=== PATIENT | female | born 1965 | race Caucasian/White ===

== ENCOUNTER 2017-08-24 15:30 | Emergency (ER) | payer OTHER, SELFPAY ==
[2017-08-24 15:31] VITALS: BP 122/80; PULSE 80; RESP 14; TEMP 37; O2SAT 98; BMI 25.0
--- NOTE | 2017-08-24 17:14 | HMH.EDUTC ---
[facility] [place] Impression: Skin problem Disposition: Home, Self-Care Condition on Discharge: Good Additional Instructions: Call Dr Cheek or Dr Beach on Saturday for appointment and evaluation for removal of area REturn if needed If you see any redness, streaks, warmth or swelling to the area go straight to the ER Referrals: Axel Conde [Primary Care Provider] - Gary Rangel MD [Staff Physician] - Arnel Jc MD [Staff Physician] - Time of Disposition: 17:26 Medical Decision Making - Medical Records Medical records reviewed: Yes: I reviewed the patient's medical records. Vital Signs: 08/24/17 15:31 Temperature 98.6 F Temperature Source Oral Pulse Rate [Left Brachial] 80 Respiratory Rate 14 Blood Pressure [Right Arm] 122/80 Blood Pressure Mean [Right Arm] 94 Blood Pressure Source [Right Arm] Automatic Cuff Blood Pressure Position [Right Arm] Sitting 02 Sat by Pulse Oximetry 98 Oxygen Delivery Method Room Air - Marcos Inquiry Pt receiving controlled substance: No Marcos was queried for this patient: No [facility] [place] - General Stated complaint: Painful Knot on Right Pectoral Mode of Arrival: Ambulatory Source of Information: Patient Limitations: No Limitations Description of Symptoms (Recalled from Triage Doc. by RN): PATIENT HAS KNOT N HER RIGHT ARM THAT HAS BEEN THERE FOR YEARS, SEEN A MD FOR IT AND THEY ADVISED IT WAS A CYST AND NOW FOR THE PAST WEEKS IT HAS BEEN SOMEWHAT PAINFUL HEENT Symptoms (Recalled from RN notes): No Resp Symptoms (Recalled from RN notes): No Skin Symptoms (Recalled from RN notes): No MS Symptoms (Recalled from RN notes): No Functional Status (Recalled from RN notes): NA - History of Present Illness Provider Complaint: Patient states that she has had a knot on her right side between her underarm and breast that has been there for about 4 years State that recently she noticed that it looked like it may be getting a little bigger and felt more sore State that she wasnt sure if we could cut it out or if we could send her somewhere that could - Related Data Allergies Allergy/AdvReac Type Severity Reaction Status Date / Time No Known Allergies Allergy Verified 08/24/17 16:47 - Worker's Comp Is this a Worker's Comp case?: No [facility] History I have reviewed the patient's past medical history: Yes Medical History: Reports:: Diabetes Mellitus Type 2 Denies:: Cancer, Diabetes Mellitus Type 1, MRSA Amputation: No Fractures: No - *Social History Alcohol Intake: never - Psychiatric History Expresses thoughts of harming self/others: None Suicide Plan Description: No Plan ROS Obtained: Yes All systems reviewed & no additional complaints Physical Exam - General General appearance: alert, in no apparent distress - Neck Neck exam: Present: normal inspection, full ROM, trachea midline. Absent: meningismus, lymphadenopathy - Chest Chest inspection: Present: other (Raised round area on right side of chest between right breast and underarm approximately quarter sized tender to touch, no redness no streaks, mobile) - Respiratory Respiratory exam: Present: normal lung sounds bilaterally - Cardiovascular Cardiovascular exam: Present: regular rate, normal rhythm. Absent: JVD - Abdominal Exam Abdominal exam: Present: soft, normal bowel sounds. Absent: distention, tenderness, guarding - Neurological Exam Neurological exam: Present: alert, oriented X3
--- NOTE | 2017-08-24 17:18 | ED_ITS ---
[facility] [place]: Skin problem Disposition: Home, Self-Care Condition on Discharge: Good Additional Instructions: Call Dr Cheek or Dr Beach on Saturday for appointment and evaluation for removal of area REturn if needed If you see any redness, streaks, warmth or swelling to the area go straight to the ER Referrals: Axel Conde [Primary Care Provider] - Gary Rangel MD [Staff Physician] - Arnel Jc MD [Staff Physician] - Time of Disposition: 17:26 Medical Decision Making - Medical Records Medical records reviewed: Yes: I reviewed the patient's medical records. Vital Signs: 08/24/17 15:31 Temperature 98.6 F Temperature Source Oral Pulse Rate [Left Brachial] 80 Respiratory Rate 14 Blood Pressure [Right Arm] 122/80 Blood Pressure Mean [Right Arm] 94 Blood Pressure Source [Right Arm] Automatic Cuff Blood Pressure Position [Right Arm] Sitting 02 Sat by Pulse Oximetry 98 Oxygen Delivery Method Room Air - Marcos Inquiry Pt receiving controlled substance: No Marcos was queried for this patient: No [facility] [place] - General Stated complaint: Painful Knot on Right Pectoral Mode of Arrival: Ambulatory Source of Information: Patient Limitations: No Limitations Description of Symptoms (Recalled from Triage Doc. by RN): PATIENT HAS KNOT N HER RIGHT ARM THAT HAS BEEN THERE FOR YEARS, SEEN A MD FOR IT AND THEY ADVISED IT WAS A CYST AND NOW FOR THE PAST WEEKS IT HAS BEEN SOMEWHAT PAINFUL HEENT Symptoms (Recalled from RN notes): No Resp Symptoms (Recalled from RN notes): No Skin Symptoms (Recalled from RN notes): No MS Symptoms (Recalled from RN notes): No Functional Status (Recalled from RN notes): NA - History of Present Illness Provider Complaint: Patient states that she has had a knot on her right side between her underarm and breast that has been there for about 4 years State that recently she noticed that it looked like it may be getting a little bigger and felt more sore State that she wasnt sure if we could cut it out or if we could send her somewhere that could - Related Data Allergies Allergy/AdvReac Type Severity Reaction Status Date / Time No Known Allergies Allergy Verified 08/24/17 16:47 - Worker's Comp Is this a Worker's Comp case?: No [facility] History I have reviewed the patient's past medical history: Yes Medical History: Reports:: Diabetes Mellitus Type 2 Denies:: Cancer, Diabetes Mellitus Type 1, MRSA Amputation: No Fractures: No - *Social History Alcohol Intake: never - Psychiatric History Expresses thoughts of harming self/others: None Suicide Plan Description: No Plan ROS Obtained: Yes All systems reviewed & no additional complaints Physical Exam - General General appearance: alert, in no apparent distress - Neck Neck exam: Present: normal inspection, full ROM, trachea midline. Absent: meningismus, lymphadenopathy - Chest Chest inspection: Present: other (Raised round area on right side of chest between right breast and underarm approximately quarter sized tender to touch, no redness no streaks, mobile) - Respiratory Respiratory exam: Present: normal lung sounds bilaterally - Cardiovascular Cardiovascular exam: Present: regular rate, normal rhythm. Absent: JVD - Abdominal Exam Abdominal exam: Present: soft, normal bowel sounds. Absent: distention, tenderness, guarding
[2017-08-24 17:39] VITALS: BP 112/70; PULSE 89; RESP 16; TEMP 36.9; O2SAT 98
== END 2017-08-24 17:39 | disposition home or self-care (01) ==
PROVIDERS: Emergency Provider Nurse Practitioner; Family Provider Family Medicine; PCP Family Medicine
DX: R22.9 Localized swelling, mass and lump, unspecified (principal); E11.9 Type 2 diabetes mellitus without complications
CPT/HCPCS: 99201

== ENCOUNTER → 2017-09-03 10:09 | Outpatient (CLI) | payer OTHER, SELFPAY ==
[2017-09-03 10:21] LABS: Basophils # 0.1 K/mm3 (0-0.2); Basophils % 0.8 % (0.1-2.0); Eosinophils # 0.2 K/mm3 (0.0-0.4); Eosinophils % 2.7 % (0.1-12.0); Hematocrit 37.6 % (37.0-47.0); Hemoglobin 12.2 g/dL (12.2-16.2); Lymphocytes # 1.7 K/mm3 (0.7-4.5); Lymphocytes % 23.9 K/mm3 (10-50); Mean Corpuscular HGB Conc 32.5 g/dL (31.8-35.4); Mean Corpuscular Hemoglobin 26.8 pg (27.0-31.2); Mean Corpuscular Volume 82.5 fl (81-99); Mean Platelet Volume 7.2 fl (7.4-10.4); Monocytes # 0.4 K/mm3 (0.1-1.0); Monocytes % 5.5 % (1.7-9.3); Neutrophils # 4.8 K/mm3 (1.8-7.8); Neutrophils % 67.1 % (37.0-80.0); Platelet Count 559 K/mm3 (142-424); Red Blood Count 4.56 M/mm3 (4.20-5.40); Red Cell Distribution Width 13.7 % (11.5-17.5); White Blood Count 7.2 K/mm3 (4.8-10.8)
[2017-09-03 11:18] LABS: Anion Gap 11.6 mEq/L (5-15); Blood Urea Nitrogen 18 mg/dL (7-18); Carbon Dioxide 28 mmol/L (21.0-32.0); Chloride 102 mmol/L (98-107); Creatinine,Serum 0.63 mg/dL (0.55-1.02); Estimated Glomerular Filt Rate 100 ml/min (>60); GFR (African American) 121 ML/MIN (>60); Glucose 339 mg/dL (74-106); Potassium 4.6 mmoL/L (3.5-5.1); Sodium 137 mmol/L (136-145)
== END ==
PROVIDERS: PCP Family Medicine; Visit Provider Surgery
DX: L72.9 Follicular cyst of the skin and subcutaneous tissue, unspecified (principal)
CPT/HCPCS: 36415; 80048; 85025; 93005

== ENCOUNTER 2017-09-13 08:05 | Day surgery (SDC) | payer OTHER, SELFPAY ==
[2017-09-03 10:35] VITALS: BMI 26.2
[2017-09-13] VITALS (9 sets, daily range): BP systolic 113–138; BP diastolic 66–75; PULSE 76–95; RESP 12–18; TEMP 36.2–36.7; O2SAT 96–98
--- NOTE | 2017-09-13 08:40 | P.PN_ITS ---
[facility] Anesthesia Checklist - Patient Identification Patient Identification: Arm Band, Verbal (Name & ) - Structural Data Admitted From: Home Planned Operative Procedure/s: excision chest lession Consent for Planned Operative Procedure(s) Verified: Yes Verified Documents: Surgical Consent - NPO Status Verified Time NPO: 00:00 - Chart Verification Results Verified: CBC, BMP - Additional verifications Patient : No Anesthesia Reactions: No Hx Blood Transfusions: No Blood Transfusion Reaction: No Cephalosporin Allergy: No Previous Colonoscopy: No - Cardiovascular Assessment Heart Sounds: S1 & S2 Pulse Strength: Baseline Pulse Rhythm: Regular Peripheral Edema: No - Airway Assessment C-Spine Mobility Assessed: Yes TMJ Mobility Assessed: Yes Dentition: Good Dentition - Neurological Assessment Level of Consciousness: Awake, Alert, Appropriate Hx Seizures: No Numbness or tingling in extremities: No - Anesthesia Plan Anesthesia Risk discussed: Yes ASA Class: II Anesthesia Type: MAC [facility] Anesthesia HX I have reviewed the patient's past medical history: Yes Medical History: Reports:: Diabetes Mellitus Type 2 Denies:: Cancer, MRSA Other Surgeries: Yes: , Tubal Ligation Amputation: No Fractures: No *Family Hx:: No significant family history, Cancer, Coronary Artery Disease, Diabetes, Hyperlipidemia, Hypertension, Kidney Disease, Stroke
[2017-09-13 08:51] LABS: Urine Pregnancy, HCG Qual. Negative (Negative)
[2017-09-13 09:17] LABS: POC Glucose,Bedside 231 mg/dL
--- NOTE | 2017-09-13 10:41 | HMH.OPNOTE ---
Date of procedure: 09/13/17 Pre-op Diagnosis:: Right chest/breast cyst (2 cm) Post-op diagnosis:: same Procedure performed:: Excision 2 cm right chest/breast cyst Surgeon:: Gary Rangel MD MACHINIST OUTSIDE:: Bacilio Brewer Anesthesia: LMA Estimated blood loss (mL): 5 Operative findings:: Lesion excised in toto and passed off for pathologic evaluation Operative note:: After informed consent was obtained, the patient was taken to the operating room and placed in the supine position. General anesthesia with laryngeal mask airway was achieved. Her right chest/breast/axilla was prepped and draped in a sterile fashion. After infiltration with local anesthetic an elliptical incision was made around the lesion. The lesion was excised in toto and passed off for pathologic evaluation. Electrocautery utilized to achieve hemostasis. Skin was closed with 6-0 nylon. Dressings were applied and the patient was transferred to recovery in stable condition. Pathology: other (Right chest/breast cyst) Condition: stable Disposition: PACU Complications:: No immediate
--- NOTE | 2017-09-13 10:52 | P.PN_ITS ---
[facility] Anesthesia Record Part II Discharge Time: 11:20 Destination: [facility] PAC[facility] nurse assessment reviewed?: Yes Patient Condition:: Good Anesthesia Complications:: None
--- NOTE | 2017-09-13 10:52 | P.PN_ITS ---
[facility] Anesthesia Record Part I Intake, IV Amount: 1,000 Estimated blood loss (mL): 10 Urine output (mL): 0 Blood Pressure: 138/75 SaO2: 96 Pulse Rate: 95 Respiratory Rate: 12 Temperature: 97.4 F Patient is:: Awake, Stable Stable to PACU at:: 11:50
--- NOTE | 2017-09-13 10:52 | HMH.ANESII ---
[facility] Anesthesia Record Part II Discharge Time: 11:20 Destination: [facility] PACU nurse assessment reviewed?: Yes Patient Condition:: Good Anesthesia Complications:: None
[2017-09-13 10:59] LABS: POC Glucose,Bedside 197 mg/dL
--- NOTE | 2017-09-13 11:04 | PC.NURSE ---
1050-Report received from AYANA Loyola & LANDON Rogers.
--- NOTE | 2017-09-13 11:07 | PC.NURSE ---
FSBS checked with results of 197 Pt eating ice chips w/out difficulty
--- NOTE | 2017-09-13 13:18 | PC.NURSE ---
1118-Detailed report called to AYANA Cervantes. Pt continues to eat ice chips w/out difficulty. 1120-Pt transported to post op via stretcher w/rails up and left in care of AYANA Poe. Detailed bedside report given to AYANA Poe. Pt's bed locked in lowest position. VSS. Pt stable.
== END 2017-09-13 12:10 | disposition home or self-care (01) ==
LOC: OR 08:06
PROVIDERS: Family Provider Family Medicine; PCP Family Medicine; Visit Provider Surgery
PROC: (CPT 11402; principal; 2017-09-13 10:15)
DX: D48.5 Neoplasm of uncertain behavior of skin (principal)
CPT/HCPCS: 11402; 81025; 82962; 96374; J2405

== ENCOUNTER → 2017-10-16 12:48 | Outpatient (CLI) | payer OTHER, SELFPAY ==
--- NOTE | 2017-10-16 13:01 | MM_ITS ---
MM Dig mamm BI DX w/CAD, US breast RT complete COMPARISON: None available. Patient gives history of having older mammograms performed at an outside is patient which are not available at the time of the reading. INDICATION: Positive right breast biopsy showing malignancy ORDERING PHYSICIAN: Gary Rangel MD PATIENT AGE: 52 years TECHNIQUE: Standard images performed with bilateral spot compression views and right breast ultrasound FINDINGS: There is dense fibroglandular tissue decreased sensitivity of mammography. Asymmetric density is present in the subcutaneous region and upper outer aspect of the right breast consistent with postsurgical changes. No discrete mass is evident. No malignant appearing mass or malignant appearing microcalcification. Asymmetric density is present in the central aspect of the right breast as seen on the MLO view. There is some ductal ectasia in this region on the mammogram. This is probably benign. Asymmetric density is present in the retroareolar region on the left and in the central aspect of the left breast. These areas do appear to compress out as fibroglandular tissue. Right breast ultrasound: Ductal ectasia is present in the retroareolar region and may correspond to the nodular density as seen on the mammogram. IMPRESSION: No convincing evidence of malignancy. Probably benign findings right breast. BI-RADS Category: 3 Benign Finding Short Term Follow-up RECOMMENDED FOLLOW-UP: 6M - 6 MONTH FOLLOW-UP Recommend 6 month mammographic follow-up on the right to confirm stable area of nodularity in the retroareolar region (A letter has been sent to the patient regarding results of the study.)
== END ==
PROVIDERS: Family Provider Family Medicine; PCP Family Medicine; Visit Provider Surgery
DX: C44.99 Other specified malignant neoplasm of skin, unspecified (principal)
CPT/HCPCS: 76641; 77066

== ENCOUNTER → 2017-10-22 10:58 | Outpatient (CLI) | payer OTHER, SELFPAY ==
[2017-10-22 13:03] LABS: Blood Urea Nitrogen 23 mg/dL (7-18); Creatinine,Serum 0.67 mg/dL (0.55-1.02); Estimated Glomerular Filt Rate 93 ml/min (>60); GFR (African American) 113 ML/MIN (>60)
== END ==
PROVIDERS: Visit Provider Surgery
DX: C44.99 Other specified malignant neoplasm of skin, unspecified (principal)
CPT/HCPCS: 36415; 82565; 84520

== ENCOUNTER → 2017-10-25 12:21 | Outpatient (CLI) | payer OTHER, SELFPAY ==
--- NOTE | 2017-10-25 12:23 | CT_ITS ---
CT chest w con HISTORY: ITS.REASON: MALIGNANT ECCRINE SPIRADENOCARCINOMA/ RT AXILLAR ORDERING PHYSICIAN: Gary Rangel MD PATIENT AGE: 52 years TECHNIQUE: Axial images obtained following the administration of 75 mL of Isovue 370 . Sagittal, and coronal reformatted images are also generated and reviewed. All CT scans at the facility use one or more dose reduction, viz: automated exposure control; ma/kV adjustment per patient size (including targeted exams where dose is matched to indication; i.e. head); or iterative reconstruction technique. COMPARISON: None FINDINGS: There is slight increased density within the mediastinum and may be related to residual findings tissue. There is minimal thickening of the pericardium. Normal heart size. No mediastinal or hilar mass or adenopathy. Postsurgical changes are present involving the right upper chest laterally at the axillary region. No axillary adenopathy. No evidence of aortic aneurysm central pulmonary embolus The lungs are clear. No suspicious nodules or infiltrates or effusions. No acute bony anomalies. No bony destructive process. Upper abdominal images are unremarkable. IMPRESSION: 1. Postsurgical changes of the right axillary region of the chest wall. 2. Otherwise negative CT chest. No evidence of metastatic disease
--- NOTE | 2017-10-25 12:23 | CT_ITS ---
CT soft tissue neck w con INDICATION: ITS.REASON: MALIGNANT ECCRINE SPIRADENOCARCINOMA/ RT AXILLAR ORDERING PHYSICIAN: Gary Rangel MD PATIENT AGE: 52 years COMPARISON: None TECHNIQUE: Axial images are obtained with 50 mL's of Isovue-370 . Sagittal and coronal reformatted images are reviewed as well. All CT scans at the facility use one or more dose reduction, viz: automated exposure control; ma/kV adjustment per patient size (including targeted exams where dose is matched to indication; i.e. head); or iterative reconstruction technique. FINDINGS: The there are scattered small nodes in both sides of the neck. No enlarged lymph nodes are apparent. The nasopharynx, epiglottis, vocal folds, and salivary glands have an unremarkable appearance. Thyroid gland is slightly bulky on the right but no obvious nodules evident. Unremarkable. Orbits. No sinus air-fluid level. Small retention cyst is present in the floor the right maxillary sinus at 8 mm. The lung apices are clear. IMPRESSION: Essentially negative CT scan of the neck. No obvious mass or adenopathy. IMPRESSION:
== END ==
PROVIDERS: Family Provider Family Medicine; PCP Family Medicine; Visit Provider Surgery
DX: C44.99 Other specified malignant neoplasm of skin, unspecified (principal)
CPT/HCPCS: 70491; 71260; Q9967

== ENCOUNTER → 2018-02-11 08:39 | Outpatient (CLI) | payer OTHER, SELFPAY ==
--- NOTE | 2018-02-11 09:30 | US_ITS ---
US abdomen limited History:Right upper quadrant pain Ordering Physician:Axel Conde Patient Age: 52 years Comparison:None Findings: Pancreas:Unremarkable. No obvious mass or abnormal fluid collection. No ductal dilatation Liver:No focal liver lesions demonstrated. Homogeneous echogenicity. No intrahepatic biliary ductal dilatation evident Right Kidney:Unremarkable. Normal size and echogenicity. No hydronephrosis Gallbladder:No gallstones, gallbladder wall thickening, pericholecystic fluid, or biliary dilatation. Impression:Negative gallbladder/right upper quadrant ultrasound
== END ==
PROVIDERS: Family Provider Family Medicine; PCP Family Medicine; Visit Provider Family Medicine
DX: R10.11 Right upper quadrant pain (principal)
CPT/HCPCS: 76705

== ENCOUNTER 2018-08-11 16:32 | Observation (INO) ==
[2018-08-11 17:41] LABS: Microscopic, Urine URINE MICROSCOPIC (MICROSCOPIC)
[2018-08-11 17:43] LABS: Appearance,Urine SL CLOUDY (Clear); Blood, Urine 1+ (Negative); Color,Urine YELLOW (Yellow); Glucose,Urine (UA) 3+ (Negative); Ketones,Urine 3+ (Negative); Leukocyte Esterase,Urine Negative (Negative); Protein,Urine 1+ (Negative); Specific Gravity, Urine >= 1.030 (1.005-1.030); Urobilinogen,Urine 0.2 EU/dl (0.2)
[2018-08-11 17:45] LABS: Bilirubin,Urine 3+ (Negative)
[2018-08-11 17:54] LABS: Bacteria,Urine 2+ /lpf; WBC,Urine 20-50 #/hpf (0-3)
[2018-08-11 18:16] LABS: Basophils # 0.1 K/mm3 (0-0.2); Basophils % 0.6 % (0.1-2.0); Eosinophils % 0.3 % (0.1-12.0); Hematocrit 47.8 % (37.0-47.0); Hemoglobin 15.5 g/dL (12.2-16.2); Lymphocytes # 1.3 K/mm3 (0.7-4.5); Lymphocytes % 10.3 % (10-50); Mean Corpuscular HGB Conc 32.4 g/dL (31.8-35.4); Mean Corpuscular Hemoglobin 28.1 pg (27.0-31.2); Mean Corpuscular Volume 86.8 fl (81-99); Mean Platelet Volume 7.5 fl (7.4-10.4); Monocytes # 0.5 K/mm3 (0.1-1.0); Neutrophils # 10.2 K/mm3 (1.8-7.8); Neutrophils % 84.6 % (37.0-80.0); Platelet Count 536 K/mm3 (142-424); Red Blood Count 5.51 M/mm3 (4.20-5.40); Red Cell Distribution Width 13.3 % (11.5-17.5)
[2018-08-11 19:54] LABS: Anion Gap 26.9 mEq/L (5-15); Calcium 9.6 mg/dL (8.5-10.1); Potassium 3.9 mmoL/L (3.5-5.1)
[2018-08-11 20:00] LABS: Albumin Level 3.7 gm/dL (3.4-5.0); Bilirubin,Direct 0.2 mg/dL (0.0-0.2); Bilirubin,Indirect 0.6 mg/dL (0.0-0.9); Bilirubin,Total 0.8 mg/dL (0.2-1.0)
--- NOTE | 2018-08-11 21:11 | Emergency Department Note ---
ED Disposition Clinical Impression: UTI (urinary tract infection) Qualifiers: Urinary tract infection type: site unspecified Hematuria presence: without hematuria Qualified Code(s): N39.0 - Urinary tract infection, site not specified DKA (diabetic ketoacidoses) Qualifiers: Diabetes mellitus type: type 1 Diabetes mellitus complication detail: without coma Qualified Code(s): E10.10 - Type 1 diabetes mellitus with ketoacidosis without coma Disposition: Admitted As Inpatient Condition on Discharge: Good Instructions: DI for Diarrhea and Traveler's Diarrhea -- Adult, DI for Diarrhea and Traveler's Diarrhea -- Child, DI for Nausea -- Adult, DI for Nausea -- Child Referrals: Axel Conde [Primary Care Provider] - - Critical Care Critical Care Time: No Attestation: On 08/11/18, the high probability of a clinically significant, sudden or life threatening deterioration of the following system(s) required my full and direct attention, intervention and personal management. The time I documented below is in addition to time spent performing reported procedures but includes the following listed in this critical care notation. Medical Decision Making - Medical Records Medical records reviewed: Yes: I reviewed the patient's medical records. - Marcos Inquiry Pt receiving controlled substance: No Vital Signs: 08/11/18 17:03 Temperature 98.7 F Temperature Source Oral Pulse Rate [Right Brachial] 106 H Respiratory Rate 18 Blood Pressure [Right Arm] 112/68 Blood Pressure Mean [Right Arm] 82 Blood Pressure Source [Right Arm] Automatic Cuff Blood Pressure Position [Right Arm] Sitting 02 Sat by Pulse Oximetry 99 Oxygen Delivery Method Room Air - Lab Data Lab results reviewed: Yes: I reviewed the patient's lab results. Lab Results 08/11/18 17:20: Urine Color Yellow, Urine Appearance Sl cloudy, Urine pH 6.0, Ur Specific [place] >= 1.030, Urine Protein 1+, Urine Glucose (UA) 3+, Urine Ketones 3+, Urine Blood 1+, Urine Nitrate Negative, Urine Bilirubin 3+ A, Urine Urobilinogen 0.2, Ur Leukocyte Esterase Negative, Urine RBC 3-5, Urine WBC 20- 50, Ur Squamous Epith Cells 3-5, Urine Bacteria 2+, Hyaline Casts 5-10 08/11/18 17:37: WBC 12.0 H, RBC 5.51 H, Hgb 15.5, Hct 47.8 H, MCV 86.8, MCH 28.1, MCHC 32.4, RDW 13.3, Plt Count 536 H, MPV 7.5, Neut % (Auto) 84.6 H, Lymph % (Auto) 10.3, [place] % (Auto) 4.0, Eos % (Auto) 0.3, Baso % (Auto) 0.6, Neut # (Auto) 10.2 H, Lymph # (Auto) 1.3, [place] # (Auto) 0.5, Eos # (Auto) 0.0, Baso # (Auto) 0.1 08/11/18 21:35: Acetone Level Small 08/11/18 : Sodium 139, Potassium 3.9, Chloride 100, Carbon Dioxide 16 L, Anion Gap 26.9 H, BUN 22 H, Creatinine 0.91, Estimated Creat Clear 68, Estimated GFR 65, Est GFR ( Amer) 79, Glucose 241 H, Calcium 9.6, Amylase 312 H* 08/11/18 : Total Bilirubin 0.8, Direct Bilirubin 0.2, Indirect Bilirubin 0.6, AST 12 L, ALT 27, Alkaline Phosphatase 278 H, Total Protein 8.0, Albumin 3.7, Li pase 141 Result diagrams: 08/11/18 17:37 08/11/18 Unknown Orders (Tests/Meds): ED MEDICATIONS Generic Name Dose Route Start Last Admin Trade Name Freq PRN Reason Stop Dose Admin Sodium Chloride 1,000 mls @ 999 mls/hr 08/11/18 17:45 08/11/18 17:38 Sod Chlor 0.9% 1000ml Bag IV 08/11/18 18:45 999 mls/hr .Q1H1M CARLOS Administration Ceftriaxone Sodium 1 gm/ 50 mls @ 100 mls/hr 08/11/18 22:30 Sodium Chloride IV 08/25/18 22:29 Q24H CARLOS Protocol Sodium Chloride 10 ml 08/11/18 17:13 Saline Flush 10ml Syringe IV 09/10/18 17:12 NEEDED PRN Maintain IV Site Discontinued Medications Generic Name Dose Route Start Last Admin Trade Name Freq PRN Reason Stop Dose Admin Sodium Chloride 500 mls @ 999 mls/hr 08/11/18 17:15 08/11/18 19:14 Sod Chlor 0.9% 1000ml Bag IV 08/11/18 17:45 Not Given .Q31M CARLOS Insulin Human Regular 8 unit 08/11/18 22:27 Humulin R Insulin 100 Units/Ml 10ml Vial IVP 08/11/18 22:28 ONCE ONE Ondansetron HCl 4 mg 08/11/18 17:21 08/11/18 17:38 Zofran 4mg/2ml Vial IV 08/11/18 17:22 4 mg ONCE ONE Administration ORDERS Category Date Time Status Lactic Acid Stat Lab 08/11/18 20:55 Received Urinalysis and Microscopic Stat Lab 08/11/18 17:20 Ordered Blood Culture Stat Micro 08/11/18 20:55 Received Urine Culture Stat Micro 08/11/18 17:20 Received - Physician Consults Physician Consulted: sound Reason -: Admission Nausea/Vomiting/Diarrhea HPI - General Chief complaint: Nausea/Vomiting/Diarrhea Stated complaint: Vomiting; Dizzy; Weak; Diabetic Time Seen by Provider: 08/11/18 21:10 Mode of Arrival: Family Vehicle Source of Information: Patient, Spouse, Medical Record Limitations: No Limitations Description of Symptoms (Recalled from ER Triage Doc. by RN): C/O VOMITING,DIZZY,SHAKY AND LOW BACK PAIN X 2 DAYS. IS A DIABETIC, DENIES URINARY C/O - History of Present Illness HPI Narrative: pt with known diabetes and presents for eval as she has been unable to retain fluids with vomiting but no abd pain or diarrhea - pt reports sx over the last few days MD complaint: nausea, vomiting Onset (ago): day(s) Associated Abdominal Pain: No Severity: moderate Associated symptoms: nausea/vomiting - Related Data Home Medications Medication Instructions Recorded Confirmed Metformin HCl [Metformin 500mg 500 mg PO BID 09/03/17 08/11/18 Tablet] insulin degludec (U-100) 100 30 unit SUB-Q QDAY 09/03/17 08/11/18 unit/mL (3 mL) subcutaneous pen insulin lispro (U- 100) 100 16 unit SUB-Q TID 09/03/17 08/11/18 unit/mL subcutaneous cartridge Ferrous Sulfate [Iron] 325 mg PO DAILY 08/11/18 08/11/18 Allergies Allergy/AdvReac Type Severity Reaction Status Date / Time No Known Allergies Allergy Verified 09/24/17 10:29 [facility] History - Hepatitis A Screen Drug use history?: No High risk sexual behaviors?: No History of sexually transmitted infection?: No Currently employed?: No Childcare worker?: No Do you have indoor plumbing?: Yes Do you have electricity?: Yes Attestation statement:: This patient has been screened for Hepatitis A risk factors. I have reviewed the patient's past medical history: Yes Medical History: Reports:: Diabetes Mellitus Type 2 Denies:: Cancer, Diabetes Mellitus Type 1, MRSA, Seizures Other Medical History: Denies: Blood Transfusion Reaction Other Surgeries: Yes: , Tubal Ligation Amputation: No Fractures: No - Social History Smoking Status: Never smoker Tobacco Type: cigarettes Alcohol Intake: never Alcohol Intake Frequency:: other Substance Use Type: denies use - Psychiatric History Expresses thoughts of harming self/others: None Suicide Plan Description: No Plan Family Hx:: Cancer, Coronary Artery Disease, Diabetes, Hyperlipidemia, Hypertension, Kidney Disease, Stroke ROS Obtained: Yes All systems reviewed & no additional complaints - Constitutional Constitutional: Denies fever(s), Reports malaise - Eyes Eyes: Denies eye discharge - ENT Ears, Nose, Mouth, and Throat: Denies sore throat - Cardiovascular Cardiovascular: Denies chest pain - Respiratory Respiratory: No cough - Gastrointestinal Gastrointestingal: Reports: nausea, vomiting. Denies: abdominal pain, diarrhea - Genitourinary Female Genitourinary: Denies dysuria, Denies urinary urgency, Denies vaginal discharge - Musculoskeletal Musculoskeletal: Denies joint pain, Denies joint swelling, Denies limited range of motion, Denies neck pain - Integumentary/Breasts Skin/Breast: Denies rash - Neurologic Neurologic: Denies headache(s), Denies seizure-like activity Physical Exam - General General appearance: alert, in no apparent distress - Head Head exam: atraumatic - Eye Eye exam: Present: PERRL, EOMI. Absent: scleral icterus - ENT ENT exam: Present: mucous membranes dry - Neck Neck exam: Present: trachea midline - Respiratory Respiratory exam: Absent: respiratory distress - Cardiovascular Cardiovascular exam: Present: regular rate, systolic murmur - Abdominal Exam Abdominal exam: Present: soft. Absent: tenderness, tenderness at McBurney's Po int - Extremities Exam Extremities exam: Present: full ROM - Neurological Exam Neurological exam: Present: alert, oriented X3, CN II-XII intact - Psychiatric Psychiatric exam: Present: normal affect - Skin Skin exam: Absent: rash
--- NOTE | 2018-08-12 07:51 | Pharmacy Consult Notes ---
[facility] Pharmacy VTE Monitoring - Patient Demographics Admission date: 08/12/18 Report Date: 08/12/18 Time: 07:51 Allergies/Adverse Reactions: Patient Allergies No Known Allergies Allergy (Verified 09/24/17 10:29) Height: 1.55 m Weight: 54.885 kg Patient Problems: Current Active Problems UTI (urinary tract infection) (Acute) DKA (diabetic ketoacidoses) (Acute) - VTE Risk Labs: VTE Related Lab Results Hgb 15.5 g/dL (12.2-16.2) 08/11/18 17:37 Hct 47.8 % (37.0-47.0) H 08/11/18 17:37 Plt Count 536 K/mm3 (142-424) H 08/11/18 17:37 BUN 22 mg/dL (7-18) H 08/11/18 Unknown Creatinine 0.91 mg/dL (0.55-1.02) 08/11/18 Unknown Estimated Creat Clear 68 mL/min (50-200) 08/11/18 Unknown Was VTE Risk Assessment Performed: Yes VTE Score: 6 VTE Risk Level: Moderate Risk Clinical Trial Participant: No - Prophylaxis VTE Prophylaxis Ordered?: Yes Types of VTE Prophylaxis: TEDS Knee High
[2018-08-12 08:18] LABS: Basophils % 0.3 % (0.1-2.0); Eosinophils # 0.1 K/mm3 (0.0-0.4); Eosinophils % 0.5 % (0.1-12.0); Lymphocytes # 0.6 K/mm3 (0.7-4.5); Lymphocytes % 3.7 % (10-50); Mean Corpuscular HGB Conc 32.6 g/dL (31.8-35.4); Mean Corpuscular Hemoglobin 28.7 pg (27.0-31.2); Mean Platelet Volume 9.4 fl (7.4-10.4); Monocytes # 0.2 K/mm3 (0.1-1.0); Monocytes % 1.1 % (1.7-9.3); Neutrophils # 14.5 K/mm3 (1.8-7.8); Neutrophils % 94.4 % (37.0-80.0); Platelet Count 456 K/mm3 (142-424); Red Blood Count 4.54 M/mm3 (4.20-5.40); Red Cell Distribution Width 13.4 % (11.5-17.5); White Blood Count 15.4 K/mm3 (4.8-10.8)
[2018-08-12 08:23] LABS: Blood Urea Nitrogen 14 mg/dL (7-18); Chloride 107 mmol/L (98-107); Glucose 274 mg/dL (74-106); Potassium 4.4 mmoL/L (3.5-5.1); Sodium 143 mmol/L (136-145)
[2018-08-12 08:33] LABS: Acetone, Serum (Rapid) Moderate (None Detect)
[2018-08-12 08:37] LABS: Anion Gap 30.4 mEq/L (5-15)
[2018-08-12 08:40] LABS: Carbon Dioxide 10 mmol/L (21.0-32.0)
--- NOTE | 2018-08-12 09:21 | History & Physical Report ---
*Admission Date: 08/12/18 <Janice Payton 08/12/18 09:37> *Chief complaint: Nausea and vomiting <Janice Payton 08/12/18 09:37> *History of present illness: Ms. Hurd is a 53-year-old female with a history of diabetes mellitus and hypothyroidism who presented to the [facility] emergency room for evaluation after nausea and vomiting for 2-3 days. She states that she has been unable to retain food and liquids Although she has retained some of her medications. She denies any hematemesis. She is not having any abdominal pain. Bowels have been moving normally. She has continued to void without difficulty. With evaluation in the emergency room patient was felt to be in mild DKA and also to have a urinary tract infection. She was started on IV antibiotics and IV fluids and admitted for further evaluation and treatment. This a.m. patient continues to be nauseated. She last vomited early this a.m. Her mouth is dry. <Janice Payton 08/12/18 09:37> [facility] History Medical History: Reports:: Cancer (breast), Diabetes Mellitus Type 2, Gastroesophageal Reflux Disease(GERD) Denies:: Coronary Artery Disease, Diabetes Mellitus Type 1, MRSA, Seizures <Janice Payton 08/12/18 09:37> Have you ever received a pneumonia vaccine?: No <Janice Payton 08/12/18 09:37> Have you received a flu vaccine this season?: No <Janice Payton 08/12/18 09:37> Other Medical History: Denies: Blood Transfusion Reaction <Janice Payton 08/12/18 09:37> Laterality Cases: Right: Breast Biopsy <Janice Payton 08/12/18 09:37> Other Surgeries: Yes: , Tubal Ligation <Janice Payton 08/12/18 09:37> Amputation: No <Janice Payton 08/12/18 09:37> Fractures: No <Janice Payton 08/12/18 09:37> - *Social History Educational Level: Completed GED/General Educational Development <Janice Payton 08/12/18 09:37> Smoking Status: Never smoker <Janice Payton 08/12/18 09:37> Alcohol Intake: never <Janice Payton 08/12/18 09:37> Alcohol Intake Frequency:: other <Janice Payton 08/12/18 09:37> Substance Use Type: denies use <Janice Payton 08/12/18 09:37> Occupational Status: unemployed <Janice Payton 08/12/18 09:37> Housing: house <Janice Payton 08/12/18 09:37> Household Members: spouse <Janice Payton 08/12/18 09:37> Travel in the last 8 weeks: None <Janice Payton 08/12/18 09:37> - Psychiatric History Expresses thoughts of harming self/others: None <Janice Payton 08/12/18 09:37> Suicide Plan Description: No Plan <Janice Payton 08/12/18 09:37> *Family Hx:: Cancer, Coronary Artery Disease, Diabetes, Hyperlipidemia, Hypertension, Kidney Disease, Stroke <Janice Payton 08/12/18 09:37> Review of Systems - Constitutional Reports fever(s), Reports headache(s), Reports weakness, Denies body ache(s), Denies chills <Janice Payton 08/12/18 09:37> - ENT Reports dizziness, Reports dry mouth, Denies ear pain, Denies sore throat <Janice Payton 08/12/18 09:37> - *Cardiovascular Reports leg swelling, Denies chest pain, Denies shortness of breath <TataJanice 08/12/18 09:37> - *Respiratory Reports cough, Denies chest congestion, Denies shortness of breath <TataJanice 08/12/18 09:37> - *Gastrointestinal Reports heartburn, Reports nausea, Reports vomiting, Denies abdominal pain, Denies change in stools, Denies constipation, Denies difficulty swallowing, Denies vomiting blood, Denies black, tarry stools <TataJanice 08/12/18 09:37> - *Genitourinary Denies abnormal periods <PaytonJanice 08/12/18 09:37> - *Musculoskeletal Denies abnormal walking <PaytonJanice 08/12/18 09:37> - *Neurologic Reports dizziness, Reports headache(s), Denies seizure-like activity <Janice Payton - 08/12/18 09:37> Meds Home Medications Medication Instructions Recorded Confirmed Type Metformin HCl [Metformin 500mg 500 mg PO BID 09/03/17 08/12/18 History Tablet] insulin degludec (U-100) 100 30 unit SUB-Q DAILY 09/03/17 08/12/18 History unit/mL (3 mL) subcutaneous pen insulin lispro (U- 100) 100 16 unit SUB-Q TID 09/03/17 08/12/18 History unit/mL subcutaneous cartridge Ferrous Sulfate [Iron] 325 mg PO DAILY 08/11/18 08/12/18 History Gabapentin [Gabapentin 100mg Cap] 100 mg PO TID 08/12/18 08/12/18 History <TarikMarilee - 08/12/18 11:24> Allergies Allergy/AdvReac Type Severity Reaction Status Date / Time No Known Allergies Allergy Verified 09/24/17 10:29 <Marilee Montanez - 08/12/18 11:24> Exam Vital signs and Labs for Last 24 Hours: Temp Pulse Resp BP Pulse Ox 99 F 104 H 20 129/68 99 08/12/18 10:26 08/12/18 10:26 08/12/18 10:26 08/12/18 10:26 08/12/18 10:26 Laboratory Results - last 24 hr 08/11/18 17:20: Urine Color Yellow, Urine Appearance Sl cloudy, Urine pH 6.0, Ur Specific Brandon >= 1.030, Urine Protein 1+, Urine Glucose (UA) 3+, Urine Ketones 3+, Urine Blood 1+, Urine Nitrate Negative, Urine Bilirubin 3+ A, Urine Urobilinogen 0.2, Ur Leukocyte Esterase Negative, Urine RBC 3-5, Urine WBC 20- 50, Ur Squamous Epith Cells 3-5, Urine Bacteria 2+, Hyaline Casts 5-10 08/11/18 17:37: WBC 12.0 H, RBC 5.51 H, Hgb 15.5, Hct 47.8 H, MCV 86.8, MCH 28.1, MCHC 32.4, RDW 13.3, Plt Count 536 H, MPV 7.5, Neut % (Auto) 84.6 H, Lymph % (Auto) 10.3, Villalba % (Auto) 4.0, Eos % (Auto) 0.3, Baso % (Auto) 0.6, Neut # (Auto) 10.2 H, Lymph # (Auto) 1.3, Villalba # (Auto) 0.5, Eos # (Auto) 0.0, Baso # (Auto) 0.1 08/11/18 19:33: Troponin I < 0.02 08/11/18 20:55: Lactate 1.3 08/11/18 21:35: Acetone Level Small 08/11/18 23:31: POC Glucose 169 H 08/11/18 : Sodium 139, Potassium 3.9, Chloride 100, Carbon Dioxide 16 L, Anion Gap 26.9 H, BUN 22 H, Creatinine 0.91, Estimated Creat Clear 68, Estimated GFR 65, Est GFR ( Amer) 79, Glucose 241 H, Calcium 9.6, Amylase 312 H* 08/11/18 : Total Bilirubin 0.8, Direct Bilirubin 0.2, Indirect Bilirubin 0.6, AST 12 L, ALT 27, Alkaline Phosphatase 278 H, Total Protein 8.0, Albumin 3.7, Lipase 141 08/12/18 06:00: POC Glucose 258 H 08/12/18 07:01: WBC 15.4 H D, RBC 4.54, Hgb 13.0 D, Hct 40.0, MCV 88.0, MCH 28.7, MCHC 32.6, RDW 13.4, Plt Count 456 H, MPV 9.4, Neut % (Auto) 94.4 H, Lymph % (Auto) 3.7 L, Villalba % (Auto) 1.1 L, Eos % (Auto) 0.5, Baso % (Auto) 0.3, Neut # (Auto) 14.5 H, Lymph # (Auto) 0.6 L, Villalba # (Auto) 0.2, Eos # (Auto) 0.1, Baso # (Auto) 0.0, Total Counted 100, Neutrophils % (Manual) 95 H, Band Neutrophils % 1.0, Lymphocytes % (Manual) 3 L, Monocytes % (Manual) 1 L, Platelet Estimate Slight increase, RBC Morphology Normal 08/12/18 07:01: Sodium 143, Potassium 4.4, Chloride 107, Carbon Dioxide 10 L D, Anion Gap 30.4 H, BUN 14 D, Creatinine 0.74, Estimated Creat Clear 78, Estimated GFR 83, Est GFR ( Amer) 100 D, Glucose 274 H, Calcium 9.0, Magnesium 1.4, Acetone Level Moderate 08/12/18 10:04: POC Glucose 197 H 08/12/18 10:59: POC Glucose 215 H <Sound,Marilee - 08/12/18 11:24> Temp Pulse Resp BP Pulse Ox 97.7 F 107 H 18 113/60 100 08/12/18 08:00 08/12/18 08:00 08/12/18 08:00 08/12/18 08:00 08/12/18 08:00 Laboratory Results - last 24 hr 08/11/18 17:20: Urine Color Yellow, Urine Appearance Sl cloudy, Urine pH 6.0, Ur Specific Brandon >= 1.030, Urine Protein 1+, Urine Glucose (UA) 3+, Urine Ketones 3+, Urine Blood 1+, Urine Nitrate Negative, Urine Bilirubin 3+ A, Urine Urobilinogen 0.2, Ur Leukocyte Esterase Negative, Urine RBC 3-5, Urine WBC 20- 50, Ur Squamous Epith Cells 3-5, Urine Bacteria 2+, Hyaline Casts 5-10 08/11/18 17:37: WBC 12.0 H, RBC 5.51 H, Hgb 15.5, Hct 47.8 H, MCV 86.8, MCH 28.1, MCHC 32.4, RDW 13.3, Plt Count 536 H, MPV 7.5, Neut % (Auto) 84.6 H, Lymph % (Auto) 10.3, Villalba % (Auto) 4.0, Eos % (Auto) 0.3, Baso % (Auto) 0.6, Neut # (Auto) 10.2 H, Lymph # (Auto) 1.3, Villalba # (Auto) 0.5, Eos # (Auto) 0.0, Baso # (Auto) 0.1 08/11/18 19:33: Troponin I < 0.02 08/11/18 20:55: Lactate 1.3 08/11/18 21:35: Acetone Level Small 08/11/18 23:31: POC Glucose 169 H 08/11/18 : Sodium 139, Potassium 3.9, Chloride 100, Carbon Dioxide 16 L, Anion Gap 26.9 H, BUN 22 H, Creatinine 0.91, Estimated Creat Clear 68, Estimated GFR 65, Est GFR ( Amer) 79, Glucose 241 H, Calcium 9.6, Amylase 312 H* 08/11/18 : Total Bilirubin 0.8, Direct Bilirubin 0.2, Indirect Bilirubin 0.6, AST 12 L, ALT 27, Alkaline Phosphatase 278 H, Total Protein 8.0, Albumin 3.7, Lipase 141 08/12/18 06:00: POC Glucose 258 H 08/12/18 07:01: WBC 15.4 H D, RBC 4.54, Hgb 13.0 D, Hct 40.0, MCV 88.0, MCH 28.7, MCHC 32.6, RDW 13.4, Plt Count 456 H, MPV 9.4, Neut % (Auto) 94.4 H, Lymph % (Auto) 3.7 L, Villalba % (Auto) 1.1 L, Eos % (Auto) 0.5, Baso % (Auto) 0.3, Neut # (Auto) 14.5 H, Lymph # (Auto) 0.6 L, Villalba # (Auto) 0.2, Eos # (Auto) 0.1, Baso # (Auto) 0.0 08/12/18 07:01: Sodium 143, Potassium 4.4, Chloride 107, Carbon Dioxide 10 L D, Anion Gap 30.4 H, BUN 14 D, Creatinine 0.74, Estimated Creat Clear 78, Estimated GFR 83, Est GFR ( Amer) 100 D, Glucose 274 H, Calcium 9.0, Ma gnesium 1.4, Acetone Level Moderate <Janice Payton - 08/12/18 09:37> I & O for Last 24 hours: Intake & Output 08/09/18 08/10/18 08/11/18 08/12/18 11:59 11:59 11:59 11:59 Intake Total 1999 Balance 1999 Weight 121 lb <Marilee Montanez - 08/12/18 11:24> Intake & Output 08/09/18 08/10/18 08/11/18 08/12/18 11:59 11:59 11:59 11:59 Intake Total 1999 Balance 1999 Weight 121 lb <Janice Payton 08/12/18 09:37> Microbiology Reports for the Last 24 Hours: Microbiology 08/11/18 17:20 Urine,Clean Catch Urine Culture - Preliminary <Marilee Montanez - 08/12/18 11:24> Microbiology 08/11/18 17:20 Urine,Clean Catch Urine Culture - Preliminary <Janice Payton - 08/12/18 09:37> Radiology Reports for the Last 24 Hours: 08/13/17 CT of the abdomen . IMPRESSION:... No prominent findings. Minor observations.... 1.. Slight increased fluid throughout the small bowel with areas of borderline dilatation. Suspect reflects mild enteritis. ...Generous solid stool throughout the rectosigmoid & left left colon.No diarrhea evidence 2. . Fluid throughout distal esophagus likely reflecting GE reflux. Upper normal wall thickness distal esophagus and borderline wall thickening stomach 3.. Wall thickening at the urinary bladder. May reflect cystitis warrants correlation with urinalysis. 4.... prominent branching calculus involving the lower pole calyces, left kidney.:. No urinary tract obstruction. 5. Appendix normal. <Janice Payton 08/12/18 09:37> - Constitutional no acute distress <Kizzy Paytonformerly [facility] 08/12/18 09:37> Comments: Appears comfortable <Janice Payton 08/12/18 09:37> - *Routine HEENT Exam Head: Present: normocephalic, atraumatic <Janice Payton 08/12/18 09:37> Eye: Present: PERRL. Absent: conjunctival icterus, scleral injection <Janice Payton 08/12/18 09:37> ENT: Present: mucous membranes moist, oropharynx clear, nares patent <Kizzy Paytonformerly [facility] 08/12/18 09:37> - *Routine Neck Exam Present: supple. Absent: carotid bruit, lymphadenopathy, thyromegaly, tenderness <Janice Payton 08/12/18 09:37> - *Routine Respiratory Exam Present: CTA bilaterally (Anteriorly and posteriorly) <Janice Payton 08/12/18 09:37> - *Routine Cardiovascular Exam Present: RRR <Kizzy Paytonformerly [facility] 08/12/18 09:37> - *Routine Abdominal Exam Present: soft, normoactive bowel sounds, tenderness (Right upper quadrant). Absent: distended <Janice Payton - 08/12/18 09:37> - *Routine Extremities Exam Absent: edema, calf tenderness, tenderness <Janice Payton 08/12/18 09:37> - *Routine Neurological Exam Present: alert, oriented X3 <Janice Payton 08/12/18 09:37> Assessment and Plan (1) DKA (diabetic ketoacidoses) Current visit: Yes Status: Acute Qualifiers: Diabetes mellitus type: type 1 Diabetes mellitus complication detail: without coma Qualified Code(s): E10.10 - Type 1 diabetes mellitus with ketoacidosis without coma Category: Medical Code(s): E13.10 - Other specified diabetes mellitus with ketoacidosis without coma (2) Nausea and vomiting Current visit: Yes Status: Acute Category: Medical Code(s): R11.2 - Nausea with vomiting, unspecified (3) GERD (gastroesophageal reflux disease) Current visit: Yes Status: Acute Category: Medical Code(s): K21.9 - Gastro-esophageal reflux disease without esophagitis (4) Type 2 diabetes mellitus Current visit: Yes Status: Chronic Category: Medical Code(s): E11.9 - Type 2 diabetes mellitus without complications <Marilee Montanez 08/12/18 11:24> (1) Nausea and vomiting Current visit: Yes Status: Acute Category: Medical Code(s): R11.2 - Nausea with vomiting, unspecified (2) GERD (gastroesophageal reflux disease) Current visit: Yes Status: Acute Category: Medical Code(s): K21.9 - Gastro-esophageal reflux disease without esophagitis (3) Type 2 diabetes mellitus Current visit: Yes Status: Chronic Category: Medical Code(s): E11.9 - Type 2 diabetes mellitus without complications (4) DKA (diabetic ketoacidoses) Current visit: Yes Status: Acute Qualifiers: Diabetes mellitus type: type 1 Diabetes mellitus complication detail: without coma Qualified Code(s): E10.10 - Type 1 diabetes mellitus with ketoacidosis without coma Category: Medical Code(s): E13.10 - Other specified diabetes mellitus with ketoacidosis without coma <Janice Payton - 08/12/18 09:17> - Assessment and plan all Dx Assessment and Plan for all problems:: Patient presented with DKA upon admission and somehow this was missed and was not addressed to me until this am. I started patient on DKA protocol and moved to step-down unit given her worsening anion gap and worsening symptoms. Will monitor her closely. Incident was reported to [facility] and was made aware of this situation. <Marilee Montanez - 08/12/18 11:24> We will do a right upper quadrant ultrasound. Continue with IV fluids and antibiotics. Will start on Protonix. We will try ice chips p.o. at patient request. <Janice Payton - 08/12/18 09:37>
[2018-08-12 09:30] LABS: Lymphocytes % 3 % (10-50); Monocytes % 1 % (2-9); Neutrophils % 95 % (42-76); RBC Morphology Normal; Total Cells Counted 100
[2018-08-12 14:43] LABS: Anion Gap 21.8 mEq/L (5-15); Calcium 9.1 mg/dL (8.5-10.1); Potassium 3.8 mmoL/L (3.5-5.1)
[2018-08-12 18:14] LABS: Anion Gap 21.8 mEq/L (5-15); Calcium 9.3 mg/dL (8.5-10.1); Potassium 3.8 mmoL/L (3.5-5.1)
[2018-08-12 22:38] LABS: Anion Gap 17.8 mEq/L (5-15); Calcium 9.3 mg/dL (8.5-10.1); Potassium 3.8 mmoL/L (3.5-5.1)
[2018-08-13 03:08] LABS: Anion Gap 17.6 mEq/L (5-15); Calcium 9.5 mg/dL (8.5-10.1); Potassium 3.6 mmoL/L (3.5-5.1)
[2018-08-13 06:26] LABS: Anion Gap 16.4 mEq/L (5-15); Calcium 9.3 mg/dL (8.5-10.1); Potassium 3.4 mmoL/L (3.5-5.1)
--- NOTE | 2018-08-13 08:24 | Progress Note ---
<Janice Payton - Last Filed: 08/13/18 08:33> Internal Medicine - PN: Subj Interval history: Per nursing: She continues to have nausea. She has minimal vomiting. He is not moved. Labs are gradually improving. She has a small amount of acetone this morning. She is voiding QS. Remains on insulin drip Patient states she may feel little bit better. She has less nausea. She has been totally n.p.o. She denies abdominal pain. She is breathing without problems and denies chest pain. She has been up to the bedside commode. Exam Vital signs and Labs for Last 24 Hours: Temp Pulse Resp BP Pulse Ox 98.6 F 91 H 17 149/78 H 95 08/13/18 08:14 08/13/18 08:14 08/13/18 08:14 08/13/18 08:14 08/13/18 08:14 Laboratory Results - last 24 hr 08/12/18 07:01: WBC 15.4 H D, RBC 4.54, Hgb 13.0 D, Hct 40.0, MCV 88.0, MCH 28.7, MCHC 32.6, RDW 13.4, Plt Count 456 H, MPV 9.4, Neut % (Auto) 94.4 H, Lymph % (Auto) 3.7 L, [place] % (Auto) 1.1 L, Eos % (Auto) 0.5, Baso % (Auto) 0.3, Neut # (Auto) 14.5 H, Lymph # (Auto) 0.6 L, [place] # (Auto) 0.2, Eos # (Auto) 0.1, Baso # (Auto) 0.0, Total Counted 100, Neutrophils % (Manual) 95 H, Band Neutrophils % 1.0, Lymphocytes % (Manual) 3 L, Monocytes % (Manual) 1 L, Platelet Estimate Slight increase, RBC Morphology Normal 08/12/18 07:01: Sodium 143, Potassium 4.4, Chloride 107, Carbon Dioxide 10 L D, Anion Gap 30.4 H, BUN 14 D, Creatinine 0.74, Estimated Creat Clear 78, Estimated GFR 83, Est GFR ( Amer) 100 D, Glucose 274 H, Calcium 9.0, Magnesium 1.4, Acetone Level Moderate 08/12/18 10:04: POC Glucose 197 H 08/12/18 10:59: POC Glucose 215 H 08/12/18 12:07: POC Glucose 177 H 08/12/18 13:20: POC Glucose 157 H 08/12/18 14:17: POC Glucose 140 H 08/12/18 14:28: Sodium 144, Potassium 3.8, Chloride 111 H, Carbon Dioxide 15 L D , Anion Gap 21.8 H, BUN 9 D, Creatinine 0.82, Estimated Creat Clear 70, Estimated GFR 73, Est GFR ( Amer) 89, Glucose 154 H D, Calcium 9.1 08/12/18 15:00: POC Glucose 127 H 08/12/18 16:09: POC Glucose 103 08/12/18 17:08: POC Glucose 91 08/12/18 17:56: Sodium 146 H, Potassium 3.8, Chloride 114 H, Carbon Dioxide 14 L , Anion Gap 21.8 H, BUN 8, Creatinine 0.82, Estimated Creat Clear 70, Estimated GFR 73, Est GFR ( Amer) 89, Glucose 126 H, Calcium 9.3 08/12/18 17:56: Acetone Level Small 08/12/18 18:01: POC Glucose 104 08/12/18 19:31: POC Glucose 162 H 08/12/18 20:36: POC Glucose 172 H 08/12/18 21:59: POC Glucose 188 H 08/12/18 22:26: Sodium 146 H, Potassium 3.8, Chloride 113 H, Carbon Dioxide 19 L D, Anion Gap 17.8 H, BUN 6 L, Creatinine 0.88, Estimated Creat Clear 66, Estimated GFR 68, Est GFR ( Amer) 82, Glucose 214 H D, Calcium 9.3 08/12/18 23:04: POC Glucose 201 H 08/13/18 00:03: POC Glucose 201 H 08/13/18 01:14: POC Glucose 195 H 08/13/18 02:12: POC Glucose 181 H 08/13/18 02:30: Sodium 146 H, Potassium 3.6, Chloride 113 H, Carbon Dioxide 19 L , Anion Gap 17.6 H, BUN 6 L, Creatinine 0.83, Estimated Creat Clear 69, Estimated GFR 72, Est GFR ( Amer) 88, Glucose 222 H, Calcium 9.5 08/13/18 04:20: POC Glucose 194 H 08/13/18 05:35: Sodium 148 H, Potassium 3.4 L, Chloride 113 H, Carbon Dioxide 22, Anion Gap 16.4 H, BUN 5 L, Creatinine 0.73, Estimated Creat Clear 80, Estimated GFR 84, Est GFR ( Amer) 102, Glucose 214 H, Calcium 9.3 08/13/18 05:35: Acetone Level Small 08/13/18 06:06: POC Glucose 180 H 08/13/18 08:12: POC Glucose 193 H I & O for Last 24 hours: Intake & Output 08/10/18 08/11/18 08/12/18 08/13/18 11:59 11:59 11:59 11:59 Intake Total 1999 2893 / 2893 Output Total 1200 / 1200 Balance 1999 1693 / 1693 Weight 121 lb 123 lb 2 oz Microbiology Reports for the Last 24 Hours: Microbiology 08/11/18 17:20 Urine,Clean Catch Urine Culture - Preliminary Radiology Reports for the Last 24 Hours: 08/12/2018 right upper quadrant ultrasound IMPRESSION: Negative gallbladder/right upper quadrant ultrasound 08/12/2018 chest x-ray IMPRESSION: Negative chest, no acute finding - Constitutional no acute distress Comments: Appears to feel somewhat better today. Color has improved. - *Routine Respiratory Exam Present: CTA bilaterally (Anteriorly and posteriorly) - *Routine Cardiovascular Exam Present: RRR - *Routine Abdominal Exam Present: soft, normoactive bowel sounds. Absent: tenderness, distended - *Routine Extremities Exam Absent: edema, calf tenderness - *Routine Neurological Exam Present: alert, oriented X3 Assessment and Plan (1) DKA (diabetic ketoacidoses) Current visit: Yes Status: Acute Qualifiers: Diabetes mellitus type: type 1 Diabetes mellitus complication detail: without coma Qualified Code(s): E10.10 - Type 1 diabetes mellitus with ketoacidosis without coma Category: Medical Code(s): E13.10 - Other specified diabetes mellitus with ketoacidosis without coma (2) Nausea and vomiting Current visit: Yes Status: Acute Category: Medical Code(s): R11.2 - Nausea with vomiting, unspecified (3) GERD (gastroesophageal reflux disease) Current visit: Yes Status: Acute Category: Medical Code(s): K21.9 - Gastro-esophageal reflux disease without esophagitis (4) Type 2 diabetes mellitus Current visit: Yes Status: Chronic Category: Medical Code(s): E11.9 - Type 2 diabetes mellitus without complications - Assessment and plan all Dx Assessment and Plan for all problems:: Discussed admission urine culture with lab. Light growth at present and should note today with a it is a contamination or pathogen. Urinalysis repeated today. We will continue with DKA protocol. We will try clear liquids. <Marilee Montanez - Last Filed: 08/13/18 11:35> Internal Medicine - PN: Subj *Date: 08/13/18 *Time: 11:33 Exam Vital signs and Labs for Last 24 Hours: Temp Pulse Resp BP Pulse Ox 98.6 F 88 18 153/84 H 95 08/13/18 08:14 08/13/18 10:00 08/13/18 10:00 08/13/18 10:00 08/13/18 10:00 Laboratory Results - last 24 hr 08/12/18 12:07: POC Glucose 177 H 08/12/18 13:20: POC Glucose 157 H 08/12/18 14:17: POC Glucose 140 H 08/12/18 14:28: Sodium 144, Potassium 3.8, Chloride 111 H, Carbon Dioxide 15 L D , Anion Gap 21.8 H, BUN 9 D, Creatinine 0.82, Estimated Creat Clear 70, Estimated GFR 73, Est GFR ( Amer) 89, Glucose 154 H D, Calcium 9.1 08/12/18 15:00: POC Glucose 127 H 08/12/18 16:09: POC Glucose 103 08/12/18 17:08: POC Glucose 91 08/12/18 17:56: Sodium 146 H, Potassium 3.8, Chloride 114 H, Carbon Dioxide 14 L , Anion Gap 21.8 H, BUN 8, Creatinine 0.82, Estimated Creat Clear 70, Estimated GFR 73, Est GFR ( Amer) 89, Glucose 126 H, Calcium 9.3 08/12/18 17:56: Acetone Level Small 08/12/18 18:01: POC Glucose 104 08/12/18 19:31: POC Glucose 162 H 08/12/18 20:36: POC Glucose 172 H 08/12/18 21:59: POC Glucose 188 H 08/12/18 22:26: Sodium 146 H, Potassium 3.8, Chloride 113 H, Carbon Dioxide 19 L D, Anion Gap 17.8 H, BUN 6 L, Creatinine 0.88, Estimated Creat Clear 66, Estimated GFR 68, Est GFR ( Amer) 82, Glucose 214 H D, Calcium 9.3 08/12/18 23:04: POC Glucose 201 H 08/13/18 00:03: POC Glucose 201 H 08/13/18 01:14: POC Glucose 195 H 08/13/18 02:12: POC Glucose 181 H 08/13/18 02:30: Sodium 146 H, Potassium 3.6, Chloride 113 H, Carbon Dioxide 19 L , Anion Gap 17.6 H, BUN 6 L, Creatinine 0.83, Estimated Creat Clear 69, Estimated GFR 72, Est GFR ( Amer) 88, Glucose 222 H, Calcium 9.5 08/13/18 04:20: POC Glucose 194 H 08/13/18 05:35: Sodium 148 H, Potassium 3.4 L, Chloride 113 H, Carbon Dioxide 22, Anion Gap 16.4 H, BUN 5 L, Creatinine 0.73, Estimated Creat Clear 80, Estimated GFR 84, Est GFR ( Amer) 102, Glucose 214 H, Calcium 9.3 08/13/18 05:35: Acetone Level Small 08/13/18 05:35: WBC 16.3 H, RBC 4.29, Hgb 11.9 L, Hct 37.2, MCV 86.6, MCH 27.8, MCHC 32.1, RDW 13.8, Plt Count 507 H, MPV 7.4, Neut % (Auto) 92.9 H, Lymph % (Auto) 4.0 L, [place] % (Auto) 2.8, Eos % (Auto) 0.2, Baso % (Auto) 0.1, Neut # (Auto) 15.1 H, Lymph # (Auto) 0.7, [place] # (Auto) 0.5, Eos # (Auto) 0.0, Baso # (Auto) 0.0, Total Counted 100, Neutrophils % (Manual) 93 H, Lymphocytes % (Manual) 4 L, Monocytes % (Manual) 3, Platelet Estimate Normal, RBC Morphology Normal 08/13/18 06:06: POC Glucose 180 H 08/13/18 08:12: POC Glucose 193 H 08/13/18 09:19: POC Glucose 192 H 08/13/18 10:09: POC Glucose 193 H 08/13/18 11:13: POC Glucose 201 H I & O for Last 24 hours: Intake & Output 08/10/18 08/11/18 08/12/18 08/13/18 11:59 11:59 11:59 11:59 Intake Total 1999 2893 / 2893 Output Total 1200 / 1200 Balance 1999 1693 / 1693 Weight 121 lb 123 lb 2 oz Microbiology Reports for the Last 24 Hours: Microbiology 08/11/18 17:20 Urine,Clean Catch Urine Culture - Final Multiple organisms, suggests contamination. - *Routine Neck Exam Present: supple, full ROM Assessment and Plan (1) DKA (diabetic ketoacidoses) Current visit: Yes Status: Acute Qualifiers: Diabetes mellitus type: type 1 Diabetes mellitus complication detail: without coma Qualified Code(s): E10.10 - Type 1 diabetes mellitus with ketoacidosis without coma Category: Medical Code(s): E13.10 - Other specified diabetes mellitus with ketoacidosis without coma (2) Nausea and vomiting Current visit: Yes Status: Acute Category: Medical Code(s): R11.2 - Nausea with vomiting, unspecified (3) GERD (gastroesophageal reflux disease) Current visit: Yes Status: Acute Category: Medical Code(s): K21.9 - Gastro-esophageal reflux disease without esophagitis (4) Type 2 diabetes mellitus Current visit: Yes Status: Chronic Category: Medical Code(s): E11.9 - Type 2 diabetes mellitus without complications - Assessment and plan all Dx Assessment and Plan for all problems:: will continue DKA protocol. Still on 3 units of insulin/hr. Will consider moving to regular floor once off the drip. Start clear liquid diet today. BMP q4h until gap is closed.
[2018-08-13 09:12] LABS: Basophils % 0.1 % (0.1-2.0); Eosinophils % 0.2 % (0.1-12.0); Hematocrit 37.2 % (37.0-47.0); Hemoglobin 11.9 g/dL (12.2-16.2); Lymphocytes # 0.7 K/mm3 (0.7-4.5); Mean Corpuscular HGB Conc 32.1 g/dL (31.8-35.4); Mean Corpuscular Hemoglobin 27.8 pg (27.0-31.2); Mean Corpuscular Volume 86.6 fl (81-99); Mean Platelet Volume 7.4 fl (7.4-10.4); Monocytes # 0.5 K/mm3 (0.1-1.0); Monocytes % 2.8 % (1.7-9.3); Neutrophils # 15.1 K/mm3 (1.8-7.8); Neutrophils % 92.9 % (37.0-80.0); Platelet Count 507 K/mm3 (142-424); Red Blood Count 4.29 M/mm3 (4.20-5.40); Red Cell Distribution Width 13.8 % (11.5-17.5); White Blood Count 16.3 K/mm3 (4.8-10.8)
[2018-08-13 09:31] LABS: Lymphocytes % 4 % (10-50); Monocytes % 3 % (2-9); Neutrophils % 93 % (42-76); Total Cells Counted 100
[2018-08-13 09:32] LABS: RBC Morphology Normal
[2018-08-13 14:34] LABS: Anion Gap 11.1 mEq/L (5-15); Calcium 9.1 mg/dL (8.5-10.1); Potassium 3.1 mmoL/L (3.5-5.1)
[2018-08-13 14:37] LABS: Appearance,Urine CLEAR (Clear); Bilirubin,Urine Negative (Negative); Blood, Urine TRACE-L (Negative); Color,Urine YELLOW (Yellow); Glucose,Urine (UA) 3+ (Negative); Ketones,Urine 2+ (Negative); Leukocyte Esterase,Urine Negative (Negative); Microscopic, Urine URINE MICROSCOPIC (MICROSCOPIC); Protein,Urine Negative (Negative); Specific Gravity, Urine 1.025 (1.005-1.030); Urobilinogen,Urine 0.2 EU/dl (0.2)
[2018-08-13 15:17] LABS: Bacteria,Urine Trace /lpf
[2018-08-13 18:15] LABS: Anion Gap 13.8 mEq/L (5-15)
[2018-08-13 18:18] LABS: Potassium 3.8 mmoL/L (3.5-5.1)
[2018-08-14 06:13] LABS: Basophils % 0.2 % (0.1-2.0); Eosinophils # 0.1 K/mm3 (0.0-0.4); Eosinophils % 0.7 % (0.1-12.0); Hematocrit 37.3 % (37.0-47.0); Lymphocytes # 1.2 K/mm3 (0.7-4.5); Lymphocytes % 12.8 % (10-50); Mean Corpuscular HGB Conc 32.2 g/dL (31.8-35.4); Mean Corpuscular Hemoglobin 28.1 pg (27.0-31.2); Mean Corpuscular Volume 87.4 fl (81-99); Monocytes # 0.5 K/mm3 (0.1-1.0); Monocytes % 5.2 % (1.7-9.3); Neutrophils # 7.3 K/mm3 (1.8-7.8); Neutrophils % 81.2 % (37.0-80.0); Platelet Count 391 K/mm3 (142-424); Red Blood Count 4.26 M/mm3 (4.20-5.40); Red Cell Distribution Width 13.8 % (11.5-17.5)
[2018-08-14 06:25] LABS: Anion Gap 15.7 mEq/L (5-15); Calcium 8.5 mg/dL (8.5-10.1); Potassium 3.7 mmoL/L (3.5-5.1)
--- NOTE | 2018-08-14 10:43 | Progress Note ---
Internal Medicine - PN: Subj *Date: 08/14/18 *Time: 09:30 Interval history: Patient doing lot better since yesterday. Wants to eat soft food. Exam Vital signs and Labs for Last 24 Hours: Temp Pulse Resp BP Pulse Ox 98.2 F 79 16 140/87 96 08/14/18 07:39 08/14/18 07:39 08/14/18 07:39 08/14/18 07:39 08/14/18 07:39 Laboratory Results - last 24 hr 08/13/18 07:50: Urine Color Yellow, Urine Appearance Clear, Urine pH 6.0, Ur Specific [place] 1.025, Urine Protein Negative, Urine Glucose (UA) 3+, Urine Ketones 2+, Urine Blood Trace-l, Urine Nitrate Negative, Urine Bilirubin Negative, Urine Urobilinogen 0.2, Ur Leukocyte Esterase Negative, Urine RBC None, Urine WBC None, Ur Squamous Epith Cells None, Urine Bacteria Trace 08/13/18 11:13: POC Glucose 201 H 08/13/18 12:25: POC Glucose 170 H 08/13/18 13:15: POC Glucose 159 H 08/13/18 14:05: Sodium 145, Potassium 3.1 L, Chloride 111 H, Carbon Dioxide 26, Anion Gap 11.1, BUN 2 L D, Creatinine 0.67, Estimated Creat Clear 88, Estimated GFR 93, Est GFR ( Amer) 112, Glucose 172 H, Calcium 9.1 08/13/18 14:28: POC Glucose 144 H 08/13/18 15:10: POC Glucose 142 H 08/13/18 16:06: POC Glucose 108 08/13/18 17:45: Sodium 142, Potassium 3.8 D, Chloride 109 H, Carbon Dioxide 23, Anion Gap 13.8, BUN 2 L, Creatinine 0.61, Estimated Creat Clear 96, Estimated GFR 103, Est GFR ( Amer) 125, Glucose 199 H, Calcium 9.0 08/13/18 19:37: POC Glucose 292 H 08/14/18 05:46: POC Glucose 264 H 08/14/18 05:54: Sodium 139, Potassium 3.7, Chloride 101, Carbon Dioxide 26, Anion Gap 15.7 H, BUN 2 L, Creatinine 0.58, Estimated Creat Clear 101, Estimated GFR 110, Est GFR ( Amer) 133, Glucose 288 H D, Calcium 8.5 08/14/18 05:54: WBC 9.0 D, RBC 4.26, Hgb 12.0 L, Hct 37.3, MCV 87.4, MCH 28.1, MCHC 32.2, RDW 13.8, Plt Count 391, MPV 7.0 L, Neut % (Auto) 81.2 H, Lymph % (Auto) 12.8, [place] % (Auto) 5.2, Eos % (Auto) 0.7, Baso % (Auto) 0.2, Neut # (Auto) 7.3, Lymph # (Auto) 1.2, [place] # (Auto) 0.5, Eos # (Auto) 0.1, Baso # (Auto) 0.0 I & O for Last 24 hours: Intake & Output 08/11/18 08/12/18 08/13/18 08/14/18 11:59 11:59 11:59 11:59 Intake Total 1999 2893 / 2893 3836 / 3836 Output Total 1200 / 1200 2200 / 2200 Balance 1999 1693 / 1693 1636 / 1636 Weight 121 lb 123 lb 2 oz 123 lb 3.462 oz Microbiology Reports for the Last 24 Hours: Microbiology 08/13/18 07:50 Urine,Clean Catch Urine Culture - Preliminary NO GROWTH AFTER 24 HOURS 08/11/18 20:55 Blood Blood Culture - Preliminary NO GROWTH AFTER 48 HOURS 08/11/18 21:35 Blood Blood Culture - Preliminary NO GROWTH AFTER 48 HOURS 08/11/18 17:20 Urine,Clean Catch Urine Culture - Final Multiple organisms, suggests contamination. - *Routine HEENT Exam Head: Present: normocephalic Eye: Present: EOMI ENT: Present: mucous membranes moist - *Routine Neck Exam Present: supple, full ROM - *Routine Respiratory Exam Present: CTA bilaterally - *Routine Cardiovascular Exam Present: RRR - *Routine Abdominal Exam Present: soft, normoactive bowel sounds. Absent: tenderness - *Routine Extremities Exam Absent: edema - *Routine Skin Exam Present: intact - *Routine Neurological Exam Present: alert, oriented X3 - Routine Psychiatric Exam Present: normal affect Assessment and Plan (1) DKA (diabetic ketoacidoses) Current visit: Yes Status: Acute Qualifiers: Diabetes mellitus type: type 1 Diabetes mellitus complication detail: without coma Qualified Code(s): E10.10 - Type 1 diabetes mellitus with ketoacidosis without coma Category: Medical Code(s): E13.10 - Other specified diabetes mellitus with ketoacidosis without coma (2) Nausea and vomiting Current visit: Yes Status: Acute Category: Medical Code(s): R11.2 - Nausea with vomiting, unspecified (3) GERD (gastroesophageal reflux disease) Current visit: Yes Status: Acute Category: Medical Code(s): K21.9 - Gastro-esophageal reflux disease without esophagitis (4) Type 2 diabetes mellitus Current visit: Yes Status: Chronic Category: Medical Code(s): E11.9 - Type 2 diabetes mellitus without complications - Assessment and plan all Dx Assessment and Plan for all problems:: patient doing better and off of insulin drip. will transfer to regular floor today. continue soft diet and SSI.
--- NOTE | 2018-08-15 08:55 | Progress Note ---
<Barbie Herbert - Last Filed: 08/15/18 08:52> Internal Medicine - PN: Subj *Date: 08/15/18 *Time: 08:52 Interval history: Patient states she is feeling better today. She denies any nausea, vomiting, chest pain, or shortness of breath. She states she actually slept well last night. She is tolerating a diet. Exam Vital signs and Labs for Last 24 Hours: Temp Pulse Resp BP Pulse Ox 98.7 F 110 H 16 113/76 97 08/15/18 08:00 08/15/18 08:00 08/15/18 08:00 08/15/18 08:00 08/15/18 08:00 Laboratory Results - last 24 hr 08/14/18 05:54: Hemoglobin A1c 11.2 H 08/14/18 11:52: POC Glucose 122 H 08/14/18 16:37: POC Glucose 231 H 08/14/18 21:05: POC Glucose 140 H 08/15/18 06:50: Random Glucose 50 L 08/15/18 07:03: POC Glucose 65 L 08/15/18 07:28: POC Glucose 84 I & O for Last 24 hours: Intake & Output 08/12/18 08/13/18 08/14/18 08/15/18 11:59 11:59 11:59 11:59 Intake Total 1999 2893 / 2893 3836 / 3836 960 / 960 Output Total 1200 / 1200 2200 / 2200 Balance 1999 1693 / 1693 1636 / 1636 960 / 960 Weight 121 lb 123 lb 2 oz 123 lb 3.462 oz 121 lb 2 oz Microbiology Reports for the Last 24 Hours: Microbiology 08/13/18 07:50 Urine,Clean Catch Urine Culture - Final Multiple organisms, suggests contamination. - Constitutional no acute distress - *Routine Respiratory Exam Present: CTA bilaterally - *Routine Cardiovascular Exam Present: RRR - *Routine Abdominal Exam Present: soft, normoactive bowel sounds. Absent: tenderness - *Routine Extremities Exam Absent: cyanosis, clubbing, edema Assessment and Plan (1) DKA (diabetic ketoacidoses) Current visit: Yes Status: Acute Qualifiers: Diabetes mellitus type: type 1 Diabetes mellitus complication detail: without coma Qualified Code(s): E10.10 - Type 1 diabetes mellitus with ketoacidosis without coma Category: Medical Code(s): E13.10 - Other specified diabetes mellitus with ketoacidosis without coma (2) Nausea and vomiting Current visit: Yes Status: Acute Category: Medical Code(s): R11.2 - Nausea with vomiting, unspecified (3) GERD (gastroesophageal reflux disease) Current visit: Yes Status: Acute Category: Medical Code(s): K21.9 - Gastro-esophageal reflux disease without esophagitis (4) Type 2 diabetes mellitus Current visit: Yes Status: Chronic Category: Medical Code(s): E11.9 - Type 2 diabetes mellitus without complications - Assessment and plan all Dx Assessment and Plan for all problems:: White blood cell count is normal. Glucose was actually low this morning. Urine culture showed a contaminated specimen. Will discuss further care with Dr. galindo. <Marilee Galindo - Last Filed: 08/15/18 13:17> Exam Vital signs and Labs for Last 24 Hours: Temp Pulse Resp BP Pulse Ox 98.7 F 110 H 16 113/76 97 08/15/18 08:00 08/15/18 08:00 08/15/18 08:00 08/15/18 08:00 08/15/18 08:00 Laboratory Results - last 24 hr 08/14/18 05:54: Hemoglobin A1c 11.2 H 08/14/18 16:37: POC Glucose 231 H 08/14/18 21:05: POC Glucose 140 H 08/15/18 06:44: POC Glucose 41 L* 08/15/18 06:50: Random Glucose 50 L 08/15/18 06:51: POC Glucose < 40 L* 08/15/18 07:03: POC Glucose 65 L 08/15/18 07:28: POC Glucose 84 08/15/18 11:45: POC Glucose 418 H* I & O for Last 24 hours: Intake & Output 08/13/18 08/14/18 08/15/18 08/16/18 11:59 11:59 11:59 11:59 Intake Total 2893 / 2893 3836 / 3836 960 / 960 Output Total 1200 / 1200 2200 / 2200 Balance 1693 / 1693 1636 / 1636 960 / 960 Weight 123 lb 2 oz 123 lb 3.462 oz 121 lb 2 oz Microbiology Reports for the Last 24 Hours: Microbiology 08/13/18 07:50 Urine,Clean Catch Urine Culture - Final Multiple organisms, suggests contamination. Assessment and Plan (1) DKA (diabetic ketoacidoses) Current visit: Yes Status: Acute Qualifiers: Diabetes mellitus type: type 1 Diabetes mellitus complication detail: without coma Qualified Code(s): E10.10 - Type 1 diabetes mellitus with ketoacidosis without coma Category: Medical Code(s): E13.10 - Other specified diabetes mellitus with ketoacidosis without coma (2) Nausea and vomiting Current visit: Yes Status: Acute Category: Medical Code(s): R11.2 - Nausea with vomiting, unspecified (3) GERD (gastroesophageal reflux disease) Current visit: Yes Status: Acute Category: Medical Code(s): K21.9 - Gastro-esophageal reflux disease without esophagitis (4) Type 2 diabetes mellitus Current visit: Yes Status: Chronic Category: Medical Code(s): E11.9 - Type 2 diabetes mellitus without complications - Assessment and plan all Dx Assessment and Plan for all problems:: will adjust insulin regimen and possible dc home 2-3 days.
--- NOTE | 2018-08-16 10:48 | Progress Note ---
Internal Medicine - PN: Subj *Date: 08/16/18 *Time: 10:30 Interval history: Patient is doing a lot better compared to yesterday. She mentions that she is tolerating soft diet. She is eager to try regular diet today. She mentions that her sugar always runs erratically at home. Her A1c was 11.2. Exam Vital signs and Labs for Last 24 Hours: Temp Pulse Resp BP Pulse Ox 98.1 F 98 H 16 111/65 94 L 08/16/18 07:49 08/16/18 07:49 08/16/18 07:49 08/16/18 07:49 08/16/18 07:49 Laboratory Results - last 24 hr 08/15/18 11:45: POC Glucose 418 H* 08/15/18 18:08: POC Glucose 81 08/15/18 19:56: POC Glucose 58 L 08/15/18 20:09: POC Glucose 59 L 08/15/18 20:28: POC Glucose 56 L 08/15/18 20:50: POC Glucose 58 L 08/15/18 21:07: POC Glucose 66 L 08/15/18 21:33: POC Glucose 76 08/15/18 22:41: POC Glucose 186 H 08/16/18 06:47: POC Glucose 334 H* 08/16/18 09:31: POC Glucose 206 H I & O for Last 24 hours: Intake & Output 08/13/18 08/14/18 08/15/18 08/16/18 11:59 11:59 11:59 11:59 Intake Total 2893 / 2893 3836 / 3836 960 / 960 1090 / 1090 Output Total 1200 / 1200 2200 / 2200 Balance 1693 / 1693 1636 / 1636 960 / 960 1090 / 1090 Weight 123 lb 2 oz 123 lb 3.462 oz 121 lb 2 oz 124 lb 5 oz Microbiology Reports for the Last 24 Hours: Microbiology 08/13/18 07:50 Urine,Clean Catch Urine Culture - Final Multiple organisms, suggests contamination. - *Routine HEENT Exam Head: Present: normocephalic Eye: Present: EOMI ENT: Present: mucous membranes moist - *Routine Neck Exam Present: supple - *Routine Respiratory Exam Present: CTA bilaterally - *Routine Cardiovascular Exam Present: RRR - *Routine Abdominal Exam Present: soft, normoactive bowel sounds. Absent: tenderness - *Routine Extremities Exam Absent: edema - *Routine Skin Exam Present: urticaria - *Routine Neurological Exam Present: alert, oriented X3 - Routine Psychiatric Exam Present: normal affect Assessment and Plan (1) Type 2 diabetes mellitus Current visit: Yes Status: Chronic Qualifiers: Diabetes mellitus long term care social worker insulin use: with long term care social worker use Diabetes mellitus complication status: with hyperglycemia Qualified Code(s): E11.65 - Type 2 diabetes mellitus with hyperglycemia; Z79.4 - [facility] (current) use of insulin Category: Medical Code(s): E11.9 - Type 2 diabetes mellitus without complications (2) DKA (diabetic ketoacidoses) Current visit: Yes Status: Resolved Qualifiers: Diabetes mellitus type: type 1 Diabetes mellitus complication detail: without coma Qualified Code(s): E10.10 - Type 1 diabetes mellitus with ketoacidosis without coma Category: Medical Code(s): E13.10 - Other specified diabetes mellitus with ketoacidosis without coma (3) Nausea and vomiting Current visit: Yes Status: Resolved Category: Medical Code(s): R11.2 - Nausea with vomiting, unspecified (4) GERD (gastroesophageal reflux disease) Current visit: Yes Status: Acute Category: Medical Code(s): K21.9 - Gastro-esophageal reflux disease without esophagitis - Assessment and plan all Dx Assessment and Plan for all problems:: We will change her to regular hepatic diet. We will optimize insulin management to control her sugars a little bit better. Possible discharge on Saturday.
--- NOTE | 2018-08-17 11:19 | Progress Note ---
Internal Medicine - PN: Subj *Date: 08/17/18 *Time: 10:50 Interval history: Patient doing a lot better compared to yesterday. She is tolerating regular diet at this time. However her sugars were low at 57 this morning. She also tested positive for norovirus. Exam Vital signs and Labs for Last 24 Hours: Temp Pulse Resp BP Pulse Ox 97.8 F 74 16 98/61 L 97 08/17/18 07:53 08/17/18 07:53 08/17/18 07:53 08/17/18 07:53 08/17/18 07:59 Laboratory Results - last 24 hr 08/16/18 12:17: POC Glucose 113 H 08/16/18 16:13: POC Glucose 146 H 08/16/18 18:22: POC Glucose 252 H 08/16/18 19:40: Stl Aeromonas (PCR) Not detected, Stl C. cayetanensis PCR Not detected, Stool Rotavirus (PCR) Not detected, Stl Adenov F 40/41 PCR Not detected, Stool Astrovirus (PCR) Not detected, Stool Campylobacter PCR Not detected, Stl C.difficile Tox PCR Not detected, Stool Cryptosporidium PCR Not detected, Stl E.coli Shiga Tox PCR Not detected, Stool E coli O157 PCR Not detected, Stl Enterotoxigenic E PCR Not detected, Stool EPEC (PCR) Not detected, Stool EAEC (PCR) Not detected, Stl E. histolytica PCR Not detected, Stool Giardia Lamblia PCR Not detected, Stool Salmonella PCR Not detected, Stool Sapovirus (PCR) Not detected, Stl P. shigelloides PCR Not detected, Stl Shigella/EIEC PCR Not detected, St Y.enterocolitica PCR Not detected, Stool Vibrio (PCR) Not detected, Stl Vibrio cholerae PCR Not detected, Stl Norovirus GI/GII PCR Detected A 08/16/18 20:11: POC Glucose 279 H 08/17/18 06:00: POC Glucose 57 L 08/17/18 10:51: POC Glucose 270 H I & O for Last 24 hours: Intake & Output 08/14/18 08/15/18 08/16/18 08/17/18 11:59 11:59 11:59 11:59 Intake Total 3836 / 3836 960 / 960 1090 / 1090 480 / 480 Output Total 2200 / 2200 1200 / 1200 Balance 1636 / 1636 960 / 960 1090 / 1090 -720 / -720 Weight 123 lb 3.462 oz 121 lb 2 oz 124 lb 5 oz 120 lb 4 oz Microbiology Reports for the Last 24 Hours: Microbiology 08/11/18 20:55 Blood Blood Culture - Final NO GROWTH AFTER 5 DAYS 08/11/18 21:35 Blood Blood Culture - Final NO GROWTH AFTER 5 DAYS - *Routine HEENT Exam Head: Present: normocephalic Eye: Present: EOMI, PERRL ENT: Present: mucous membranes moist - *Routine Neck Exam Present: supple, full ROM - *Routine Respiratory Exam Present: CTA bilaterally. Absent: accessory muscle use - *Routine Cardiovascular Exam Present: RRR - *Routine Abdominal Exam Present: soft, normoactive bowel sounds - *Routine Extremities Exam Absent: edema - *Routine Skin Exam Present: intact - *Routine Neurological Exam Present: alert, oriented X3 - Routine Psychiatric Exam Present: normal affect Assessment and Plan (1) Type 2 diabetes mellitus Current visit: Yes Status: Chronic Qualifiers: Diabetes mellitus terminal worker insulin use: with terminal worker use Diabetes mellitus complication status: with hyperglycemia Qualified Code(s): E11.65 - Type 2 diabetes mellitus with hyperglycemia; 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 Category: Medical Code(s): E11.9 - Type 2 diabetes mellitus without complications (2) DKA (diabetic ketoacidoses) Current visit: Yes Status: Resolved Qualifiers: Diabetes mellitus type: type 1 Diabetes mellitus complication detail: without coma Qualified Code(s): E10.10 - Type 1 diabetes mellitus with ketoacidosis without coma Category: Medical Code(s): E13.10 - Other specified diabetes mellitus with ketoacidosis without coma (3) Nausea and vomiting Current visit: Yes Status: Resolved Category: Medical Code(s): R11.2 - Nausea with vomiting, unspecified (4) GERD (gastroesophageal reflux disease) Current visit: Yes Status: Acute Category: Medical Code(s): K21.9 - Gastro-esophageal reflux disease without esophagitis - Assessment and plan all Dx Assessment and Plan for all problems:: We will change her nighttime insulin as her morning running on 50-60. She might need prior authorization for Januvia. She is eager to switch care with me, will look into what her options are. Possible discharge tomorrow.
--- NOTE | 2018-08-18 12:14 | Discharge Summary ---
General - General Admission date:: 08/11/18 Discharge date: 08/18/18 HPI HPI: Ms. Hurd is a 53-year-old female with a history of diabetes mellitus and hypothyroidism who presented to the [facility] emergency room for evaluation after nausea and vomiting for 2-3 days. She states that she has been unable to retain food and liquids Although she has retained some of her medications. She denies any hematemesis. She is not having any abdominal pain. Bowels have been moving normally. She has continued to void without difficulty. With evaluation in the emergency room patient was felt to be in mild DKA and also to have a urinary tract infection. She was started on IV antibiotics and IV fluids and admitted for further evaluation and treatment. This a.m. patient continues to be nauseated. She last vomited early this a.m. Her mouth is dry. Hospital Course Hospital Course: Patient was admitted to our facility for DKA but failed to get insulin drip overnight. When I took over care, I has started the patient on DKA protocol and patient was moved to ICU unit. She was also having nausea, vomiting and diarrhea. Stool studies were done which revealed norovirus. Her nausea and vo miting was controlled with zofran and phenegran. Her anion gap resolved in day 4 of admission and patient was started on clears. She tolerated that well, so her diet was advanced. On day of discharge, patient was able to tolerate full solid diet. I added Januvia to her regimen as her A1c is 11.2. She has expressed her wish to switch to me as her PCP and I had provided her with some information abo ut pursing this. I decreased her insulin regimen to basal of 13 units and meal time insulin to 6 Units with meals. She is to change her insurance and follow with me in 1 -2 weeks. I also gave her Januvia samples for now. She might benefit from CGM, which can be donw outpatient and will need optimal medical management for her diabetes. Objective Vital signs: Temp Pulse Resp BP Pulse Ox 98.1 F 89 16 123/72 98 08/18/18 07:53 08/18/18 07:53 08/18/18 07:53 08/18/18 07:53 08/18/18 07:53 - *Routine HEENT Exam Head: Present: normocephalic Eye: Present: EOMI ENT: Present: mucous membranes moist - *Routine Neck Exam Present: supple, full ROM - *Routine Respiratory Exam Present: CTA bilaterally - *Routine Cardiovascular Exam Present: RRR - *Routine Abdominal Exam Present: soft, normoactive bowel sounds. Absent: tenderness - *Routine Extremities Exam Present: full ROM. Absent: edema - *Routine Skin Exam Present: intact. Absent: dry - *Routine Neurological Exam Present: alert, oriented X3 - Routine Psychiatric Exam Present: normal affect Results Labs on day of discharge: Labs from last 24 hours 08/18/18 08/18/18 08/17/18 11:10 10:07 20:10 POC Glucose 301 H* 302 H* 255 H 08/17/18 08/17/18 08/17/18 17:34 16:02 13:05 POC Glucose 211 H 231 H 182 H 08/17/18 08/17/18 08:15 06:25 POC Glucose 282 H 87 DS: Diagnosis - Discharge Diagnosis (1) Type 2 diabetes mellitus Status: Chronic (2) DKA (diabetic ketoacidoses) Status: Resolved (3) Nausea and vomiting Status: Resolved (4) GERD (gastroesophageal reflux disease) Status: Acute Discharge Plan - Patient Discharge Instructions ACTIVITY: Continue current activity DIET: continue same diet - Follow up Plan Follow up with: Marilee Montanez MD [Staff Physician] - 1 week (Patient to change insurance if possible to Passport) Disposition: Home, Self-Longterm Medications: Home Medications Medication Instructions Recorded Confirmed Type Metformin HCl [Metformin 500mg 500 mg PO BID 09/03/17 08/12/18 History Tablet] insulin degludec (U-100) 100 30 unit SUB-Q DAILY 09/03/17 08/12/18 History unit/mL (3 mL) subcutaneous pen insulin lispro (U- 100) 100 16 unit SUB-Q TID 09/03/17 08/12/18 History unit/mL subcutaneous cartridge Ferrous Sulfate [Iron] 325 mg PO DAILY 08/11/18 08/12/18 History Gabapentin [Gabapentin 100mg Cap] 100 mg PO TID 08/12/18 08/12/18 History Sitagliptin Phosphate [Januvia 100 mg PO DAILYDM #30 tablet 08/18/18 Rx 50mg Tablet] Prescriptions/Medication Reconciliation: New Sitagliptin Phosphate [Januvia 50mg Tablet] 100 mg PO DAILYDM #30 tablet Continue Ferrous Sulfate [Iron] 325 mg PO DAILY Gabapentin [Gabapentin 100mg Cap] 100 mg PO TID Metformin HCl [Metformin 500mg Tablet] 500 mg PO BID Changed Insulin Degludec [Tresiba Flextouch U-100] 13 unit SUB-Q DAILY #0 Insulin Lispro [Humalog] 6 unit SUB-Q TID #0
== END 2018-08-18 13:15 | disposition home or self-care (01) ==
LOC: 2ND 16:32 → ER 16:32 → OBSVTOIN 23:00 → INTOOBSV 23:00 → 2ND 23:03 → ICU 08-12 09:44 → 2ND 08-14 16:56
PROVIDERS: ADMIT Emergency Medicine; ATTEND Emergency Medicine
CPT/HCPCS: 36415; 71010; 71045; 74176; 76705; 80048; 80076; 81001; 82009; 82150; 82947; 82962; 83036; 83605; 83690; 83735; 84484; 85007; 85025; 87040; 87086; 87507; 96365; 96366; 96375; 96376; 99285; G0378; J2405

== ENCOUNTER 2019-01-17 18:07 | Inpatient (IN) ==
--- NOTE | 2019-01-17 18:48 | Emergency Department Note ---
ED Disposition Clinical Impression: IDDM (insulin dependent diabetes mellitus), Vomiting, Dehydration, DKA (diabetic ketoacidoses) Disposition: Still a Patient Condition on Discharge: Fair Instructions: DI for Hyperglycemia -- Adult Referrals: Axel Conde [Primary Care Provider] - - Critical Care Critical Care Time: No Attestation: On 01/17/19, the high probability of a clinically significant, sudden or life threatening deterioration of the following system(s) required my full and direct attention, intervention and personal management. The time I documented below is in addition to time spent performing reported procedures but includes the following listed in this critical care notation. Medical Decision Making - Marcos Inquiry Pt receiving controlled substance: No Marcos was queried for this patient: No Vital Signs: 01/17/19 18:26 01/17/19 18:32 Temperature 98.1 F Temperature Source Oral Pulse Rate [Right Brachial] 70 105 H Respiratory Rate 16 Blood Pressure [Right Arm] 104/65 L 124/63 Blood Pressure Mean [Right Arm] 78 83 Blood Pressure Source [Right Arm] Automatic Cuff Blood Pressure Position [Right Arm] Sitting 02 Sat by Pulse Oximetry 98 99 Oxygen Delivery Method Room Air - Lab Data Lab Results 01/17/19 18:45: WBC 16.9 H, RBC 5.07, Hgb 13.7, Hct 44.7, MCV 88.1, MCH 27.0, MCHC 30.6 L, RDW 13.8, Plt Count 675 H, MPV 7.1 L, Neut % (Auto) 94.0 H, Lymph % (Auto) 3.5 L, [place] % (Auto) 2.1, Eos % (Auto) 0.2, Baso % (Auto) 0.1, Neut # (Auto) 15.9 H, Lymph # (Auto) 0.6 L, [place] # (Auto) 0.4, Eos # (Auto) 0.0, Baso # (Auto) 0.0, Total Counted 100, Neutrophils % (Manual) 85 H, Band Neutrophils % 8.0, Lymphocytes % (Manual) 7 L, Platelet Estimate Marked increase, Hypochromasia 1+, Rouleaux 2+ 01/17/19 18:45: Sodium 143, Potassium 4.2, Chloride 102, Carbon Dioxide 10 L, A nion Gap 35.2 H, BUN 39 H, Creatinine 1.78 H, Estimated Creat Clear 29, Estimated GFR 30 L, Est GFR ( Amer) 36 L, Glucose 568 H*, Calcium 10.6 H, Total Bilirubin 0.9, AST 13 L, ALT 44, Alkaline Phosphatase 301 H, Troponin I < 0.02, Total Protein 8.9 H, Albumin 4.1, Globulin 4.8 H, Albumin/Globulin Ratio 0.9 L, Amylase 280 H 01/17/19 18:45: Lipase 249 01/17/19 18:45: Acetone Level Moderate 01/17/19 19:27: Specimen Source R/r, O2 % R/a, ABG pH 7.22 L*, ABG pCO2 19.4 L, ABG pO2 122.6 H, ABG HCO3 7.7 L, ABG Total CO2 8.3 L, ABG O2 Saturation 98, ABG Base Excess -20.0 L, Lopez Test Y Result diagrams: 01/17/19 18:45 01/17/19 18:45 Orders (Tests/Meds): ED MEDICATIONS Generic Name Dose Route Start Last Admin Trade Name Freq PRN Reason Stop Dose Admin Sodium Chloride 1,000 mls @ 999 mls/hr 01/17/19 18:45 01/17/19 18:41 Sod Chlor 0.9% 1000ml Bag IV 01/17/19 19:45 999 mls/hr .Q1H1M CARLOS Administration Discontinued Medications Generic Name Dose Route Start Last Admin Trade Name Freq PRN Reason Stop Dose Admin Ondansetron HCl 4 mg 01/17/19 18:32 01/17/19 18:41 Zofran 4mg/2ml Vial IV 01/17/19 18:33 4 mg ONCE ONE Administration ORDERS Category Date Time Status Acute abdomen XR series [XR acute abdomen series] Stat Exams 01/17/19 18:49 Taken ABG [Arterial Blood Gas] Stat RT 01/17/19 18:49 Ordered - Radiology Data #1 Image(s): Chest, Abdomen Image Reviewed: Yes I reviewed the patient's radiology image CXR; No acute Abdomen two views: Nephrolithasis , no acute. Medical Decision Narrative: Dr. Aguilar to IV access with IV fluids blood work was indicative of her DKA I spoke with Dr. Rader who agreed to admit the patient. The patient and her family were agreeable for admission. General Adult HPI - General Chief complaint: Hyper/Hypoglycemia Stated complaint: DNK/Vomiting/Dehydrated Time Seen by Provider: 01/17/19 18:30 Mode of Arrival: Family Vehicle Limitations: No Limitations Description of Symptoms (Recalled from ER Triage Doc. by RN): HYPERGLYCEMIA R/T N/V - History of Present Illness HPI narrative: 53 years old white female with insulin-dependent diabetes mellitus and prior history of DKA most recently 4 months ago. Yesterday, the patient developed vomiting x6 and progressively gotten worse feeling weak, dehydrated and blood sugar was 560 at home. Onset (ago): day(s) Radiation: non-radiation Severity: moderate Consistency: constant Relieving factors: none Exacerbating factors: none Associated symptoms: denies other symptoms, nausea/vomiting - Related Data Home Medications Medication Instructions Recorded Confirmed Metformin HCl [Glucophage 500mg 500 mg PO BID 09/03/17 08/12/18 Tablet] Ferrous Sulfate [Iron] 325 mg PO DAILY 08/11/18 08/12/18 Gabapentin [Gabapentin 100mg Cap] 100 mg PO TID 08/12/18 08/12/18 Previous Rx's Medication Instructions Recorded Insulin Degludec [Tresiba 13 unit SUB-Q DAILY #0 08/18/18 Flextouch U-100] Insulin Lispro [Humalog] 6 unit SUB-Q TID #0 08/18/18 Sitagliptin Phosphate [Januvia 100 mg PO DAILYDM #30 tablet 08/18/18 50mg Tablet] Allergies Allergy/AdvReac Type Severity Reaction Status Date / Time No Known Allergies Allergy Verified 09/24/17 10:29 [facility] History - Hepatitis A Screen Drug use history?: No High risk sexual behaviors?: No History of sexually transmitted infection?: No Currently employed?: No Childcare worker?: No Do you have indoor plumbing?: Yes Do you have electricity?: Yes Attestation statement:: This patient has been screened for Hepatitis A risk factors. I have reviewed the patient's past medical history: Yes Medical History: Reports:: Cancer (breast), Diabetes Mellitus Type 2, G astroesophageal Reflux Disease(GERD) Denies:: Coronary Artery Disease, Diabetes Mellitus Type 1, MRSA, Seizures Other Medical History: Denies: Blood Transfusion Reaction Laterality Cases: Right: Breast Biopsy Other Surgeries: Yes: , Tubal Ligation Amputation: No Fractures: No - Social History Smoking Status: Never smoker Tobacco Type: cigarettes Alcohol Intake: never Alcohol Intake Frequency:: other Substance Use Type: denies use Occupational Status: unemployed Housing: house Household Members: spouse Family Hx:: Cancer, Coronary Artery Disease, Diabetes, Hyperlipidemia, Hypertension, Kidney Disease, Stroke ROS Obtained: Yes All systems reviewed & no additional complaints Physical Exam - General General appearance: alert, in no apparent distress, lethargic - Head Head exam: atraumatic, normocephalic, normal inspection - Eye Eye exam: Present: normal appearance, PERRL, EOMI - ENT ENT exam: Present: normal exam, normal oropharynx, mucous membranes moist, TM's normal bilaterally, normal external ear exam - Neck Neck exam: Present: normal inspection, full ROM, trachea midline. Absent: meningismus, lymphadenopathy - Chest Chest inspection: Present: normal inspection, symmetric chest wall rise. Absent: tenderness - Respiratory Respiratory exam: Present: normal lung sounds bilaterally. Absent: respiratory distress - Cardiovascular Cardiovascular exam: Present: regular rate, normal rhythm. Absent: JVD - Abdominal Exam Abdominal exam: Present: soft, normal bowel sounds. Absent: distention, tenderness, guarding - Extremities Exam Extremities exam: Present: normal inspection, full ROM, normal capillary refill. Absent: calf tenderness - Back Exam Back exam: Present: normal inspection. Absent: tenderness - Neurological Exam Neurological exam: Present: alert, oriented X3, CN II-XII intact, reflexes normal - Psychiatric Psychiatric exam: Present: normal affect, normal mood - Skin Skin exam: Present: warm, dry, intact, normal color - Lymphatic Lymphatic Findings: no adenopathy
[2019-01-17 18:57] LABS: Basophils % 0.1 % (0.1-2.0); Eosinophils % 0.2 % (0.1-12.0); Hematocrit 44.7 % (37.0-47.0); Hemoglobin 13.7 g/dL (12.2-16.2); Lymphocytes # 0.6 K/mm3 (0.7-4.5); Lymphocytes % 3.5 % (10-50); Mean Corpuscular HGB Conc 30.6 g/dL (31.8-35.4); Mean Corpuscular Volume 88.1 fl (81-99); Mean Platelet Volume 7.1 fl (7.4-10.4); Monocytes # 0.4 K/mm3 (0.1-1.0); Monocytes % 2.1 % (1.7-9.3); Neutrophils # 15.9 K/mm3 (1.8-7.8); Platelet Count 675 K/mm3 (142-424); Red Blood Count 5.07 M/mm3 (4.20-5.40); Red Cell Distribution Width 13.8 % (11.5-17.5); White Blood Count 16.9 K/mm3 (4.8-10.8)
[2019-01-17 19:10] LABS: Alanine Aminotransferase 44 U/L (12-78); Albumin Level 4.1 gm/dL (3.4-5.0); Albumin/Globulin Ratio 0.9 (1.1-1.8); Alkaline Phosphatase 301 U/L (46-116); Amylase 280 U/L (25-115); Anion Gap 35.2 mEq/L (5-15); Aspartate Amino Transferase 13 U/L (15-37); Bilirubin,Total 0.9 mg/dL (0.2-1.0); Blood Urea Nitrogen 39 mg/dL (7-18); Calcium 10.6 mg/dL (8.5-10.1); Chloride 102 mmol/L (98-107); Globulin 4.8 gm/dl (1.3-3.2); Lymphocytes % 7 % (10-50); Neutrophils % 85 % (42-76); Sodium 143 mmol/L (136-145); Total Cells Counted 100; Total Protein,Serum 8.9 gm/dL (6.4-8.2)
[2019-01-17 19:11] LABS: Hypochromasia 1+; Rouleaux 2+
[2019-01-17 19:13] LABS: Carbon Dioxide 10 mmol/L (21.0-32.0)
[2019-01-17 19:14] LABS: Glucose 568 mg/dL (74-106)
[2019-01-17 19:29] LABS: ABG HCO3 7.7 mmhg (22.0-26.0); ABG Oxygen Saturation 98 % (90-100); ABG PH 7.22 mmol/L (7.35-7.45); ABG PO2 122.6 mmhg (80-100); ABG TCO2 8.3 mmhg (23-27); Allen's Test Y; Oxygen R/A %
[2019-01-17 19:30] LABS: ABG PCO2 19.4 mmhg (35.0-45.0)
--- NOTE | 2019-01-17 20:34 | History & Physical Report ---
*Admission Date: 01/17/19 *Chief complaint: elevated glu *History of present illness: this wf with vomiting and iddm presented 3 years old white female with insulin- dependent diabetes mellitus and prior history of DKA most recently 4 months ago. Yesterday, the patient developed vomiting x6 and progressively gotten worse feeling weak, dehydrated and blood sugar was 560 at home. [facility] History I have reviewed the patient's past medical history: Yes Medical History: Reports:: Cancer (breast), Diabetes Mellitus Type 2, Gastroesophageal Reflux Disease(GERD) Denies:: Coronary Artery Disease, Diabetes Mellitus Type 1, MRSA, Seizures *Have you ever received a pneumonia vaccine?: No *Have you received a flu vaccine this season?: No Other Medical History: Denies: Blood Transfusion Reaction Laterality Cases: Right: Breast Biopsy Other Surgeries: Yes: , Tubal Ligation Amputation: No Fractures: No - *Social History Smoking Status: Never smoker Tobacco Type: cigarettes Alcohol Intake: never Alcohol Intake Frequency:: other Substance Use Type: denies use *Occupational Status:: unemployed Housing: house Household Members: spouse *Travel in the last 8 weeks: None Family Hx:: Cancer, Coronary Artery Disease, Diabetes, Hyperlipidemia, Hypertension, Kidney Disease, Stroke Review of Systems - Review of Systems Review of systems:: pertinent systems reviewed and negative unless documented below - Constitutional Denies fever(s) - Eyes Denies change in vision - ENT Denies sore throat - *Cardiovascular Denies chest pain - *Respiratory Denies cough - *Gastrointestinal Denies abdominal pain - *Genitourinary Denies blood in urine - *Musculoskeletal Denies joint pain - Integumentary/Breasts Denies rash - *Neurologic Denies seizure-like activity - Psychiatric Denies anxiety Meds Home Medications Medication Instructions Recorded Confirmed Type Metformin HCl [Glucophage 500mg 500 mg PO BID 09/03/17 01/17/19 History Tablet] Ferrous Sulfate [Iron] 325 mg PO DAILY 08/11/18 01/17/19 History Gabapentin [Gabapentin 100mg Cap] 100 mg PO TID 08/12/18 01/17/19 History Insulin Degludec [Tresiba 13 unit SUB-Q DAILY #0 08/18/18 01/17/19 Rx Flextouch U-100] Insulin Lispro [Humalog] 6 unit SUB-Q TID #0 08/18/18 01/17/19 Rx Sitagliptin Phosphate [Januvia 100 mg PO DAILYDM #30 tablet 08/18/18 01/17/19 Rx 50mg Tablet] Allergies Allergy/AdvReac Type Severity Reaction Status Date / Time No Known Allergies Allergy Verified 09/24/17 10:29 Exam Vital signs and Labs for Last 24 Hours: Temp Pulse Resp BP Pulse Ox 98.0 F 106 H 17 137/75 100 01/17/19 20:13 01/17/19 20:13 01/17/19 20:13 01/17/19 20:13 01/17/19 20:00 Laboratory Results - last 24 hr 01/17/19 18:45: WBC 16.9 H, RBC 5.07, Hgb 13.7, Hct 44.7, MCV 88.1, MCH 27.0, MCHC 30.6 L, RDW 13.8, Plt Count 675 H, MPV 7.1 L, Neut % (Auto) 94.0 H, Lymph % (Auto) 3.5 L, [place] % (Auto) 2.1, Eos % (Auto) 0.2, Baso % (Auto) 0.1, Neut # (Auto) 15.9 H, Lymph # (Auto) 0.6 L, [place] # (Auto) 0.4, Eos # (Auto) 0.0, Baso # (Auto) 0.0, Total Counted 100, Neutrophils % (Manual) 85 H, Band Neutrophils % 8 .0, Lymphocytes % (Manual) 7 L, Platelet Estimate Marked increase, Hypochromasia 1+, Rouleaux 2+ 01/17/19 18:45: Sodium 143, Potassium 4.2, Chloride 102, Carbon Dioxide 10 L, Anion Gap 35.2 H, BUN 39 H, Creatinine 1.78 H, Estimated Creat Clear 29, Estimated GFR 30 L, Est GFR ( Amer) 36 L, Glucose 568 H*, Calcium 10.6 H, Total Bilirubin 0.9, AST 13 L, ALT 44, Alkaline Phosphatase 301 H, Troponin I < 0.02, Total Protein 8.9 H, Albumin 4.1, Globulin 4.8 H, Albumin/Globulin Ratio 0.9 L, Amylase 280 H 01/17/19 18:45: Lipase 249 01/17/19 18:45: Acetone Level Moderate 01/17/19 19:27: Specimen Source R/r, O2 % R/a, ABG pH 7.22 L*, ABG pCO2 19.4 L, ABG pO2 122.6 H, ABG HCO3 7.7 L, ABG Total CO2 8.3 L, ABG O2 Saturation 98, ABG Base Excess -20.0 L, Lopez Test Y I & O for Last 24 hours: Intake & Output 01/15/19 01/16/19 01/17/19 01/18/19 11:59 11:59 11:59 11:59 Weight 110 lb - Constitutional no acute distress, thin - *Routine HEENT Exam Head: Present: normocephalic Eye: Present: EOMI, PERRL ENT: Present: mucous membranes dry - *Routine Neck Exam Present: supple - *Routine Respiratory Exam Present: CTA bilaterally - *Routine Cardiovascular Exam Present: RRR, murmur - *Routine Abdominal Exam Present: soft - *Routine Extremities Exam Absent: calf tenderness - *Routine Skin Exam Present: intact - *Routine Neurological Exam Present: alert, oriented X3, CN II-XII intact - Routine Psychiatric Exam Present: normal affect Assessment and Plan (1) DKA (diabetic ketoacidoses) Current visit: Yes Status: Acute Category: Medical Code(s): E11.10 - Type 2 diabetes mellitus with ketoacidosis without coma (2) IDDM (insulin dependent diabetes mellitus) Current visit: Yes Status: Acute Category: Medical Code(s): E11.9 - Type 2 diabetes mellitus without complications; Z79.4 - longterm (current) use of insulin
[2019-01-18 06:06] LABS: Basophils % 0.1 % (0.1-2.0); Eosinophils # 0.1 K/mm3 (0.0-0.4); Eosinophils % 0.4 % (0.1-12.0); Hematocrit 41.1 % (37.0-47.0); Hemoglobin 13.1 g/dL (12.2-16.2); Lymphocytes # 0.8 K/mm3 (0.7-4.5); Lymphocytes % 3.8 % (10-50); Mean Corpuscular HGB Conc 31.9 g/dL (31.8-35.4); Mean Corpuscular Volume 83.7 fl (81-99); Monocytes # 0.9 K/mm3 (0.1-1.0); Monocytes % 4.2 % (1.7-9.3); Neutrophils # 18.7 K/mm3 (1.8-7.8); Neutrophils % 91.5 % (37.0-80.0); Red Blood Count 4.91 M/mm3 (4.20-5.40)
[2019-01-18 06:14] LABS: Platelet Count 637 K/mm3 (142-424); White Blood Count 20.4 K/mm3 (4.8-10.8)
[2019-01-18 06:19] LABS: Anion Gap 23.4 mEq/L (5-15); Calcium 9.6 mg/dL (8.5-10.1); Hypochromasia 1+; Lymphocytes % 4 % (10-50); Neutrophils % 92 % (42-76); Total Cells Counted 100
[2019-01-18 06:20] LABS: Rouleaux 1+
--- NOTE | 2019-01-18 08:52 | Progress Note ---
Internal Medicine - PN: Subj *Date: 01/18/19 *Time: 08:47 Interval history: pt doing betterbut still has acetone Exam Vital signs and Labs for Last 24 Hours: Temp Pulse Resp BP Pulse Ox 97.9 F 107 H 12 132/61 100 01/18/19 07:33 01/18/19 08:00 01/18/19 08:00 01/18/19 06:00 01/18/19 08:00 Laboratory Results - last 24 hr 01/17/19 18:45: WBC 16.9 H, RBC 5.07, Hgb 13.7, Hct 44.7, MCV 88.1, MCH 27.0, MCHC 30.6 L, RDW 13.8, Plt Count 675 H, MPV 7.1 L, Neut % (Auto) 94.0 H, Lymph % (Auto) 3.5 L, [place] % (Auto) 2.1, Eos % (Auto) 0.2, Baso % (Auto) 0.1, Neut # (Auto) 15.9 H, Lymph # (Auto) 0.6 L, [place] # (Auto) 0.4, Eos # (Auto) 0.0, Baso # (Auto) 0.0, Total Counted 100, Neutrophils % (Manual) 85 H, Band Neutrophils % 8.0, Lymphocytes % (Manual) 7 L, Platelet Estimate Marked increase, Hypochromasia 1+, Rouleaux 2+ 01/17/19 18:45: Sodium 143, Potassium 4.2, Chloride 102, Carbon Dioxide 10 L, Anion Gap 35.2 H, BUN 39 H, Creatinine 1.78 H, Estimated Creat Clear 29, Estimated GFR 30 L, Est GFR ( Amer) 36 L, Glucose 568 H*, Calcium 10.6 H, Total Bilirubin 0.9, AST 13 L, ALT 44, Alkaline Phosphatase 301 H, Troponin I < 0.02, Total Protein 8.9 H, Albumin 4.1, Globulin 4.8 H, Albumin/Globulin Ratio 0.9 L, Amylase 280 H 01/17/19 18:45: Lipase 249 01/17/19 18:45: Acetone Level Moderate 01/17/19 18:45: Phosphorus 4.3 01/17/19 19:27: Specimen Source R/r, O2 % R/a, ABG pH 7.22 L*, ABG pCO2 19.4 L, ABG pO2 122.6 H, ABG HCO3 7.7 L, ABG Total CO2 8.3 L, ABG O2 Saturation 98, ABG Base Excess -20.0 L, Lopez Test Y 01/17/19 22:00: POC Glucose 482 H* 01/18/19 00:02: POC Glucose 323 H* 01/18/19 02:02: POC Glucose 240 H 01/18/19 04:00: POC Glucose 203 H 01/18/19 05:25: WBC 20.4 H*, RBC 4.91, Hgb 13.1, Hct 41.1, MCV 83.7, MCH 26.7 L, MCHC 31.9, RDW 14.0, Plt Count 637 H, MPV 7.0 L, Neut % (Auto) 91.5 H, Lymph % (Auto) 3.8 L, [place] % (Auto) 4.2, Eos % (Auto) 0.4, Baso % (Auto) 0.1, Neut # (Auto) 18.7 H, Lymph # (Auto) 0.8, [place] # (Auto) 0.9, Eos # (Auto) 0.1, Baso # (Auto) 0.0, Total Counted 100, Neutrophils % (Manual) 92 H, Band Neutrophils % 4.0, Lymphocytes % (Manual) 4 L, Platelet Estimate Marked increase, Hypochromasia 1+, Rouleaux 1+ 01/18/19 05:25: Sodium 154 H*, Potassium 3.4 L, Chloride 116 H, Carbon Dioxide 18 L D, Anion Gap 23.4 H, BUN 29 H D, Creatinine 1.32 H D, Estimated Creat Clear 42, Estimated GFR 42 L, Est GFR ( Amer) 51 L D, Glucose 209 H D, Calcium 9.6, Magnesium 2.0 01/18/19 05:25: Acetone Level Small 01/18/19 06:03: POC Glucose 163 H 01/18/19 07:55: POC Glucose 130 H I & O for Last 24 hours: Intake & Output 01/15/19 01/16/19 01/17/19 01/18/19 11:59 11:59 11:59 11:59 Intake Total 1782 / 1782 Output Total 1500 / 1500 Balance 282 / 282 Weight 117 lb 6 oz - Constitutional no acute distress, thin - *Routine HEENT Exam Head: Present: normocephalic Eye: Present: EOMI, PERRL ENT: Present: mucous membranes dry - *Routine Neck Exam Present: supple - *Routine Respiratory Exam Present: CTA bilaterally - *Routine Cardiovascular Exam Present: RRR. 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
--- NOTE | 2019-01-18 11:12 | Pharmacy Consult Notes ---
[facility] Pharmacy VTE Monitoring - Patient Demographics Admission date: 01/17/19 Report Date: 01/18/19 Time: 11:12 Allergies/Adverse Reactions: Patient Allergies No Known Allergies Allergy (Verified 09/24/17 10:29) Height: 1.55 m Weight: 53.24 kg Patient Problems: Current Active Problems (Updated 01/17/19 @ 20:34 by Santos Rader MD) IDDM (insulin dependent diabetes mellitus) (Acute) Vomiting (Acute) Dehydration (Acute) DKA (diabetic ketoacidoses) (Acute) - VTE Risk Labs: VTE Related Lab Results Hgb 13.1 g/dL (12.2-16.2) 01/18/19 05:25 Hct 41.1 % (37.0-47.0) 01/18/19 05:25 Plt Count 637 K/mm3 (142-424) H 01/18/19 05:25 BUN 29 mg/dL (7-18) H D 01/18/19 05:25 Creatinine 1.32 mg/dL (0.55-1.02) H D 01/18/19 05:25 Estimated Creat Clear 42 mL/min (50-200) 01/18/19 05:25 VTE Score: 5 VTE Risk Level: Low Risk - Prophylaxis VTE Prophylaxis Ordered?: Yes Types of VTE Prophylaxis: TEDS Knee High Location of Applied Device: Bilateral Lower Extremeties
[2019-01-18 12:28] LABS: Anion Gap 18.4 mEq/L (5-15); Blood Urea Nitrogen 19 mg/dL (7-18); Calcium 8.8 mg/dL (8.5-10.1); Carbon Dioxide 20 mmol/L (21.0-32.0); Chloride 116 mmol/L (98-107); Glucose 223 mg/dL (74-106)
[2019-01-18 12:37] LABS: Sodium 151 mmol/L (136-145)
[2019-01-18 12:38] LABS: Acetone, Serum (Rapid) Small (None Detect)
[2019-01-18 13:36] LABS: Microscopic, Urine URINE MICROSCOPIC (MICROSCOPIC)
[2019-01-18 13:38] LABS: Appearance,Urine CLOUDY (Clear); Blood, Urine TRACE-I (Negative); Color,Urine YELLOW (Yellow); Glucose,Urine (UA) 2+ (Negative); Ketones,Urine 2+ (Negative); Leukocyte Esterase,Urine Negative (Negative); Protein,Urine 1+ (Negative); Specific Gravity, Urine 1.025 (1.005-1.030); Urobilinogen,Urine 0.2 EU/dl (0.2)
[2019-01-18 13:51] LABS: Bacteria,Urine 2+ /lpf; RBC,Urine Occasional #/hpf (0-3); Squamous Epithelial Cell,Urine Occasional #/hpf (0-5); WBC,Urine Occasional #/hpf (0-3); Yeast,Urine 4+ /lpf
[2019-01-18 13:52] LABS: Bilirubin,Urine Negative (Negative)
[2019-01-18 16:36] LABS: Anion Gap 14.2 mEq/L (5-15); Calcium 8.7 mg/dL (8.5-10.1)
[2019-01-18 20:44] LABS: Anion Gap 12.6 mEq/L (5-15); Calcium 8.8 mg/dL (8.5-10.1)
[2019-01-19 04:38] LABS: Anion Gap 9.2 mEq/L (5-15); Calcium 8.3 mg/dL (8.5-10.1)
--- NOTE | 2019-01-19 15:20 | Progress Note ---
Internal Medicine - PN: Subj *Date: 01/19/19 *Time: 20:37 Interval history: doing better - no acetone but still weak -has dec k and mag Exam Vital signs and Labs for Last 24 Hours: Temp Pulse Resp BP Pulse Ox 98.4 F 70 16 128/64 99 01/19/19 08:00 01/19/19 08:00 01/19/19 08:00 01/19/19 08:00 01/19/19 08:00 Laboratory Results - last 24 hr 01/18/19 16:20: Sodium 151 H*, Potassium 3.2 L, Chloride 114 H, Carbon Dioxide 26 D, Anion Gap 14.2, BUN 15, Creatinine 0.95, Estimated Creat Clear 59, Estimated GFR 62, Est GFR ( Amer) 75, Glucose 192 H, Calcium 8.7 01/18/19 16:20: POC Glucose 178 H 01/18/19 17:55: POC Glucose 172 H 01/18/19 20:00: Sodium 150 H, Potassium 2.6 L*, Chloride 113 H, Carbon Dioxide 27, Anion Gap 12.6, BUN 11 D, Creatinine 0.92, Estimated Creat Clear 61, Estimated GFR 64, Est GFR ( Amer) 78, Glucose 194 H, Calcium 8.8 01/18/19 20:00: Acetone Level None detected 01/18/19 20:30: POC Glucose 189 H 01/18/19 22:08: POC Glucose 184 H 01/18/19 23:49: POC Glucose 167 H 01/19/19 02:00: POC Glucose 156 H 01/19/19 04:03: POC Glucose 185 H 01/19/19 04:15: Sodium 149 H, Potassium 2.2 L*, Chloride 114 H, Carbon Dioxide 28, Anion Gap 9.2, BUN 7 D, Creatinine 0.75, Estimated Creat Clear 75, Estimated GFR 81, Est GFR ( Amer) 99 D, Glucose 193 H, Calcium 8.3 L, Magnesium 1.3 L D 01/19/19 04:15: Acetone Level None detected 01/19/19 06:01: POC Glucose 169 H 01/19/19 08:25: POC Glucose 163 H 01/19/19 11:36: POC Glucose 176 H 01/19/19 13:00: Potassium 2.4 L* I & O for Last 24 hours: Intake & Output 01/17/19 01/18/19 01/19/19 01/20/19 11:59 11:59 11:59 11:59 Intake Total 3690 / 3690 3449 / 3449 240 / 240 Output Total 2250 / 2250 1850 / 1850 Balance 1440 / 1440 1599 / 1599 240 / 240 Weight 117 lb 6 oz 126 lb 126 lb 0.013 oz Microbiology Reports for the Last 24 Hours: Microbiology 01/18/19 13:30 Urine,Clean Catch Urine Culture - Final Multiple organisms, suggests contamination. - Constitutional no acute distress - *Routine HEENT Exam Head: Present: normocephalic Eye: Present: EOMI, PERRL ENT: Present: mucous membranes dry - *Routine Neck Exam Present: supple - *Routine Respiratory Exam Present: CTA bilaterally - *Routine Cardiovascular Exam Present: RRR, murmur - *Routine Abdominal Exam Present: soft - *Routine Extremities Exam Present: full ROM - *Routine Skin Exam Present: intact - *Routine Neurological Exam Present: alert, CN II-XII intact - Routine Psychiatric Exam Present: normal affect Assessment and Plan (1) DKA (diabetic ketoacidoses) Current visit: Yes Status: Acute Category: Medical Code(s): E11.10 - Type 2 diabetes mellitus with ketoacidosis without coma (2) IDDM (insulin dependent diabetes mellitus) Current visit: Yes Status: Acute Category: Medical Code(s): E11.9 - Type 2 diabetes mellitus without complications; 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
[2019-01-19 19:46] LABS: Anion Gap 8.3 mEq/L (5-15)
[2019-01-19 19:55] LABS: Calcium 9.5 mg/dL (8.5-10.1)
[2019-01-20 06:39] LABS: Calcium 8.7 mg/dL (8.5-10.1)
--- NOTE | 2019-01-20 09:54 | Discharge Summary ---
General - General Admission date:: 01/17/19 Discharge date: 01/20/19 HPI HPI: this wf with vomiting and iddm presented 3 years old white female with insulin- dependent diabetes mellitus and prior history of DKA most recently 4 months ago. Yesterday, the patient developed vomiting x6 and progressively gotten worse feeling weak, dehydrated and blood sugar was 560 at home. Hospital Course Hospital Course: chest/abd x ray:IMPRESSION: 1. Left nephrolithiasis, developing staghorn calculus lower pole left kidney. The left renal stone has increased in size compared to the previous exam Patient admitted for DKA placed on insulin drip until serum acetone was nondetected. Patient on 01/17 had moderate amount of acetone, on at 5:25 AM patient had small amount of acetone, on 01/18 at 2000 no acetone detected. Patient on admission blood gas was pH 7.22, PCO2 19.4, PO2 122.6, HCO3 7.7, total CO2 8.3, base excess -20.0. Patient had a low potassium on admission of 2.3 potassium replacement given today potassium is 3.0. Urine culture shows contamination with mixed organisms. Patient feeling better today and is okay with discharge home will discharge on regular home medications and follow-up in the office this week. Objective Vital signs: Temp Pulse Resp BP Pulse Ox 98.0 F 85 16 141/77 H 94 L 01/20/19 07:50 01/20/19 07:50 01/20/19 07:50 01/20/19 07:50 01/20/19 07:50 no acute distress - *Routine HEENT Exam Head: Present: normocephalic Eye: Present: PERRL ENT: Present: mucous membranes moist - *Routine Respiratory Exam Present: CTA bilaterally - *Routine Cardiovascular Exam Present: RRR, murmur - *Routine Abdominal Exam Present: soft, normoactive bowel sounds. Absent: tenderness - *Routine Extremities Exam Present: full ROM - *Routine Skin Exam Present: intact - *Routine Neurological Exam Present: alert, oriented X3 - Routine Psychiatric Exam Present: normal affect Results Labs on day of discharge: Labs from last 24 hours 01/20/19 01/20/19 01/20/19 06:22 05:57 05:57 Sodium 143 Potassium 3.0 L Chloride 106 Carbon Dioxide 33 H Anion Gap 7.0 BUN 4 L D Creatinine 0.49 L D Estimated Creat Clear 115 Estimated GFR 133 Est GFR ( Amer) 161 D Glucose 263 H D POC Glucose 248 H Calcium 8.7 Magnesium 2.1 D 01/19/19 01/19/19 01/19/19 20:22 19:20 17:36 Sodium 147 H Potassium 2.3 L* Chloride 107 Carbon Dioxide 34 H D Anion Gap 8.3 BUN 3 L D Creatinine 0.65 Estimated Creat Clear 92 Estimated GFR 96 Est GFR ( Amer) 116 Glucose 126 H D POC Glucose 89 174 H Calcium 9.5 D Magnesium 01/19/19 01/19/19 01/19/19 13:00 11:36 08:25 Sodium Potassium 2.4 L* Chloride Carbon Dioxide Anion Gap BUN Creatinine Estimated Creat Clear Estimated GFR Est GFR ( Amer) Glucose POC Glucose 176 H 163 H Calcium Magnesium - Additional Comments Rounded with Dr. Rader all orders per Prasanth DS: Diagnosis - Discharge Diagnosis (1) DKA (diabetic ketoacidoses) Status: Acute (2) IDDM (insulin dependent diabetes mellitus) Status: Acute (3) Hypokalemia Status: Acute (4) Hypomagnesemia Status: Acute Discharge Plan - Patient Discharge Instructions ACTIVITY: Continue current activity DIET: continue same diet Patient Instructions: Dehydration, DI for Dehydration -- Adult, DI for Hypokalemia, DI for Vomiting -- Adult, High-Potassium Diet, Diabetic Ketoacidosis, DI for Diabetic Ketoacidosis, Nausea and Vomiting-Adult, Type 1 Diabetes, DI for Diabetes Type 1 -- Adult - Follow up Plan Follow up with: Santos Rader MD [Staff Physician] - 01/23/19 Disposition: Home, Self-Long-Term Medications: Home Medications Medication Instructions Recorded Confirmed Type Metformin HCl [Glucophage 500mg 500 mg PO BID 09/03/17 01/17/19 History Tablet] Ferrous Sulfate [Iron] 325 mg PO DAILY 08/11/18 01/17/19 History Gabapentin [Gabapentin 100mg Cap] 100 mg PO TID 08/12/18 01/17/19 History Insulin Degludec [Tresiba 13 unit SUB-Q DAILY #0 08/18/18 01/17/19 Rx Flextouch U-100] Insulin Lispro [Humalog] 6 unit SUB-Q TID #0 08/18/18 01/17/19 Rx Sitagliptin Phosphate [Januvia 100 mg PO DAILYDM #30 tablet 08/18/18 01/17/19 Rx 50mg Tablet] Potassium Chloride 20 meq PO DAILY 3 Days #3 tablet.er 01/20/19 Rx Prescriptions/Medication Reconciliation: New Potassium Chloride 20 meq PO DAILY 3 Days #3 tablet.er Continued Ferrous Sulfate [Iron] 325 mg PO DAILY Gabapentin [Gabapentin 100mg Cap] 100 mg PO TID Insulin Degludec [Tresiba Flextouch U-100] 13 unit SUB-Q DAILY #0 Insulin Lispro [Humalog] 6 unit SUB-Q TID #0 Metformin HCl [Glucophage 500mg Tablet] 500 mg PO BID Sitagliptin Phosphate [Januvia 50mg Tablet] 100 mg PO DAILYDM #30 tablet
== END 2019-01-20 11:50 | disposition home or self-care (01) | DRG 639 ==
LOC: 2ND 18:07 → ER 18:07 → OBSVTOIN 19:53 → 2ND 20:17
PROVIDERS: ADMIT Emergency Medicine; ATTEND Emergency Medicine
DX: E87.6 Hypokalemia; Z83.3 Family history of diabetes mellitus; E11.10 Type 2 diabetes mellitus with ketoacidosis without coma; Z79.4 Long term (current) use of insulin; Z80.9 Family history of malignant neoplasm, unspecified; Z82.49 Family history of ischemic heart disease and other diseases of the circulatory system; Z84.1 Family history of disorders of kidney and ureter; E83.42 Hypomagnesemia; Z85.3 Personal history of malignant neoplasm of breast; Z79.899 Other long term (current) drug therapy; Z82.3 Family history of stroke; Z83.438 Family history of other disorder of lipoprotein metabolism and other lipidemia; E86.0 Dehydration
CPT/HCPCS: 36415; 74021; 74022; 80048; 80053; 81001; 82009; 82150; 82803; 82962; 83690; 83735; 84100; 84132; 84484; 85007; 85025; 87086; 93005; 96365; 96366; 96375; 99283; J2405

== ENCOUNTER 2020-05-10 13:39 | Observation (INO) | payer OTHER, SELFPAY ==
[2020-05-10] VITALS (10 sets, daily range): BP systolic 122–143; BP diastolic 61–75; PULSE 110–125; RESP 12–22; TEMP 36.7–36.8; O2SAT 96–100; BMI 25.9; BMI 25.0
--- NOTE | 2020-05-10 14:09 | HMH.EDGENADL ---
ED Disposition Clinical Impression: Staghorn kidney stones DKA (diabetic ketoacidoses) Qualifiers: Diabetes mellitus type: type 1 Diabetes mellitus complication detail: without coma Qualified Code(s): E10.10 - Type 1 diabetes mellitus with ketoacidosis without coma UTI (urinary tract infection) Qualifiers: Urinary tract infection type: acute cystitis Hematuria presence: without hematuria Qualified Code(s): N30.00 - Acute cystitis without hematuria Sepsis Qualifiers: Sepsis type: sepsis due to unspecified organism Sepsis acute organ dysfunction status: with acute organ dysfunction Severe sepsis acute organ dysfunction type: acute renal failure Acute renal failure type: unspecified Severe sepsis shock status: without septic shock Qualified Code(s): A41.9 - Sepsis, unspecified organism; R65.20 - Severe sepsis without septic shock; N17.9 - Acute kidney failure, unspecified Acute pancreatitis Qualifiers: Pancreatitis type: unspecified pancreatitis type Acute pancreatitis complication: unspecified Qualified Code(s): K85.90 - Acute pancreatitis without necrosis or infection, unspecified Disposition: Admitted As Inpatient Condition on Discharge: Critical Instructions: DI for Nausea -- Adult Referrals: Axel Conde [Primary Care Provider] - - Critical Care Critical Care Time: Yes Attestation: On 05/10/20, the high probability of a clinically significant, sudden or life threatening deterioration of the following system(s) required my full and direct attention, intervention and personal management. The time I documented below is in addition to time spent performing reported procedures but includes the following listed in this critical care notation. Total time of 45 minutes Total Critical Care Time: 45 Vital system(s) involved:: Circulatory Failure, Metabolic Failure, Renal Failure My critical care processes included: Assessment & monitoring of V/S, Initial and Re-exams, Data Review/Interpretation, Coordinating Care, Medication Orders and management, Documentation Medical Decision Making - Medical Records Medical records reviewed: Yes: I reviewed the patient's medical records. - Marcos Inquiry Pt receiving controlled substance: No Vital Signs: 05/10/20 13:40 05/10/20 14:45 Temperature 98.0 F Temperature Source Oral Pulse Rate [Left Radial] 119 H 125 H Respiratory Rate 19 22 Blood Pressure [Right Arm] 122/66 126/62 Blood Pressure Mean [Right Arm] 84 83 Blood Pressure Source [Right Arm] Automatic Cuff Automatic Cuff Blood Pressure Position [Right Arm] Sitting Sitting 02 Sat by Pulse Oximetry 100 100 Oxygen Delivery Method Room Air - Lab Data Lab Results 05/10/20 13:52: VBG pH 7.30 L, VBG pCO2 37.0, VBG pO2 62.8 H, VBG HCO3 17.8 L, VBG Total CO2 18.9 L, VBG O2 Saturation 90.2 H, VBG Base Excess -8.6 L 05/10/20 13:55: WBC 22.9 H*, RBC 5.20, Hgb 15.0, Hct 47.7 H, MCV 91.7, MCH 28.9, MCHC 31.5 L, RDW 13.1, Plt Count 786 H, MPV 7.5, Neut % (Auto) 94.1 H, Lymph % (Auto) 2.5 L, [place] % (Auto) 3.1, Eos % (Auto) 0.1, Baso % (Auto) 0.2, Neut # (Auto) 21.5 H, Lymph # (Auto) 0.6 L, [place] # (Auto) 0.7, Eos # (Auto) 0.0, Baso # (Auto) 0.1, Total Counted 100, Neutrophils % (Manual) 94 H, Lymphocytes % (Manual) 4 L, Monocytes % (Manual) 2, Platelet Estimate Marked increase, Hypochromasia 1+, Rouleaux 1+ 05/10/20 13:55: Sodium 143, Potassium 4.0, Chloride 92 L, Carbon Dioxide 17 L, Anion Gap 38.0 H, BUN 60 H, Creatinine 2.60 H, Estimated Creat Clear 25, Estimated GFR 19 L*, Est GFR ( Amer) 23 L, Glucose 746 H*, Calcium 12.2 H*, Total Bilirubin 1.0, AST 23, ALT 59, Alkaline Phosphatase 942 H, Troponin I < 0.01, Total Protein 10.2 H, Albumin 5.4 H, Globulin 4.8 H, Albumin/Globulin Ratio 1.1, Amylase 679 H*, Lipase 516 H, Acetone Level Moderate 05/10/20 13:55: SARS-CoV-2 IgG Ab (Rapid) Negative, SARS-CoV-2 IgM Ab (Rapid) Negative 05/10/20 15:15: Lactate 1.6 Result diagrams: 05/10/20 13:55 05/10/20 13:55 Orders (Tests/Meds): ED M
[2020-05-10 14:19] LABS: Basophils # 0.1 K/mm3 (0-0.2); Basophils % 0.2 % (0.1-2.0); Eosinophils % 0.1 % (0.1-12.0); Hematocrit 47.7 % (37.0-47.0); Lymphocytes # 0.6 K/mm3 (0.7-4.5); Lymphocytes % 2.5 % (10-50); Mean Corpuscular HGB Conc 31.5 g/dL (31.8-35.4); Mean Corpuscular Hemoglobin 28.9 pg (27.0-31.2); Mean Corpuscular Volume 91.7 fl (81-99); Mean Platelet Volume 7.5 fl (7.4-10.4); Monocytes # 0.7 K/mm3 (0.1-1.0); Monocytes % 3.1 % (1.7-9.3); Neutrophils # 21.5 K/mm3 (1.8-7.8); Neutrophils % 94.1 % (37.0-80.0); Platelet Count 786 K/mm3 (142-424); Red Cell Distribution Width 13.1 % (11.5-17.5); White Blood Count 22.9 K/mm3 (4.8-10.8)
[2020-05-10 14:23] LABS: Alanine Aminotransferase 59 U/L (12-78); Albumin Level 5.4 g/dl (3.5-5.0); Albumin/Globulin Ratio 1.1 (1.1-1.8); Alkaline Phosphatase 942 U/L (38-126); Amylase 679 U/L (30-110); Aspartate Amino Transferase 23 U/L (14-36); Blood Urea Nitrogen 60 mg/dl (7-17); Carbon Dioxide 17 mmol/L (22.0-30.0); Chloride 92 mmol/L (98-107); Creatinine Clearance Estimated 25 mL/min (50-200); Estimated Glomerular Filt Rate 19 ml/min (>60); GFR (African American) 23 ML/MIN (>60); Globulin 4.8 g/dL (1.3-3.2); Lipase 516 U/L (23-300); Sodium 143 mmol/L (136-145); Total Protein,Serum 10.2 g/dl (6.3-8.2)
[2020-05-10 14:25] LABS: MANUAL DIFFERENTIAL MANUAL DIFFERENTIAL (MANUAL DIFF)
--- NOTE | 2020-05-10 14:26 | XR_ITS ---
PROCEDURE: XR CHEST PORTABLE CLINICAL HISTORY: cough COMPARISON: CR CXR1 CHEST-PORTABLE from 11/21/2014 CR CXR CHEST(2 VIEWS-NOT PORTABLE) from 11/27/[address] chest w con from 10/25/2017 CR CXR1VP XR chest portable from 08/12/2018 FINDINGS: The cardiomediastinal silhouette and pulmonary vascularity are within normal limits. The lungs are clear without infiltrates, suspicious nodules, or pleural effusions. No acute bony abnormalities. IMPRESSION: No acute findings. Dictated by: Lopez Wells MD 05/10/2020 17:19 Lopez Wells MD in [facility] 05/10/2020 17:19
[2020-05-10 14:29] LABS: Acetone, Serum (Rapid) Moderate (None Detect)
[2020-05-10 14:35] LABS: Lymphocytes % 4 % (10-50); Monocytes % 2 % (2-9); Neutrophils % 94 % (42-76); Total Cells Counted 100
[2020-05-10 14:36] LABS: Platelet Estimate Marked Increase
[2020-05-10 14:38] LABS: Hypochromasia 1+; Rouleaux 1+
[2020-05-10 14:40] LABS: VBG Base Excess -8.6 mmol/L (-2.4-2.3); VBG HCO3 17.8 mmol/L (23-30); VBG Oxygen Saturation 90.2 % (50-70); VBG PO2 62.8 mmol/L (28-40); VBG Total CO2 18.9 mmol/L (23-27)
[2020-05-10 14:41] LABS: Glucose 746 mg/dl (74-100); Troponin I < 0.01 ng/ml (0.00-0.034)
[2020-05-10 14:42] LABS: Calcium 12.2 mg/dl (8.4-10.2)
--- NOTE | 2020-05-10 14:43 | CT_ITS ---
PROCEDURE: CT ABDOMEN PELVIS WO CON CLINICAL INDICATION: nausea vomiting COMPARISON: CT ABDPELWO CT abdomen pelvis wo con from 08/11/2018 TECHNIQUE: Axial images obtained with sagittal and coronal reformats. All CT scans at the facility use one or more dose reduction, viz: automated exposure control, ma/kV adjustment per patient size (including targeted exams where dose is matched to indication, i.e. head), or iterative reconstruction technique. FINDINGS: LOWER THORAX: There is minimal thickening of the pericardium nonspecific. There is mild thickening of the distal esophagus ABDOMEN & PELVIS: The gallbladder is slightly distended. The liver and spleen have an unremarkable appearance. No adrenal mass. The pancreas is unremarkable. There are multiple bilateral renal calculi with a developing staghorn calculus in the lower pole of the left kidney which measures up to 2 cm cephalad caudad and 1 cm transverse. There are at least 2 punctate calculi in the mid and lower pole of the right kidney. No hydronephrosis. No ureteral calculus. There is a small hiatal hernia. No evidence of appendicitis. Bilateral tubal ligation clips are present. There is mild thickening of the colon throughout. No evidence of diverticulitis. No pelvic mass or abnormal fluid collection in the pelvis. There is a small umbilical hernia which contains fat. No acute bony findings. IMPRESSION: 1. Nonobstructing bilateral renal calculi with developing staghorn calculus in the lower pole of the left kidney. 2. Mild colonic thickening. This is nonspecific and could be due to nondistention versus mild colitis. Please correlate with clinical parameters. 3. Patch that there is thickening of the distal esophagus and gastroesophageal junction. This is nonspecific and may only be due to nondistention. Neoplasm or esophagitis is also considered in the differential diagnosis. Barium swallow or upper endoscopy may provide further evaluation. The 4. Mildly distended gallbladder.. Dictated by: Lopez Wells MD 05/10/2020 15:47 Lopez Wells MD in [facility] 05/10/2020 15:47
--- NOTE | 2020-05-10 15:13 | PC.NURSE ---
rocephin started after blood cultures were drawn
[2020-05-10 15:30] LABS: Coronavirus 19 IgG Antibody Negative (Negative); Coronavirus 19 IgM Antibody Negative (Negative)
[2020-05-10 15:32] LABS: Lactic Acid 1.6 mmol/L (0.7-2.1)
--- NOTE | 2020-05-10 16:01 | PC.NURSE ---
Dr Leo darnell and Dr Hilario Darnell
--- NOTE | 2020-05-10 16:05 | PC.NURSE ---
Dr Sandoval spoke with Dr Magana
--- NOTE | 2020-05-10 16:38 | PC.NURSE ---
speaking with about admission
[2020-05-10 16:47] LABS: Microscopic, Urine URINE MICROSCOPIC (MICROSCOPIC)
[2020-05-10 16:51] LABS: Appearance,Urine CLEAR (Clear); Blood, Urine 2+ (Negative); Color,Urine YELLOW (Yellow); Glucose,Urine (UA) 3+ (Negative); Ketones,Urine 3+ (Negative); Leukocyte Esterase,Urine Negative (Negative); Nitrate,Urine Negative (Negative); PH,Urine 5.5 (5.0-8.5); Protein,Urine 1+ (Negative); Urobilinogen,Urine 0.2 EU/dl (0.2)
[2020-05-10 16:52] LABS: Bilirubin,Urine 2+ (Negative)
--- NOTE | 2020-05-10 17:09 | PC.NURSE ---
Glucose reading 551, lab notified.
--- NOTE | 2020-05-10 17:16 | PC.NURSE ---
Report called to Daniella
[2020-05-10 17:21] LABS: Coronavirus 19 IgG Antibody Negative (Negative); Coronavirus 19 IgM Antibody Negative (Negative)
--- NOTE | 2020-05-10 17:42 | PC.NURSE ---
pt arrived to the floor from ED
--- NOTE | 2020-05-10 17:51 | PC.NURSE ---
FSBS 532. Called lab (Nadia) and she reports that she has labs in her centrafuge. Per insulin gtt protocol, insulin gtt will increase by 50%. Currently insulin gtt is @ 6mg/hr. I increased gtt to 9mg/hr and verified with Fran Saba RN. Insulin infusing via right AC 20g PIV.
[2020-05-10 17:54] LABS: POC Glucose,Bedside 532 (70-110)
[2020-05-10 17:57] LABS: Blood Urea Nitrogen 62 mg/dl (7-17); Carbon Dioxide 19 mmol/L (22.0-30.0); Chloride 100 mmol/L (98-107); Creatinine Clearance Estimated 31 mL/min (50-200); Estimated Glomerular Filt Rate 26 ml/min (>60); GFR (African American) 32 ML/MIN (>60); Sodium 143 mmol/L (136-145)
[2020-05-10 18:17] LABS: Glucose 638 mg/dl (74-100)
[2020-05-10 18:21] LABS: Calcium 10.7 mg/dl (8.4-10.2)
--- NOTE | 2020-05-10 18:21 | PC.NURSE ---
SPOKE WITH MD TODD REGARDING CRITICAL BS OF 632. INSULIN GTT CURRENTLY AT 9UNITS/HR. HE WOULD LIKE A bmp Q4HR AND A SERUM ACETONE Q12HR. AND FLUIDS INCREASED TO 125ML/HR
--- NOTE | 2020-05-10 18:45 | PC.NURSE ---
SPOKE WITH DR. TODD VIA TELEPHONE, HE STATED HE DOES WANT THE 20UNITS OF L[place]US GIVEN NOW.
--- NOTE | 2020-05-10 19:10 | PC.NURSE ---
FSBS 397. Insulin gtt currently @ 9units/hr (9mL/hr). Per insulin protocol, insulin gtt is to be decreased by 50% secondary to having more than a 100 point drop since it was last checked. Insulin gtt now @ 4.5units/hr (4.5mL/hr). Verified with Fran Saba RN.
--- NOTE | 2020-05-10 19:10 | PC.NURSE ---
PHARMACY PAGED AT [phone] WITH NO RETURNED PHONE CALL PAGED AGAIN AT [phone]
[2020-05-10 19:18] LABS: POC Glucose,Bedside 397 (70-110)
--- NOTE | 2020-05-10 19:45 | PC.NURSE ---
PER RUKHSANA GALVAN PHARMD GIVE 20MEQ K+ OVER 3 HOURS INSTEAD OF 2 HR. AND CAN BE BE RAN CONCURRENTLY WITH FLUIDS AND INUSLIN.
[2020-05-10 20:28] LABS: Chloride 109 mmol/L (98-107); Potassium 4.1 mmoL/L (3.5-5.1); Sodium 147 mmol/L (136-145)
[2020-05-10 20:31] LABS: Blood Urea Nitrogen 60 mg/dl (7-17); Creatinine Clearance Estimated 42 mL/min (50-200); Estimated Glomerular Filt Rate 36 ml/min (>60); GFR (African American) 44 ML/MIN (>60)
[2020-05-10 20:32] LABS: Anion Gap 20.1 mEq/L (5-15); Calcium 10.6 mg/dl (8.4-10.2); Carbon Dioxide 22 mmol/L (22.0-30.0); Glucose 325 mg/dl (74-100)
[2020-05-10 20:49] LABS: Troponin I < 0.01 ng/ml (0.00-0.034)
--- NOTE | 2020-05-10 21:41 | HMH.HP ---
*Admission Date: 05/10/20 *Chief complaint: Vomiting, elevated blood sugars *History of present illness: This 54-year-old white female presented in the emergency room at [facility] with vomiting and elevated blood sugars. She was found to be in diabetic ketoacidosis and was admitted. She states that she had been feeling bad since Saturday. She is a patient of Dr. Conde in [facility]. She last saw him 3 months ago and states that her A1c at that time was 9. She states that she takes Triseba 30 units each morning and takes 16 units of Analog prior to meals (this is different from med record). Recently she has had an infected tooth in the left lower jaw. She also has a history of renal stones. [facility] History Medical History: Reports:: Cancer (Resection of a left breast lesion.), Diabetes Mellitus Type 2, Gastroesophageal Reflux Disease(GERD) Denies:: Coronary Artery Disease, Diabetes Mellitus Type 1, MRSA, Seizures *Have you ever received a pneumonia vaccine?: No *Have you received a flu vaccine this season?: No Other Medical History: Reports: Anemia, Thyroid Disease (Has taken medication in the past.). 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 Her son is 30 years old and her daughter is 28 years old Review of Systems - Constitutional Reports fatigue, Reports weakness, Denies fever(s) - Eyes Denies change in vision - ENT Reports dental pain, Reports dizziness - *Cardiovascular Reports fast heart rate, Denies chest pain, Denies shortness of breath - *Respiratory Denies chest congestion - *Gastrointestinal Reports nausea, Reports vomiting - *Neurologic Denies headache(s) Meds Home Medications Medication Instructions Recorded Confirmed Type Metformin HCl [Glucophage 500mg 500 mg PO BID 09/03/17 05/10/20 History Tablet] Ferrous Sulfate [Iron] 325 mg PO DAILY 08/11/18 05/10/20 History Gabapentin [Gabapentin 100mg Cap] 100 mg PO TID 08/12/18 05/10/20 History Insulin Degludec [Tresiba 13 unit SUB-Q DAILY #0 08/18/18 05/10/20 Rx Flextouch U-100] Insulin Lispro [Humalog] 6 unit SUB-Q TID #0 08/18/18 05/10/20 Rx Potassium Chloride 20 meq PO DAILY 05/10/20 05/10/20 History Sitagliptin Phosphate [Januvia 100 mg PO DAILYDM 05/10/20 05/10/20 History 50mg Tablet] Allergies Allergy/AdvReac Type Severity Reaction Status Date / Time No Known Allergies Allergy Verified 09/24/17 10:29 Exam Vital signs and Labs for Last 24 Hours: Temp Pulse Resp BP Pulse Ox 98.2 F 115 H 12 141/71 H 96 05/10/20 18:00 05/10/20 18:00 05/10/20 18:00 05/10/20 18:00 05/10/20 18:00 Laboratory Results - last 24 hr 05/10/20 13:52: VBG pH 7.30 L, VBG pCO2 37.0, VBG pO2 62.8 H, VBG HCO3 17.8 L, VBG Total CO2 18.9 L, VBG O2 Saturation 90.2 H, VBG Base Excess -8.6 L 05/10/20 13:55: WBC 22.9 H*, RBC 5.20, Hgb 15.0, Hct 47.7 H, MCV 91.7, MCH 28.9, MCHC 31.5 L, RDW 13.1, Plt Count 786 H, MPV 7.5, Neut % (Auto) 94.1 H, Lymph % (Auto) 2.5 L, [place] % (Auto) 3.1, Eos % (Auto) 0.1, Baso % (Auto) 0.2, Neut # (Auto) 21.5 H, Lymph # (Auto) 0.6 L, [place] # (Auto) 0.7, Eos # (Auto) 0.0, Baso # (Auto) 0.1, Total Counted 100, Neutrophils % (Manual) 94 H, Lymphocytes % (Manual) 4 L, Monocytes % (Manual) 2, Platelet Estimate Marked increase, Hypochromasia 1+, Rouleaux 1+ 05/10/20 13:55: Sodium 143, Potassium 4.0, Chloride 92
[2020-05-11] VITALS (9 sets, daily range): BP systolic 133–154; BP diastolic 64–83; PULSE 100–120; RESP 14–18; TEMP 36.7–37; O2SAT 94–96; BMI 25.7; BMI 25.8
[2020-05-11 00:58] LABS: Anion Gap 18.4 mEq/L (5-15); Blood Urea Nitrogen 54 mg/dl (7-17); Calcium 10.8 mg/dl (8.4-10.2); Carbon Dioxide 23 mmol/L (22.0-30.0); Chloride 113 mmol/L (98-107); Creatinine Clearance Estimated 52 mL/min (50-200); Estimated Glomerular Filt Rate 47 ml/min (>60); GFR (African American) 57 ML/MIN (>60); Glucose 139 mg/dl (74-100); Potassium 4.4 mmoL/L (3.5-5.1)
[2020-05-11 01:20] LABS: Sodium 150 mmol/L (136-145)
[2020-05-11 01:59] LABS: Acetone, Serum (Rapid) None Detected (None Detect)
[2020-05-11 05:08] LABS: Eosinophils # 0.1 K/mm3 (0.0-0.4); Eosinophils % 0.6 % (0.1-12.0); Hemoglobin 13.5 g/dL (12.2-16.2); Lymphocytes # 0.7 K/mm3 (0.7-4.5); Lymphocytes % 2.9 % (10-50); Mean Corpuscular HGB Conc 32.1 g/dL (31.8-35.4); Mean Corpuscular Hemoglobin 28.2 pg (27.0-31.2); Mean Platelet Volume 7.1 fl (7.4-10.4); Monocytes # 0.7 K/mm3 (0.1-1.0); Monocytes % 2.9 % (1.7-9.3); Neutrophils # 21.3 K/mm3 (1.8-7.8); Neutrophils % 93.6 % (37.0-80.0); Platelet Count 632 K/mm3 (142-424); Red Blood Count 4.78 M/mm3 (4.20-5.40); Red Cell Distribution Width 13.5 % (11.5-17.5); White Blood Count 22.8 K/mm3 (4.8-10.8)
--- NOTE | 2020-05-11 05:15 | PC.NURSE ---
INCONTINENCE OF MINIMAL AMOUNT OF STOOL NOTED. PT AMBULATED TO BATHROOM AND NOTED WITH A LARGE BROWN EPISODE OF STOOL PER TOILET, STOOL IN TOILET NOT WITNESSED BY STAFF BUT REPORTED PER PT. PT ALSO REPORTS 2 UNWITNESSED VOIDS OF URINE, PT FLUSHES COMMODE PRIOR TO OBSERVING CHARACTERISTICS AND AMOUNT.
[2020-05-11 05:20] LABS: MANUAL DIFFERENTIAL MANUAL DIFFERENTIAL (MANUAL DIFF)
[2020-05-11 05:25] LABS: Chloride 114 mmol/L (98-107)
[2020-05-11 05:26] LABS: Potassium 4.3 mmoL/L (3.5-5.1)
[2020-05-11 05:28] LABS: Blood Urea Nitrogen 49 mg/dl (7-17); Creatinine Clearance Estimated 57 mL/min (50-200); Estimated Glomerular Filt Rate 52 ml/min (>60); GFR (African American) 63 ML/MIN (>60)
[2020-05-11 05:29] LABS: Anion Gap 18.3 mEq/L (5-15); Calcium 10.5 mg/dl (8.4-10.2); Carbon Dioxide 22 mmol/L (22.0-30.0); Glucose 241 mg/dl (74-100)
[2020-05-11 05:34] LABS: Sodium 150 mmol/L (136-145)
[2020-05-11 06:01] LABS: Lymphocytes % 3 % (10-50); Neutrophils % 97 % (42-76); Total Cells Counted 100
[2020-05-11 06:02] LABS: Platelet Estimate Normal; Stomatocytes 1+
--- NOTE | 2020-05-11 06:24 | ECG_ITS ---
APPROVED REPORT Exam: Resting ECG HR:116 bpm ECG Measurements Heart Rate 116 AXES WA 124 P 76 QRSd 68 QRS 35 QT 352 T 228 QTc 489 Conclusion Sinus tachycardia Nonspecific ST and T wave abnormality Abnormal ECG Electronically signed by : Maciel Stiles, 05/13/2020 13:54:42
--- NOTE | 2020-05-11 06:58 | PC.NURSE ---
A&OX3. 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 PULSES +2, CAP REFILL <3 SEC. SINUS TACH PER CREDIT COLLECTIONS REP. LUNGS CLEAR T/O AUSCULTATION. TOLERATED RA WELL. ABDOMEN NONDISTENDED, ACTIVE BOWEL SOUNDS, SOFT AND NONTENDER PER PALPATION. C/O NAUSEA THIS SHIFT, MEDICATIONS ADMINISTERED PER MAR FOR C/O NAUSEA. PT REPORTED RELIEF FROM PHENERGAN. INSULIN GTT TITRATED ACCORDING TO TITRATION ORDER PER MAR, PT IS CURRENTLY OFF INSULIN GTT AND STARTED ON MODERATE INTENSITY SSI Q6H. PT IS CURRENTLY D51/2NS W/ 20 MEQ KCL, ORDER REPEATED AND VERIFIED WITH DR. TODD. SBA WITH AMBULATION IN ROOM, TOLERATED WELL. VSS. WILL CONTINUE TO MONITOR.
--- NOTE | 2020-05-11 07:39 | P.CONPHA_ITS ---
[facility] VTE Monitoring - Patient Demographics Admission date: 05/10/20 Report Date: 05/11/20 Time: 07:39 Allergies/Adverse Reactions: Patient Allergies No Known Allergies Allergy (Verified 09/24/17 10:29) Height: 1.55 m Weight: 60.044 kg Patient Problems: Current Active Problems UTI (urinary tract infection) (Acute) GERD (gastroesophageal reflux disease) (Acute) Dehydration (Acute) DKA (diabetic ketoacidoses) (Acute) Sepsis (Acute) Staghorn kidney stones (Chronic) Acute pancreatitis (Acute) Dental abscess (Acute) - VTE Risk Labs: VTE Related Lab Results Hgb 13.5 g/dL (12.2-16.2) 05/11/20 04:55 Hct 42.0 % (37.0-47.0) 05/11/20 04:55 Plt Count 632 K/mm3 (142-424) H 05/11/20 04:55 BUN 49 mg/dl (7-17) H 05/11/20 04:55 Creatinine 1.10 mg/dl (0.52-1.04) H 05/11/20 04:55 Estimated Creat Clear 57 mL/min (50-200) 05/11/20 04:55 Was VTE Risk Assessment Performed: Yes VTE Score: 2 VTE Risk Level: Very Low Risk - Prophylaxis VTE Prophylaxis Ordered?: Yes Types of VTE Prophylaxis: TEDS Knee High Location of Applied Device: Bilateral Lower Extremeties
--- NOTE | 2020-05-11 08:39 | PC.NURSE ---
Pt may come out of step-down at this time. Fingersticks changed to Q6H, pt saline locked and 1800 Omer ADA diet to be ordered per physician.
--- NOTE | 2020-05-11 08:45 | HMH.ACPN2 ---
Internal Medicine - PN: Subj *Date: 05/11/20 *Time: 08:45 Interval history: Patient states that she is feeling better today. She has been nauseated and has received Zofran which did not help. Intermittent dose did help. She remains on insulin drip with more stable blood sugars. She denies shortness of breath and pain. She did sit up in a chair after a bath and while changing her bed. She states she did well with this. White blood cell count is 22,800 this morning with a hemoglobin of 13.5 and hematocrit of 42. Blood chemistries show a sodium of 150, potassium is 4.3, BUN is 49 with a creatinine of 1.10. Acetone is not detected this morning. Exam Vital signs and Labs for Last 24 Hours: Temp Pulse Resp BP Pulse Ox 98.5 F 116 H 16 153/83 H 94 L 05/11/20 04:00 05/11/20 06:00 05/11/20 04:00 05/11/20 06:00 05/11/20 06:00 Laboratory Results - last 24 hr 05/10/20 13:52: VBG pH 7.30 L, VBG pCO2 37.0, VBG pO2 62.8 H, VBG HCO3 17.8 L, VBG Total CO2 18.9 L, VBG O2 Saturation 90.2 H, VBG Base Excess -8.6 L 05/10/20 13:55: WBC 22.9 H*, RBC 5.20, Hgb 15.0, Hct 47.7 H, MCV 91.7, MCH 28.9, MCHC 31.5 L, RDW 13.1, Plt Count 786 H, MPV 7.5, Neut % (Auto) 94.1 H, Lymph % (Auto) 2.5 L, [place] % (Auto) 3.1, Eos % (Auto) 0.1, Baso % (Auto) 0.2, Neut # (Auto) 21.5 H, Lymph # (Auto) 0.6 L, [place] # (Auto) 0.7, Eos # (Auto) 0.0, Baso # (Auto) 0.1, Total Counted 100, Neutrophils % (Manual) 94 H, Lymphocytes % (Manual) 4 L, Monocytes % (Manual) 2, Platelet Estimate Marked increase, Hypochromasia 1+, Rouleaux 1+ 05/10/20 13:55: Sodium 143, Potassium 4.0, Chloride 92 L, Carbon Dioxide 17 L, Anion Gap 38.0 H, BUN 60 H, Creatinine 2.60 H, Estimated Creat Clear 25, Estimated GFR 19 L*, Est GFR ( Amer) 23 L, Glucose 746 H*, Calcium 12.2 H*, Total Bilirubin 1.0, AST 23, ALT 59, Alkaline Phosphatase 942 H, Troponin I < 0.01, Total Protein 10.2 H, Albumin 5.4 H, Globulin 4.8 H, Albumin/Globulin Ratio 1.1, Amylase 679 H*, Lipase 516 H, Acetone Level Moderate 05/10/20 13:55: SARS-CoV-2 IgG Ab (Rapid) Negative, SARS-CoV-2 IgM Ab (Rapid) Negative 05/10/20 13:55: SARS-CoV-2 IgG Ab (Rapid) Negative, SARS-CoV-2 IgM Ab (Rapid) Negative 05/10/20 15:15: Lactate 1.6 05/10/20 16:21: Urine Color Yellow, Urine Appearance Clear, Urine pH 5.5, Ur Specific [place] 1.020, Urine Protein 1+, Urine Glucose (UA) 3+, Urine Ketones 3+, Urine Blood 2+, Urine Nitrate Negative, Urine Bilirubin 2+ A, Urine Urobilinogen 0.2, Ur Leukocyte Esterase Negative, Urine RBC 5-10, Urine WBC 3-5, Ur Squamous Epith Cells 3-5 05/10/20 17:24: Sodium 143, Potassium 4.0, Chloride 100, Carbon Dioxide 19 L, Anion Gap 28.0 H, BUN 62 H, Creatinine 2.00 H D, Estimated Creat Clear 31, Estimated GFR 26 L, Est GFR ( Amer) 32 L D, Glucose 638 H*, Calcium 10.7 H D 05/10/20 17:46: POC Glucose 532 H* 05/10/20 19:06: POC Glucose 397 H* 05/10/20 20:02: Troponin I < 0.01 05/10/20 20:02: Sodium 147 H, Potassium 4.1, Chloride 109 H, Carbon Dioxide 22, Anion Gap 20.1 H, BUN 60 H, Creatinine 1.50 H D, Estimated Creat Clear 42, Estimated GFR 36 L, Est GFR ( Amer) 44 L D, Glucose 325 H D, Calcium 10.6 H 05/11/20 00:23: Sodium 150 H, Potassium 4.4, Chloride 113 H, Carbon Dioxide 23, Anion Gap 18.4 H, BUN 54 H, Creatinine 1.20 H, Estimated Creat Clear 52, Estimated GFR 47 L, Est GFR ( Amer) 57 L D, Glucose 139 H D, Calcium 10.8 H 05/11/20 00:24: Acetone Level None detected 05/11/20 04:55: Sodium 150 H, Potassium 4.3, Chloride 114 H, Carbon Dioxide 22, Anion Gap 18.3 H, BUN 49 H, Creatinine 1.10 H, Estimated Creat Clear 57, Estimated GFR 52 L, Est GFR ( Amer) 63, Glucose 241 H D, Calcium 10.5 H 05/11/20 04:55: WBC 22.8 H*, RBC 4.78, Hgb 13.5, Hct 42.0, MCV 88.0, MCH 28.2, MCHC 32.1, RDW 13.5, Plt Count 632 H, MPV 7.1 L, Neut % (Auto) 93.6 H, Lymph % (Auto) 2.9 L, [place] % (Auto) 2.9, Eos % (Auto) 0.6, Baso % (Auto) 0.0 L, Neut # (Auto) 21.3 H, Lymph # (Auto) 0.7, [place] # (Auto) 0.7, Eos # (Auto) 0.1, Baso # (Auto) 0.0, Total
--- NOTE | 2020-05-11 09:09 | PC.NURSE ---
Notified Dr. Bailey face to face that Dr. Magana is out of the office on Wednesdays and will not be able to consult on the patient until tomorrow. no new orders
[2020-05-11 10:49] LABS: Thyroid Stimulating Hormone 1.06 uIU/mL (0.465-4.68)
--- NOTE | 2020-05-11 14:09 | HMH.PHAINT ---
MEDICATION RECONCILIATION COMPLETED ON PATIENT USING EXTERNAL FILL HISTORY FROM PHARMACY AND LIST FROM PHYSICIAN'S OFFICE. -MILAN HERNANDEZD
--- NOTE | 2020-05-11 16:25 | PC.NURSE ---
Pt has slept @ intervals this shift. Remains on room air w/ no s/s of resp distress. No c/o nausea thus far. Has had poor PO intake this shift. Ambulates independently w/ on safety concerns. Currently resting in bed w/ call abel w/in reach. No needs voiced. Will continue to monitor.
[2020-05-11 18:11] LABS: Basophils % 0.1 % (0.1-2.0); Eosinophils # 0.1 K/mm3 (0.0-0.4); Eosinophils % 0.4 % (0.1-12.0); Hematocrit 43.5 % (37.0-47.0); Hemoglobin 13.8 g/dL (12.2-16.2); Lymphocytes # 1.2 K/mm3 (0.7-4.5); Lymphocytes % 5.5 % (10-50); Mean Corpuscular HGB Conc 31.8 g/dL (31.8-35.4); Mean Corpuscular Hemoglobin 28.3 pg (27.0-31.2); Mean Corpuscular Volume 89.1 fl (81-99); Mean Platelet Volume 7.3 fl (7.4-10.4); Monocytes # 0.8 K/mm3 (0.1-1.0); Monocytes % 3.9 % (1.7-9.3); Neutrophils # 18.9 K/mm3 (1.8-7.8); Platelet Count 576 K/mm3 (142-424); Red Blood Count 4.89 M/mm3 (4.20-5.40); Red Cell Distribution Width 13.6 % (11.5-17.5)
[2020-05-11 18:20] LABS: MANUAL DIFFERENTIAL MANUAL DIFFERENTIAL (MANUAL DIFF)
[2020-05-11 18:28] LABS: Chloride 112 mmol/L (98-107)
[2020-05-11 18:29] LABS: Potassium 3.5 mmoL/L (3.5-5.1); Sodium 148 mmol/L (136-145)
[2020-05-11 18:32] LABS: Anion Gap 13.5 mEq/L (5-15); Blood Urea Nitrogen 41 mg/dl (7-17); Calcium 10.4 mg/dl (8.4-10.2); Carbon Dioxide 26 mmol/L (22.0-30.0); Creatinine Clearance Estimated 50 mL/min (50-200); Estimated Glomerular Filt Rate 43 ml/min (>60); GFR (African American) 52 ML/MIN (>60); Glucose 201 mg/dl (74-100)
[2020-05-11 18:35] LABS: Lymphocytes % 10 % (10-50); Monocytes % 2 % (2-9); Neutrophils % 88 % (42-76); RBC Morphology Normal; Total Cells Counted 100
[2020-05-11 18:38] LABS: Hypochromasia 1+; Platelet Estimate Slight Increase
[2020-05-11 19:04] LABS: POC Glucose,Bedside 276 (70-110)
[2020-05-11 19:04] LABS: POC Glucose,Bedside 213 (70-110)
[2020-05-11 19:04] LABS: POC Glucose,Bedside 279 (70-110)
[2020-05-11 19:04] LABS: POC Glucose,Bedside 123 (70-110)
[2020-05-11 19:04] LABS: POC Glucose,Bedside 121 (70-110)
[2020-05-11 19:04] LABS: POC Glucose,Bedside 148 (70-110)
[2020-05-11 19:04] LABS: POC Glucose,Bedside 128 (70-110)
[2020-05-11 19:04] LABS: POC Glucose,Bedside 201 (70-110)
[2020-05-11 19:04] LABS: POC Glucose,Bedside 149 (70-110)
[2020-05-11 19:04] LABS: POC Glucose,Bedside 174 (70-110)
[2020-05-12] VITALS (9 sets, daily range): BP systolic 128–155; BP diastolic 68–82; PULSE 70–108; RESP 14–20; TEMP 36.8–37.1; O2SAT 94–95; BMI 25.7
[2020-05-12 00:38] LABS: POC Glucose,Bedside 247 (70-110)
--- NOTE | 2020-05-12 04:12 | PC.NURSE ---
Pt is alert and oriented x4. Pt has rested well with eyes closed this shift. No acute changes noted from previous shift. PERRLA. Bilateral hand admissions rn noted equal and strong. Cap refill < 3 seconds. Tolerated RA well with no c/o SOA. Bilateral lungs noted clear t/o upon auscultation. Denies abd pain with palpation. States having mild nausea upon initial assessment. Administered Zofran per OCT x1. Pt states adequate relief upon reassessment. No further c/o nausea. No BM noted thus far this shift. Refused PM snack this shift. No edema noted. Refused TEDS. Heparin VTE in place. VSS. Remains safe. Tolerates amb well in room. Call light within reach. Will continue to monitor.
[2020-05-12 06:30] LABS: Basophils % 0.1 % (0.1-2.0); Eosinophils % 0.1 % (0.1-12.0); Hematocrit 38.9 % (37.0-47.0); Lymphocytes # 1.2 K/mm3 (0.7-4.5); Lymphocytes % 9.3 % (10-50); Mean Corpuscular Hemoglobin 27.9 pg (27.0-31.2); Mean Corpuscular Volume 90.1 fl (81-99); Mean Platelet Volume 7.2 fl (7.4-10.4); Monocytes # 0.6 K/mm3 (0.1-1.0); Monocytes % 4.8 % (1.7-9.3); Neutrophils # 11.4 K/mm3 (1.8-7.8); Neutrophils % 85.7 % (37.0-80.0); Platelet Count 487 K/mm3 (142-424); Red Blood Count 4.31 M/mm3 (4.20-5.40); Red Cell Distribution Width 13.6 % (11.5-17.5); White Blood Count 13.3 K/mm3 (4.8-10.8)
[2020-05-12 06:35] LABS: Chloride 111 mmol/L (98-107); Potassium 3.4 mmoL/L (3.5-5.1); Sodium 146 mmol/L (136-145)
[2020-05-12 06:38] LABS: Anion Gap 9.4 mEq/L (5-15); Blood Urea Nitrogen 31 mg/dl (7-17); Calcium 10.2 mg/dl (8.4-10.2); Carbon Dioxide 29 mmol/L (22.0-30.0); Creatinine Clearance Estimated 59 mL/min (50-200); Estimated Glomerular Filt Rate 52 ml/min (>60); GFR (African American) 63 ML/MIN (>60); Glucose 169 mg/dl (74-100)
[2020-05-12 06:41] LABS: MANUAL DIFFERENTIAL MANUAL DIFFERENTIAL (MANUAL DIFF)
[2020-05-12 07:22] LABS: Hemoglobin 12.2 g/dL (12.2-16.2)
[2020-05-12 08:24] LABS: Eosinophils % 2 % (0-3); Lymphocytes % 6 % (10-50); Monocytes % 1 % (2-9); Neutrophils % 91 % (42-76); Total Cells Counted 100
[2020-05-12 08:25] LABS: Platelet Estimate Slight Increase; RBC Morphology Normal
[2020-05-12 08:31] LABS: POC Glucose,Bedside 168 (70-110)
--- NOTE | 2020-05-12 10:26 | HMH.ACPN2 ---
Internal Medicine - PN: Subj *Date: 05/12/20 *Time: 10:26 Interval history: She feels better this morning. She has had some loose bowel movements and was incontinent this morning. She received only clear liquids this morning, I believe because Dr. Magana may be planning to see her today. I did order Lantus 15 units this morning. She normally takes 30 units of Tresiba daily. Exam Vital signs and Labs for Last 24 Hours: Temp Pulse Resp BP Pulse Ox 98.2 F 99 H 17 133/78 94 L 05/12/20 08:00 05/12/20 08:00 05/12/20 08:00 05/12/20 08:00 05/12/20 08:00 Laboratory Results - last 24 hr 05/10/20 20:36: POC Glucose 276 H 05/10/20 21:49: POC Glucose 213 H 05/10/20 22:50: POC Glucose 149 H 05/11/20 00:16: POC Glucose 128 H 05/11/20 01:02: POC Glucose 121 H 05/11/20 01:46: POC Glucose 123 H 05/11/20 02:46: POC Glucose 148 H 05/11/20 04:55: TSH 1.06 05/11/20 04:58: POC Glucose 201 H 05/11/20 11:21: POC Glucose 279 H 05/11/20 17:11: POC Glucose 174 H 05/11/20 18:00: WBC 21.0 H*, RBC 4.89, Hgb 13.8, Hct 43.5, MCV 89.1, MCH 28.3, MCHC 31.8, RDW 13.6, Plt Count 576 H, MPV 7.3 L, Neut % (Auto) 90.0 H, Lymph % (Auto) 5.5 L, [place] % (Auto) 3.9, Eos % (Auto) 0.4, Baso % (Auto) 0.1, Neut # (Auto) 18.9 H, Lymph # (Auto) 1.2, [place] # (Auto) 0.8, Eos # (Auto) 0.1, Baso # (Auto) 0.0, Total Counted 100, Neutrophils % (Manual) 88 H, Lymphocytes % (Manual) 10, Monocytes % (Manual) 2, Platelet Estimate Slight increase, RBC Morphology Normal, Hypochromasia 1+ 05/11/20 18:00: Sodium 148 H, Potassium 3.5, Chloride 112 H, Carbon Dioxide 26, Anion Gap 13.5, BUN 41 H, Creatinine 1.30 H, Estimated Creat Clear 50, Estimated GFR 43 L, Est GFR ( Amer) 52 L, Glucose 201 H, Calcium 10.4 H 05/12/20 00:23: POC Glucose 247 H 05/12/20 05:20: WBC 13.3 H D, RBC 4.31, Hgb 12.2 D, Hct 38.9, MCV 90.1, MCH 27.9, MCHC 31.0 L, RDW 13.6, Plt Count 487 H, MPV 7.2 L, Neut % (Auto) 85.7 H, Lymph % (Auto) 9.3 L, [place] % (Auto) 4.8, Eos % (Auto) 0.1, Baso % (Auto) 0.1, Neut # (Auto) 11.4 H, Lymph # (Auto) 1.2, [place] # (Auto) 0.6, Eos # (Auto) 0.0, Baso # (Auto) 0.0, Total Counted 100, Neutrophils % (Manual) 91 H, Lymphocytes % (Manual) 6 L, Monocytes % (Manual) 1 L, Eosinophils % (Manual) 2, Platelet Estimate Slight increase, RBC Morphology Normal 05/12/20 05:20: Sodium 146 H, Potassium 3.4 L, Chloride 111 H, Carbon Dioxide 29, Anion Gap 9.4, BUN 31 H, Creatinine 1.10 H, Estimated Creat Clear 59, Estimated GFR 52 L, Est GFR ( Amer) 63 D, Glucose 169 H, Calcium 10.2 05/12/20 06:33: POC Glucose 168 H I & O for Last 24 hours: Intake & Output 05/09/20 05/10/20 05/11/20 05/12/20 11:59 11:59 11:59 11:59 Intake Total 1295 / 1295 770 / 770 Balance 1295 / 1295 770 / 770 Weight 136 lb 2 oz 136 lb Microbiology Reports for the Last 24 Hours: Microbiology 05/10/20 16:11 Urine,Clean Catch Urine Culture - Preliminary - Constitutional no acute distress - *Routine HEENT Exam Head: Present: normocephalic Eye: Present: PERRL - *Routine Respiratory Exam Present: CTA bilaterally - *Routine Cardiovascular Exam Present: RRR - *Routine Abdominal Exam Present: soft. Absent: tenderness - *Routine Extremities Exam Absent: edema - *Routine Neurological Exam Present: alert, oriented X3 Assessment and Plan (1) DKA (diabetic ketoacidoses) Status: Acute Qualifiers: Diabetes mellitus type: type 1 Diabetes mellitus complication detail: without coma Qualified Code(s): E10.10 - Type 1 diabetes mellitus with ketoacidosis without coma Category: Medical Code(s): E11.10 - Type 2 diabetes mellitus with ketoacidosis without coma (2) Acute pancreatitis Status: Acute Qualifiers: Pancreatitis type: unspecified pancreatitis type Acute pancreatitis complication: unspecified Qualified Code(s): K85.90 - Acute pancreatitis without necrosis or infection, unspecified Category: Medical Code(s): K85.90 - Acute pancreatitis without necro
[2020-05-12 11:54] LABS: POC Glucose,Bedside 181 (70-110)
--- NOTE | 2020-05-12 12:17 | HMH.CONS ---
*Admission Date: 05/10/20 *Reason for consult:: Left nephrolithiasis *History of present illness: Patient is a 54-year-old white female with history of diabetes came to the [facility] emergency room on 05/10/2020 with vomiting and not feeling well. She was found to be in diabetic ketoacidosis. Her white count was elevated to 23,000 and her creatinine was elevated 2.6. Diabetic ketoacidosis has been treated and her white count has decreased to 13,000 creatinine has improved to 1.1. She is feeling better. CT scan was performed showing developing staghorn calculus in the lower pole of the left kidney which measures 2 cm x 1 cm. Looking back at previous scan from August 2018 the location and size of the stone was much the same. Looking back he had a scan from 2012 a calculus was present in the lower pole at that time but was about half the size. Patient is not seen a urologist in the past by report. She denies any left renal colic, hematuria or previous history of stones. Even though the stone is been there since 2012 she denies knowledge knowing it. [facility] History Medical History: Reports:: Cancer (Resection of a left breast lesion.), Diabetes Mellitus Type 2, Gastroesophageal Reflux Disease(GERD) Denies:: Coronary Artery Disease, Diabetes Mellitus Type 1, MRSA, Seizures *Have you ever received a pneumonia vaccine?: No *Have you received a flu vaccine this season?: No Other Medical History: Reports: Anemia, Thyroid Disease (Has taken medication in the past.). 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) Housing: house Household Members: spouse *Travel in the last 8 weeks: None Family Hx:: Cancer, Coronary Artery Disease, Diabetes (Her brother), Hyperlipidemia, Hypertension (Her father), Kidney Disease, Stroke Para: 2 Review of Systems - Review of Systems Review of systems:: pertinent systems reviewed and negative unless documented below - Constitutional Denies fever(s) - *Genitourinary Denies blood in urine - *Musculoskeletal Denies back pain - *Neurologic Reports dizziness, Reports weakness, Denies headache(s) Meds Home Medications Medication Instructions Recorded Confirmed Type Ferrous Sulfate [Iron] 325 mg PO DAILY 08/11/18 05/10/20 History Gabapentin [Gabapentin 100mg Cap] 100 mg PO TID 08/12/18 05/10/20 History Insulin Degludec [Tresiba 30 units SQ DAILY 05/11/20 05/11/20 History Flextouch U-100] Insulin Lispro [Admelog] 16 units SQ TID 05/11/20 05/11/20 History Metformin HCl [Metformin 1000mg 1,000 mg PO BIDWM 05/11/20 05/11/20 History Tablets] Allergies Allergy/AdvReac Type Severity Reaction Status Date / Time No Known Allergies Allergy Verified 09/24/17 10:29 Exam Vital signs and Labs for Last 24 Hours: Temp Pulse Resp BP Pulse Ox 98.4 F 91 H 16 134/74 95 05/12/20 11:36 05/12/20 11:36 05/12/20 11:36 05/12/20 11:36 05/12/20 11:36 Laboratory Results - last 24 hr 05/10/20 20:36: POC Glucose 276 H 05/10/20 21:49: POC Glucose 213 H 05/10/20 22:50: POC Glucose 149 H 05/11/20 00:16: POC Glucose 128 H 05/11/20 01:02: POC Glucose 121 H 05/11/20 01:46: POC Glucose 123 H 05/11/20 02:46: POC Glucose 148 H 05/11/20 04:58: POC Glucose 201 H 05/11/20 11:21: POC Glucose 279 H 05/11/20 17:11: POC Glucose 174 H 05/11/20 18:00: WBC 21.0 H*, RBC 4.89, Hgb 13.8, Hct 43.5, MCV 89.1, MCH 28.3, MCHC 31.8, RDW 13.6, Plt Count 576 H, MPV 7.3 L, Neut % (Auto) 90.0 H, Lymph % (Auto) 5.5 L, [place] % (Auto) 3.9, Eos % (Auto) 0.4, Baso % (Auto) 0.1, Neut # (Auto) 18.9 H, Lymph # (Auto) 1.2, [place] # (Auto) 0.8, Eos # (Auto)
[2020-05-12 15:11] LABS: Microscopic, Urine URINE MICROSCOPIC (MICROSCOPIC)
[2020-05-12 15:16] LABS: Appearance,Urine CLEAR (Clear); Bilirubin,Urine Negative (Negative); Blood, Urine TRACE-I (Negative); Color,Urine YELLOW (Yellow); Glucose,Urine (UA) Negative (Negative); Ketones,Urine TRACE (Negative); Leukocyte Esterase,Urine Negative (Negative); Nitrate,Urine Negative (Negative); PH,Urine 5.5 (5.0-8.5); Protein,Urine Negative (Negative); Urobilinogen,Urine 0.2 EU/dl (0.2)
[2020-05-12 15:33] LABS: RBC,Urine Occasional #/hpf (0-3); Squamous Epithelial Cell,Urine Occasional #/hpf (0-5)
[2020-05-12 15:34] LABS: Bacteria,Urine Trace /lpf
[2020-05-12 15:47] LABS: POC Glucose,Bedside 145 (70-110)
[2020-05-12 18:43] LABS: POC Glucose,Bedside 159 (70-110)
[2020-05-12 19:21] LABS: POC Glucose,Bedside 551 (70-110)
--- NOTE | 2020-05-12 19:45 | PC.NURSE ---
Alert and oriented and able to make needs known. RR even and unlabored. CB in reach. Independent. IV abt continues. VSS. No acute changes. SSI per oct.
[2020-05-13] VITALS: BP 132/77; PULSE 70; PULSE 87; RESP 16; TEMP 37; O2SAT 95
[2020-05-13 01:40] LABS: POC Glucose,Bedside 92 (70-110)
[2020-05-13 02:50] LABS: POC Glucose,Bedside 80 (70-110)
[2020-05-13 04:00] VITALS: BP 128/77; PULSE 80; PULSE 88; RESP 18; TEMP 36.8; O2SAT 93
--- NOTE | 2020-05-13 04:17 | PC.NURSE ---
A&OX3. SIGNAL INTELLIGENCE ANALYST EQUAL BILAT. LUNGS NOTED CLEAR T/O AUSCULTATION. TOLERATED RA WELL. ABDOMEN NONDISTENDED, ACTIVE BOWEL SOUNDS, SOFT AND NONTENDER PER PALPATION. PULSES +2, CAP REFILL <3SEC. NO COMPLAINTS STATED THIS SHIFT. VSS. WILL CONTINUE TO MONITOR.
[2020-05-13 05:25] VITALS: BMI 25.5
[2020-05-13 07:09] LABS: POC Glucose,Bedside 86 (70-110)
[2020-05-13 08:00] VITALS: BP 156/73; PULSE 90; PULSE 98; RESP 16; TEMP 36.8; O2SAT 95
[2020-05-13 08:25] LABS: Basophils % 0.4 % (0.1-2.0); Eosinophils # 0.1 K/mm3 (0.0-0.4); Eosinophils % 2.2 % (0.1-12.0); Hematocrit 37.7 % (37.0-47.0); Hemoglobin 12.5 g/dL (12.2-16.2); Lymphocytes # 1.2 K/mm3 (0.7-4.5); Lymphocytes % 19.1 % (10-50); Mean Corpuscular HGB Conc 33.3 g/dL (31.8-35.4); Mean Corpuscular Hemoglobin 28.8 pg (27.0-31.2); Mean Corpuscular Volume 86.5 fl (81-99); Mean Platelet Volume 7.6 fl (7.4-10.4); Monocytes # 0.4 K/mm3 (0.1-1.0); Neutrophils # 4.6 K/mm3 (1.8-7.8); Neutrophils % 72.2 % (37.0-80.0); Platelet Count 385 K/mm3 (142-424); Red Blood Count 4.36 M/mm3 (4.20-5.40); White Blood Count 6.4 K/mm3 (4.8-10.8)
[2020-05-13 08:39] LABS: POC Glucose,Bedside > 600 (70-110)
[2020-05-13 09:02] LABS: Blood Urea Nitrogen 17 mg/dl (7-17); Calcium 9.4 mg/dl (8.4-10.2); Carbon Dioxide 28 mmol/L (22.0-30.0); Chloride 104 mmol/L (98-107); Creatinine Clearance Estimated 91 mL/min (50-200); Estimated Glomerular Filt Rate 88 ml/min (>60); GFR (African American) 106 ML/MIN (>60); Glucose 188 mg/dl (74-100); Sodium 140 mmol/L (136-145)
--- NOTE | 2020-05-13 09:33 | HMH.ACPN2 ---
Internal Medicine - PN: Subj *Date: 05/13/20 *Time: 09:33 Interval history: Dr. Magana's consultation is appreciated. The patient feels much much better. We discussed the etiology of her infection. I think that the tooth problem may have been more significant than a renal problem. Her cultures have not pointed toward any specific infection. Her electrolytes and sugars have been normalized. Her sugar this morning was 80. Her white count is normalized. Exam Vital signs and Labs for Last 24 Hours: Temp Pulse Resp BP Pulse Ox 98.3 F 88 18 128/77 93 L 05/13/20 04:00 05/13/20 04:00 05/13/20 04:00 05/13/20 04:00 05/13/20 04:00 Laboratory Results - last 24 hr 05/10/20 14:04: POC Glucose > 600 H* 05/10/20 17:06: POC Glucose 551 H* 05/12/20 11:45: POC Glucose 181 H 05/12/20 15:00: Urine Color Yellow, Urine Appearance Clear, Urine pH 5.5, Ur Specific [place] 1.020, Urine Protein Negative, Urine Glucose (UA) Negative, Urine Ketones Trace, Urine Blood Trace-i, Urine Nitrate Negative, Urine Bilirubin Negative, Urine Urobilinogen 0.2, Ur Leukocyte Esterase Negative, Urine RBC Occasional, Urine WBC 3-5, Ur Squamous Epith Cells Occasional, Urine Bacteria Trace 05/12/20 15:39: POC Glucose 145 H 05/12/20 18:36: POC Glucose 159 H 05/12/20 21:43: POC Glucose 92 05/13/20 02:11: POC Glucose 80 05/13/20 06:44: POC Glucose 86 05/13/20 08:10: WBC 6.4 D, RBC 4.36, Hgb 12.5, Hct 37.7, MCV 86.5, MCH 28.8, MCHC 33.3, RDW 13.0, Plt Count 385, MPV 7.6, Neut % (Auto) 72.2, Lymph % (Auto) 19.1, [place] % (Auto) 6.0, Eos % (Auto) 2.2, Baso % (Auto) 0.4, Neut # (Auto) 4.6, Lymph # (Auto) 1.2, [place] # (Auto) 0.4, Eos # (Auto) 0.1, Baso # (Auto) 0.0 05/13/20 08:10: Sodium 140, Potassium 4.0, Chloride 104, Carbon Dioxide 28, Anion Gap 12.0, BUN 17 D, Creatinine 0.70 D, Estimated Creat Clear 91, Estimated GFR 88, Est GFR ( Amer) 106 D, Glucose 188 H, Calcium 9.4 I & O for Last 24 hours: Intake & Output 05/10/20 05/11/20 05/12/20 05/13/20 11:59 11:59 11:59 11:59 Intake Total 1295 / 1295 770 / 770 750 / 750 Output Total 850 / 850 Balance 1295 / 1295 770 / 770 -100 / -100 Weight 136 lb 2 oz 136 lb 135 lb 7 oz Microbiology Reports for the Last 24 Hours: Microbiology 05/10/20 16:11 Urine,Clean Catch Urine Culture - Final Multiple organisms, suggests contamination. 05/10/20 16:16 Blood Blood Culture - Preliminary NO GROWTH AFTER 48 HOURS 05/10/20 16:05 Blood Blood Culture - Preliminary NO GROWTH AFTER 48 HOURS - Constitutional no acute distress - *Routine HEENT Exam Head: Present: normocephalic Eye: Present: PERRL ENT: Present: mucous membranes moist - *Routine Respiratory Exam Present: CTA bilaterally - *Routine Cardiovascular Exam Present: RRR - *Routine Abdominal Exam Present: soft. Absent: tenderness - *Routine Extremities Exam Absent: edema - *Routine Neurological Exam Present: alert, oriented X3 - Routine Psychiatric Exam Present: normal affect (Pleasant) Assessment and Plan (1) DKA (diabetic ketoacidoses) Status: Acute Qualifiers: Diabetes mellitus type: type 1 Diabetes mellitus complication detail: without coma Qualified Code(s): E10.10 - Type 1 diabetes mellitus with ketoacidosis without coma Category: Medical Code(s): E11.10 - Type 2 diabetes mellitus with ketoacidosis without coma (2) Acute pancreatitis Status: Acute Qualifiers: Pancreatitis type: unspecified pancreatitis type Acute pancreatitis complication: unspecified Qualified Code(s): K85.90 - Acute pancreatitis without necrosis or infection, unspecified Category: Medical Code(s): K85.90 - Acute pancreatitis without necrosis or infection, unspecified (3) Sepsis Status: Acute Qualifiers: Sepsis type: sepsis due to unspecified organism Sepsis acute organ dysfunction status: with acute organ dys
[2020-05-13 12:00] VITALS: BP 134/73; PULSE 89; PULSE 90; RESP 18; TEMP 36.8; O2SAT 95
[2020-05-13 12:16] LABS: POC Glucose,Bedside 261 (70-110)
[2020-05-13 16:00] VITALS: BP 149/84; PULSE 89; PULSE 90; RESP 16; TEMP 36.9; O2SAT 100
--- NOTE | 2020-05-13 16:56 | PC.NURSE ---
PT IS RESTING IN BED WITH FAMILY IN THE ROOM. PT STATES SHE IS READY TO GO HOME BUT STATES SHE WOULD LIKE TO HAVE ZOFRAN TO GO HOME WITH JUST IN CASE SHE WERE TO GET NAUSEATED. PT HAS NOT NEEDED ANYTHING FOR NAUSEA THIS SHIFT. PT HAS BEEN EATING AND DRINKING BUT ONLY SMALL PORTIONS AT A TIME. LUNG SOUNDS CLEAR. BOWEL SOUNDS NORMAL. VSS. PT STATED SHE HAD A BOWEL MOVEMENT THIS MORNING. WILL CONTINUE TO MONITOR.
[2020-05-13 17:26] LABS: POC Glucose,Bedside 131 (70-110)
--- NOTE | 2020-05-15 08:23 | HMH.DCSUM ---
General - General Admission date:: 05/10/20 Discharge date: 05/13/20 HPI HPI: This 54-year-old white female presented in the emergency room at [facility] with vomiting and elevated blood sugars. She was found to be in diabetic ketoacidosis and was admitted. She stated that she had been feeling bad since the previous 05/08/2020. She has been a patient of Dr. Conde in [facility]. She last saw him 3 months ago and stated that her A1c at that time was 9. She stated that she was taking Triseba 30 units each morning and 16 units of Analog prior to meals (this was different from med record). Recently she had an infected tooth in the left lower jaw. She also had a history of renal stones. Hospital Course Hospital Course: Patient was given IV fluid boluses in the emergency room. She was admitted on an insulin drip and started on IV antibiotics. Blood sugars did stabilize and she was able to be weaned from the insulin drip. She was placed on Lantus. She did experience nausea for which she received Zofran. Repeat White blood cell count was 22,800. Potassium was normal at 4.3. BUN was 49 creatinine 1.1 after admission. Repeat acetones became negative. Initially she was n.p.o. for urology consult. She was started on clear liquids which she tolerated well and diet advanced. Her white count did gradually come down and normalized to 6400 on 05/13/2020. She was seen by Dr. Magana, urologist, who noted when comparing to previous scans dating August 2018 and 2012 calculus present at those times as well which were half the size. He noted that she was asymptomatic from these stones that had been developing since 2012. He felt that they were nonobstructive at this point and not contributing to her current medical issues. He discussed with the patient treatments for the stone which would include stent placement and left ESWL. He recommended to continue with the current cream treatment for her current acute medical problems. He planned follow-up with her at the end of the following week to discuss timing of the ESWL. On 05/13/2020 patient was feeling much better. It was felt that her tooth problem may have been more significant than the renal problem. Cultures did not reflect any specific infection. Her electrolytes, white blood cells count, and sugars had normalized. On 05/13/2020 patient was felt to be stable to be discharged. She was to continue with Cefdinir at home. She was advised to get in touch with her primary care physician, Dr. Conde, to arrange for follow-up. She was also advised to pursue dental attention. An appointment was made for follow-up with Dr. Magana on 05/19/2020. She was to continue with meds as per medication reconciliation sheet. Objective Vital signs: Temp Pulse Resp BP Pulse Ox 98.4 F 89 16 149/84 H 100 05/13/20 16:00 05/13/20 16:00 05/13/20 16:00 05/13/20 16:00 05/13/20 16:00 Narrative: Exam Vital signs and Labs for Last 24 Hours: Temp Pulse Resp BP Pulse Ox 98.3 F 88 18 128/77 93 L 05/13/20 04:00 05/13/20 04:00 05/13/20 04:00 05/13/20 04:00 05/13/20 04:00 Laboratory Results - last 24 hr 05/10/20 14:04: POC Glucose > 600 H* 05/10/20 17:06: POC Glucose 551 H* 05/12/20 11:45: POC Glucose 181 H 05/12/20 15:00: Urine Color Yellow, Urine Appearance Clear, Urine pH 5.5, Ur Specific [place] 1.020, Urine Protein Negative, Urine Glucose (UA) Negative, Urine Ketones Trace, Urine Blood Trace-i, Urine Nitrate Negative, Urine Bilirubin Negative, Urine Urobilinogen 0.2, Ur Leukocyte Esterase Negative, Urine RBC Occasional, Urine WBC 3-5, Ur Squamous Epith Cells Occasional, Urine Bacteria Trace 05/12/20 15:39: POC Glucose 145 H 05/12/20 18:36: POC Glucose 159 H 05/12/20 21:43: POC Glucose 92 05/13/20 02:11: POC Glucose 80 05/13/20 06:44: POC Glucose 86 05/13/20 08:10: WBC 6.4 D, RBC 4.36, Hgb 12.5, Hct 37.7, MCV 86.5, MCH 28.8, MCHC 33.3, RDW 13.0,
== END 2020-05-13 18:08 | disposition home or self-care (01) ==
LOC: ER 16:10 → 2ND 05-11 06:37
PROVIDERS: Admitting Provider Family Medicine; Emergency Provider Emergency Medicine; PCP Family Medicine; Visit Provider Family Medicine
DX: E11.10 Type 2 diabetes mellitus with ketoacidosis without coma (principal); Z79.4 Long term (current) use of insulin; K85.90 Acute pancreatitis without necrosis or infection, unspecified; N17.9 Acute kidney failure, unspecified; R65.20 Severe sepsis without septic shock; N20.0 Calculus of kidney; N30.00 Acute cystitis without hematuria; E86.0 Dehydration
CPT/HCPCS: 36415; 71045; 74176; 80048; 80053; 81001; 82009; 82150; 82803; 82962; 83605; 83690; 84443; 84484; 85007; 85025; 86328; 87040; 87086; 93005; 96365; 96366; 96367; 96375; 99285; G0378; J2405; J2543

== ENCOUNTER 2020-12-20 15:09 | Inpatient (IN) | payer OTHER, SELFPAY ==
[2020-12-20] VITALS (9 sets, daily range): BP systolic 132–160; BP diastolic 53–72; PULSE 80–119; RESP 17–19; TEMP 36.8–37.2; O2SAT 96–100; BMI 26.4; BMI 25.7
--- NOTE | 2020-12-20 15:21 | HMH.EDGENADL ---
ED Disposition Clinical Impression: Diabetic ketoacidosis Qualifiers: Diabetes mellitus type: type 2 Diabetes mellitus complication detail: without coma Qualified Code(s): E11.10 - Type 2 diabetes mellitus with ketoacidosis without coma Disposition: Admitted As Inpatient Condition on Discharge: Serious Referrals: Axel Conde [Primary Care Provider] - Time of Disposition: 17:14 - Critical Care Critical Care Time: Yes Attestation: On , the high probability of a clinically significant, sudden or life threatening deterioration of the following system(s) required my full and direct attention, intervention and personal management. The time I documented below is in addition to time spent performing reported procedures but includes the following listed in this critical care notation. Total Critical Care Time: 35 Vital system(s) involved:: Metabolic Failure My critical care processes included: Assessment & monitoring of V/S, Initial and Re-exams, Data Review/Interpretation, Coordinating Care, Medication Orders and management, Documentation Medical Decision Making - Medical Records Medical records reviewed: Yes: I reviewed the patient's medical records. - Marcos Inquiry Pt receiving controlled substance: No Vital Signs: 12/20/20 15:18 12/20/20 16:00 12/20/20 16:15 Temperature 98.2 F Temperature Source Oral Pulse Rate 116 H 119 H Pulse Rate [Left Radial] 113 H Respiratory Rate 18 18 Blood Pressure 143/68 H 146/66 H Blood Pressure [Right Arm] 138/72 Blood Pressure Mean 92 Blood Pressure Mean [Right Arm] 94 Blood Pressure Source [Right Arm] Automatic Cuff Blood Pressure Position [Right Arm] Sitting 02 Sat by Pulse Oximetry 97 99 Oxygen Delivery Method Room Air 12/20/20 16:52 Temperature Temperature Source Pulse Rate 115 H Pulse Rate [Left Radial] Respiratory Rate 18 Blood Pressure 144/63 H Blood Pressure [Right Arm] Blood Pressure Mean Blood Pressure Mean [Right Arm] Blood Pressure Source [Right Arm] Blood Pressure Position [Right Arm] 02 Sat by Pulse Oximetry 100 Oxygen Delivery Method - Lab Data Lab Results 12/20/20 15:22: POC Glucose 301 H* 12/20/20 15:23: VBG pH 7.25 L, VBG pCO2 35.2, VBG pO2 50.9 H, VBG HCO3 15.2 L, VBG Total CO2 16.3 L, VBG O2 Saturation 84.9 H, VBG Base Excess -11.9 L 12/20/20 15:33: WBC 15.8 H, RBC 5.29, Hgb 14.8, Hct 45.8, MCV 86.7, MCH 28.0, MCHC 32.3, RDW 13.4, Plt Count 697 H, MPV 7.8, Neut % (Auto) 90.9 H, Lymph % (Auto) 6.3 L, [place] % (Auto) 2.4, Eos % (Auto) 0.0 L, Baso % (Auto) 0.4, Neut # (Auto) 14.4 H, Lymph # (Auto) 1.0, [place] # (Auto) 0.4, Eos # (Auto) 0.0, Baso # (Auto) 0.1, Total Counted 100, Neutrophils % (Manual) 88 H, Lymphocytes % (Manual) 5 L, Atypical Lymphs % 3.0, Monocytes % (Manual) 4, Platelet Estimate Marked increase, RBC Morphology Normal 12/20/20 15:33: Sodium 144, Potassium 4.4, Chloride 100, Carbon Dioxide 13 L, Anion Gap 35.4 H, BUN 42 H, Creatinine 1.30 H, Estimated Creat Clear 50, Estimated GFR 43 L, Est GFR ( Amer) 52 L, Glucose 325 H, Calcium 10.7 H, Total Bilirubin 1.3, AST 31, ALT 41, Alkaline Phosphatase 490 H, Total Protein 9.4 H, Albumin 5.7 H, Globulin 3.7 H, Albumin/Globulin Ratio 1.5, Lipase 261 12/20/20 15:33: Acetone Level Small 12/20/20 15:33: Lactate 1.7 Result diagrams: 12/20/20 15:33 12/20/20 15:33 Orders (Tests/Meds): ED MEDICATIONS Generic Name Dose Route Start Last Admin Trade Name Freq PRN Reason Stop Dose Admin Dextrose 50 ml 12/20/20 17:10 Dextrose 50% 50ml Syringe (Crash Cart) IVP 01/19/21 17:09 NEEDED PRN Per DKA Protocol Sodium Chloride 1,000 mls @ 150 mls/hr 12/20/20 17:15 Sod Chlor 0.9% 1000ml Bag IV 01/19/21 17:14 .[id number] CARLOS Potassium Chloride/Sodium Chloride 1,000 mls @ 250 mls/hr 12/20/20 17:15 12/20/20 17:18 Kcl 20 Meq In Ns 1,000 Ml Iv Soln IV 01/19/21 17:14 250 mls/hr .Q4H CARLOS Administration Sodium Chloride 10 ml 12/20/20 16:19
[2020-12-20 15:30] LABS: POC Glucose,Bedside 301 (70-110)
[2020-12-20 15:48] LABS: Basophils # 0.1 K/mm3 (0-0.2); Basophils % 0.4 % (0.1-2.0); Hematocrit 45.8 % (37.0-47.0); Hemoglobin 14.8 g/dL (12.2-16.2); Lymphocytes % 6.3 % (10-50); Mean Corpuscular HGB Conc 32.3 g/dL (31.8-35.4); Mean Corpuscular Volume 86.7 fl (81-99); Mean Platelet Volume 7.8 fl (7.4-10.4); Monocytes # 0.4 K/mm3 (0.1-1.0); Monocytes % 2.4 % (1.7-9.3); Neutrophils # 14.4 K/mm3 (1.8-7.8); Neutrophils % 90.9 % (37.0-80.0); Platelet Count 697 K/mm3 (142-424); Red Blood Count 5.29 M/mm3 (4.20-5.40); Red Cell Distribution Width 13.4 % (11.5-17.5); White Blood Count 15.8 K/mm3 (4.8-10.8)
[2020-12-20 15:49] LABS: MANUAL DIFFERENTIAL MANUAL DIFFERENTIAL (MANUAL DIFF)
[2020-12-20 15:54] LABS: Chloride 100 mmol/L (98-107); Potassium 4.4 mmoL/L (3.5-5.1); Sodium 144 mmol/L (136-145)
--- NOTE | 2020-12-20 15:54 | CT_ITS ---
PROCEDURE: CT ABDOMEN PELVIS W CON CLINICAL INDICATION: vomiting Nausea and vomiting COMPARISON: CT CT ABDOMEN PELVIS WO CON from 05/10/2020 TECHNIQUE: IV Contrast: 75ML Isovue 370 Oral Contrast None Axial images obtained with sagittal and coronal reformats. All CT scans at the facility use one or more dose reduction, viz: automated exposure control, ma/kV adjustment per patient size (including targeted exams where dose is matched to indication, i.e. head), or iterative reconstruction technique. FINDINGS: LOWER THORAX: No acute finding ABDOMEN & PELVIS: Small hiatal hernia with mild thickening of the distal esophagus. Gallbladder appears slightly distended. No focal liver lesion. The spleen, adrenal glands, and pancreas have an unremarkable appearance. There is a staghorn calculus in the lower pole of the left kidney measuring approximately 2 cm. An additional 3 mm stone is present in the lower pole of the left kidney. No ureteral calculus is evident. No intestinal obstruction or free air. No evidence of appendicitis. There is mild thickening of the ascending, transverse, and descending colon. This could be due to nondistention or mild colitis. There is a small umbilical hernia containing fat. Urinary bladder is mildly distended. No acute bony findings. IMPRESSION: 1. Possible colitis. 2. There is thickening of the gastroesophageal junction. This is nonspecific and may only be due to nondistention. Neoplasm or esophagitis is also considered in the differential diagnosis. Barium swallow or upper endoscopy may provide further evaluation. 3. Left nephrolithiasis 4. Mild distension of the gallbladder and urinary bladder. Dictated by: Lopez Wells MD 12/20/2020 16:47 Lopez Wells MD in [place] 12/20/2020 16:47
[2020-12-20 15:57] LABS: Alanine Aminotransferase 41 U/L (12-78); Albumin Level 5.7 g/dl (3.5-5.0); Albumin/Globulin Ratio 1.5 (1.1-1.8); Alkaline Phosphatase 490 U/L (38-126); Anion Gap 35.4 mEq/L (5-15); Aspartate Amino Transferase 31 U/L (14-36); Bilirubin,Total 1.3 mg/dl (0.2-1.3); Blood Urea Nitrogen 42 mg/dl (7-17); Calcium 10.7 mg/dl (8.4-10.2); Carbon Dioxide 13 mmol/L (22.0-30.0); Creatinine Clearance Estimated 50 mL/min (50-200); Estimated Glomerular Filt Rate 43 ml/min (>60); GFR (African American) 52 ML/MIN (>60); Globulin 3.7 g/dL (1.3-3.2); Glucose 325 mg/dl (74-100); Lipase 261 U/L (23-300); Total Protein,Serum 9.4 g/dl (6.3-8.2)
[2020-12-20 16:01] LABS: Lymphocytes % 5 % (10-50); Monocytes % 4 % (2-9); Neutrophils % 88 % (42-76); Total Cells Counted 100
[2020-12-20 16:02] LABS: Platelet Estimate Marked Increase; RBC Morphology Normal
--- NOTE | 2020-12-20 16:15 | PC.NURSE ---
pt gone to rad.
[2020-12-20 16:16] LABS: Acetone, Serum (Rapid) Small (None Detect)
[2020-12-20 16:20] LABS: VBG Base Excess -11.9 mmol/L (-2.4-2.3); VBG HCO3 15.2 mmol/L (23-30); VBG Oxygen Saturation 84.9 % (50-70); VBG PCO2 35.2 mmol/L (35-51); VBG PH 7.25 mmol/L (7.31-7.41); VBG PO2 50.9 mmol/L (28-40); VBG Total CO2 16.3 mmol/L (23-27)
[2020-12-20 17:01] LABS: Lactic Acid 1.7 mmol/L (0.7-2.1)
--- NOTE | 2020-12-20 17:17 | PC.NURSE ---
Pt started on potassium and moved to room 7 and placed on monitor. Covid swab obtained
--- NOTE | 2020-12-20 17:18 | PC.NURSE ---
Dr. Rader pagejaskaran
--- NOTE | 2020-12-20 17:19 | PC.NURSE ---
speaking with Dr. Rader
[2020-12-20 17:22] LABS: Adenovirus,PCR Not Detected (NotDetected); Coronavirus 229E Not Detected (NotDetected); Coronavirus NL63 Not Detected (NotDetected); Coronavirus OC43 Not Detected (NotDetected); Coronovirus HKU1,PCR Not Detected (NotDetected); Human Metapneumovirus Not Detected (NotDetected); Influenza A, PCR Not Detected (NotDetected); Influenza AH1, 2009 Not Detected (NotDetected); Influenza AH1, PCR Not Detected (NotDetected); Rhinovirus/Enterovirus Not Detected (NotDetected)
[2020-12-20 17:23] LABS: Bordetella Pertussis Not Detected (NotDetected); Chlamydophila Pneumoniae, PCR Not Detected (NotDetected); Coronavirus 19, PCR Not Detected (NotDetected); Influenza AH3,PCR Not Detected (NotDetected); Influenza B, PCR Not Detected (NotDetected); Mycoplasma Pneumoniae, PCR Not Detected (NotDetected); Parainfluenza 1, PCR Not Detected (NotDetected); Parainfluenza 2, PCR Not Detected (NotDetected); Parainfluenza 3, PCR Not Detected (NotDetected); Parainfluenza 4, PCR Not Detected (NotDetected); Respiratory Syncytial Virus Not Detected (NotDetected)
[2020-12-20 17:51] LABS: Chloride 105 mmol/L (98-107); Potassium 4.4 mmoL/L (3.5-5.1); Sodium 143 mmol/L (136-145)
[2020-12-20 17:54] LABS: Anion Gap 32.4 mEq/L (5-15); Blood Urea Nitrogen 38 mg/dl (7-17); Creatinine Clearance Estimated 59 mL/min (50-200); Estimated Glomerular Filt Rate 52 ml/min (>60); GFR (African American) 63 ML/MIN (>60)
[2020-12-20 17:55] LABS: Calcium 9.9 mg/dl (8.4-10.2); Glucose 338 mg/dl (74-100)
[2020-12-20 18:05] LABS: Carbon Dioxide 10 mmol/L (22.0-30.0)
--- NOTE | 2020-12-20 18:06 | PC.NURSE ---
Pt up to restroom. No new needs at this time
[2020-12-20 18:42] LABS: Acetone, Serum (Rapid) Small (None Detect)
--- NOTE | 2020-12-20 19:23 | PC.NURSE ---
labs and LR bolus delayed d/t attempting to get a 2nd PIV on pt, however have not been able to obtain at this time. aware.
[2020-12-20 19:50] LABS: POC Glucose,Bedside 341 (70-110)
--- NOTE | 2020-12-20 20:00 | PC.NURSE ---
Dr. Calvillo placed U/S guided IV to LAURA 20g.
[2020-12-20 20:10] LABS: Acetone, Serum (Rapid) Small (None Detect)
[2020-12-20 20:11] LABS: Chloride 110 mmol/L (98-107); Sodium 145 mmol/L (136-145)
[2020-12-20 20:14] LABS: Blood Urea Nitrogen 36 mg/dl (7-17); Calcium 9.6 mg/dl (8.4-10.2); Carbon Dioxide 11 mmol/L (22.0-30.0); Creatinine Clearance Estimated 72 mL/min (50-200); Estimated Glomerular Filt Rate 65 ml/min (>60); GFR (African American) 79 ML/MIN (>60); Glucose 356 mg/dl (74-100)
--- NOTE | 2020-12-20 20:22 | PC.NURSE ---
PT ARRIVED TO FLOOR VIA STRETCHER FROM ED W/STAFF AT 2021.
--- NOTE | 2020-12-20 20:26 | PC.NURSE ---
report given to Lionel Meyers RN. Maykel Brewer RN transferred pt to 2nd floor.
[2020-12-20 22:02] LABS: Chloride 111 mmol/L (98-107); Potassium 4.3 mmoL/L (3.5-5.1); Sodium 147 mmol/L (136-145)
[2020-12-20 22:05] LABS: Anion Gap 27.3 mEq/L (5-15); Blood Urea Nitrogen 35 mg/dl (7-17); Calcium 9.6 mg/dl (8.4-10.2); Carbon Dioxide 13 mmol/L (22.0-30.0); Creatinine Clearance Estimated 71 mL/min (50-200); Estimated Glomerular Filt Rate 65 ml/min (>60); GFR (African American) 79 ML/MIN (>60); Glucose 305 mg/dl (74-100)
[2020-12-20 22:29] LABS: POC Glucose,Bedside 240 (70-110)
[2020-12-20 22:29] LABS: POC Glucose,Bedside 323 (70-110)
[2020-12-21] VITALS (17 sets, daily range): BP systolic 114–171; BP diastolic 69–90; PULSE 101–120; RESP 12–19; TEMP 36.8–37.2; O2SAT 94–99; BMI 25.7
[2020-12-21 00:19] LABS: POC Glucose,Bedside 180 (70-110)
[2020-12-21 00:19] LABS: POC Glucose,Bedside 195 (70-110)
[2020-12-21 00:40] LABS: Chloride 116 mmol/L (98-107)
[2020-12-21 00:41] LABS: Potassium 3.9 mmoL/L (3.5-5.1); Sodium 148 mmol/L (136-145)
[2020-12-21 00:44] LABS: Anion Gap 18.9 mEq/L (5-15); Blood Urea Nitrogen 29 mg/dl (7-17); Calcium 9.5 mg/dl (8.4-10.2); Carbon Dioxide 17 mmol/L (22.0-30.0); Creatinine Clearance Estimated 91 mL/min (50-200); Estimated Glomerular Filt Rate 88 ml/min (>60); GFR (African American) 106 ML/MIN (>60); Glucose 171 mg/dl (74-100)
[2020-12-21 01:13] LABS: POC Glucose,Bedside 138 (70-110)
[2020-12-21 03:21] LABS: POC Glucose,Bedside 136 (70-110)
[2020-12-21 03:21] LABS: POC Glucose,Bedside 138 (70-110)
[2020-12-21 03:48] LABS: Acetone, Serum (Rapid) Small (None Detect); Chloride 116 mmol/L (98-107); Potassium 4.4 mmoL/L (3.5-5.1); Sodium 148 mmol/L (136-145)
[2020-12-21 03:51] LABS: Anion Gap 20.4 mEq/L (5-15); Blood Urea Nitrogen 28 mg/dl (7-17); Carbon Dioxide 16 mmol/L (22.0-30.0); Creatinine Clearance Estimated 91 mL/min (50-200); Estimated Glomerular Filt Rate 88 ml/min (>60); GFR (African American) 106 ML/MIN (>60)
[2020-12-21 03:52] LABS: Calcium 9.5 mg/dl (8.4-10.2); Glucose 161 mg/dl (74-100)
[2020-12-21 05:55] LABS: POC Glucose,Bedside 177 (70-110)
[2020-12-21 06:34] LABS: Blood Urea Nitrogen 24 mg/dl (7-17); Calcium 9.3 mg/dl (8.4-10.2); Carbon Dioxide 17 mmol/L (22.0-30.0); Chloride 118 mmol/L (98-107); Creatinine Clearance Estimated 106 mL/min (50-200); Estimated Glomerular Filt Rate 105 ml/min (>60); GFR (African American) 127 ML/MIN (>60); Glucose 178 mg/dl (74-100); Sodium 148 mmol/L (136-145)
[2020-12-21 06:51] LABS: POC Glucose,Bedside 173 (70-110)
[2020-12-21 06:51] LABS: POC Glucose,Bedside 171 (70-110)
--- NOTE | 2020-12-21 07:44 | P.CONPHA_ITS ---
[facility] Pharmacy VTE Monitoring - Patient Demographics Admission date: 12/20/20 Report Date: 12/21/20 Time: 07:45 Allergies/Adverse Reactions: Patient Allergies No Known Allergies Allergy (Verified 12/20/20 20:47) Height: 1.55 m Weight: 61.717 kg Patient Problems: Current Active Problems DKA (diabetic ketoacidoses) (Acute) - VTE Risk Labs: VTE Related Lab Results Hgb 14.8 g/dL (12.2-16.2) 12/20/20 15:33 Hct 45.8 % (37.0-47.0) 12/20/20 15:33 Plt Count 697 K/mm3 (142-424) H 12/20/20 15:33 BUN 24 mg/dl (7-17) H 12/21/20 05:48 Creatinine 0.60 mg/dl (0.52-1.04) 12/21/20 05:48 Estimated Creat Clear 106 mL/min (50-200) 12/21/20 05:48 Was VTE Risk Assessment Performed: Yes VTE Score: 1 VTE Risk Level: Very Low Risk Clinical Trial Participant: No - Prophylaxis VTE Prophylaxis Ordered?: Yes Types of VTE Prophylaxis: TEDS Knee High
--- NOTE | 2020-12-21 08:00 | PC.NURSE ---
FSBS 146. It was 171 @ 0700. Insulin gtt decreased to 2units/hr from 4units/hr per insulin gtt protocol.
--- NOTE | 2020-12-21 09:00 | PC.NURSE ---
FSBS 141. Insulin gtt decreased to 1 unit/hr per insulin gtt protocol.
--- NOTE | 2020-12-21 09:23 | HMH.HP ---
*Admission Date: 12/20/20 *Chief complaint: N/V *History of present illness: 55-year-old female patient presented to the emergency department with complaints of nausea and vomiting for 2 days. She reports this started 2 to 3 days ago and has gradually worsened to presently intolerable. She has had a decreased appetite and today had several episodes of emesis and sour yellow fluid. She denies any blood or mucus and has a history of type 2 diabetes. Fingerstick glucose in ER greater than 300 and she was given IV fluids with potassium added and 12 units subcu insulin. She denies any fever/chills/body aches or loose stools White blood cell count 15.8 H&H is stable Chemistries BUN 40 creatinine 1.3, potassium 4.3 12/20/20 Abd/Pelvis CT: FINDINGS: LOWER THORAX: No acute finding ABDOMEN & PELVIS: Small hiatal hernia with mild thickening of the distal esophagus. Gallbladder appears slightly distended. No focal liver lesion. The spleen, adrenal glands, and pancreas have an unremarkable appearance. There is a staghorn calculus in the lower pole of the left kidney measuring approximately 2 cm. An additional 3 mm stone is present in the lower pole of the left kidney. No ureteral calculus is evident. No intestinal obstruction or free air. No evidence of appendicitis. There is mild thickening of the ascending, transverse, and descending colon. This could be due to nondistention or mild colitis. There is a small umbilical hernia containing fat. Urinary bladder is mildly distended. No acute bony findings. IMPRESSION: 1. Possible colitis. 2. There is thickening of the gastroesophageal junction. This is nonspecific and may only be due to nondistention. Neoplasm or esophagitis is also considered in the differential diagnosis. Barium swallow or upper endoscopy may provide further evaluation. 3. Left nephrolithiasis 4. Mild distension of the gallbladder and urinary bladder. Dictated by: Lopez Wells MD [facility] History I have reviewed the patient's past medical history: Yes Medical History: Reports:: Cancer (Left breast.), Diabetes Mellitus Type 2, Gastroesophageal Reflux Disease(GERD) Denies:: Coronary Artery Disease, Diabetes Mellitus Type 1, MRSA, Seizures *Have you ever received a pneumonia vaccine?: No *Have you received a flu vaccine this season?: No Other Medical History: Reports: Anemia, Thyroid Disease. Denies: Blood Transfusion Reaction Laterality Cases: Right: Breast Biopsy Other Surgeries: Yes: (X2), Tubal Ligation Amputation: No Fractures: No - *Social History Last grade of school completed: GED Smoking Status: Never smoker Alcohol Intake: never Alcohol Intake Frequency:: other Substance Use Type: denies use *Occupational Status:: disabled Housing: house Household Members: spouse *Travel in the last 8 weeks: None Family Hx:: Diabetes Review of Systems - Review of Systems Review of systems:: pertinent systems reviewed and negative unless documented below - Constitutional Reports fatigue, Denies body ache(s) - Eyes Denies blind spots, Denies change in vision - ENT Denies abnormal hearing, Denies difficulty swallowing - *Cardiovascular Denies chest pain, Denies shortness of breath - *Respiratory Denies change in phlegm color, Denies cough, Denies shortness of breath - *Gastrointestinal Reports nausea, Reports vomiting - *Musculoskeletal Denies abnormal walking, Denies decreased muscle mass, Denies muscle weakness - Integumentary/Breasts Denies change in skin color, Denies new lesions - *Neurologic Denies dizziness, Denies headache(s) - Psychiatric Denies abnormal sleep pattern, Denies hearing things others do not hear, Denies confusion - Endocrine Denies excessive sweating, Denies heat intolerance - Hematologic/Lymphatic Denies easy bleeding, Denies easy bruising - Allergic/Immunologic Denies GI upset with certain foods, Denies tongue swelling
--- NOTE | 2020-12-21 10:00 | PC.NURSE ---
FSBS 136. Will continue insulin gtt @ 1 unit/hr per insulin gtt protocol.
[2020-12-21 10:31] LABS: Acetone, Serum (Rapid) Detected (None Detect)
[2020-12-21 10:33] LABS: Anion Gap 14.7 mEq/L (5-15); Blood Urea Nitrogen 19 mg/dl (7-17); Calcium 9.2 mg/dl (8.4-10.2); Carbon Dioxide 20 mmol/L (22.0-30.0); Chloride 117 mmol/L (98-107); Creatinine Clearance Estimated 127 mL/min (50-200); Estimated Glomerular Filt Rate 129 ml/min (>60); GFR (African American) 156 ML/MIN (>60); Glucose 150 mg/dl (74-100); Potassium 3.7 mmoL/L (3.5-5.1); Sodium 148 mmol/L (136-145)
--- NOTE | 2020-12-21 11:00 | PC.NURSE ---
FSBS 137. Insulin gtt continues @ 1 unit/hr per inuslin gtt protocol. No change in insulin gtt in last 3 hrs, will decrease FSBS to Q2hrs per protocol. Anion gap > 12 and acetone is detected @ 10am. Will enter order for acetone to be redrawn at 2200 and BMP @ 1400, both per protocol.
--- NOTE | 2020-12-21 11:13 | HMH.PHAINT ---
USED LIST FROM [facility] TO VERIFY HOME MEDICATION LIST
--- NOTE | 2020-12-21 13:00 | PC.NURSE ---
FSBS 169. Will continue insulin gtt @ 1 unit/hr per insulin gtt protocol.
--- NOTE | 2020-12-21 15:00 | PC.NURSE ---
FSBS 169. Will continue insulin gtt @ 1 unit/hr per insulin gtt protocol.
[2020-12-21 15:03] LABS: Chloride 114 mmol/L (98-107); Potassium 3.6 mmoL/L (3.5-5.1); Sodium 144 mmol/L (136-145)
[2020-12-21 15:06] LABS: Blood Urea Nitrogen 15 mg/dl (7-17); Creatinine Clearance Estimated 127 mL/min (50-200); Estimated Glomerular Filt Rate 129 ml/min (>60); GFR (African American) 156 ML/MIN (>60)
[2020-12-21 15:07] LABS: Anion Gap 14.6 mEq/L (5-15); Calcium 9.3 mg/dl (8.4-10.2); Carbon Dioxide 19 mmol/L (22.0-30.0); Glucose 200 mg/dl (74-100)
--- NOTE | 2020-12-21 17:00 | PC.NURSE ---
FSBS 179. Will continue insulin gtt @ 1 unit/hr per insulin gtt protocol
[2020-12-21 18:52] LABS: POC Glucose,Bedside 169 (70-110)
[2020-12-21 18:52] LABS: POC Glucose,Bedside 146 (70-110)
[2020-12-21 18:52] LABS: POC Glucose,Bedside 169 (70-110)
[2020-12-21 18:52] LABS: POC Glucose,Bedside 137 (70-110)
[2020-12-21 18:52] LABS: POC Glucose,Bedside 179 (70-110)
[2020-12-21 18:52] LABS: POC Glucose,Bedside 141 (70-110)
[2020-12-21 18:52] LABS: POC Glucose,Bedside 179 (70-110)
[2020-12-21 18:52] LABS: POC Glucose,Bedside 136 (70-110)
--- NOTE | 2020-12-21 18:56 | PC.NURSE ---
FSBS 179. Will continue insulin gtt @ 1 unit/hr per insulin gtt protocol
[2020-12-21 20:57] LABS: POC Glucose,Bedside 166 (70-110)
[2020-12-21 22:52] LABS: Chloride 112 mmol/L (98-107); Potassium 3.7 mmoL/L (3.5-5.1); Sodium 143 mmol/L (136-145)
[2020-12-21 22:53] LABS: Acetone, Serum (Rapid) None Detected (None Detect)
[2020-12-21 22:55] LABS: Anion Gap 11.7 mEq/L (5-15); Blood Urea Nitrogen 11 mg/dl (7-17); Calcium 9.4 mg/dl (8.4-10.2); Carbon Dioxide 23 mmol/L (22.0-30.0); Creatinine Clearance Estimated 158 mL/min (50-200); Estimated Glomerular Filt Rate 167 ml/min (>60); GFR (African American) 202 ML/MIN (>60); Glucose 203 mg/dl (74-100)
[2020-12-21 23:38] LABS: POC Glucose,Bedside 182 (70-110)
[2020-12-22] VITALS (12 sets, daily range): BP systolic 125–159; BP diastolic 55–87; PULSE 80–100; RESP 14–20; TEMP 36.9–37.4; O2SAT 93–100; BMI 26.5
[2020-12-22 01:29] LABS: POC Glucose,Bedside 162 (70-110)
--- NOTE | 2020-12-22 04:32 | PC.NURSE ---
pt has had no acute changes. insulin drip stopped this shift. fluid order changed and sliding scale started per md order. pt reported headache x1 and prn med given with relief. no n/v this shift. diet order placed per md request. iv patent and infusing per order. vss. telemetry in use and reads ST. call light in reach. will continue to monitor
--- NOTE | 2020-12-22 04:34 | PC.NURSE ---
all care and charting by andrei madsen was supervised by jay jay sheth
[2020-12-22 05:49] LABS: POC Glucose,Bedside 147 (70-110)
[2020-12-22 06:02] LABS: Anion Gap 7.9 mEq/L (5-15); Blood Urea Nitrogen 10 mg/dl (7-17); Calcium 8.9 mg/dl (8.4-10.2); Carbon Dioxide 27 mmol/L (22.0-30.0); Chloride 110 mmol/L (98-107); Creatinine Clearance Estimated 163 mL/min (50-200); Estimated Glomerular Filt Rate 167 ml/min (>60); GFR (African American) 202 ML/MIN (>60); Glucose 173 mg/dl (74-100); Sodium 142 mmol/L (136-145)
[2020-12-22 06:04] LABS: Potassium 2.9 mmoL/L (3.5-5.1)
[2020-12-22 06:14] LABS: Basophils % 0.1 % (0.1-2.0); Eosinophils # 0.1 K/mm3 (0.0-0.4); Eosinophils % 0.3 % (0.1-12.0); Hematocrit 36.7 % (37.0-47.0); Hemoglobin 12.2 g/dL (12.2-16.2); Lymphocytes # 1.5 K/mm3 (0.7-4.5); Lymphocytes % 9.3 % (10-50); Mean Corpuscular HGB Conc 33.2 g/dL (31.8-35.4); Mean Corpuscular Hemoglobin 28.3 pg (27.0-31.2); Mean Corpuscular Volume 85.3 fl (81-99); Mean Platelet Volume 7.3 fl (7.4-10.4); Monocytes # 0.6 K/mm3 (0.1-1.0); Monocytes % 3.8 % (1.7-9.3); Neutrophils # 13.7 K/mm3 (1.8-7.8); Neutrophils % 86.5 % (37.0-80.0); Platelet Count 441 K/mm3 (142-424); Red Blood Count 4.31 M/mm3 (4.20-5.40); Red Cell Distribution Width 13.6 % (11.5-17.5); White Blood Count 15.9 K/mm3 (4.8-10.8)
[2020-12-22 06:36] LABS: MANUAL DIFFERENTIAL MANUAL DIFFERENTIAL (MANUAL DIFF)
[2020-12-22 06:55] LABS: Lymphocytes % 11 % (10-50); Monocytes % 5 % (2-9); Neutrophils % 84 % (42-76); RBC Morphology Normal; Total Cells Counted 100
[2020-12-22 06:56] LABS: Platelet Estimate Slight Increase
[2020-12-22 08:24] LABS: Acetone, Serum (Rapid) Small (None Detect)
--- NOTE | 2020-12-22 08:55 | HMH.ACPN2 ---
Internal Medicine - PN: Subj *Date: 12/22/20 *Time: 16:03 Interval history: 55-year-old female patient lying in bed resting quietly she denies any shortness of breath or chest pain during the night. She reports she is feeling better this morning she is still without appetite and says she just does not feel hungry. Acetone was nondetected last night insulin drip was DC'd she does have normal saline infusing at the moment. Potassium 2.9 and will be replenished Exam Vital signs and Labs for Last 24 Hours: Temp Pulse Resp BP Pulse Ox 98.4 F 100 H 19 125/67 95 12/22/20 08:00 12/22/20 08:00 12/22/20 08:00 12/22/20 08:00 12/22/20 08:00 Laboratory Results - last 24 hr 12/21/20 07:57: POC Glucose 146 H 12/21/20 09:00: POC Glucose 141 H 12/21/20 10:05: POC Glucose 136 H 12/21/20 10:06: Acetone Level Detected 12/21/20 10:06: Sodium 148 H, Potassium 3.7, Chloride 117 H, Carbon Dioxide 20 L, Anion Gap 14.7, BUN 19 H, Creatinine 0.50 L, Estimated Creat Clear 127, Estimated GFR 129, Est GFR ( Amer) 156 D, Glucose 150 H, Calcium 9.2 12/21/20 11:05: POC Glucose 137 H 12/21/20 13:21: POC Glucose 169 H 12/21/20 14:25: Sodium 144, Potassium 3.6, Chloride 114 H, Carbon Dioxide 19 L, Anion Gap 14.6, BUN 15, Creatinine 0.50 L, Estimated Creat Clear 127, Estimated GFR 129, Est GFR ( Amer) 156, Glucose 200 H D, Calcium 9.3 12/21/20 15:17: POC Glucose 169 H 12/21/20 16:56: POC Glucose 179 H 12/21/20 18:44: POC Glucose 179 H 12/21/20 20:43: POC Glucose 166 H 12/21/20 22:35: Acetone Level None detected 12/21/20 22:35: Sodium 143, Potassium 3.7, Chloride 112 H, Carbon Dioxide 23 D, Anion Gap 11.7, BUN 11 D, Creatinine 0.40 L, Estimated Creat Clear 158, Estimated GFR 167, Est GFR ([facility]) 202 D, Glucose 203 H, Calcium 9.4 12/21/20 23:13: POC Glucose 182 H 12/22/20 01:21: POC Glucose 162 H 12/22/20 05:41: POC Glucose 147 H 12/22/20 05:46: Sodium 142, Potassium 2.9 L* D, Chloride 110 H, Carbon Dioxide 27, Anion Gap 7.9, BUN 10, Creatinine 0.40 L, Estimated Creat Clear 163, Estimated GFR 167, Est GFR ([facility] Amer) 202, Glucose 173 H, Calcium 8.9 12/22/20 05:46: WBC 15.9 H, RBC 4.31, Hgb 12.2, Hct 36.7 L, MCV 85.3, MCH 28.3, MCHC 33.2, RDW 13.6, Plt Count 441 H D, MPV 7.3 L, Neut % (Auto) 86.5 H, Lymph % (Auto) 9.3 L, [place] % (Auto) 3.8, Eos % (Auto) 0.3, Baso % (Auto) 0.1, Neut # (Auto) 13.7 H, Lymph # (Auto) 1.5, [place] # (Auto) 0.6, Eos # (Auto) 0.1, Baso # (Auto) 0.0, Total Counted 100, Neutrophils % (Manual) 84 H, Lymphocytes % (Manual) 11, Monocytes % (Manual) 5, Platelet Estimate Slight increase, RBC Morphology Normal 12/22/20 05:46: Acetone Level Small I & O for Last 24 hours: Intake & Output 12/19/20 12/20/20 12/21/20 12/22/20 23:59 23:59 23:59 23:59 Intake Total 2986 / 2986 1108 / 1108 Output Total 0 / 0 Balance 2986 / 2986 1108 / 1108 Weight 136 lb 3.2 oz 136 lb 1 oz 140 lb 6 oz - Constitutional no acute distress - *Routine HEENT Exam Head: Present: normocephalic Eye: Present: EOMI ENT: Present: mucous membranes moist - *Routine Neck Exam Present: trachea midline. Absent: tracheal deviation - *Routine Respiratory Exam Present: CTA bilaterally - *Routine Cardiovascular Exam Present: RRR - *Routine Abdominal Exam Present: soft, normoactive bowel sounds - *Routine Extremities Exam Present: full ROM, pulses intact. Absent: cyanosis, clubbing, calf tenderness - *Routine Skin Exam Present: intact, dry, warm. Absent: cyanosis, erythema - *Routine Neurological Exam Present: alert, oriented X3. Absent: motor deficit, pronator drift - Routine Psychiatric Exam Present: normal affect, normal thought process. Absent: auditory hallucinations, visual hallucinations Assessment and Plan (1) DKA (diabetic ketoacidoses) Status: Acute Qualifiers: Diabetes mellitus type: type 2 Diabetes mellitus complication detail: without coma Qualified Code(s): E11.10 - Type 2 diabetes mellitus wi
[2020-12-22 11:45] LABS: POC Glucose,Bedside 196 (70-110)
[2020-12-22 13:46] LABS: Acetone, Serum (Rapid) Small (None Detect)
[2020-12-22 17:14] LABS: POC Glucose,Bedside 138 (70-110)
[2020-12-22 18:27] LABS: Acetone, Serum (Rapid) Small (None Detect)
[2020-12-22 20:48] LABS: POC Glucose,Bedside 179 (70-110)
[2020-12-23] VITALS (12 sets, daily range): BP systolic 114–154; BP diastolic 65–83; PULSE 81–100; RESP 15–18; TEMP 36.7–37.1; O2SAT 94–98; BMI 27.2
--- NOTE | 2020-12-23 04:52 | PC.NURSE ---
pt had one episode of nausea and prn med given with relief. no other complaints. slept most of shift. iv patent and infusing per order. md was made aware of acetone levels remaining small. call light in reach. vss. will continue to monitor
--- NOTE | 2020-12-23 04:53 | PC.NURSE ---
all charting and care by andrei madsen supervised by jay jay sheth
[2020-12-23 05:35] LABS: POC Glucose,Bedside 146 (70-110)
[2020-12-23 06:58] LABS: Basophils % 0.5 % (0.1-2.0); Eosinophils # 0.1 K/mm3 (0.0-0.4); Eosinophils % 1.6 % (0.1-12.0); Hematocrit 34.7 % (37.0-47.0); Hemoglobin 11.8 g/dL (12.2-16.2); Lymphocytes # 1.7 K/mm3 (0.7-4.5); Lymphocytes % 21.9 % (10-50); Mean Corpuscular Hemoglobin 28.1 pg (27.0-31.2); Mean Corpuscular Volume 82.6 fl (81-99); Mean Platelet Volume 7.2 fl (7.4-10.4); Monocytes # 0.5 K/mm3 (0.1-1.0); Neutrophils # 5.3 K/mm3 (1.8-7.8); Platelet Count 356 K/mm3 (142-424); Red Cell Distribution Width 13.2 % (11.5-17.5); White Blood Count 7.5 K/mm3 (4.8-10.8)
[2020-12-23 07:05] LABS: Anion Gap 9.6 mEq/L (5-15); Blood Urea Nitrogen 7 mg/dl (7-17); Calcium 8.6 mg/dl (8.4-10.2); Carbon Dioxide 28 mmol/L (22.0-30.0); Chloride 104 mmol/L (98-107); Creatinine Clearance Estimated 134 mL/min (50-200); Estimated Glomerular Filt Rate 129 ml/min (>60); GFR (African American) 156 ML/MIN (>60); Glucose 156 mg/dl (74-100); Potassium 3.6 mmoL/L (3.5-5.1); Sodium 138 mmol/L (136-145)
[2020-12-23 07:18] LABS: Acetone, Serum (Rapid) Moderate (None Detect)
--- NOTE | 2020-12-23 08:49 | HMH.ACPN2 ---
Internal Medicine - PN: Subj *Date: 12/23/20 *Time: 12:15 Interval history: 55-year-old female patient resting in bed quietly, she reports she is feeling better she denies any abdominal pain. This morning acetone level was moderate and insulin drip was restarted 1 unit/h with D5 half-normal saline at 75 an hour she was also given a 1 L fluid bolus, will recheck acetone this afternoon. It was also revealed that she is only eating 50% of her meals, discussed with her she can also ask for food substitutions in place of her meals delivered Exam Vital signs and Labs for Last 24 Hours: Temp Pulse Resp BP Pulse Ox 98.1 F 97 H 18 138/83 98 12/23/20 08:00 12/23/20 08:00 12/23/20 08:00 12/23/20 08:00 12/23/20 08:00 Laboratory Results - last 24 hr 12/22/20 11:20: POC Glucose 196 H 12/22/20 13:21: Acetone Level Small 12/22/20 16:52: POC Glucose 138 H 12/22/20 18:04: Acetone Level Small 12/22/20 20:36: POC Glucose 179 H 12/23/20 05:27: POC Glucose 146 H 12/23/20 06:52: WBC 7.5 D, RBC 4.20, Hgb 11.8 L, Hct 34.7 L, MCV 82.6, MCH 28.1, MCHC 34.0, RDW 13.2, Plt Count 356, MPV 7.2 L, Neut % (Auto) 70.0, Lymph % (Auto) 21.9, [place] % (Auto) 6.0, Eos % (Auto) 1.6, Baso % (Auto) 0.5, Neut # (Auto) 5.3, Lymph # (Auto) 1.7, [place] # (Auto) 0.5, Eos # (Auto) 0.1, Baso # (Auto) 0.0 12/23/20 06:52: Sodium 138, Potassium 3.6 D, Chloride 104, Carbon Dioxide 28, Anion Gap 9.6, BUN 7 D, Creatinine 0.50 L D, Estimated Creat Clear 134, Estimated GFR 129, Est GFR ( Amer) 156 D, Glucose 156 H, Calcium 8.6 12/23/20 06:52: Acetone Level Moderate I & O for Last 24 hours: Intake & Output 12/20/20 12/21/20 12/22/20 12/23/20 23:59 23:59 23:59 23:59 Intake Total 2986 / 2986 1828 / 1828 1784 / 1784 Output Total 0 / 0 Balance 2986 / 2986 1828 / 1828 1784 / 1784 Weight 136 lb 3.2 oz 136 lb 1 oz 140 lb 6 oz 144 lb 4 oz Microbiology Reports for the Last 24 Hours: Microbiology 12/20/20 15:33 Blood Blood Culture - Preliminary NO GROWTH AFTER 48 HOURS 12/20/20 15:33 Blood Blood Culture - Preliminary NO GROWTH AFTER 48 HOURS - Constitutional no acute distress - *Routine HEENT Exam Head: Present: normocephalic Eye: Present: EOMI ENT: Present: mucous membranes moist - *Routine Neck Exam Present: supple, trachea midline. Absent: tracheal deviation - *Routine Respiratory Exam Present: CTA bilaterally. Absent: accessory muscle use - *Routine Cardiovascular Exam Present: RRR - *Routine Abdominal Exam Present: soft, normoactive bowel sounds. Absent: tenderness, rigid - *Routine Extremities Exam Present: full ROM, pulses intact. Absent: cyanosis, clubbing, edema, calf tenderness - *Routine Skin Exam Present: intact, dry, warm. Absent: cyanosis, erythema - *Routine Neurological Exam Present: alert, oriented X3. Absent: motor deficit, pronator drift - Routine Psychiatric Exam Present: normal affect, normal thought process. Absent: auditory hallucinations, visual hallucinations Assessment and Plan (1) DKA (diabetic ketoacidoses) Status: Acute Qualifiers: Diabetes mellitus type: type 2 Diabetes mellitus complication detail: without coma Qualified Code(s): E11.10 - Type 2 diabetes mellitus with ketoacidosis without coma Category: Medical Code(s): E11.10 - Type 2 diabetes mellitus with ketoacidosis without coma (2) Dehydration Status: Acute Category: Medical Code(s): E86.0 - Dehydration (3) GERD (gastroesophageal reflux disease) Status: Acute Category: Medical Code(s): K21.9 - Gastro-esophageal reflux disease without esophagitis (4) IDDM (insulin dependent diabetes mellitus) Status: Acute Category: Medical Code(s): E11.9 - Type 2 diabetes mellitus without complications; Z79.4 - ferry terminal agent (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
--- NOTE | 2020-12-23 10:16 | PC.NURSE ---
0940- Insulin drip initiated at 1unit/her, D5NS @75ml/hr
--- NOTE | 2020-12-23 10:17 | PC.NURSE ---
1000-, FSBG 278, insulin drip titrated up to 2units/hr
--- NOTE | 2020-12-23 11:06 | PC.NURSE ---
1100- FSBG 251, insulin drip increased to 3units/hr
--- NOTE | 2020-12-23 13:10 | PC.NURSE ---
1300- FSBG 297, insulin drip increased to 4.5units/hr.
--- NOTE | 2020-12-23 13:22 | DIET.NUTRFU ---
BG have stabilized, avg. 170. PO intakes 50%, pt states this is somewhat normal for her but does report decreased appetite. She denies need for dietary modifications. She denies getting outside food or additional snacks. She remains uncommunicative with diet education for DM/DKA prevention stating she believes this occurrence of DKA is caused by a new medication. at bedside is uncommunicative as well. Of note pt has several admits for DKA in the past few years. RD has offered diet education and encouraged OP nutrition counseling at each stay, she has not been communicative in IP education or made OP appointment. Last A1C was 11.2. Continuing to monitor. In depth written diet education for DM/DKA prevention provided and pt again encouraged to participate in OP nutrition counseling.
[2020-12-23 14:26] LABS: Acetone, Serum (Rapid) Moderate (None Detect)
--- NOTE | 2020-12-23 15:24 | PC.NURSE ---
1400- FSBG 279 insulin drip increased to 7units/hr 1500- FSBG 265 insulin drip increased to 10units/hr
--- NOTE | 2020-12-23 15:29 | PC.NURSE ---
Patient resting in bed comfortably at this time, after having moderate amount of serum acetone this am it was decided to restart patients insulin drip, it is currently infusing at 10units/hr, titrated this shift per protocol. Patient is alert and oriented x4, denies any pain, has been up to chair for most of the day, ambulates independently, moderate acetone once again detected this afternoon, lois brower notified, no new orders received at that time, attempting to reach out to patients logistics technician, vss, will continue to monitor for changes.
[2020-12-23 18:37] LABS: Chloride 103 mmol/L (98-107); Potassium 3.2 mmoL/L (3.5-5.1); Sodium 136 mmol/L (136-145)
[2020-12-23 18:40] LABS: Blood Urea Nitrogen 10 mg/dl (7-17); Creatinine Clearance Estimated 168 mL/min (50-200); Estimated Glomerular Filt Rate 167 ml/min (>60); GFR (African American) 202 ML/MIN (>60)
[2020-12-23 18:41] LABS: Anion Gap 8.2 mEq/L (5-15); Calcium 8.7 mg/dl (8.4-10.2); Carbon Dioxide 28 mmol/L (22.0-30.0); Glucose 224 mg/dl (74-100)
[2020-12-23 18:44] LABS: POC Glucose,Bedside 216 (70-110)
[2020-12-23 18:44] LABS: POC Glucose,Bedside 170 (70-110)
[2020-12-23 18:44] LABS: POC Glucose,Bedside 279 (70-110)
[2020-12-23 18:44] LABS: POC Glucose,Bedside 265 (70-110)
[2020-12-23 18:44] LABS: POC Glucose,Bedside 200 (70-110)
[2020-12-23 18:44] LABS: POC Glucose,Bedside 241 (70-110)
[2020-12-23 18:44] LABS: POC Glucose,Bedside 213 (70-110)
[2020-12-23 18:44] LABS: POC Glucose,Bedside 251 (70-110)
[2020-12-23 18:44] LABS: POC Glucose,Bedside 297 (70-110)
[2020-12-23 18:44] LABS: POC Glucose,Bedside 278 (70-110)
[2020-12-23 21:41] LABS: POC Glucose,Bedside 204 (70-110)
[2020-12-23 21:41] LABS: POC Glucose,Bedside 144 (70-110)
[2020-12-23 22:05] LABS: POC Glucose,Bedside 146 (70-110)
[2020-12-23 22:19] LABS: Chloride 102 mmol/L (98-107); Potassium 3.1 mmoL/L (3.5-5.1); Sodium 134 mmol/L (136-145)
[2020-12-23 22:22] LABS: Anion Gap 6.1 mEq/L (5-15); Blood Urea Nitrogen 9 mg/dl (7-17); Calcium 8.3 mg/dl (8.4-10.2); Carbon Dioxide 29 mmol/L (22.0-30.0); Creatinine Clearance Estimated 168 mL/min (50-200); Estimated Glomerular Filt Rate 167 ml/min (>60); GFR (African American) 202 ML/MIN (>60); Glucose 159 mg/dl (74-100)
[2020-12-23 23:11] LABS: POC Glucose,Bedside 166 (70-110)
[2020-12-24] VITALS (16 sets, daily range): BP systolic 120–159; BP diastolic 72–91; PULSE 76–104; RESP 13–24; TEMP 36.7–36.9; O2SAT 94–99; BMI 28.5
[2020-12-24 00:06] LABS: POC Glucose,Bedside 138 (70-110)
[2020-12-24 01:12] LABS: POC Glucose,Bedside 107 (70-110)
--- NOTE | 2020-12-24 01:12 | PC.NURSE ---
She is A&Ox3. She has been awake all night. Her speech is clear. She denies SOA, nausea, vomiting, weakness, and pain. She reports her last BM was on 12/23/20. She ambulates to the bathroom independently with steady gait. She only needs assistance disconnecting BP tubing. She continues on the insulin gtt. Lung sounds CTA. Continues on RA. NSR on telemetry.
[2020-12-24 02:15] LABS: POC Glucose,Bedside 97 (70-110)
[2020-12-24 02:33] LABS: Acetone, Serum (Rapid) None Detected (None Detect); Chloride 105 mmol/L (98-107); Potassium 3.2 mmoL/L (3.5-5.1); Sodium 134 mmol/L (136-145)
[2020-12-24 02:36] LABS: Blood Urea Nitrogen 7 mg/dl (7-17); Creatinine Clearance Estimated 224 mL/min (50-200); Estimated Glomerular Filt Rate 233 ml/min (>60); GFR (African American) 282 ML/MIN (>60)
[2020-12-24 02:37] LABS: Anion Gap 8.2 mEq/L (5-15); Calcium 8.1 mg/dl (8.4-10.2); Carbon Dioxide 24 mmol/L (22.0-30.0); Glucose 107 mg/dl (74-100)
[2020-12-24 03:47] LABS: POC Glucose,Bedside 88 (70-110)
[2020-12-24 06:22] LABS: Anion Gap 4.6 mEq/L (5-15); Blood Urea Nitrogen 5 mg/dl (7-17); Calcium 8.3 mg/dl (8.4-10.2); Carbon Dioxide 30 mmol/L (22.0-30.0); Chloride 105 mmol/L (98-107); Creatinine Clearance Estimated 176 mL/min (50-200); Estimated Glomerular Filt Rate 167 ml/min (>60); GFR (African American) 202 ML/MIN (>60); Glucose 71 mg/dl (74-100); Sodium 137 mmol/L (136-145)
[2020-12-24 06:24] LABS: Potassium 2.6 mmoL/L (3.5-5.1)
[2020-12-24 06:28] LABS: POC Glucose,Bedside 73 (70-110)
[2020-12-24 10:08] LABS: Basophils # 0.1 K/mm3 (0-0.2); Basophils % 0.5 % (0.1-2.0); Eosinophils # 0.2 K/mm3 (0.0-0.4); Eosinophils % 2.2 % (0.1-12.0); Hemoglobin 11.6 g/dL (12.2-16.2); Lymphocytes # 1.8 K/mm3 (0.7-4.5); Mean Corpuscular HGB Conc 34.2 g/dL (31.8-35.4); Mean Corpuscular Hemoglobin 28.1 pg (27.0-31.2); Mean Corpuscular Volume 82.2 fl (81-99); Mean Platelet Volume 7.8 fl (7.4-10.4); Monocytes # 0.4 K/mm3 (0.1-1.0); Monocytes % 4.2 % (1.7-9.3); Neutrophils # 6.6 K/mm3 (1.8-7.8); Neutrophils % 73.1 % (37.0-80.0); Platelet Count 340 K/mm3 (142-424); Red Blood Count 4.14 M/mm3 (4.20-5.40); Red Cell Distribution Width 13.6 % (11.5-17.5)
[2020-12-24 10:15] LABS: Chloride 102 mmol/L (98-107); Sodium 135 mmol/L (136-145)
[2020-12-24 10:18] LABS: Anion Gap 5.9 mEq/L (5-15); Blood Urea Nitrogen 6 mg/dl (7-17); Calcium 8.2 mg/dl (8.4-10.2); Carbon Dioxide 30 mmol/L (22.0-30.0); Creatinine Clearance Estimated 176 mL/min (50-200); Estimated Glomerular Filt Rate 167 ml/min (>60); GFR (African American) 202 ML/MIN (>60); Glucose 170 mg/dl (74-100)
[2020-12-24 10:22] LABS: Potassium 2.9 mmoL/L (3.5-5.1)
--- NOTE | 2020-12-24 10:23 | PC.NURSE ---
Waleska Rodriguez APRN notified of K 2.9
[2020-12-24 10:27] LABS: Acetone, Serum (Rapid) None Detected (None Detect)
[2020-12-24 11:20] LABS: POC Glucose,Bedside 167 (70-110)
--- NOTE | 2020-12-24 13:28 | HMH.ACPN2 ---
Internal Medicine - PN: Subj *Date: 12/24/20 *Time: 13:31 Interval history: Patient relays an uneventful night. Her most recent acetone was 0. She is hypokalemic at 2.9, she is receiving several rounds of potassium. Blood culture is negative Blood sugars have been between 70 and 170. Insulin remains on board. He is alert, clear, lucid. Her appetite is improving. She and staff relays no significant concerns. She appears to be much stronger than when last seen. She is followed by an coding compliance manager in [facility], Dr. Germain. Exam Vital signs and Labs for Last 24 Hours: Temp Pulse Resp BP Pulse Ox 98.3 F 95 H 24 146/87 H 97 12/24/20 12:12 12/24/20 12:12 12/24/20 12:12 12/24/20 12:12 12/24/20 12:12 Laboratory Results - last 24 hr 12/23/20 10:12: POC Glucose 278 H 12/23/20 11:04: POC Glucose 251 H 12/23/20 11:58: POC Glucose 241 H 12/23/20 12:54: POC Glucose 297 H 12/23/20 14:06: POC Glucose 279 H 12/23/20 14:10: Acetone Level Moderate 12/23/20 15:02: POC Glucose 265 H 12/23/20 16:07: POC Glucose 213 H 12/23/20 16:53: POC Glucose 170 H 12/23/20 18:05: POC Glucose 200 H 12/23/20 18:16: Sodium 136, Potassium 3.2 L, Chloride 103, Carbon Dioxide 28, Anion Gap 8.2, BUN 10 D, Creatinine 0.40 L, Estimated Creat Clear 168, Estimated GFR 167, Est GFR ( Amer) 202 D, Glucose 224 H D, Calcium 8.7 12/23/20 18:35: POC Glucose 216 H 12/23/20 19:33: POC Glucose 204 H 12/23/20 21:04: POC Glucose 144 H 12/23/20 21:57: POC Glucose 146 H 12/23/20 22:01: Sodium 134 L, Potassium 3.1 L, Chloride 102, Carbon Dioxide 29, Anion Gap 6.1, BUN 9, Creatinine 0.40 L, Estimated Creat Clear 168, Estimated GFR 167, Est GFR ( Amer) 202, Glucose 159 H D, Calcium 8.3 L 12/23/20 23:04: POC Glucose 166 H 12/23/20 23:58: POC Glucose 138 H 12/24/20 01:04: POC Glucose 107 12/24/20 02:08: POC Glucose 97 12/24/20 02:17: Sodium 134 L, Potassium 3.2 L, Chloride 105, Carbon Dioxide 24, Anion Gap 8.2, BUN 7, Creatinine 0.30 L D, Estimated Creat Clear 224, Estimated GFR 233, Est GFR ( Amer) 282 D, Glucose 107 H D, Calcium 8.1 L 12/24/20 02:17: Acetone Level None detected 12/24/20 03:40: POC Glucose 88 12/24/20 05:57: POC Glucose 73 12/24/20 06:00: Sodium 137, Potassium 2.6 L*, Chloride 105, Carbon Dioxide 30 D, Anion Gap 4.6 L, BUN 5 L D, Creatinine 0.40 L D, Estimated Creat Clear 176, Estimated GFR 167, Est GFR ( Amer) 202 D, Glucose 71 L D, Calcium 8.3 L 12/24/20 09:55: WBC 9.0, RBC 4.14 L, Hgb 11.6 L, Hct 34.0 L, MCV 82.2, MCH 28.1, MCHC 34.2, RDW 13.6, Plt Count 340, MPV 7.8, Neut % (Auto) 73.1, Lymph % (Auto) 20.0, [place] % (Auto) 4.2, Eos % (Auto) 2.2, Baso % (Auto) 0.5, Neut # (Auto) 6.6, Lymph # (Auto) 1.8, [place] # (Auto) 0.4, Eos # (Auto) 0.2, Baso # (Auto) 0.1 12/24/20 09:55: Sodium 135 L, Potassium 2.9 L*, Chloride 102, Carbon Dioxide 30, Anion Gap 5.9, BUN 6 L, Creatinine 0.40 L, Estimated Creat Clear 176, Estimated GFR 167, Est GFR ( Amer) 202, Glucose 170 H D, Calcium 8.2 L 12/24/20 09:55: Acetone Level None detected 12/24/20 11:08: POC Glucose 167 H I & O for Last 24 hours: Intake & Output 12/21/20 12/22/20 12/23/20 12/24/20 23:59 23:59 23:59 23:59 Intake Total 2986 / 2986 1828 / 1828 2724 / 2724 331 / 331 Output Total 0 / 0 0 / 0 Balance 2986 / 2986 1828 / 1828 2724 / 2724 331 / 331 Weight 136 lb 1 oz 140 lb 6 oz 144 lb 4 oz 151 lb 8 oz - Constitutional no acute distress - *Routine HEENT Exam Head: Present: normocephalic Eye: Present: EOMI, PERRL ENT: Present: mucous membranes moist - *Routine Neck Exam Present: supple. Absent: lymphadenopathy - *Routine Respiratory Exam Present: CTA bilaterally - *Routine Cardiovascular Exam Present: RRR - *Routine Abdominal Exam Present: soft, normoactive bowel sounds. Absent: tenderness - *Routine Extremities Exam Absent: cyanosis, clubbing, edema - *Routine Skin Exam Present: warm. Absent: rash - *Routine Neurological Exam
[2020-12-24 17:10] LABS: POC Glucose,Bedside 192 (70-110)
[2020-12-24 17:22] LABS: Acetone, Serum (Rapid) None Detected (None Detect); Anion Gap 6.3 mEq/L (5-15); Blood Urea Nitrogen 6 mg/dl (7-17); Calcium 8.2 mg/dl (8.4-10.2); Carbon Dioxide 29 mmol/L (22.0-30.0); Chloride 104 mmol/L (98-107); Creatinine Clearance Estimated 141 mL/min (50-200); Estimated Glomerular Filt Rate 129 ml/min (>60); GFR (African American) 156 ML/MIN (>60); Glucose 204 mg/dl (74-100); Potassium 3.3 mmoL/L (3.5-5.1); Sodium 136 mmol/L (136-145)
[2020-12-24 20:27] LABS: POC Glucose,Bedside 176 (70-110)
[2020-12-25] VITALS: BP 135/78; PULSE 80; PULSE 87; RESP 16; TEMP 36.8; O2SAT 94
[2020-12-25 02:00] VITALS: BP 158/94; PULSE 83; RESP 16; O2SAT 94
[2020-12-25 03:24] VITALS: TEMP 36.9
[2020-12-25 04:00] VITALS: BP 139/82; PULSE 80; RESP 15; O2SAT 94
--- NOTE | 2020-12-25 04:19 | PC.NURSE ---
pt has had no complaints. states I feel better iv in LAURA patent and infusing per order. independent with care. call light in reach. vss. will continue to monitor.
[2020-12-25 05:00] VITALS: BMI 28.8
[2020-12-25 05:50] LABS: POC Glucose,Bedside 230 (70-110)
[2020-12-25 06:00] VITALS: BP 152/89; PULSE 88; RESP 15; O2SAT 97
[2020-12-25 06:14] LABS: Anion Gap 7.5 mEq/L (5-15); Blood Urea Nitrogen 6 mg/dl (7-17); Calcium 8.7 mg/dl (8.4-10.2); Carbon Dioxide 29 mmol/L (22.0-30.0); Chloride 105 mmol/L (98-107); Creatinine Clearance Estimated 142 mL/min (50-200); Estimated Glomerular Filt Rate 129 ml/min (>60); GFR (African American) 156 ML/MIN (>60); Glucose 246 mg/dl (74-100); Potassium 3.5 mmoL/L (3.5-5.1); Sodium 138 mmol/L (136-145)
[2020-12-25 08:00] VITALS: PULSE 94; TEMP 36.9
--- NOTE | 2020-12-25 09:15 | HMH.DCSUM ---
General - General Admission date:: 12/20/20 Discharge date: 12/25/20 HPI HPI: 55-year-old female patient presented to the emergency department with complaints of nausea and vomiting for 2 days. She reports this started 2 to 3 days ago and has gradually worsened to presently intolerable. She has had a decreased appetite and today had several episodes of emesis and sour yellow fluid. She denies any blood or mucus and has a history of type 2 diabetes. Fingerstick glucose in ER greater than 300 and she was given IV fluids with potassium added and 12 units subcu insulin. She denies any fever/chills/body aches or loose stools White blood cell count 15.8 H&H is stable Chemistries BUN 40 creatinine 1.3, potassium 4.3 12/20/20 Abd/Pelvis CT: FINDINGS: LOWER THORAX: No acute finding ABDOMEN & PELVIS: Small hiatal hernia with mild thickening of the distal esophagus. Gallbladder appears slightly distended. No focal liver lesion. The spleen, adrenal glands, and pancreas have an unremarkable appearance. There is a staghorn calculus in the lower pole of the left kidney measuring approximately 2 cm. An additional 3 mm stone is present in the lower pole of the left kidney. No ureteral calculus is evident. No intestinal obstruction or free air. No evidence of appendicitis. There is mild thickening of the ascending, transverse, and descending colon. This could be due to nondistention or mild colitis. There is a small umbilical hernia containing fat. Urinary bladder is mildly distended. No acute bony findings. IMPRESSION: 1. Possible colitis. 2. There is thickening of the gastroesophageal junction. This is nonspecific and may only be due to nondistention. Neoplasm or esophagitis is also considered in the differential diagnosis. Barium swallow or upper endoscopy may provide further evaluation. 3. Left nephrolithiasis 4. Mild distension of the gallbladder and urinary bladder. Dictated by: Lopez Wells MD Hospital Course Hospital Course: this iddm presented with In summary this is a 55-year-old female with history of type 2 diabetes, pancreatitis, kidney stones presenting to the emergency department with vomiting. Patient clinically stable on arrival. Vital signs within normal limits. Afebrile. Differential diagnoses include medication reaction, dehydration, acute kidney injury, urinary tract infection. No abdominal pain or flank pain to suggest pancreatitis or kidney stone at this time. Plan to obtain CBC, CMP, lipase, VBG, acetone, urinalysis. Patient given IV fluids and IV Zofran. Fingerstick blood glucose is greater than 300. Patient receiving IV fluids. Laboratory results show slight acidosis with pH of 7.25. Patient CO2 is very low at 13, gap at 35. Concern for diabetic ketoacidosis. Potassium is 4.4. IV fluids with added potassium initiated. Given 12u subQ insulin. Other labs show mild acute kidney injury with creatinine of 1.3 and BUN of 40. Elevated white blood cell count of 15,000. No anemia. CT scan of the abdomen and pelvis shows possible colitis and thickening of the GE junction. This is similar to CT scan that patient had 2 years ago. Doubt that it is acute infectious colitis. 55-year-old female presenting to the emergency department with nausea and vomiting. Symptoms started 2 to 3 days ago. She felt generally unwell. Has had decreased appetite. Today had multiple episodes of emesis, foodstuffs and then sour yellow liquid. No blood or mucus. She has a history of type 2 diabetes. Recently switched to Ozempic and Farxiga. These changes happened around 1 week ago. No particular abdominal pain. No early satiety. No dysuria or hematuria. She has not had a bowel movement in a few days. No cough, shortness of breath. pt was admitted with acute dka- pt slowly improved and was briefly clear of acetone but developed serum ketones again and required ivf and insulin agai
[2020-12-25 10:32] LABS: Microscopic, Urine URINE MICROSCOPIC (MICROSCOPIC)
[2020-12-25 10:34] LABS: Appearance,Urine CLEAR (Clear); Bilirubin,Urine Negative (Negative); Blood, Urine Negative (Negative); Color,Urine YELLOW (Yellow); Glucose,Urine (UA) 3+ (Negative); Ketones,Urine Negative (Negative); Leukocyte Esterase,Urine 1+ (Negative); Nitrate,Urine Negative (Negative); Protein,Urine Negative (Negative); Specific Gravity, Urine 1.015 (1.005-1.030); Urobilinogen,Urine 0.2 EU/dl (0.2)
[2020-12-25 10:40] LABS: Amorphous Sediment,Urine 1+ /lpf
== END 2020-12-25 10:31 | disposition home or self-care (01) | DRG 638 ==
LOC: ER 17:14 → 2ND 19:27
PROVIDERS: Family Medicine; Nurse Practitioner Family; Admitting Provider Emergency Medicine; Emergency Provider Emergency Medicine; PCP Family Medicine; Visit Provider Emergency Medicine
DX: E11.10 Type 2 diabetes mellitus with ketoacidosis without coma (principal); N17.9 Acute kidney failure, unspecified; E86.0 Dehydration; K21.9 Gastro-esophageal reflux disease without esophagitis; Z85.3 Personal history of malignant neoplasm of breast; E87.6 Hypokalemia; Z79.4 Long term (current) use of insulin; Z20.822 Contact with and (suspected) exposure to COVID-19
CPT/HCPCS: 36415; 74177; 80048; 80053; 81001; 82009; 82803; 82962; 83605; 83690; 85007; 85025; 87040; 87086; 87581; 87633; 87798; 96365; 96366; 96375; 99284; J2405; Q9967

== ENCOUNTER → 2021-02-22 12:01 | Outpatient (CLI) | payer OTHER, SELFPAY ==
[2021-02-22 12:04] LABS: MANUAL DIFFERENTIAL MANUAL DIFFERENTIAL (MANUAL DIFF)
[2021-02-22 12:43] LABS: Basophils # 0.1 K/mm3 (0-0.2); Basophils % 0.9 % (0.1-2.0); Eosinophils # 0.3 K/mm3 (0.0-0.4); Eosinophils % 2.6 % (0.1-12.0); Lymphocytes # 2.1 K/mm3 (0.7-4.5); Lymphocytes % 21.9 % (10-50); Mean Corpuscular HGB Conc 33.4 g/dL (31.8-35.4); Mean Corpuscular Hemoglobin 27.9 pg (27.0-31.2); Mean Corpuscular Volume 83.6 fl (81-99); Mean Platelet Volume 8.1 fl (7.4-10.4); Monocytes # 0.4 K/mm3 (0.1-1.0); Neutrophils # 6.9 K/mm3 (1.8-7.8); Neutrophils % 70.7 % (37.0-80.0); Platelet Count 526 K/mm3 (142-424); Red Blood Count 4.66 M/mm3 (4.20-5.40); Red Cell Distribution Width 13.8 % (11.5-17.5); White Blood Count 9.7 K/mm3 (4.8-10.8)
[2021-02-22 13:37] LABS: Blood Urea Nitrogen 18 mg/dl (7-17); Calcium 10.3 mg/dl (8.4-10.2); Carbon Dioxide 28 mmol/L (22.0-30.0); Chloride 102 mmol/L (98-107); Estimated Glomerular Filt Rate 129 ml/min (>60); GFR (African American) 156 ML/MIN (>60); Glucose 215 mg/dl (74-100); Sodium 142 mmol/L (136-145)
[2021-02-22 14:19] LABS: Eosinophils % 2 % (0-3); Lymphocytes % 26 % (10-50); Monocytes % 4 % (2-9); Neutrophils % 68 % (42-76); Total Cells Counted 100
[2021-02-22 14:22] LABS: Platelet Estimate Slight Increase; RBC Morphology Normal
== END ==
PROVIDERS: Visit Provider Urology
DX: Z01.812 Encounter for preprocedural laboratory examination (principal); Z11.52 Encounter for screening for COVID-19; N20.1 Calculus of ureter
CPT/HCPCS: 36415; 80048; 85007; 85014; 85018; 85048; 85049; U0003

== ENCOUNTER 2021-02-24 07:51 | Day surgery (SDC) | payer OTHER, SELFPAY ==
[2021-02-23 09:05] VITALS: BMI 27.0
[2021-02-24] VITALS (10 sets, daily range): BP systolic 130–148; BP diastolic 69–75; PULSE 95–98; RESP 14–18; TEMP 36.4–36.9; O2SAT 95–99; BMI 26.4
--- NOTE | 2021-02-24 08:03 | XR_ITS ---
PROCEDURE: XR KUB CLINICAL INDICATION: preop COMPARISON: CT of the abdomen and pelvis of December 20, 2020 FINDINGS: Staghorn calculus in overlying the left kidney is again noted, demonstrates no significant interval change compared to prior study. Few calcified phleboliths are noted in the pelvis. Nonspecific nonobstructive bowel gas pattern. Visualized lumbar spine and bony pelvis are unremarkable IMPRESSION: . staghorn calculus in the left kidney. No interval change compared to prior study allowing for technical differences. Dictated by: Angelica Gloria 02/24/2021 08:28 Angelica Gloria in OV 02/24/2021 08:28
[2021-02-24 09:07] LABS: POC Glucose,Bedside 151 (70-110)
--- NOTE | 2021-02-24 09:42 | HMH.ANESCL ---
[facility] Anesthesia Checklist - Patient Identification Patient Identification: Arm Band - Structural Data Admitted From: Home Planned Operative Procedure/s: ESWL Consent for Planned Operative Procedure(s) Verified: Yes - NPO Status Verified Time NPO: 00:00 - Additional verifications Anesthesia Reactions: No Hx Blood Transfusions: Yes (hx of anemia-2 yrs ago) Blood Transfusion Reaction: No - Airway Assessment C-Spine Mobility Assessed: Yes TMJ Mobility Assessed: Yes Dentition: Good Dentition - Neurological Assessment Level of Consciousness: Awake Hx Seizures: No Numbness or tingling in extremities: No - Anesthesia Plan Anesthesia Risk discussed: Yes Anesthesia Plan: Verified ASA Class: II Anesthesia Type: General [facility] History I have reviewed the patient's past medical history: Yes Medical History: 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 Denies: Blood Transfusion Reaction Anesthesia experience/problems:: None Laterality Cases: Right: Breast Biopsy Other Surgeries: Yes: No Previous Surgery, Colonoscopy, , Tubal Ligation. No: Pacemaker Amputation: No Fractures: No - *Social History Last grade of school completed: GED Smoking Status: Never smoker Alcohol Intake: never Alcohol Intake Frequency:: other Substance Use Type: denies use *Occupational Status:: unemployed Housing: house Household Members: spouse *Travel in the last 8 weeks: None Family Hx:: Diabetes
[2021-02-24 11:40] LABS: POC Glucose,Bedside 171 (70-110)
--- NOTE | 2021-02-24 12:15 | SUR.PHASEI ---
1130- pt c/o urge to void. Placed on bedpan. Unable to void.
--- NOTE | 2021-02-24 12:24 | HMH.OPNOTE ---
Date of procedure: 02/24/21 Pre-op Diagnosis:: 2 cm left lower pole stone Post-op Diagnosis:: Same Procedure performed:: Cystoscopy with left stent placement, left ESWL Surgeon:: George Magana MD DIRECTOR [employer]:: Razia Poon Anesthesia: LMA Estimated blood loss (mL): 0 Clinical Note:: Patient is a 55-year-old white female noted to have a 2 cm left lower pole stone on recent CT scan. She is asymptomatic from the stone. Operative findings:: 2 cm left lower pole stone. Operative note:: Patient taken to the operating room after informed consent was obtained. She is placed on the operating table in the supine position and general anesthesia administered. Preoperative antibiotics and sequential compression devices placed. She was then placed into the dorsal lithotomy position and prepped draped in the standard surgical fashion. A 22 Nepali cystoscope passed into the urethra and into the bladder without difficulty. The bladder was examined in a systematic fashion and there is no evidence of abnormalities. The ureteral orifices in their normal anatomic position with clear efflux of urine. A 0.035 sensor guidewire was passed into the left ureteral orifice and passed up into the renal pelvis without difficulty on fluoroscopy. A 6 x 24 Nepali stent was then passed over the guidewire and the guidewire removed. The stent was noted to be in the upper pole calyx on fluoroscopy and the there is a good curl distally. The string was left on for later removal. The scope removed and Urojet placed into the urethra. Patient was placed into the supine position and positioned so that the left lower pole stone was at F2 the lithotripter. 3000 shockwaves were then delivered to the stone with apparent good fragmentation. Maximum KV was used. At the end of the case patient was transported to the recovery in stable condition. Instructions for postural drainage and stent precautions were given as she has a string on the end of the stent. We will see her back in 1 week with a KUB. Condition: stable Disposition: PACU Specimens:: None Complications:: None
--- NOTE | 2021-02-24 13:28 | P.PN_ITS ---
[facility] Anesthesia Record Part I Intake, IV Amount: 900 Estimated blood loss (mL): 5 Urine output (mL): 0 Blood Pressure: 143/75 SaO2: 98 Pulse Rate: 98 Respiratory Rate: 14 Temperature: 97.6 F Patient is:: Awake Stable to PACU at:: 11:18
--- NOTE | 2021-02-24 15:22 | P.PN_ITS ---
[facility] [place] Anesthesia Record Part II Discharge Time: 11:48 Destination: Surgical Day Care (OP Surgery) PACU nurse assessment reviewed?: Yes Patient Condition:: Good Anesthesia Complications:: None Swallowing reflex intact?: Yes Cyanosis?: No Blood Pressure: 148/74 Pulse Rate: 96 Temperature: 98.4 F Mental Status: Alert & Oriented Pain level:: 0 Nausea and/or vomitting:: None Intake, IV Amount: 0
== END 2021-02-24 12:25 | disposition home or self-care (01) ==
LOC: OR 07:52
PROVIDERS: PCP Family Medicine; Visit Provider Urology
PROC: (CPT 50590; principal; 2021-02-24 09:00)
DX: N20.0 Calculus of kidney (principal); Z85.72 Personal history of non-Hodgkin lymphomas; E11.9 Type 2 diabetes mellitus without complications; K21.9 Gastro-esophageal reflux disease without esophagitis; Z87.442 Personal history of urinary calculi; Z87.440 Personal history of urinary (tract) infections; D64.9 Anemia, unspecified; E07.9 Disorder of thyroid, unspecified; Z83.3 Family history of diabetes mellitus; Z79.4 Long term (current) use of insulin; Z79.899 Other long term (current) drug therapy
CPT/HCPCS: 50590; 74018; 82962; 96374; C2617

== ENCOUNTER 2021-02-25 13:57 | Emergency (ER) | payer OTHER, SELFPAY ==
[2021-02-25 13:58] VITALS: BP 149/62; PULSE 67; RESP 18; O2SAT 96; BMI 26.8
[2021-02-25 14:31] LABS: Microscopic, Urine URINE MICROSCOPIC (MICROSCOPIC)
[2021-02-25 14:34] LABS: Appearance,Urine TURBID (Clear); Blood, Urine 3+ (Negative); Color,Urine DK YELLOW (Yellow); Glucose,Urine (UA) 3+ (Negative); Ketones,Urine 2+ (Negative); Leukocyte Esterase,Urine 1+ (Negative); Nitrate,Urine Negative (Negative); Protein,Urine 2+ (Negative); Specific Gravity, Urine >= 1.030 (1.005-1.030); Urobilinogen,Urine 0.2 EU/dl (0.2)
[2021-02-25 14:40] LABS: Bilirubin,Urine 2+ (Negative)
--- NOTE | 2021-02-25 14:41 | HMH.EDGENADL ---
ED Disposition Clinical Impression: Renal colic on left side, Dehydration Disposition: Home, Self-Care Condition on Discharge: Good Instructions: DI for Acute Abdominal Pain Additional Instructions: Use medications as directed. Follow with the urology clinic. Return to ED if new symptoms. Prescriptions: Ketorolac Tromethamine [Toradol 10mg tablet] 10 mg PO Q6HP PRN 4 Days #12 tab MDD 40mg/day PRN Reason: Mild To Moderate Pain Transmission Status: Pending to [facility] Ciprofloxacin HCl [Cipro 500mg Tab] 500 mg PO BID 10 Days #20 tab Transmission Status: Received by [facility] Ondansetron [Zofran 4mg ODT] 4 mg PO TIDP PRN 4 Days #12 tab PRN Reason: Vomiting Transmission Status: Sent to [facility] Referrals: Axel Conde [Primary Care Provider] - - Critical Care Critical Care Time: No Attestation: On 02/25/21, the high probability of a clinically significant, sudden or life threatening deterioration of the following system(s) required my full and direct attention, intervention and personal management. The time I documented below is in addition to time spent performing reported procedures but includes the following listed in this critical care notation. Medical Decision Making - Medical Records MR Comment: Patient has left-sided renal colic after lithotripsy yesterday. She was given Toradol and normal saline. Also she was given one gram of Rocephin. - Marcos Inquiry Pt receiving controlled substance: No Marcos was queried for this patient: No Vital Signs: 02/25/21 13:58 Pulse Rate [Apical] 67 Respiratory Rate 18 Blood Pressure [Right Arm] 149/62 H Blood Pressure Mean [Right Arm] 91 Blood Pressure Source [Right Arm] Automatic Cuff Blood Pressure Position [Right Arm] Supine 02 Sat by Pulse Oximetry 96 Oxygen Delivery Method Room Air - Lab Data Lab Results 02/25/21 14:13: Urine Color Dk yellow, Urine Appearance Turbid, Urine pH 5.0, Ur Specific [place] >= 1.030, Urine Protein 2+, Urine Glucose (UA) 3+, Urine Ketones 2+, Urine Blood 3+, Urine Nitrate Negative, Urine Bilirubin 2+ A, Urine Urobilinogen 0.2, Ur Leukocyte Esterase 1+ A, Urine RBC Tntc, Urine WBC Tntc, Ur Squamous Epith Cells 10-20, Urine Bacteria 3+ 02/25/21 14:51: WBC 19.0 H, RBC 4.59, Hgb 12.7, Hct 38.8, MCV 84.5, MCH 27.6, MCHC 32.6, RDW 13.6, Plt Count 573 H, MPV 8.6, Neut % (Auto) 90.7 H, Lymph % (Auto) 5.4 L, [place] % (Auto) 2.6, Eos % (Auto) 0.9, Baso % (Auto) 0.3, Neut # (Auto) 17.2 H, Lymph # (Auto) 1.0, [place] # (Auto) 0.5, Eos # (Auto) 0.2, Baso # (Auto) 0.1, Total Counted 100, Neutrophils % (Manual) 88 H, Lymphocytes % (Manual) 8 L, Monocytes % (Manual) 4, Platelet Estimate Moderate increase, RBC Morphology Normal 02/25/21 14:51: Sodium 143, Potassium 4.5, Chloride 107, Carbon Dioxide 17 L, Anion Gap 23.5 H, BUN 25 H, Creatinine 0.90, Estimated Creat Clear 74, Estimated GFR 65, Est GFR ( Amer) 79, Glucose 278 H, Calcium 10.4 H, Total Bilirubin 1.5 H, AST 53 H, ALT 95 H, Alkaline Phosphatase 788 H, Total Protein 8.3 H, Albumin 4.8, Globulin 3.5 H, Albumin/Globulin Ratio 1.4 02/25/21 14:51: Acetone Level Small 02/25/21 15:45: Lactate 0.9 Result diagrams: 02/25/21 14:51 02/25/21 14:51 Orders (Tests/Meds): ED MEDICATIONS Generic Name Dose Route Start Last Admin Trade Name Freq PRN Reason Stop Dose Admin Sodium Chloride 1,000 mls @ 999 mls/hr 02/25/21 15:45 Sod Chlor 0.9% 1000ml Bag IV 02/25/21 16:45 .Q1H1M CARLOS Discontinued Medications Generic Name Dose Route Start Last Admin Trade Name Freq PRN Reason Stop Dose Admin Sodium Chloride 1,000 mls @ 500 mls/hr 02/25/21 14:45 Sod Chlor 0.9% 1000ml Bag IV 03/27/21 14:44 .Q2H CARLOS Sodium Chloride 1,000 mls @ 999 mls/hr 02/25/21 15:00 02/25/21 14:58 Sod Chlor 0.9% 1000ml Bag IV 02/25/21 16:00 999 mls/hr .Q1H1M CARLOS Administration Ceftriaxone Sodium 1 gm/ 50 mls @ 100 mls/hr 02/25/21 15:59 02/25/21 16:02
[2021-02-25 14:44] VITALS: BMI 26.8
[2021-02-25 14:44] LABS: Bacteria,Urine 3+ /lpf; RBC,Urine TNTC #/hpf (0-3); WBC,Urine TNTC #/hpf (0-3)
[2021-02-25 15:00] VITALS: BP 163/88; PULSE 114; RESP 16
[2021-02-25 15:01] LABS: Basophils # 0.1 K/mm3 (0-0.2); Basophils % 0.3 % (0.1-2.0); Eosinophils # 0.2 K/mm3 (0.0-0.4); Eosinophils % 0.9 % (0.1-12.0); Hematocrit 38.8 % (37.0-47.0); Hemoglobin 12.7 g/dL (12.2-16.2); Lymphocytes % 5.4 % (10-50); Mean Corpuscular HGB Conc 32.6 g/dL (31.8-35.4); Mean Corpuscular Hemoglobin 27.6 pg (27.0-31.2); Mean Corpuscular Volume 84.5 fl (81-99); Mean Platelet Volume 8.6 fl (7.4-10.4); Monocytes # 0.5 K/mm3 (0.1-1.0); Monocytes % 2.6 % (1.7-9.3); Neutrophils # 17.2 K/mm3 (1.8-7.8); Neutrophils % 90.7 % (37.0-80.0); Platelet Count 573 K/mm3 (142-424); Red Blood Count 4.59 M/mm3 (4.20-5.40); Red Cell Distribution Width 13.6 % (11.5-17.5)
[2021-02-25 15:05] LABS: MANUAL DIFFERENTIAL MANUAL DIFFERENTIAL (MANUAL DIFF)
[2021-02-25 15:08] LABS: Chloride 107 mmol/L (98-107); Potassium 4.5 mmoL/L (3.5-5.1); Sodium 143 mmol/L (136-145)
[2021-02-25 15:11] LABS: Alanine Aminotransferase 95 U/L (12-78); Albumin Level 4.8 g/dl (3.5-5.0); Albumin/Globulin Ratio 1.4 (1.1-1.8); Alkaline Phosphatase 788 U/L (38-126); Anion Gap 23.5 mEq/L (5-15); Aspartate Amino Transferase 53 U/L (14-36); Bilirubin,Total 1.5 mg/dl (0.2-1.3); Blood Urea Nitrogen 25 mg/dl (7-17); Carbon Dioxide 17 mmol/L (22.0-30.0); Creatinine Clearance Estimated 74 mL/min (50-200); Estimated Glomerular Filt Rate 65 ml/min (>60); GFR (African American) 79 ML/MIN (>60); Globulin 3.5 g/dL (1.3-3.2); Total Protein,Serum 8.3 g/dl (6.3-8.2)
[2021-02-25 15:12] LABS: Calcium 10.4 mg/dl (8.4-10.2); Glucose 278 mg/dl (74-100)
[2021-02-25 15:28] LABS: Acetone, Serum (Rapid) Small (None Detect)
[2021-02-25 15:38] LABS: Lymphocytes % 8 % (10-50); Monocytes % 4 % (2-9); Neutrophils % 88 % (42-76); Platelet Estimate Moderate Increase; RBC Morphology Normal; Total Cells Counted 100
[2021-02-25 16:00] VITALS: BP 148/82; PULSE 111
[2021-02-25 16:05] LABS: Lactic Acid 0.9 mmol/L (0.7-2.1)
[2021-02-25 16:30] VITALS: BP 138/71; PULSE 112; O2SAT 96
[2021-02-25 17:00] VITALS: BP 120/63; PULSE 110; RESP 16; O2SAT 96
[2021-02-25 17:39] VITALS: BP 124/74; PULSE 100; RESP 16; TEMP 36.6; O2SAT 96
== END 2021-02-25 17:46 | disposition home or self-care (01) ==
PROVIDERS: Emergency Provider Internal Medicine; PCP Family Medicine
DX: G89.18 Other acute postprocedural pain (principal); N23 Unspecified renal colic; E86.0 Dehydration; K21.9 Gastro-esophageal reflux disease without esophagitis; Z87.442 Personal history of urinary calculi
CPT/HCPCS: 80053; 81001; 82009; 83605; 85007; 85025; 87086; 96365; 96367; 96375; 96376; 99283; J2405

== ENCOUNTER 2021-02-26 12:41 | Observation (INO) | payer OTHER, SELFPAY ==
[2021-02-26] VITALS (10 sets, daily range): BP systolic 126–160; BP diastolic 64–83; PULSE 80–110; RESP 15–17; TEMP 36.7–37.1; O2SAT 93–97; BMI 26.8; BMI 26.9
--- NOTE | 2021-02-26 13:10 | PC.NURSE ---
Respiratory aware of vbg order
[2021-02-26 13:14] LABS: Basophils % 0.2 % (0.1-2.0); Eosinophils # 0.2 K/mm3 (0.0-0.4); Hematocrit 38.6 % (37.0-47.0); Hemoglobin 12.6 g/dL (12.2-16.2); Lymphocytes # 0.7 K/mm3 (0.7-4.5); Lymphocytes % 3.1 % (10-50); Mean Corpuscular HGB Conc 32.6 g/dL (31.8-35.4); Mean Corpuscular Hemoglobin 27.6 pg (27.0-31.2); Mean Corpuscular Volume 84.5 fl (81-99); Mean Platelet Volume 7.6 fl (7.4-10.4); Monocytes # 0.5 K/mm3 (0.1-1.0); Monocytes % 2.2 % (1.7-9.3); Neutrophils # 21.9 K/mm3 (1.8-7.8); Neutrophils % 93.5 % (37.0-80.0); Platelet Count 576 K/mm3 (142-424); Red Blood Count 4.57 M/mm3 (4.20-5.40); Red Cell Distribution Width 13.6 % (11.5-17.5); White Blood Count 23.4 K/mm3 (4.8-10.8)
--- NOTE | 2021-02-26 13:16 | HMH.EDGENADL ---
ED Disposition Clinical Impression: Staghorn kidney stones UTI (urinary tract infection) Qualifiers: Urinary tract infection type: acute cystitis Hematuria presence: with hematuria Qualified Code(s): N30.01 - Acute cystitis with hematuria DKA (diabetic ketoacidoses) Qualifiers: Diabetes mellitus type: type 1 Diabetes mellitus complication detail: without coma Qualified Code(s): E10.10 - Type 1 diabetes mellitus with ketoacidosis without coma Disposition: Admitted As Inpatient Condition on Discharge: Fair Instructions: DI for Nausea -- Adult Referrals: Axel Conde [Primary Care Provider] - - Critical Care Critical Care Time: No Attestation: On 02/26/21, the high probability of a clinically significant, sudden or life threatening deterioration of the following system(s) required my full and direct attention, intervention and personal management. The time I documented below is in addition to time spent performing reported procedures but includes the following listed in this critical care notation. Medical Decision Making - Medical Records Medical records reviewed: Yes: I reviewed the patient's medical records. - Marcos Inquiry Pt receiving controlled substance: Yes Marcos was queried for this patient: No Reason not queried -: Marcos login issues Risks and benefits of using a controlled substance: were discussed with pt by me Vital Signs: 02/26/21 12:43 02/26/21 15:11 02/26/21 15:30 Temperature 98.7 F Temperature Source Oral Pulse Rate 101 H 109 H Pulse Rate [Left Radial] 97 H Respiratory Rate 16 Blood Pressure 160/82 H 147/75 H Blood Pressure [Right Arm] 137/73 Blood Pressure Mean [Right Arm] 94 Blood Pressure Source [Right Arm] Automatic Cuff Blood Pressure Position [Right Arm] Sitting 02 Sat by Pulse Oximetry 97 97 96 Oxygen Delivery Method Room Air 02/26/21 16:00 Temperature Temperature Source Pulse Rate 109 H Pulse Rate [Left Radial] Respiratory Rate Blood Pressure 147/74 H Blood Pressure [Right Arm] Blood Pressure Mean [Right Arm] Blood Pressure Source [Right Arm] Blood Pressure Position [Right Arm] 02 Sat by Pulse Oximetry 93 L Oxygen Delivery Method - Lab Data Lab Results 02/26/21 12:54: VBG pH 7.42 H, VBG pCO2 27.7 L, VBG pO2 181.0 H, VBG HCO3 17.6 L, VBG Total CO2 18.4 L, VBG O2 Saturation 99.5 H, VBG Base Excess -6.9 L 02/26/21 13:00: WBC 23.4 H*, RBC 4.57, Hgb 12.6, Hct 38.6, MCV 84.5, MCH 27.6, MCHC 32.6, RDW 13.6, Plt Count 576 H, MPV 7.6, Neut % (Auto) 93.5 H, Lymph % (Auto) 3.1 L, [place] % (Auto) 2.2, Eos % (Auto) 1.0, Baso % (Auto) 0.2, Neut # (Auto) 21.9 H, Lymph # (Auto) 0.7, [place] # (Auto) 0.5, Eos # (Auto) 0.2, Baso # (Auto) 0.0, Total Counted 100, Neutrophils % (Manual) 91 H, Lymphocytes % (Manual) 6 L, Monocytes % (Manual) 3, Platelet Estimate Moderate increase, RBC Morphology Normal 02/26/21 13:00: Sodium 138, Potassium 4.5, Chloride 101, Carbon Dioxide 19 L, Anion Gap 22.5 H, BUN 47 H D, Creatinine 1.20 H D, Estimated Creat Clear 55, Estimated GFR 47 L, Est GFR ( Amer) 57 L D, Glucose 355 H D, Calcium 10.4 H, Total Bilirubin 1.1, AST 27 D, ALT 74, Alkaline Phosphatase 735 H, Total Protein 8.4 H, Albumin 4.8, Globulin 3.6 H, Albumin/Globulin Ratio 1.3, Lipase 143, Acetone Level Large 02/26/21 14:03: SARS-CoV-2 (PCR) Not detected, Influenza A Untype (PCR) Not detected, Influenza Type B (PCR) Not detected 02/26/21 14:32: Lactate 1.1 Result diagrams: 02/26/21 13:00 02/26/21 13:00 Orders (Tests/Meds): ED MEDICATIONS Generic Name Dose Route Start Last Admin Trade Name Freq PRN Reason Stop Dose Admin Ceftriaxone Sodium 1 gm/ 50 mls @ 100 mls/hr 02/26/21 13:30 02/26/21 15:09 Sodium Chloride IV 03/12/21 13:29 100 mls/hr Q24H CARLOS Administration Protocol Discontinued Medications Generic Name Dose Route Start Last Admin Trade Name Freq PRN Reason Stop Dose Admin Sodium Chloride 1,000 mls @ 999 mls/hr 02/26/21 13:00
[2021-02-26 13:17] LABS: MANUAL DIFFERENTIAL MANUAL DIFFERENTIAL (MANUAL DIFF)
[2021-02-26 13:18] LABS: Chloride 101 mmol/L (98-107); Potassium 4.5 mmoL/L (3.5-5.1); Sodium 138 mmol/L (136-145)
[2021-02-26 13:21] LABS: Alanine Aminotransferase 74 U/L (12-78); Albumin Level 4.8 g/dl (3.5-5.0); Albumin/Globulin Ratio 1.3 (1.1-1.8); Alkaline Phosphatase 735 U/L (38-126); Anion Gap 22.5 mEq/L (5-15); Aspartate Amino Transferase 27 U/L (14-36); Bilirubin,Total 1.1 mg/dl (0.2-1.3); Blood Urea Nitrogen 47 mg/dl (7-17); Calcium 10.4 mg/dl (8.4-10.2); Carbon Dioxide 19 mmol/L (22.0-30.0); Creatinine Clearance Estimated 55 mL/min (50-200); Estimated Glomerular Filt Rate 47 ml/min (>60); GFR (African American) 57 ML/MIN (>60); Globulin 3.6 g/dL (1.3-3.2); Glucose 355 mg/dl (74-100); Lipase 143 U/L (23-300); Total Protein,Serum 8.4 g/dl (6.3-8.2)
[2021-02-26 13:23] LABS: Acetone, Serum (Rapid) Large (None Detect)
[2021-02-26 13:25] LABS: Lymphocytes % 6 % (10-50); Monocytes % 3 % (2-9); Neutrophils % 91 % (42-76); Platelet Estimate Moderate Increase; RBC Morphology Normal; Total Cells Counted 100
--- NOTE | 2021-02-26 13:38 | CT_ITS ---
PROCEDURE INFORMATION: Exam: CT Abdomen And Pelvis Without Contrast Exam date and time: 02/26/2021 1:38 PM Age: 55 years old Clinical indication: Abdominal pain; Prior surgery; Surgery date: 3-7 days post-operative; Surgery type: Left kidney stent; Patient HX: Left flank pain. Per patient she had a sent placed Saturday on the left side TECHNIQUE: Imaging protocol: Computed tomography of the abdomen and pelvis without contrast. Radiation optimization: All CT scans at this facility use at least one of these dose optimization techniques: automated exposure control; mA and/or kV adjustment per patient size (includes targeted exams where dose is matched to clinical indication); or iterative reconstruction. COMPARISON: CT ABDOMEN PELVIS W CON 12/20/2020 4:21 PM FINDINGS: Liver: Normal. No mass. Gallbladder and bile ducts: Normal. No calcified stones. No ductal dilation. Pancreas: Normal. No ductal dilation. Spleen: Normal. No splenomegaly. Adrenal glands: Normal. No mass. Kidneys and ureters: Mild left obstructive uropathy with 3 mm calculus just proximal to the ureterovesical junction and 14 x 4 mm calculus within the distal ureteral junction. Staghorn type calculus evident within the inferior pole left kidney measuring 2.1 x 1.7 cm. No right hydronephrosis or renal calculus. Tubing coiled within the urinary bladder, likely displaced ureteral catheter. Stomach and bowel: Unremarkable. No obstruction. No mucosal thickening. Appendix: No evidence of appendicitis. Intraperitoneal space: Unremarkable. No free air. No significant fluid collection. Vasculature: Unremarkable. No abdominal aortic aneurysm. Lymph nodes: Unremarkable. No enlarged lymph nodes. Urinary bladder: Unremarkable as visualized. Reproductive: Unremarkable as visualized. Bones/joints: Unremarkable. No acute fracture. Soft tissues: Unremarkable. IMPRESSION: 1. Mild left obstructive uropathy with 3 mm calculus just proximal to the ureterovesical junction and 14 x 4 mm calculus within the distal ureteral junction. 2. Staghorn type calculus evident within the inferior pole left kidney measuring 2.1 x 1.7 cm. 3. Tubing coiled within the urinary bladder, likely displaced ureteral catheter.
[2021-02-26 13:47] LABS: VBG Base Excess -6.9 mmol/L (-2.4-2.3); VBG HCO3 17.6 mmol/L (23-30); VBG Oxygen Saturation 99.5 % (50-70); VBG PCO2 27.7 mmol/L (35-51); VBG PH 7.42 mmol/L (7.31-7.41); VBG Total CO2 18.4 mmol/L (23-27)
[2021-02-26 14:14] LABS: Coronavirus 19, PCR Not Detected (NotDetected); Influenza A, PCR Not Detected (NotDetected); Influenza B, PCR Not Detected (NotDetected)
--- NOTE | 2021-02-26 14:29 | PC.NURSE ---
v/s delayed due to lab attempting to collect blood
[2021-02-26 14:53] LABS: Lactic Acid 1.1 mmol/L (0.7-2.1)
--- NOTE | 2021-02-26 17:39 | PC.NURSE ---
Report given to Olamide PIÑA
[2021-02-26 17:40] LABS: POC Glucose,Bedside 182 (70-110)
[2021-02-26 17:40] LABS: POC Glucose,Bedside 314 (70-110)
[2021-02-26 17:40] LABS: POC Glucose,Bedside 301 (70-110)
--- NOTE | 2021-02-26 18:00 | PC.NURSE ---
pt arrived to the floor at this robb
[2021-02-26 21:10] LABS: POC Glucose,Bedside 171 (70-110)
[2021-02-27] VITALS (20 sets, daily range): BP systolic 126–164; BP diastolic 49–86; PULSE 84–112; RESP 14–18; TEMP 36.3–36.9; O2SAT 93–97; BMI 27.0
--- NOTE | 2021-02-27 02:38 | PC.NURSE ---
patient has had a few complaint of pain and nausea. only became nauseated after taking in po intake. treated with morphine and zofran successfully. patient assisted to restroom
[2021-02-27 05:42] LABS: Basophils % 0.1 % (0.1-2.0); Eosinophils # 0.1 K/mm3 (0.0-0.4); Lymphocytes # 0.9 K/mm3 (0.7-4.5)
[2021-02-27 05:56] LABS: Eosinophils % 0.3 % (0.1-12.0); Hematocrit 32.9 % (37.0-47.0); Lymphocytes % 6.2 % (10-50); Mean Corpuscular HGB Conc 31.8 g/dL (31.8-35.4); Mean Corpuscular Hemoglobin 27.1 pg (27.0-31.2); Mean Corpuscular Volume 85.3 fl (81-99); Mean Platelet Volume 6.7 fl (7.4-10.4); Monocytes # 0.7 K/mm3 (0.1-1.0); Monocytes % 4.8 % (1.7-9.3); Neutrophils % 88.4 % (37.0-80.0); Platelet Count 469 K/mm3 (142-424); Red Blood Count 3.86 M/mm3 (4.20-5.40); White Blood Count 14.7 K/mm3 (4.8-10.8)
[2021-02-27 05:58] LABS: Hemoglobin 10.5 g/dL (12.2-16.2)
[2021-02-27 05:59] LABS: MANUAL DIFFERENTIAL MANUAL DIFFERENTIAL (MANUAL DIFF)
[2021-02-27 06:06] LABS: Chloride 112 mmol/L (98-107); Sodium 143 mmol/L (136-145)
[2021-02-27 06:09] LABS: Alanine Aminotransferase 51 U/L (12-78); Albumin Level 3.6 g/dl (3.5-5.0); Albumin/Globulin Ratio 1.2 (1.1-1.8); Alkaline Phosphatase 460 U/L (38-126); Aspartate Amino Transferase 32 U/L (14-36); Bilirubin,Total 0.5 mg/dl (0.2-1.3); Blood Urea Nitrogen 32 mg/dl (7-17); Carbon Dioxide 25 mmol/L (22.0-30.0); Creatinine Clearance Estimated 83 mL/min (50-200); Estimated Glomerular Filt Rate 75 ml/min (>60); GFR (African American) 91 ML/MIN (>60); Globulin 3.1 g/dL (1.3-3.2); Total Protein,Serum 6.7 g/dl (6.3-8.2)
[2021-02-27 06:10] LABS: Glucose 123 mg/dl (74-100)
--- NOTE | 2021-02-27 06:12 | PC.NURSE ---
shift summary patient has continued to have complaints of pain and nausea, prn medication successful with treating symptoms.
[2021-02-27 06:15] LABS: Lymphocytes % 8 % (10-50); Neutrophils % 85 % (42-76); Platelet Estimate Slight Increase; Total Cells Counted 100
[2021-02-27 06:16] LABS: Hypochromasia 1+
--- NOTE | 2021-02-27 08:47 | HMH.HP ---
*Admission Date: 02/27/21 *Chief complaint: Abdominal pain/back pain/vomiting *History of present illness: This is a 55-year-old female presented to the emergency department with some nausea and vomiting. The patient is a longstanding history of diabetes as well as nephrolithiasis. Patient recently had a lithotripsy done and actually reported to the emergency department yesterday for similar symptoms. She was treated symptomatically and felt better. She was discharged home in stable condition. Patient states that her pain returned today. Is dull in nature located in her left flank. She is also had some nausea and vomiting. She has been unable to keep anything down. She did check her sugar and found it to be high. She denies any diarrhea or blood in stool. No headache or change in vision. No focal weakness. No fevers or chills. No chest pain or shortness of breath. Above note per emergency department physician. Patient admitted with diagnosis of DKA but is actually not acidotic. Through the afternoon and evening Dr. Evangelista on cross cover coverage stop her insulin drip, placed her on sliding scale insulin and fluids. I believe her symptoms are more of ketosis and dehydration with reactive hyperglycemia rather than true DKA. Patient this morning feels much better. [facility] History I have reviewed the patient's past medical history: Yes Medical History: Reports:: Cancer, Diabetes Mellitus Type 2, Gastroesophageal Reflux Disease(GERD), Kidney Stones, Urinary Tract Infection Denies:: Coronary Artery Disease, Diabetes Mellitus Type 1, Internal Pacemaker, MRSA, Seizures *Have you ever received a pneumonia vaccine?: No *Have you received a flu vaccine this season?: Yes Other Medical History: Reports: Anemia, Hypothyroidism, Thyroid Disease. Denies: Blood Transfusion Reaction Laterality Cases: Right: Breast Biopsy Other Surgeries: Yes: No Previous Surgery, Colonoscopy, , Tubal Ligation. No: Pacemaker Amputation: No Fractures: No - *Social History Smoking Status: Never smoker Alcohol Intake: never Alcohol Intake Frequency:: other Substance Use Type: denies use *Occupational Status:: unemployed Housing: house Household Members: spouse *Travel in the last 8 weeks: None Family Hx:: Diabetes Review of Systems - Review of Systems Review of systems:: pertinent systems reviewed and negative unless documented below - *Neurologic Denies headache(s) Meds Home Medications Medication Instructions Recorded Confirmed Type Insulin Degludec [Tresiba 30 units SQ DAILY 05/11/20 02/26/21 History Flextouch U-100] Insulin Lispro [Admelog] 16 units SQ TID 05/11/20 02/26/21 History Dapagliflozin Propanediol [Farxiga] 10 mg PO DAILY 02/24/21 02/26/21 History Ketorolac Tromethamine [Toradol 10 mg PO Q6HP PRN 4 Days #12 tab 02/25/21 02/26/21 Rx 10mg tablet] MDD 40mg/day Ondansetron [Zofran 4mg ODT] 4 mg PO TIDP PRN 4 Days #12 tab 02/25/21 02/26/21 Rx Ciprofloxacin HCl [Cipro 500mg 500 mg PO BID 02/26/21 02/26/21 History Tab] Allergies Allergy/AdvReac Type Severity Reaction Status Date / Time No Known Allergies Allergy Verified 02/24/21 08:46 Exam Vital signs and Labs for Last 24 Hours: Temp Pulse Resp BP Pulse Ox 98.0 F 84 17 156/72 H 96 02/27/21 04:00 02/27/21 04:00 02/27/21 04:00 02/27/21 04:00 02/27/21 04:00 Laboratory Results - last 24 hr 02/26/21 12:54: VBG pH 7.42 H, VBG pCO2 27.7 L, VBG pO2 181.0 H, VBG HCO3 17.6 L, VBG Total CO2 18.4 L, VBG O2 Saturation 99.5 H, VBG Base Excess -6.9 L 02/26/21 13:00: WBC 23.4 H*, RBC 4.57, Hgb 12.6, Hct 38.6, MCV 84.5, MCH 27.6, MCHC 32.6, RDW 13.6, Plt Count 576 H, MPV 7.6, Neut % (Auto) 93.5 H, Lymph % (Auto) 3.1 L, [place] % (Auto) 2.2, Eos % (Auto) 1.0, Baso % (Auto) 0.2, Neut # (Auto) 21.9 H, Lymph # (Auto) 0.7, [place] # (Auto) 0.5, Eos # (Auto) 0.2, Baso # (Auto) 0.0, Total Counted 100, Neutrophils % (Manual) 91 H, Lymphocytes % (Manual) 6 L
--- NOTE | 2021-02-27 10:34 | P.CONPHA_ITS ---
[facility] Pharmacy VTE Monitoring - Patient Demographics Admission date: 02/27/21 Report Date: 02/27/21 Time: 10:34 Allergies/Adverse Reactions: Patient Allergies No Known Allergies Allergy (Verified 02/24/21 08:46) Height: 1.55 m Weight: 64.665 kg Patient Problems: Current Active Problems UTI (urinary tract infection) (Acute) Dehydration (Acute) DKA (diabetic ketoacidoses) (Acute) Staghorn kidney stones (Chronic) LOIS (acute kidney injury) (Acute) - VTE Risk Labs: VTE Related Lab Results Hgb 10.5 g/dL (12.2-16.2) L D 02/27/21 05:14 Hct 32.9 % (37.0-47.0) L 02/27/21 05:14 Plt Count 469 K/mm3 (142-424) H 02/27/21 05:14 BUN 32 mg/dl (7-17) H D 02/27/21 05:14 Creatinine 0.80 mg/dl (0.52-1.04) D 02/27/21 05:14 Estimated Creat Clear 83 mL/min (50-200) 02/27/21 05:14 Was VTE Risk Assessment Performed: Yes VTE Score: 2 VTE Risk Level: Very Low Risk Clinical Trial Participant: No - Prophylaxis VTE Prophylaxis Ordered?: Yes Types of VTE Prophylaxis: TEDS Knee High, Pharmacological Location of Applied Device: Bilateral Lower Extremeties Pharmacologic Type: Enoxaparin
--- NOTE | 2021-02-27 11:15 | HMH.PHAINT ---
MEDICATION RECONCILIATION COMPLETE USING LIST FROM MD OFFICE, EXTERNAL PHARMACY FILL HISTORY, ALEHA, AND PATIENT INTERVIEW.
[2021-02-27 11:42] LABS: POC Glucose,Bedside 145 (70-110)
--- NOTE | 2021-02-27 13:11 | P.PN_ITS ---
[facility] Anesthesia Checklist - Patient Identification Patient Identification: Arm Band - Structural Data Admitted From: Inpatient Planned Operative Procedure/s: Ureteroscopy Consent for Planned Operative Procedure(s) Verified: Yes - NPO Status Verified Time NPO: 00:00 - Additional verifications Anesthesia Reactions: No Hx Blood Transfusions: Yes (hx of anemia-2 yrs ago) Blood Transfusion Reaction: No - Airway Assessment C-Spine Mobility Assessed: Yes TMJ Mobility Assessed: Yes Dentition: Good Dentition - Neurological Assessment Level of Consciousness: Awake Hx Seizures: No Numbness or tingling in extremities: No - Anesthesia Plan Anesthesia Risk discussed: Yes Anesthesia Plan: Verified ASA Class: III Anesthesia Type: General [facility] History I have reviewed the patient's past medical history: Yes Medical History: Reports:: Cancer, Diabetes Mellitus Type 2, Gastroesophageal Reflux Disease(GERD), Kidney Stones, Urinary Tract Infection Denies:: Coronary Artery Disease, Diabetes Mellitus Type 1, Internal Pacemaker, MRSA, Seizures *Have you ever received a pneumonia vaccine?: No *Have you received a flu vaccine this season?: Yes Other Medical History: Reports: Anemia, Hypothyroidism, Thyroid Disease. Denies: Blood Transfusion Reaction Anesthesia experience/problems:: None Laterality Cases: Right: Breast Biopsy Other Surgeries: Yes: No Previous Surgery, Colonoscopy, , Tubal Liga tion. No: Pacemaker Amputation: No Fractures: No - *Social History Smoking Status: Never smoker Alcohol Intake: never Alcohol Intake Frequency:: other Substance Use Type: denies use *Occupational Status:: unemployed Housing: house Household Members: spouse *Travel in the last 8 weeks: None Family Hx:: Diabetes
[2021-02-27 13:19] LABS: HCG Qualitative, Serum Negative (Negative)
--- NOTE | 2021-02-27 14:28 | XR_ITS ---
PROCEDURE: XR KUB CLINICAL INDICATION: STENT PLACEMENT LEFT SIDE ON OR COMPARISON: CT CT ABDOMEN PELVIS WO CON from 02/26/2021 FINDINGS: Fluoroscopy time: 25 seconds. Two images are submitted with C-arm demonstrating a stent in place with the proximal aspect overlying the left upper quadrant in the distal aspect overlying the lower pelvic region on left. IMPRESSION: Status post stent placement with C-arm assistance Dictated by: Lopez Wells MD 02/27/2021 16:59 Lopez Wells MD in OV 02/27/2021 16:59
--- NOTE | 2021-02-27 14:33 | HMH.ANESI ---
[facility] Anesthesia Record Part I Intake, IV Amount: 800 Estimated blood loss (mL): 0 Urine output (mL): 0 Blood Pressure: 142/81 SaO2: 94 Pulse Rate: 106 Respiratory Rate: 14 Temperature: 97.4 F Patient is:: Awake Stable to PACU at:: 14:31
--- NOTE | 2021-02-27 15:15 | HMH.CONS ---
*Admission Date: 02/27/21 *Reason for consult:: Left renal colic secondary to a distal ureteral stone *History of present illness: Patient is a 55-year-old white female status post left stent placement and left ESWL 3 days ago here at [facility]. She states she has had left flank pain associated with nausea since the evening of the procedure. She came into the emergency Saturday and again last night. CT scan shows that the left ureteral stent has migrated into the bladder and that there is a calcification in the distal ureter with hydroureteronephrosis. She has remained nauseated during her hospital stay overnight. We discussed treatment options. Her white count is elevated. [facility] History Medical History: Reports:: Cancer, Diabetes Mellitus Type 2, Gastroesophageal Reflux Disease(GERD), Kidney Stones, Urinary Tract Infection Denies:: Coronary Artery Disease, Diabetes Mellitus Type 1, Internal Pacemaker, MRSA, Seizures *Have you ever received a pneumonia vaccine?: No *Have you received a flu vaccine this season?: Yes Other Medical History: Reports: Anemia, Hypothyroidism, Thyroid Disease. Denies: Blood Transfusion Reaction Anesthesia experience/problems:: None Laterality Cases: Right: Breast Biopsy Other Surgeries: Yes: No Previous Surgery, Colonoscopy, , Tubal Ligation. No: Pacemaker Amputation: No Fractures: No - *Social History Smoking Status: Never smoker Alcohol Intake: never Alcohol Intake Frequency:: other Substance Use Type: denies use *Occupational Status:: unemployed Housing: house Household Members: spouse *Travel in the last 8 weeks: None Family Hx:: Diabetes Review of Systems - Review of Systems Review of systems:: pertinent systems reviewed and negative unless documented below - *Neurologic Denies headache(s) Meds Home Medications Medication Instructions Recorded Confirmed Type Insulin Degludec [Tresiba 30 units SQ DAILY 05/11/20 02/27/21 History Flextouch U-100] Insulin Lispro [Admelog] 16 units SQ TID 05/11/20 02/26/21 History Dapagliflozin Propanediol [Farxiga] 10 mg PO DAILY 02/24/21 02/26/21 History Ketorolac Tromethamine [Toradol 10 mg PO Q6HP PRN 4 Days #12 tab 02/25/21 02/26/21 Rx 10mg tablet] MDD 40mg/day Ondansetron [Zofran 4mg ODT] 4 mg PO TIDP PRN 4 Days #12 tab 02/25/21 02/26/21 Rx Ciprofloxacin HCl [Cipro 500mg 500 mg PO BID 02/26/21 02/26/21 History Tab] Gabapentin [Gabapentin 100mg Cap] 100 mg PO TID 02/27/21 02/27/21 History Allergies Allergy/AdvReac Type Severity Reaction Status Date / Time No Known Allergies Allergy Verified 02/24/21 08:46 Exam Vital signs and Labs for Last 24 Hours: Temp Pulse Resp BP Pulse Ox 97.4 F L 108 H 16 164/82 H 94 L 02/27/21 15:01 02/27/21 15:01 02/27/21 15:01 02/27/21 15:01 02/27/21 15:01 Laboratory Results - last 24 hr 02/26/21 13:00: Serum HCG, Qual Negative 02/26/21 14:55: POC Glucose 314 H* 02/26/21 16:07: POC Glucose 301 H* 02/26/21 17:22: POC Glucose 182 H 02/26/21 21:02: POC Glucose 171 H 02/27/21 05:14: WBC 14.7 H D, RBC 3.86 L, Hgb 10.5 L D, Hct 32.9 L, MCV 85.3, MCH 27.1, MCHC 31.8, RDW 13.0, Plt Count 469 H, MPV 6.7 L, Neut % (Auto) 88.4 H, Lymph % (Auto) 6.2 L, [place] % (Auto) 4.8, Eos % (Auto) 0.3, Baso % (Auto) 0.1, Neut # (Auto) 13.0 H, Lymph # (Auto) 0.9, [place] # (Auto) 0.7, Eos # (Auto) 0.1, Baso # (Auto) 0.0, Total Counted 100, Neutrophils % (Manual) 85 H, Band Neutrophils % 7.0, Lymphocytes % (Manual) 8 L, Platelet Estimate Slight increase, Hypochromasia 1+ 02/27/21 05:14: Sodium 143, Potassium 4.0, Chloride 112 H, Carbon Dioxide 25 D, Anion Gap 10.0, BUN 32 H D, Creatinine 0.80 D, Estimated Creat Clear 83, Estimated GFR 75, Est GFR ( Amer) 91 D, Glucose 123 H D, Calcium 9.0 D, Total Bilirubin 0.5, AST 32, ALT 51 D, Alkaline Phosphatase 460 H, Total Protein 6.7, Albumin 3.6 D, Globulin 3.1, Albumin/Globulin Ratio 1.2 02/27/21 11:33: POC Glucose 145 H I & O for Last
--- NOTE | 2021-02-27 15:20 | HMH.OPNOTE ---
Date of procedure: 02/27/21 Pre-op Diagnosis:: Left ureteral calculi with obstruction, migrated left ureteral stent Post-op Diagnosis:: Same Procedure performed:: Cystoscopy with stent removal, left ureteroscopy basket stone extraction with replacement of left stent Surgeon:: George Magana MD SILK SCREEN ETCHER:: Razia Poon Anesthesia: LMA Estimated blood loss (mL): 0 Clinical Note:: Patient is a 55-year-old white female status post left stent and left ESWL 3 days ago. She has had persistent left flank pain and nausea since the procedure and CT scan yesterday reveals left distal ureteral calculi with obstruction as well as stent migration. She presents for urologic management. Operative findings:: Stent noted in the bladder and removed. There was several small calculi and small blood clots noted in the left distal ureter. All the stones and blood were evacuated and the stent placed. Operative note:: Patient taken to the operating room after informed consent was obtained. Placed on the operating room table in the supine position and general anesthesia administered. Preoperative antibiotics were on board and sequential compression devices placed. She was then placed into the dorsal lithotomy position and prepped and draped in the standard surgical fashion. The 22 Ervin passed into the urethra and into the bladder without difficulty. Bladder was examined in a systematic fashion. There were some small calculi noted in the bladder. There was calculus noted inside the left ureter. The left ureter was cannulated with a 5 Sammarinese ureteral catheter and a 0.035 guidewire passed through the ureteral catheter and into the renal pelvis without difficulty. The ureteral catheter was then removed and the cystoscope removed. Our semirigid ureteroscope then passed into the bladder and into the left ureter and a stone basket was used to remove stone fragments and some gelatinous clot. After removal stone debris and blood a 4.8 x 24 Sammarinese stent was then passed over the guidewire and the guidewire and string removed. Patient tolerated the procedure well there are no complications. She was transferred to the recovery room in stable condition. Condition: stable Disposition: PACU Specimens:: Ureteral stones Complications:: None
[2021-02-27 16:46] LABS: POC Glucose,Bedside 128 (70-110)
--- NOTE | 2021-02-27 17:13 | PC.NURSE ---
Pt is alert and oriented x4. Lungs are clear, bowel sounds active x4. Abdomen is soft and tender. Urine is blood tinged w/tiny granules. She ambulates to the bathroom independently. She reports feeling better after stent placement today. Glucose was 145 and 128 at checks. She has a 20 in RAC infusing NS @ 100 mls/hr. Family is at bedside and supportive.
--- NOTE | 2021-02-27 19:10 | PC.NURSE ---
REPORT RECEIVED FROM AYANA WLALIS AND PT TO FLOOR AT THIS TIME
[2021-02-28 01:03] LABS: POC Glucose,Bedside 106 (70-110)
--- NOTE | 2021-02-28 04:15 | PC.NURSE ---
patient has done well this shift. pain has been well controlled with prn pain medications. patient ambulated independently. urine dark yellow with small sediment noted. patient is a&ox4. lungs ctab. no edema noted. call light within reach. will continue to monitor.
[2021-02-28 05:00] VITALS: BP 135/73; PULSE 90; RESP 18; TEMP 36.7; O2SAT 94
[2021-02-28 06:42] LABS: POC Glucose,Bedside 245 (70-110)
[2021-02-28 06:42] LABS: POC Glucose,Bedside 101 (70-110)
--- NOTE | 2021-02-28 07:02 | HMH.DCSUM ---
General - General Admission date:: 02/26/21 Discharge date: 02/28/21 HPI HPI: This is a 55-year-old female presented to the emergency department with some nausea and vomiting. The patient is a longstanding history of diabetes as well as nephrolithiasis. Patient recently had a lithotripsy done and actually reported to the emergency department yesterday for similar symptoms. She was treated symptomatically and felt better. She was discharged home in stable condition. Patient states that her pain returned today. Is dull in nature located in her left flank. She is also had some nausea and vomiting. She has been unable to keep anything down. She did check her sugar and found it to be high. She denies any diarrhea or blood in stool. No headache or change in vision. No focal weakness. No fevers or chills. No chest pain or shortness of breath. Above note per emergency department physician. Patient admitted with diagnosis of DKA but is actually not acidotic. Through the afternoon and evening Dr. Evangelista on cross cover coverage stop her insulin drip, placed her on sliding scale insulin and fluids. I believe her symptoms are more of ketosis and dehydration with reactive hyperglycemia rather than true DKA. Patient this morning feels much better. Hospital Course Hospital Course: Patient was admitted, placed on IV antibiotics and fluids, hyperglycemia and ketosis resolved. Patient was never acidotic. Dr. Magana saw patient, found that on CT scan her urinary stent had migrated into the bladder, causing some mild obstructive symptoms, he took her to the OR and this was removed, stone fragments were removed and patient felt much better, she did well overnight, was able to eat and drink. This morning she feels much like her normal self. Plan will be to discharge home with follow-up with Dr. Magana, Omnicef to cover residual infection in the urinary tract. Phenergan for nausea, she will follow-up with her regular physician Dr. Conde in [place] for outpatient care. Objective Vital signs: Temp Pulse Resp BP Pulse Ox 98.1 F 105 H 18 154/72 H 94 L 02/27/21 22:05 02/27/21 22:05 02/27/21 22:05 02/27/21 22:05 02/27/21 22:05 no acute distress - *Routine HEENT Exam Head: Present: normocephalic Eye: Present: EOMI, PERRL ENT: Present: mucous membranes moist - *Routine Neck Exam Present: supple - *Routine Respiratory Exam Present: CTA bilaterally - *Routine Cardiovascular Exam Present: RRR - *Routine Abdominal Exam Present: soft, normoactive bowel sounds. Absent: tenderness - *Routine Extremities Exam Absent: cyanosis, clubbing, edema - *Routine Skin Exam Present: warm. Absent: rash - Detailed Eye Exam Eyelids: Bilateral normal inspection Results Labs on day of discharge: Labs from last 24 hours 02/28/21 02/27/21 02/27/21 06:26 20:54 16:35 POC Glucose 101 245 H 128 H Serum HCG, Qual 02/27/21 02/27/21 02/26/21 11:33 05:45 13:00 POC Glucose 145 H 106 Serum HCG, Qual Negative DS: Diagnosis - Discharge Diagnosis (1) UTI (urinary tract infection) Status: Acute (2) Staghorn kidney stones Status: Chronic (3) LOIS (acute kidney injury) Status: Acute (4) Dehydration Status: Acute (5) Hydronephrosis with urinary obstruction due to ureteral calculus Status: Acute Discharge Plan - Patient Discharge Instructions ACTIVITY: Continue current activity DIET: continue same diet Patient Instructions: DI for Kidney Stones, DI for Cystoscopy, DI for Urinary Tract Infection (UTI), DI for Ureteroscopy - Follow up Plan Follow up with: George Magana MD [Staff Physician] - 03/07/21 1:45 pm (please arrive 15 minutes early for kub x-ray) Disposition: Home, Self-Care Condition at discharge:: Improved Home Medications: Home Medications Medication Instructions Recorded Confirmed Type Insulin Degludec [Tresiba 30 units SQ DAILY 05/11/
--- NOTE | 2021-02-28 07:12 | PC.NURSE ---
report given Isacc Ryan RN
[2021-02-28 08:00] VITALS: BP 125/69; PULSE 99; RESP 16; TEMP 36.8; O2SAT 98
--- NOTE | 2021-02-28 08:44 | P.PN_ITS ---
[facility] Anesthesia Record Part II Discharge Time: 15:01 Destination: Second Floor PACU nurse assessment reviewed?: Yes Patient Condition:: Good Anesthesia Complications:: None Swallowing reflex intact?: Yes Cyanosis?: No Blood Pressure: 164/82 Pulse Rate: 108 Temperature: 97.4 F Mental Status: Alert & Oriented Pain level:: 0 Nausea and/or vomitting:: None Intake, IV Amount: 0
[2021-02-28 08:45] VITALS: BP 164/82; PULSE 108; TEMP 36.3
== END 2021-02-28 08:30 | disposition home or self-care (01) | DRG 659 ==
LOC: ER 16:38 → 2ND 02-27 07:26 → OB 02-28 07:05 → 2ND 03-02 15:08
PROVIDERS: Urology; Admitting Provider Internal Medicine Adolescent Medicine; Emergency Provider Emergency Medicine; PCP Family Medicine; Visit Provider Internal Medicine Adolescent Medicine
PROC: (CPT 52352; principal; 2021-02-27 12:45)
DX: E11.10 Type 2 diabetes mellitus with ketoacidosis without coma (principal); N13.2 Hydronephrosis with renal and ureteral calculous obstruction; N30.01 Acute cystitis with hematuria; N17.9 Acute kidney failure, unspecified; T83.122A Displacement of indwelling ureteral stent, initial encounter; E86.0 Dehydration; Z79.4 Long term (current) use of insulin; E03.9 Hypothyroidism, unspecified; Z20.822 Contact with and (suspected) exposure to COVID-19; Y83.1 Surgical operation with implant of artificial internal device as the cause of abnormal reaction of the patient, or of later complication, without mention of misadventure at the time of the procedure
CPT/HCPCS: 52310; 52332; 36415; 74018; 74176; 80053; 81001; 82009; 82803; 82962; 83605; 83690; 84703; 85007; 85025; 87040; 87086; 96365; 96366; 96367; 96374; 96375; 96376; 99283; 99284; C2617; G0378; J2405; U0003

== ENCOUNTER → 2021-03-07 12:55 | Outpatient (CLI) | payer OTHER, SELFPAY ==
--- NOTE | 2021-03-07 13:01 | XR_ITS ---
PROCEDURE: XR KUB CLINICAL INDICATION: ureteral stone COMPARISON: CR XR KUB from 02/24/[address] ABDOMEN PELVIS WO CON from 02/26/2021 CR XR KUB from 02/27/2021 FINDINGS: Left ureteral stent is in place with the proximal aspect overlying the region of the left renal pelvis and distal aspect overlying the region of the urinary bladder. There are few small residual stones in the lower pole of the left kidney. A faint density is present medial to the distal aspect of the stent possibly due to small residual stone fragment at approximately 7 x 3 mm. IMPRESSION: Ureteral stent in place on the left with possible stone fragment along the medial and distal aspect of the stent Dictated by: Lopez Wells MD 03/07/2021 13:33 Lopez Wells MD in [place] 03/07/2021 13:33
== END ==
PROVIDERS: PCP Family Medicine; Visit Provider Urology
DX: N20.1 Calculus of ureter (principal)
CPT/HCPCS: 74018

== ENCOUNTER 2021-03-10 07:18 | Day surgery (SDC) | payer OTHER, SELFPAY ==
[2021-03-08 10:40] VITALS: BMI 26.4
[2021-03-10 07:38] LABS: Coronavirus 19, PCR Not Detected (NotDetected); Influenza A, PCR Not Detected (NotDetected); Influenza B, PCR Not Detected (NotDetected)
[2021-03-10 08:26] VITALS: BP 151/88; PULSE 90; RESP 18; TEMP 36.4; O2SAT 97
[2021-03-10 08:39] LABS: POC Glucose,Bedside 314 (70-110)
[2021-03-10 09:05] VITALS: BP 132/74; PULSE 87; RESP 18; TEMP 36.7; O2SAT 97
--- NOTE | 2021-03-10 11:05 | HMH.OPNOTE ---
Date of procedure: 03/10/21 Pre-op Diagnosis:: Left nephrolithiasis status post ESWL and stent placement Post-op Diagnosis:: Same Procedure performed:: Cystoscopy with stent removal Surgeon:: George Magana MD Anesthesia: local Estimated blood loss (mL): 0 Clinical Note:: 55-year-old white female status post recent left ESWL presents for stent removal Operative findings:: Distal end of the stent was noted from the left ureteral orifice and was removed without difficulty. Operative note:: Patient taken to the cystoscopy suite after informed consent was obtained. She was placed into the frog-leg position on the stretcher and prepped and draped in the standard surgical fashion and 2% lidocaine placed into the urethra. After 5 minutes the flexible cystoscope introduced into the urethral meatus and it passed into the bladder without difficulty. The distal end of the stent was noted from the left ureteral orifice. Flexible graspers placed through the scope and the stent grasped and removed without difficulty. The patient tolerated procedure well there are no complications. Condition: stable Disposition: same day Specimens:: Left ureteral stent Complications:: None
== END 2021-03-10 09:20 | disposition home or self-care (01) ==
PROVIDERS: PCP Family Medicine; Visit Provider Urology
PROC: (CPT 52310; principal; 2021-03-10 08:00)
DX: N20.2 Calculus of kidney with calculus of ureter (principal); Z87.442 Personal history of urinary calculi; E11.9 Type 2 diabetes mellitus without complications; Z79.4 Long term (current) use of insulin; Z79.899 Other long term (current) drug therapy
CPT/HCPCS: 52310; 82962; U0003

== ENCOUNTER 2021-07-28 16:27 | Inpatient (IN) | payer OTHER, SELFPAY ==
[2021-07-28] VITALS (8 sets, daily range): BP systolic 130–151; BP diastolic 54–73; PULSE 96–115; RESP 20; TEMP 36.4–36.8; O2SAT 97–100; BMI 26.8; BMI 25.9; BMI 26.6
[2021-07-28 17:06] LABS: Occult Blood,Gastric Fluid Positive (Negative)
--- NOTE | 2021-07-28 17:15 | PC.NURSE ---
called RT for vbg collection
[2021-07-28 17:19] LABS: POC Glucose,Bedside 408 (70-110)
[2021-07-28 17:20] LABS: Basophils # 0.2 K/mm3 (0-0.2); Basophils % 1.5 % (0.1-2.0); Eosinophils % 0.1 % (0.1-12.0); Hematocrit 40.3 % (37.0-47.0); Lymphocytes # 0.6 K/mm3 (0.7-4.5); Lymphocytes % 5.5 % (10-50); Mean Corpuscular HGB Conc 32.4 g/dL (31.8-35.4); Mean Corpuscular Hemoglobin 27.8 pg (27.0-31.2); Mean Corpuscular Volume 85.8 fl (81-99); Mean Platelet Volume 8.5 fl (7.4-10.4); Monocytes # 0.6 K/mm3 (0.1-1.0); Neutrophils # 9.8 K/mm3 (1.8-7.8); Neutrophils % 87.9 % (37.0-80.0); Platelet Count 516 K/mm3 (142-424); White Blood Count 11.2 K/mm3 (4.8-10.8)
[2021-07-28 17:23] LABS: MANUAL DIFFERENTIAL MANUAL DIFFERENTIAL (MANUAL DIFF)
[2021-07-28 17:24] LABS: Chloride 100 mmol/L (98-107); Sodium 147 mmol/L (136-145)
[2021-07-28 17:25] LABS: Potassium 4.2 mmoL/L (3.5-5.1)
[2021-07-28 17:27] LABS: Acetone, Serum (Rapid) Large (None Detect); Alanine Aminotransferase 45 U/L (12-78); Albumin Level 5.2 g/dl (3.5-5.0); Albumin/Globulin Ratio 1.3 (1.1-1.8); Alkaline Phosphatase 933 U/L (38-126); Anion Gap 33.2 mEq/L (5-15); Aspartate Amino Transferase 38 U/L (14-36); Bilirubin,Total 0.8 mg/dl (0.2-1.3); Blood Urea Nitrogen 52 mg/dl (7-17); Carbon Dioxide 18 mmol/L (22.0-30.0); Creatinine Clearance Estimated 33 mL/min (50-200); Estimated Glomerular Filt Rate 26 ml/min (>60); GFR (African American) 32 ML/MIN (>60); Total Protein,Serum 9.2 g/dl (6.3-8.2)
[2021-07-28 17:28] LABS: Calcium 10.8 mg/dl (8.4-10.2); Lactic Acid 1.6 mmol/L (0.7-2.1)
[2021-07-28 17:29] LABS: Glucose 465 mg/dl (74-100)
--- NOTE | 2021-07-28 17:30 | PC.NURSE ---
Critical glucose 465, MD aware
[2021-07-28 17:32] LABS: Lipase 633 U/L (23-300)
--- NOTE | 2021-07-28 17:36 | PC.NURSE ---
Critical lipase 633, MD aware
[2021-07-28 17:41] LABS: VBG Base Excess -10.2 mmol/L (-2.4-2.3); VBG HCO3 15.7 mmol/L (23-30); VBG Oxygen Saturation 72.1 % (50-70); VBG PCO2 30.1 mmol/L (35-51); VBG PH 7.33 mmol/L (7.31-7.41); VBG PO2 36.9 mmol/L (28-40); VBG Total CO2 16.6 mmol/L (23-27)
--- NOTE | 2021-07-28 17:54 | CT_ITS ---
PROCEDURE INFORMATION: Exam: CT Abdomen And Pelvis Without Contrast Exam date and time: 07/28/2021 5:54 PM Age: 55 years old Clinical indication: Vomiting; Prior surgery; Surgery date: 1-6 months; Surgery type: C sections tubal ligation TECHNIQUE: Imaging protocol: Computed tomography of the abdomen and pelvis without contrast. Total images: 286 Radiation optimization: All CT scans at this facility use at least one of these dose optimization techniques: automated exposure control; mA and/or kV adjustment per patient size (includes targeted exams where dose is matched to clinical indication); or iterative reconstruction. COMPARISON: CT ABDOMEN PELVIS WO CON 02/26/2021 2:36 PM FINDINGS: Lungs: Patchy alveolar opacities in the lung bases bilaterally consistent with multifocal pneumonia. Commonly reported imaging features of COVID-19 pneumonia are present. Other processes such as influenza pneumonia and organizing pneumonia, as can be seen with drug toxicity and connective tissue disease, can cause a similar imaging pattern. Heart: Heart size normal. Diaphragm: Small hiatal hernia. There is mild-moderate distal esophageal wall thickening which could relate to esophagitis or neoplasm, recommend nonemergent esophagram or endoscopic assessment for further characterization. Liver: Normal contour. No mass lesions. No intrahepatic biliary ductal dilatation. Gallbladder and bile ducts: The gallbladder is moderately distended but otherwise normal without wall thickening or adjacent stranding to suggest cholecystitis. No gross gallstones. Nondilated bile ducts. Pancreas: Normal. No inflammatory changes or ductal dilation. Spleen: Granulomatous calcifications in the spleen without acute splenic abnormality. Adrenal glands: Normal. No adrenal mass. Kidneys and ureters: No acute abnormalities. No hydronephrosis or hydroureter. 4 mm nonobstructive left renal stone. No ureteral stones or hydronephrosis. Small intrapelvic phleboliths are present bilaterally. Stomach and bowel: The small bowel is nondilated with no gross abnormality. The colon is largely contracted which likely contributes to the mildly thick walled appearance. This makes it difficult to exclude mild colitis. No evidence of perforation or abscess. Appendix: The appendix is normal in caliber and demonstrates no evidence of appendicitis. Intraperitoneal space: No free fluid or air. Vasculature: No acute process. No abdominal aortic aneurysm. Mild calcific atherosclerosis. Lymph nodes: No adenopathy. Urinary bladder: Moderate urinary bladder distension measuring 13.8 x 7.4 by 12.3 cm, estimated volume 650 mL. Reproductive: Tubal ligations noted. Uterus and ovaries unremarkable. Bones/joints: No acute osseous abnormalities. Soft tissues: Small fatty umbilical hernia . No evidence of associated bowel herniation or strangulation. IMPRESSION: 1. Multifocal alveolar opacities in the lung bases consistent with multifocal pneumonia. 2. Question mild generalized colonic wall thickening suspicious for colitis, although the colon is largely contracted which may be contributing significantly to this appearance. No evidence of perforation or abscess. 3. Small hiatal hernia with mild-moderate distal esophageal circumferential wall thickening which could relate to esophagitis or neoplastic wall thickening. Recommend nonemergent but urgent assessment with esophagram or endoscopic assessment. 4. 4 mm nonobstructive left renal stone. No ureteral stones or hydronephrosis. 5. Moderately distended urinary bladder with estimated bladder volume 650 mL. 6. Additional nonemergent findings detailed abov
--- NOTE | 2021-07-28 17:58 | HMH.EDGENADL ---
ED Disposition Clinical Impression: DKA (diabetic ketoacidosis), Pancreatitis Disposition: Admitted As Inpatient Condition on Discharge: Fair Instructions: DI for Diarrhea and Traveler's Diarrhea -- Adult, DI for Diarrhea and Traveler's Diarrhea -- Child, DI for Nausea -- Adult, DI for Nausea -- Child Referrals: Axel Conde [Primary Care Provider] - - Critical Care Critical Care Time: Yes Attestation: On 07/28/21, the high probability of a clinically significant, sudden or life threatening deterioration of the following system(s) required my full and direct attention, intervention and personal management. The time I documented below is in addition to time spent performing reported procedures but includes the following listed in this critical care notation. Total Critical Care Time: 35 Vital system(s) involved:: Circulatory Failure, Metabolic Failure, Renal Failure My critical care processes included: Assessment & monitoring of V/S, Initial and Re-exams, Data Review/Interpretation, Coordinating Care, Medication Orders and management, Documentation Medical Decision Making - Medical Records Medical records reviewed: Yes: I reviewed the patient's medical records. - Marcos Inquiry Pt receiving controlled substance: No Marcos was queried for this patient: No Vital Signs: 07/28/21 16:35 Temperature 97.5 F L Temperature Source Oral Pulse Rate [Left Radial] 96 H Respiratory Rate 20 Blood Pressure [Right Arm] 135/69 Blood Pressure Mean [Right Arm] 91 02 Sat by Pulse Oximetry 98 Oxygen Delivery Method Room Air - Lab Data Lab results reviewed: Yes: I reviewed the patient's lab results. Lab Results 07/28/21 16:58: Gastric Occult Blood Positive 07/28/21 17:05: WBC 11.2 H, RBC 4.70, Hgb 13.0, Hct 40.3, MCV 85.8, MCH 27.8, MCHC 32.4, RDW 15.0, Plt Count 516 H, MPV 8.5, Neut % (Auto) 87.9 H, Lymph % (Auto) 5.5 L, [place] % (Auto) 5.0, Eos % (Auto) 0.1, Baso % (Auto) 1.5, Neut # (Auto) 9.8 H, Lymph # (Auto) 0.6 L, [place] # (Auto) 0.6, Eos # (Auto) 0.0, Baso # (Auto) 0.2 07/28/21 17:05: Sodium 147 H, Potassium 4.2, Chloride 100, Carbon Dioxide 18 L, Anion Gap 33.2 H, BUN 52 H, Creatinine 2.00 H, Estimated Creat Clear 33, Estimated GFR 26 L, Est GFR ( Amer) 32 L, Glucose 465 H*, Calcium 10.8 H, Total Bilirubin 0.8, AST 38 H, ALT 45, Alkaline Phosphatase 933 H, Total Protein 9.2 H D, Albumin 5.2 H, Globulin 4.0 H, Albumin/Globulin Ratio 1.3, Acetone Level Large 07/28/21 17:05: Lactate 1.6 07/28/21 17:05: Lipase 633 H 07/28/21 17:12: POC Glucose 408 H* 07/28/21 17:18: VBG pH 7.33, VBG pCO2 30.1 L, VBG pO2 36.9, VBG HCO3 15.7 L, VBG Total CO2 16.6 L, VBG O2 Saturation 72.1 H, VBG Base Excess -10.2 L Result diagrams: 07/28/21 17:05 07/28/21 17:05 Orders (Tests/Meds): ED MEDICATIONS Generic Name Dose Route Start Last Admin Trade Name Freq PRN Reason Stop Dose Admin Sodium Chloride 1,000 mls @ 150 mls/hr 07/28/21 17:15 07/28/21 17:14 Sod Chlor 0.9% 1000ml Bag IV 07/28/21 21:15 999 mls/hr .[id number] CARLOS Administration Sodium Chloride 1,000 mls @ 150 mls/hr 07/28/21 17:45 Sod Chlor 0.9% 1000ml Bag IV 08/27/21 17:44 .Q6H40M CARLOS Insulin Human Regular 100 unit 101 mls @ 9.758 mls/hr 07/28/21 17:45 / Sodium Chloride IV 08/27/21 17:44 .[id number] CARLOS Protocol 0.15 UNIT/KG/HR Dextrose/Sodium Chloride 1,000 mls @ 200 mls/hr 07/28/21 17:45 Dextrose 5%-0.9% Nacl Iv Soln IV 08/27/21 17:44 .Q5H CARLOS Potassium Chloride/Sodium Chloride 1,000 mls @ 100 mls/hr 07/28/21 17:45 Kcl 20 Meq In Ns 1,000 Ml Iv Soln IV 08/27/21 17:44 .Q10H CARLOS Potassium Chloride/Dextrose/Sod Cl 1,000 mls @ 150 mls/hr 07/28/21 17:45 Kcl 20 Meq In D5w-Ns IV 08/27/21 17:44 .Q6H40M CARLOS Sodium Chloride 10 ml 07/28/21 17:12 Sodium Chloride 0.9% 10ml Vial IV 08/27/21 17:11 NEEDED PRN dilute protonix Discontinued Medications Generic Name Dose Route Start Last Admin Trad
--- NOTE | 2021-07-28 18:07 | PC.NURSE ---
KARON CUEVAS speaking with Dr. Stiles who is radiation control health physicist for service
[2021-07-28 18:09] LABS: Lymphocytes % 9 % (10-50); Monocytes % 1 % (2-9); Neutrophils % 89 % (42-76); RBC Morphology Normal; Total Cells Counted 100
[2021-07-28 18:10] LABS: Platelet Estimate Moderate Increase
[2021-07-28 18:27] LABS: POC Glucose,Bedside 411 (70-110)
--- NOTE | 2021-07-28 18:39 | PC.NURSE ---
called pt report to charge nurse
[2021-07-28 18:40] LABS: Influenza A, PCR Not Detected (NotDetected); Influenza B, PCR Not Detected (NotDetected)
[2021-07-28 19:02] LABS: Coronavirus 19, PCR Detected (NotDetected)
--- NOTE | 2021-07-28 19:41 | PC.NURSE ---
patient up to floor @ this time.
--- NOTE | 2021-07-28 20:21 | PC.NURSE ---
notified MD Pedroza irrigation installation specialist about pt's nausea, ordered zofran 8mg prn Q6 for nausea
--- NOTE | 2021-07-28 20:24 | PC.NURSE ---
fsbs 311, per protocol need to increase drip by 50% (currently going at 10units/hr, so will put to 15units/hr)
--- NOTE | 2021-07-28 21:00 | PC.NURSE ---
pt's fsbs 241, no changes to drip needed at this time per protocol, drip at 15units/hr
[2021-07-28 21:44] LABS: POC Glucose,Bedside 317 (70-110)
[2021-07-28 21:44] LABS: POC Glucose,Bedside 241 (70-110)
--- NOTE | 2021-07-28 21:55 | PC.NURSE ---
pt's fsbs 201, no changes needed to drip at this time per protocol, current rate 15units/hr
[2021-07-28 22:23] LABS: Anion Gap 16.1 mEq/L (5-15); Blood Urea Nitrogen 49 mg/dl (7-17); Calcium 9.7 mg/dl (8.4-10.2); Carbon Dioxide 24 mmol/L (22.0-30.0); Chloride 111 mmol/L (98-107); Creatinine Clearance Estimated 55 mL/min (50-200); Estimated Glomerular Filt Rate 47 ml/min (>60); GFR (African American) 57 ML/MIN (>60); Potassium 3.1 mmoL/L (3.5-5.1); Sodium 148 mmol/L (136-145)
[2021-07-28 22:25] LABS: Glucose 138 mg/dl (74-100)
--- NOTE | 2021-07-28 23:05 | PC.NURSE ---
pt's fsbs 74, stopped NS+20K at 100 and started D5NS per protocol, stopped insulin drip, will recheck another fsbs in one hour
[2021-07-29] VITALS (7 sets, daily range): BP systolic 134–152; BP diastolic 59–86; PULSE 89–110; RESP 14–18; TEMP 36.6–37.1; O2SAT 94–98; BMI 26.2
--- NOTE | 2021-07-29 00:10 | PC.NURSE ---
pt's fsbs 72, continued D5NS at 125mL/hr, insulin drip off, will recheck another fsbs in one hour
[2021-07-29 00:24] LABS: POC Glucose,Bedside 201 (70-110)
[2021-07-29 00:24] LABS: POC Glucose,Bedside 72 (70-110)
[2021-07-29 00:24] LABS: POC Glucose,Bedside 74 (70-110)
[2021-07-29 01:13] LABS: POC Glucose,Bedside 67 (70-110)
--- NOTE | 2021-07-29 01:18 | PC.NURSE ---
notified MD Stiles of pt's fsbs of 67 with D5NS going at 125mL/hr, instructed to draw serum ketone level and if negative stop drip, if positive continue drip at 2units/hr and increase IVF to 175mL/hr, placing order for level stat now
[2021-07-29 02:05] LABS: Acetone, Serum (Rapid) None Detected (None Detect)
[2021-07-29 02:10] LABS: Anion Gap 12.9 mEq/L (5-15); Blood Urea Nitrogen 45 mg/dl (7-17); Calcium 9.8 mg/dl (8.4-10.2); Carbon Dioxide 26 mmol/L (22.0-30.0); Chloride 113 mmol/L (98-107); Creatinine Clearance Estimated 66 mL/min (50-200); Estimated Glomerular Filt Rate 58 ml/min (>60); GFR (African American) 70 ML/MIN (>60); Sodium 149 mmol/L (136-145)
[2021-07-29 02:18] LABS: Glucose 76 mg/dl (74-100); Potassium 2.9 mmoL/L (3.5-5.1)
[2021-07-29 02:18] LABS: POC Glucose,Bedside 66 (70-110)
--- NOTE | 2021-07-29 02:20 | PC.NURSE ---
notified MD Stiles of pt's critical lab value of 2.9 potassium, acetone negative lab, and pt's fsbs of 66 (2 orange juices given and will recheck another fsbs in one hour), instructed to give 60mg po potassium once
[2021-07-29 03:51] LABS: POC Glucose,Bedside 89 (70-110)
[2021-07-29 05:19] LABS: POC Glucose,Bedside 137 (70-110)
[2021-07-29 06:24] LABS: Chloride 114 mmol/L (98-107); Sodium 146 mmol/L (136-145)
[2021-07-29 06:25] LABS: Potassium 3.9 mmoL/L (3.5-5.1)
[2021-07-29 06:27] LABS: Blood Urea Nitrogen 38 mg/dl (7-17); Creatinine Clearance Estimated 72 mL/min (50-200); Estimated Glomerular Filt Rate 65 ml/min (>60); GFR (African American) 79 ML/MIN (>60)
[2021-07-29 06:28] LABS: Anion Gap 11.9 mEq/L (5-15); Calcium 8.9 mg/dl (8.4-10.2); Carbon Dioxide 24 mmol/L (22.0-30.0); Glucose 205 mg/dl (74-100)
[2021-07-29 06:54] LABS: POC Glucose,Bedside 223 (70-110)
--- NOTE | 2021-07-29 09:20 | HMH.HP ---
*Admission Date: 07/28/21 *Chief complaint: Nausea/vomiting/hyperglycemia *History of present illness: 55-year-old white female with insulin requiring diabetes, patient of a Dr. Conde in [place], [place], who has a long history of recurrent DKA episodes. Had 24 hours of nausea, vomiting, hyperglycemia and reported to the emergency department yesterday. Was found to be in DKA. Admitted to hospital with IV fluids, insulin drip and overnight has cleared her ketones with negative acetones. Her potassium is also improving. On lab review this morning it turns out she had a positive Covid swab in the ER, she does not recall being exposed to Covid, is unvaccinated. Interestingly she has no respiratory symptoms. She reports that her family is not ill. Currently in isolation on second floor. States that she feels better except for some mild nausea. CT scan in the ER did show evidence of colitis. Urinalysis was not done in the emergency department. [facility] History I have reviewed the patient's past medical history: Yes Medical History: Reports:: Diabetes Mellitus Type 2, Gastroesophageal Reflux Disease(GERD), Kidney Stones, Urinary Tract Infection Denies:: Cancer, Coronary Artery Disease, Diabetes Mellitus Type 1, Internal Pacemaker, MRSA, Seizures *Have you ever received a pneumonia vaccine?: No *Have you received a flu vaccine this season?: No Other Medical History: Reports: Anemia, Hypothyroidism, Thyroid Disease. Denies: Blood Transfusion Reaction Laterality Cases: Right: Breast Biopsy, Bilateral: Other Other Surgeries: Yes: No Previous Surgery, Colonoscopy, , Tubal Ligation. No: Pacemaker Amputation: No Fractures: No - *Social History Smoking Status: Never smoker Alcohol Intake: never Alcohol Intake Frequency:: other Substance Use Type: denies use *Occupational Status:: unemployed Housing: house Household Members: spouse *Travel in the last 8 weeks: None Family Hx:: Diabetes Review of Systems - Review of Systems Review of systems:: pertinent systems reviewed and negative unless documented below Meds Home Medications Medication Instructions Recorded Confirmed Type Insulin Degludec [Tresiba 30 units SQ DAILY 05/11/20 03/10/21 History Flextouch U-100] Insulin Lispro [Admelog] 16 units SQ TID 05/11/20 03/10/21 History Dapagliflozin Propanediol [Farxiga] 10 mg PO DAILY 02/24/21 03/10/21 History Ondansetron [Zofran 4mg ODT] 4 mg PO TIDP PRN 4 Days #12 tab 02/25/21 03/10/21 Rx Gabapentin [Gabapentin 100mg Cap] 100 mg PO TID 02/27/21 03/10/21 History Promethazine HCl [Phenergan 12.5mg 12.5 mg PO Q6H PRN #6 tab 02/28/21 03/10/21 Rx tablet] Allergies Allergy/AdvReac Type Severity Reaction Status Date / Time No Known Allergies Allergy Verified 03/10/21 08:24 Exam Vital signs and Labs for Last 24 Hours: Temp Pulse Resp BP Pulse Ox 98.3 F 99 H 17 152/71 H 94 L 07/29/21 04:00 07/29/21 04:00 07/29/21 04:00 07/29/21 04:00 07/29/21 04:00 Laboratory Results - last 24 hr 07/28/21 16:58: Gastric Occult Blood Positive 07/28/21 17:05: WBC 11.2 H, RBC 4.70, Hgb 13.0, Hct 40.3, MCV 85.8, MCH 27.8, MCHC 32.4, RDW 15.0, Plt Count 516 H, MPV 8.5, Neut % (Auto) 87.9 H, Lymph % (Auto) 5.5 L, [place] % (Auto) 5.0, Eos % (Auto) 0.1, Baso % (Auto) 1.5, Neut # (Auto) 9.8 H, Lymph # (Auto) 0.6 L, [place] # (Auto) 0.6, Eos # (Auto) 0.0, Baso # (Auto) 0.2, Total Counted 100, Neutrophils % (Manual) 89 H, Band Neutrophils % 1.0, Lymphocytes % (Manual) 9 L, Monocytes % (Manual) 1 L, Platelet Estimate Moderate increase, RBC Morphology Normal 07/28/21 17:05: Sodium 147 H, Potassium 4.2, Chloride 100, Carbon Dioxide 18 L, Anion Gap 33.2 H, BUN 52 H, Creatinine 2.00 H, Estimated Creat Clear 33, Estimated GFR 26 L, Est GFR ( Amer) 32 L, Glucose 465 H*, Calcium 10.8 H, Total Bilirubin 0.8, AST 38 H, ALT 45, Alkaline Phosphatase 933 H, Total Protein 9.2 H D, Albumin 5.2 H, Globulin 4.0 H, Albumin/Globulin Ratio 1.3,
[2021-07-29 09:38] LABS: Microscopic, Urine URINE MICROSCOPIC (MICROSCOPIC)
[2021-07-29 09:41] LABS: Appearance,Urine CLEAR (Clear); Blood, Urine TRACE-I (Negative); Color,Urine YELLOW (Yellow); Glucose,Urine (UA) 2+ (Negative); Ketones,Urine 1+ (Negative); Leukocyte Esterase,Urine 1+ (Negative); Nitrate,Urine Negative (Negative); Protein,Urine 2+ (Negative); Specific Gravity, Urine 1.025 (1.005-1.030); Urobilinogen,Urine 0.2 EU/dl (0.2)
[2021-07-29 10:03] LABS: Bilirubin,Urine 1+ (Negative)
[2021-07-29 10:05] LABS: Bacteria,Urine 1+ /lpf; Mucus,Urine 1+ /lpf
[2021-07-29 11:44] LABS: POC Glucose,Bedside 299 (70-110)
--- NOTE | 2021-07-29 13:38 | P.CONPHA_ITS ---
[facility] Pharmacy VTE Monitoring - Patient Demographics Admission date: 07/29/21 Report Date: 07/29/21 Time: 13:38 Allergies/Adverse Reactions: Patient Allergies No Known Allergies Allergy (Verified 03/10/21 08:24) Height: 1.55 m Weight: 63.106 kg Patient Problems: Current Active Problems GERD (gastroesophageal reflux disease) (Acute) Dehydration (Acute) DKA (diabetic ketoacidoses) (Acute) Hypokalemia (Acute) LOIS (acute kidney injury) (Acute) Pancreatitis (Acute) Colitis (Acute) COVID-19 (Acute) - VTE Risk Labs: VTE Related Lab Results Hgb 13.0 g/dL (12.2-16.2) 07/28/21 17:05 Hct 40.3 % (37.0-47.0) 07/28/21 17:05 Plt Count 516 K/mm3 (142-424) H 07/28/21 17:05 BUN 38 mg/dl (7-17) H 07/29/21 06:00 Creatinine 0.90 mg/dl (0.52-1.04) 07/29/21 06:00 Estimated Creat Clear 72 mL/min (50-200) 07/29/21 06:00 - Prophylaxis Types of VTE Prophylaxis: TEDS Knee High Location of Applied Device: Bilateral Lower Extremeties (AYLIN HOSE ORDERED)
[2021-07-29 16:12] LABS: POC Glucose,Bedside 218 (70-110)
--- NOTE | 2021-07-29 16:33 | PC.NURSE ---
Patient has been pleasant and cooperative this shift, remains on sliding scale insulin, FSBG 299 and 218 this shift, treated with SSI per emar, has c/o nausea x2 this shift, treated with phenergan per emar with good results, vital signs have remained stable, has been up to BR with standby assist, ambulates well, no s/s of distress noted, will continue to monitor for changes.
[2021-07-29 19:17] LABS: Chloride 114 mmol/L (98-107); Sodium 142 mmol/L (136-145)
[2021-07-29 19:21] LABS: Blood Urea Nitrogen 22 mg/dl (7-17); Calcium 8.7 mg/dl (8.4-10.2); Carbon Dioxide 22 mmol/L (22.0-30.0); Creatinine Clearance Estimated 108 mL/min (50-200); Estimated Glomerular Filt Rate 105 ml/min (>60); GFR (African American) 127 ML/MIN (>60); Glucose 194 mg/dl (74-100)
--- NOTE | 2021-07-29 22:30 | PC.NURSE ---
No care needed
[2021-07-29 23:54] LABS: POC Glucose,Bedside 177 (70-110)
[2021-07-30 04:00] VITALS: BP 138/70; PULSE 81; RESP 16; TEMP 36.9; O2SAT 94
[2021-07-30 04:40] VITALS: BMI 26.4
[2021-07-30 06:05] LABS: POC Glucose,Bedside 237 (70-110)
--- NOTE | 2021-07-30 06:12 | PC.NURSE ---
No acute changes. Pt states that she feels better this AM. She c/o nausea x1 this shift. C/o tenderness early in shift. VSS. FSBS was 177 and 237. Pt denies any soa. Remains on RA. Medications administered per oct. No other concerns at this time. Will continue to monitor.
--- NOTE | 2021-07-30 07:38 | HMH.DCSUM ---
General - General Admission date:: 07/28/21 Discharge date: 07/30/21 HPI HPI: 55-year-old white female with insulin requiring diabetes, patient of a Dr. Conde in [place], [place], who has a long history of recurrent DKA episodes. Had 24 hours of nausea, vomiting, hyperglycemia and reported to the emergency department yesterday. Was found to be in DKA. Admitted to hospital with IV fluids, insulin drip and overnight has cleared her ketones with negative acetones. Her potassium is also improving. On lab review this morning it turns out she had a positive Covid swab in the ER, she does not recall being exposed to Covid, is unvaccinated. Interestingly she has no respiratory symptoms. She reports that her family is not ill. Currently in isolation on second floor. States that she feels better except for some mild nausea. CT scan in the ER did show evidence of colitis. Urinalysis was not done in the emergency department. Hospital Course Hospital Course: Patient was admitted, standard DKA protocols were followed and patient quickly cleared her acetone and her sugar normalized. No further significant electrolyte abnormalities. Started back on her sliding scale insulin and she did well with eating without further vomiting. CT of abdomen and pelvis showed colitis with evidence of active inflammation. She was started on Levaquin and Flagyl and tolerated this well. Urine culture was obtained, pending at the time of discharge. This morning she is feeling much better, eating well, glucose levels have normalized. Electrolytes normalized. Abdomen exam improved. She will be discharged home with Levaquin, Flagyl, her regular insulin dose and instructions to call her physician tomorrow morning for a follow-up to evaluate her glucose control. We will follow urine cultures when she is an outpatient and change therapy if needed vis-?-vis antibiotics. Interestingly, in the face of a positive Covid swab patient did not have pulmonary symptoms. We did not institute Covid therapies other than supportive care while in the hospital. Objective Vital signs: Temp Pulse Resp BP Pulse Ox 98.5 F 81 16 138/70 94 L 07/30/21 04:00 07/30/21 04:00 07/30/21 04:00 07/30/21 04:00 07/30/21 04:00 no acute distress - *Routine HEENT Exam Head: Present: normocephalic Eye: Present: EOMI, PERRL ENT: Present: mucous membranes moist - *Routine Neck Exam Present: supple - *Routine Respiratory Exam Present: CTA bilaterally - *Routine Cardiovascular Exam Present: RRR - *Routine Abdominal Exam Present: soft, normoactive bowel sounds. Absent: tenderness - *Routine Extremities Exam Absent: cyanosis, clubbing, edema - *Routine Skin Exam Present: warm. Absent: rash - Detailed Eye Exam Eyelids: Bilateral normal inspection Results Labs on day of discharge: Labs from last 24 hours 07/30/21 07/29/21 07/29/21 05:38 21:16 18:37 Sodium 142 Potassium 4.0 Chloride 114 H Carbon Dioxide 22 Anion Gap 10.0 BUN 22 H D Creatinine 0.60 D Estimated Creat Clear 108 Estimated GFR 105 Est GFR ( Amer) 127 D Glucose 194 H POC Glucose 237 H 177 H Calcium 8.7 Urine Color Urine Appearance Urine pH Ur Specific [place] Urine Protein Urine Glucose (UA) Urine Ketones Urine Blood Urine Nitrate Urine Bilirubin Urine Urobilinogen Ur Leukocyte Esterase Urine RBC Urine WBC Ur Squamous Epith Cells Urine Bacteria Urine Mucus 07/29/21 07/29/21 07/28/21 16:01 11:21 09:30 Sodium Potassium Chloride Carbon Dioxide Anion Gap BUN Creatinine Estimated Creat Clear Estimated GFR Est GFR ( Amer) Glucose POC Glucose 218 H 299 H Calcium Urine Color Yellow Urine Appearance Clear Urine pH 6.0 Ur Specific [place] 1.025 Urine Protein 2+ Urine Glucose (UA) 2+
[2021-07-30 08:00] VITALS: BP 127/61; PULSE 96; RESP 16; TEMP 36.8; O2SAT 92; O2SAT 97
[2021-07-30 08:54] LABS: Basophils # 0.1 K/mm3 (0-0.2); Basophils % 0.5 % (0.1-2.0); Eosinophils % 0.1 % (0.1-12.0); Hematocrit 39.6 % (37.0-47.0); Hemoglobin 12.8 g/dL (12.2-16.2); Mean Corpuscular HGB Conc 32.2 g/dL (31.8-35.4); Mean Corpuscular Hemoglobin 27.5 pg (27.0-31.2); Mean Corpuscular Volume 85.3 fl (81-99); Mean Platelet Volume 8.4 fl (7.4-10.4); Monocytes # 0.4 K/mm3 (0.1-1.0); Monocytes % 4.6 % (1.7-9.3); Neutrophils # 7.8 K/mm3 (1.8-7.8); Neutrophils % 83.8 % (37.0-80.0); Platelet Count 377 K/mm3 (142-424); Red Blood Count 4.64 M/mm3 (4.20-5.40); Red Cell Distribution Width 14.9 % (11.5-17.5); White Blood Count 9.3 K/mm3 (4.8-10.8)
[2021-07-30 09:00] LABS: Chloride 111 mmol/L (98-107); Potassium 3.9 mmoL/L (3.5-5.1); Sodium 142 mmol/L (136-145)
[2021-07-30 09:03] LABS: Alanine Aminotransferase 39 U/L (12-78); Albumin Level 3.3 g/dl (3.5-5.0); Albumin/Globulin Ratio 1.1 (1.1-1.8); Alkaline Phosphatase 428 U/L (38-126); Anion Gap 9.9 mEq/L (5-15); Aspartate Amino Transferase 55 U/L (14-36); Bilirubin,Total 0.5 mg/dl (0.2-1.3); Blood Urea Nitrogen 14 mg/dl (7-17); Calcium 8.6 mg/dl (8.4-10.2); Carbon Dioxide 25 mmol/L (22.0-30.0); Creatinine Clearance Estimated 109 mL/min (50-200); Estimated Glomerular Filt Rate 105 ml/min (>60); GFR (African American) 127 ML/MIN (>60); Globulin 3.1 g/dL (1.3-3.2); Glucose 266 mg/dl (74-100); Total Protein,Serum 6.4 g/dl (6.3-8.2)
== END 2021-07-30 10:26 | disposition home or self-care (01) | DRG 637 ==
LOC: ER 18:05 → 2ND 19:15
PROVIDERS: Admitting Provider Internal Medicine Adolescent Medicine; Emergency Provider Emergency Medicine; PCP Family Medicine; Visit Provider Internal Medicine Adolescent Medicine
DX: E11.10 Type 2 diabetes mellitus with ketoacidosis without coma (principal); U07.1 COVID-19; N17.9 Acute kidney failure, unspecified; Z79.4 Long term (current) use of insulin; E86.0 Dehydration; K21.9 Gastro-esophageal reflux disease without esophagitis; E03.9 Hypothyroidism, unspecified; K52.9 Noninfective gastroenteritis and colitis, unspecified; E87.6 Hypokalemia
CPT/HCPCS: 36415; 74176; 80048; 80053; 81001; 82009; 82272; 82803; 82962; 83605; 83690; 85007; 85025; 87086; 96365; 96367; 99284; C9803; G0328; J1956; J2405; U0003; U0005

== ENCOUNTER 2021-11-09 08:50 | Inpatient (IN) | payer OTHER, SELFPAY ==
[2021-11-09] VITALS (25 sets, daily range): BP systolic 90–140; BP diastolic 41–85; PULSE 66–120; RESP 16–24; TEMP 36.4–37.2; O2SAT 95–100; BMI 26.4; BMI 25.6
[2021-11-09 09:02] LABS: POC Glucose,Bedside 409 (70-110)
[2021-11-09 09:19] LABS: Occult Blood,Gastric Fluid Positive (Negative)
--- NOTE | 2021-11-09 09:24 | HMH.EDGENADL ---
ED Disposition Clinical Impression: Diabetic ketoacidosis Qualifiers: Diabetes mellitus type: type 1 Diabetes mellitus complication detail: without coma Qualified Code(s): E10.10 - Type 1 diabetes mellitus with ketoacidosis without coma Disposition: Admitted As Inpatient Condition on Discharge: Serious - Critical Care Critical Care Time: Yes Attestation: On 11/09/21, the high probability of a clinically significant, sudden or life threatening deterioration of the following system(s) required my full and direct attention, intervention and personal management. The time I documented below is in addition to time spent performing reported procedures but includes the following listed in this critical care notation. Total Critical Care Time: 35 Vital system(s) involved:: Metabolic Failure My critical care processes included: Assessment & monitoring of V/S, Initial and Re-exams, Data Review/Interpretation, Coordinating Care, Medication Orders and management, Documentation Medical Decision Making - Medical Records Medical records reviewed: Yes: I reviewed the patient's medical records. MR Comment: Reviewed discharge summary from admission 07/28/2021 through 07/30/2021 for DKA. - Marcos Inquiry Pt receiving controlled substance: No Vital Signs: 11/09/21 08:51 11/09/21 09:00 11/09/21 09:34 Temperature 97.7 F Temperature Source Oral Pulse Rate 104 H 102 H Pulse Rate [Radial] 107 H Respiratory Rate 22 Blood Pressure 122/50 L 90/41 L Blood Pressure [Right Arm] 112/54 L Blood Pressure Mean [Right Arm] 73 Blood Pressure Position [Right Arm] Sitting 02 Sat by Pulse Oximetry 96 100 100 Oxygen Delivery Method Room Air Room Air Room Air 11/09/21 10:09 11/09/21 10:15 11/09/21 12:00 Temperature Temperature Source Pulse Rate 105 H 95 H 108 H Pulse Rate [Radial] Respiratory Rate 19 Blood Pressure 119/52 L 112/83 114/52 L Blood Pressure [Right Arm] Blood Pressure Mean [Right Arm] Blood Pressure Position [Right Arm] 02 Sat by Pulse Oximetry 100 95 Oxygen Delivery Method Room Air Room Air 11/09/21 12:41 11/09/21 13:00 11/09/21 13:30 Temperature Temperature Source Pulse Rate 117 H 114 H 110 H Pulse Rate [Radial] Respiratory Rate 19 20 Blood Pressure 118/55 L 112/58 L 119/60 Blood Pressure [Right Arm] Blood Pressure Mean [Right Arm] Blood Pressure Position [Right Arm] 02 Sat by Pulse Oximetry 100 100 100 Oxygen Delivery Method Room Air Room Air Room Air 11/09/21 14:00 11/09/21 14:30 11/09/21 15:00 Temperature Temperature Source Pulse Rate 110 H 108 H 107 H Pulse Rate [Radial] Respiratory Rate 21 24 21 Blood Pressure 117/57 L 107/57 L 111/53 L Blood Pressure [Right Arm] Blood Pressure Mean [Right Arm] Blood Pressure Position [Right Arm] 02 Sat by Pulse Oximetry 100 100 98 Oxygen Delivery Method Room Air Room Air Room Air 11/09/21 15:53 11/09/21 16:02 11/09/21 16:10 Temperature Temperature Source Pulse Rate 111 H 110 H 106 H Pulse Rate [Radial] Respiratory Rate 23 22 Blood Pressure 116/58 L 122/59 L 108/53 L Blood Pressure [Right Arm] Blood Pressure Mean [Right Arm] Blood Pressure Position [Right Arm] 02 Sat by Pulse Oximetry 100 100 100 Oxygen Delivery Method Room Air Room Air 11/09/21 16:20 11/09/21 16:30 11/09/21 16:40 Temperature Temperature Source Pulse Rate 110 H 111 H 109 H Pulse Rate [Radial] Respiratory Rate 18 23 22 Blood Pressure 121/54 L 115/61 115/64 Blood Pressure [Right Arm] Blood Pressure Mean [Right Arm] Blood Pressure Position [Right Arm] 02 Sat by Pulse Oximetry 99 100 100 Oxygen Delivery Method Room Air Room Air Room Air - Lab Data Lab Results 11/09/21 08:55: POC Glucose 409 H* 11/09/21 09:05: Gastric Occult Blood Positive 11/09/21 09:14: VBG pH 7.00 L, VBG pCO2 25.7 L, VBG pO2 69.3 H, VBG HCO3 6.3 L, VBG Total CO2 7.0 L, VBG O2 Saturation 87.8 H, VBG Base Exc
--- NOTE | 2021-11-09 09:28 | PC.NURSE ---
ED MD at
--- NOTE | 2021-11-09 09:33 | ECG_ITS ---
APPROVED REPORT Exam: Resting ECG HR:100 bpm ECG Measurements Heart Rate 100 AXES DE 152 P 83 QRSd 89 QRS 59 QT 395 T 73 QTc 452 Conclusion SINUS TACHYCARDIA NONSPECIFIC ST & T-WAVE ABNORMALITY ABNORMAL RHYTHM ECG UNCONFIRMED REPORT Electronically signed by : Maciel Stiles MD 11/10/2021 14:51:50
--- NOTE | 2021-11-09 09:36 | PC.NURSE ---
contacted lab to have someone come draw blood on pt, pt was difficult IV stick, unable to obtain blood with IV start
[2021-11-09 09:43] LABS: Coronavirus 19, PCR Not Detected (NotDetected); Influenza A, PCR Not Detected (NotDetected); Influenza B, PCR Not Detected (NotDetected)
--- NOTE | 2021-11-09 10:48 | PC.NURSE ---
PT DIFFICULT IV STICK. LAB AT BEDSIDE. LABS DRAWN FOR LAB
[2021-11-09 10:53] LABS: Basophils # 0.1 K/mm3 (0-0.2); Basophils % 0.4 % (0.1-2.0); Eosinophils # 0.1 K/mm3 (0.0-0.4); Eosinophils % 0.4 % (0.1-12.0); Hematocrit 41.8 % (37.0-47.0); Hemoglobin 13.1 g/dL (12.2-16.2); Lymphocytes % 4.1 % (10-50); Mean Corpuscular HGB Conc 31.3 g/dL (31.8-35.4); Mean Corpuscular Hemoglobin 27.6 pg (27.0-31.2); Mean Corpuscular Volume 88.1 fl (81-99); Mean Platelet Volume 7.6 fl (7.4-10.4); Monocytes # 0.4 K/mm3 (0.1-1.0); Monocytes % 1.5 % (1.7-9.3); Neutrophils # 22.5 K/mm3 (1.8-7.8); Neutrophils % 93.7 % (37.0-80.0); Platelet Count 469 K/mm3 (142-424); Red Blood Count 4.74 M/mm3 (4.20-5.40); Red Cell Distribution Width 13.4 % (11.5-17.5)
[2021-11-09 10:54] LABS: MANUAL DIFFERENTIAL MANUAL DIFFERENTIAL (MANUAL DIFF)
[2021-11-09 11:01] LABS: Alanine Aminotransferase 41 U/L (12-78); Albumin Level 4.7 g/dl (3.5-5.0); Albumin/Globulin Ratio 1.5 (1.1-1.8); Alkaline Phosphatase 417 U/L (38-126); Aspartate Amino Transferase 24 U/L (14-36); Bilirubin,Total 0.8 mg/dl (0.2-1.3); Blood Urea Nitrogen 46 mg/dl (7-17); Calcium 9.6 mg/dl (8.4-10.2); Chloride 102 mmol/L (98-107); Creatinine Clearance Estimated 43 mL/min (50-200); Estimated Glomerular Filt Rate 36 ml/min (>60); GFR (African American) 44 ML/MIN (>60); Globulin 3.2 g/dL (1.3-3.2); Magnesium 2.2 mg/dl (1.6-2.3); Phosphorous 8.1 mg/dl (2.5-4.5); Potassium 4.7 mmoL/L (3.5-5.1); Sodium 143 mmol/L (136-145); Total Protein,Serum 7.9 g/dl (6.3-8.2)
[2021-11-09 11:02] LABS: Acetone, Serum (Rapid) Large (None Detect)
[2021-11-09 11:08] LABS: Anion Gap 40.7 mEq/L (5-15)
[2021-11-09 11:11] LABS: Carbon Dioxide < 5 mmol/L (22.0-30.0); Glucose 446 mg/dl (74-100)
--- NOTE | 2021-11-09 11:12 | PC.NURSE ---
Christina from lab called a critical CO2 of <5 and Glucose of 446. notified.
[2021-11-09 11:18] LABS: Hypochromasia 1+; Lymphocytes % 4 % (10-50); Neutrophils % 96 % (42-76); Platelet Estimate Moderate Increase; Total Cells Counted 100
--- NOTE | 2021-11-09 11:18 | PC.NURSE ---
AYANA Quiñonez down to get patient to take to pre-op
--- NOTE | 2021-11-09 11:25 | PC.NURSE ---
speaking with Dr Archer
--- NOTE | 2021-11-09 11:31 | PC.NURSE ---
UA sent to lab
--- NOTE | 2021-11-09 11:32 | PC.NURSE ---
Spoke with Rachell in Care Management to notify of admission
[2021-11-09 11:33] LABS: Microscopic, Urine URINE MICROSCOPIC (MICROSCOPIC)
[2021-11-09 11:34] LABS: VBG HCO3 6.3 mmol/L (23-30); VBG Oxygen Saturation 87.8 % (50-70); VBG PCO2 25.7 mmol/L (35-51); VBG PO2 69.3 mmol/L (28-40)
--- NOTE | 2021-11-09 11:35 | PC.NURSE ---
ED MD at for update on POC
[2021-11-09 11:37] LABS: Appearance,Urine CLEAR (Clear); Blood, Urine TRACE-I (Negative); Color,Urine YELLOW (Yellow); Glucose,Urine (UA) 3+ (Negative); Ketones,Urine 3+ (Negative); Leukocyte Esterase,Urine Negative (Negative); Nitrate,Urine Negative (Negative); PH,Urine 5.5 (5.0-8.5); Protein,Urine TRACE (Negative); Specific Gravity, Urine >= 1.030 (1.005-1.030); Urobilinogen,Urine 0.2 EU/dl (0.2)
[2021-11-09 11:39] LABS: Bilirubin,Urine Negative (Negative)
--- NOTE | 2021-11-09 11:40 | PC.NURSE ---
1131 bed assignment requested room [id number], all staff notified. awaiting room to be cleaned, ED staff notified
[2021-11-09 12:07] LABS: Bacteria,Urine 1+ /lpf; WBC,Urine Occasional #/hpf (0-3)
--- NOTE | 2021-11-09 12:26 | PC.NURSE ---
Imani from pre-op at BS with US machine to try and start another IV.
[2021-11-09 12:37] LABS: Hemoglobin A1C 7.9 % (4.0-6.0)
[2021-11-09 12:40] LABS: Lactic Acid 1.9 mmol/L (0.7-2.1)
--- NOTE | 2021-11-09 13:10 | PC.NURSE ---
IV PER ULTRASOUND LT UPPER ARM
--- NOTE | 2021-11-09 13:14 | HMH.HP ---
*Admission Date: 11/09/21 <PiedadBarbie - 11/09/21 13:18> *Chief complaint: DKA <Barbie Herbert 11/09/21 13:18> *History of present illness: Patient has insulin-dependent diabetes mellitus, recurrent DKA. She began feeling ill on Saturday, 3 days ago. Started with nausea which progressed to vomiting yesterday. She says she vomited all day yesterday. No blood or coffee-ground emesis yesterday, but this morning her emesis is brown. She started having a little diarrhea this morning without blood or melena. No abdominal pain or fever. She used her insulin 4 times yesterday as per her usual schedule, but has not used insulin today. Denies urinary symptoms. States that today the light hurts her eyes, but she does not have a headache. (Above as per ER physician) The patient was evaluated in the emergency room and found to be in DKA. Her white blood cell count was elevated. Her pH was 7. Her glucose was 409 and her renal functions were elevated. Her gastric occult blood was positive and she had a large amount of acetone. She was admitted and started on IV fluids and insulin drip. <Barbie Herbert 11/09/21 16:49> [facility] History I have reviewed the patient's past medical history: Yes <Barbie Herbert 11/09/21 13:18> Medical History: Reports:: Diabetes Mellitus Type 2, Gastroesophageal Reflux Disease(GERD), Kidney Stones, Urinary Tract Infection Denies:: Cancer, Coronary Artery Disease, Diabetes Mellitus Type 1, Internal Pacemaker, MRSA, Seizures <Barbie Herbert 11/09/21 13:18> *Have you ever received a pneumonia vaccine?: No <Barbie Herbert 11/09/21 13:18> *Have you received a flu vaccine this season?: No <Barbie Herbert 11/09/21 13:18> Other Medical History: Reports: Anemia, Hypothyroidism, Thyroid Disease. Denies: Blood Transfusion Reaction <Barbie Herbert 11/09/21 13:18> Laterality Cases: Right: Breast Biopsy, Bilateral: Other <Barbie Herbert 11/09/21 13:18> Other Surgeries: Yes: No Previous Surgery, Colonoscopy, , Tubal Ligation. No: Pacemaker <Barbie Herbert 11/09/21 13:18> Amputation: No <Barbie Herbert 11/09/21 13:18> Fractures: No <PiedadBarbie 11/09/21 13:18> - *Social History Smoking Status: Never smoker <Barbie Herbert 11/09/21 13:18> Alcohol Intake: never <Barbie Herbert 11/09/21 13:18> Alcohol Intake Frequency:: other <Barbie Herbert 11/09/21 13:18> Substance Use Type: denies use <Barbie Herbert 11/09/21 13:18> *Occupational Status:: unemployed <Barbie Herbert 11/09/21 13:18> Housing: house <Barbie Herbert 11/09/21 13:18> Household Members: spouse <Barbie Herbert 11/09/21 13:18> *Travel in the last 8 weeks: None <Bonilla Herberta 11/09/21 16:49> Family Hx:: Diabetes <PiedadBarbie 11/09/21 13:18> Review of Systems - Constitutional Denies chills, Denies fever(s) <Bonilla Herberta 11/09/21 16:49> - Eyes Denies blurry vision, Denies double vision <PiedadBarbie - 11/09/21 16:49> - ENT Denies nasal congestion, Denies sore throat <Bonilla Herberta 11/09/21 16:49> - *Cardiovascular Denies chest pain, Denies shortness of breath <Bonilla Herberta 11/09/21 16:49> - *Respiratory Denies cough, Denies shortness of breath <Bonilla Herberta 11/09/21 16:49> - *Gastrointestinal Reports abdominal pain, Reports loose stools, Reports nausea, Reports vomiting <Bonilla Herberta 11/09/21 16:49> - *Genitourinary Denies difficulty urinating, Denies painful urination <Barbie Herbert 11/09/21 16:49> - *Musculoskeletal Denies joint pain <Bonilla Herberta 11/09/21 16:49> - *Neurologic Reports dizziness, Reports weakness, Denies headache(s) <Barbie Herbert - 11/09/21 16:49> Meds Home Medications Medication Instructions Recorded Confirmed Type Insulin Degludec [Tresiba 30 units SQ HS 05/11/20 11/09/21 History Flextouch U-100] Insulin Lispro [Admelog] 17 units SQ TID 05/11/20 11/09/21 History Dapagliflozin Propanediol [Farxiga] 10 mg PO DAILY 02/24/21 11/09/21
[2021-11-09 13:19] LABS: POC Glucose,Bedside 387 (70-110)
--- NOTE | 2021-11-09 13:26 | PC.NURSE ---
pt boarding in ER waiting on step down bed availability
[2021-11-09 14:26] LABS: POC Glucose,Bedside 388 (70-110)
--- NOTE | 2021-11-09 14:39 | PC.NURSE ---
REPORT CALLED TO FLOOR
--- NOTE | 2021-11-09 14:44 | P.CONPHA_ITS ---
[facility] Pharmacy VTE Monitoring - Patient Demographics Admission date: 11/09/21 Report Date: 11/09/21 Time: 14:44 Allergies/Adverse Reactions: Patient Allergies No Known Allergies Allergy (Verified 03/10/21 08:24) Height: 1.55 m Weight: 63.503 kg Patient Problems: Current Active Problems GERD (gastroesophageal reflux disease) (Acute) IDDM (insulin dependent diabetes mellitus) (Acute) Overweight (BMI 25.0-29.9) (Acute) Diabetic ketoacidosis (Acute) - VTE Risk Labs: VTE Related Lab Results Hgb 13.1 g/dL (12.2-16.2) 11/09/21 10:45 Hct 41.8 % (37.0-47.0) 11/09/21 10:45 Plt Count 469 K/mm3 (142-424) H 11/09/21 10:45 BUN 46 mg/dl (7-17) H 11/09/21 10:45 Creatinine 1.50 mg/dl (0.52-1.04) H 11/09/21 10:45 Estimated Creat Clear 43 mL/min (50-200) 11/09/21 10:45 - Prophylaxis VTE Prophylaxis Ordered?: Yes Types of VTE Prophylaxis: TEDS Knee High Location of Applied Device: Bilateral Lower Extremeties
--- NOTE | 2021-11-09 14:48 | HMH.PHAINT ---
MEDICATION RECONCILIATION COMPLETED ON PATIENT USING EXTERNAL FILL HISTORY FROM PHARMACY AND CALL TO [facility]. -FRANCISCO BLACK, [place]
--- NOTE | 2021-11-09 16:33 | XR_ITS ---
PROCEDURE INFORMATION: Exam: XR Chest Exam date and time: 11/09/2021 4:34 PM Age: 56 years old Clinical indication: Device placement; Other: Central line; Additional info: Central line placement TECHNIQUE: Imaging protocol: XR of the chest. Views: 1 view. COMPARISON: CR XR CHEST PORTABLE 05/10/2020 3:26 PM FINDINGS: Tubes, catheters and devices: Right internal jugular vein catheter tip projects over the right atrium. Lungs: Unremarkable. No consolidation. Pleural spaces: Unremarkable. No pleural effusion. No pneumothorax. Heart/Mediastinum: Unremarkable. No cardiomegaly. Bones/joints: Unremarkable. IMPRESSION: Central line catheter tip projects over the right atrium.
--- NOTE | 2021-11-09 16:36 | PC.NURSE ---
rad staff at for portable cxr
--- NOTE | 2021-11-09 16:41 | PC.NURSE ---
LIAM Tao at BS
--- NOTE | 2021-11-09 16:42 | PC.NURSE ---
cecil lam at , notified her of current blood glucose of 259
[2021-11-09 16:48] LABS: POC Glucose,Bedside 259 (70-110)
--- NOTE | 2021-11-09 16:49 | PC.NURSE ---
notified judi pt is ready to come to floor
[2021-11-09 16:54] LABS: Chloride 114 mmol/L (98-107); Sodium 148 mmol/L (136-145)
[2021-11-09 16:55] LABS: Potassium 3.8 mmoL/L (3.5-5.1)
[2021-11-09 16:57] LABS: Blood Urea Nitrogen 43 mg/dl (7-17); Creatinine Clearance Estimated 46 mL/min (50-200); Estimated Glomerular Filt Rate 39 ml/min (>60); GFR (African American) 47 ML/MIN (>60)
[2021-11-09 16:58] LABS: Calcium 8.4 mg/dl (8.4-10.2); Glucose 260 mg/dl (74-100)
[2021-11-09 17:05] LABS: Anion Gap 32.8 mEq/L (5-15)
[2021-11-09 17:06] LABS: Carbon Dioxide < 5 mmol/L (22.0-30.0)
--- NOTE | 2021-11-09 17:06 | PC.NURSE ---
Lab called critical result of CO2 <5. Notified
--- NOTE | 2021-11-09 17:17 | PC.NURSE ---
Dr. Archer at BS
--- NOTE | 2021-11-09 18:11 | PC.NURSE ---
Pt picked up from ED @ [id number]. Insulin gtt currently @ 13 units/hr. Pt had one episode of emesis, prn zofran given. CB in reach. BP stable, tachy. Pallor in color. A&O x 4.
[2021-11-09 19:05] LABS: Chloride 118 mmol/L (98-107); Potassium 3.5 mmoL/L (3.5-5.1); Sodium 148 mmol/L (136-145)
[2021-11-09 19:08] LABS: Anion Gap 25.5 mEq/L (5-15); Blood Urea Nitrogen 42 mg/dl (7-17); Calcium 8.4 mg/dl (8.4-10.2); Creatinine Clearance Estimated 52 mL/min (50-200); Estimated Glomerular Filt Rate 47 ml/min (>60); GFR (African American) 57 ML/MIN (>60); Glucose 165 mg/dl (74-100)
[2021-11-09 19:12] LABS: Carbon Dioxide 8 mmol/L (22.0-30.0)
--- NOTE | 2021-11-09 19:44 | PC.NURSE ---
Addendum entered by Pedro Pablo Miguel RN 11/09/21 20:20: Last blood sugar @ 1800 185, insulin gtt remained at 13 units/hr. Original Note: Notified Dr. Archer of co2 of 8. NNO
[2021-11-09 20:03] LABS: POC Glucose,Bedside 228 (70-110)
[2021-11-09 20:03] LABS: POC Glucose,Bedside 133 (70-110)
[2021-11-09 23:06] LABS: Chloride 119 mmol/L (98-107); Sodium 149 mmol/L (136-145)
[2021-11-09 23:07] LABS: Potassium 3.7 mmoL/L (3.5-5.1)
[2021-11-09 23:08] LABS: POC Glucose,Bedside 128 (70-110)
[2021-11-09 23:08] LABS: POC Glucose,Bedside 135 (70-110)
[2021-11-09 23:08] LABS: POC Glucose,Bedside 124 (70-110)
[2021-11-09 23:09] LABS: Blood Urea Nitrogen 40 mg/dl (7-17); Creatinine Clearance Estimated 57 mL/min (50-200); Estimated Glomerular Filt Rate 52 ml/min (>60); GFR (African American) 63 ML/MIN (>60)
[2021-11-09 23:10] LABS: Anion Gap 21.7 mEq/L (5-15); Calcium 8.8 mg/dl (8.4-10.2); Carbon Dioxide 12 mmol/L (22.0-30.0); Glucose 126 mg/dl (74-100)
[2021-11-09 23:13] LABS: Acetone, Serum (Rapid) Moderate (None Detect)
[2021-11-10] VITALS (12 sets, daily range): BP systolic 116–156; BP diastolic 58–78; PULSE 90–118; RESP 16–24; TEMP 36.8–37.1; O2SAT 96–100; BMI 25.8
[2021-11-10 03:06] LABS: Anion Gap 18.5 mEq/L (5-15); Blood Urea Nitrogen 35 mg/dl (7-17); Calcium 9.2 mg/dl (8.4-10.2); Carbon Dioxide 14 mmol/L (22.0-30.0); Chloride 119 mmol/L (98-107); Creatinine Clearance Estimated 69 mL/min (50-200); Estimated Glomerular Filt Rate 65 ml/min (>60); GFR (African American) 79 ML/MIN (>60); Glucose 144 mg/dl (74-100); Potassium 3.5 mmoL/L (3.5-5.1); Sodium 148 mmol/L (136-145)
[2021-11-10 06:41] LABS: Basophils % 0.2 % (0.1-2.0); Eosinophils % 0.1 % (0.1-12.0); Hematocrit 34.7 % (37.0-47.0); Lymphocytes # 0.6 K/mm3 (0.7-4.5); Lymphocytes % 3.1 % (10-50); Mean Corpuscular HGB Conc 33.5 g/dL (31.8-35.4); Mean Corpuscular Hemoglobin 28.9 pg (27.0-31.2); Mean Corpuscular Volume 86.3 fl (81-99); Monocytes # 0.6 K/mm3 (0.1-1.0); Neutrophils # 18.6 K/mm3 (1.8-7.8); Neutrophils % 93.7 % (37.0-80.0); Platelet Count 478 K/mm3 (142-424); Red Blood Count 4.02 M/mm3 (4.20-5.40); Red Cell Distribution Width 14.5 % (11.5-17.5); White Blood Count 19.9 K/mm3 (4.8-10.8)
[2021-11-10 06:49] LABS: MANUAL DIFFERENTIAL MANUAL DIFFERENTIAL (MANUAL DIFF)
--- NOTE | 2021-11-10 06:50 | PC.NURSE ---
Patient has rested well this shift. Insulin gtt is currently infusing at 3 units/hr. Blood sugars have been 122-145. Pt has voiced c/o of nausea x2, medicated per MAR with favorable results. HR has been 100-110.
[2021-11-10 07:19] LABS: Chloride 119 mmol/L (98-107)
[2021-11-10 07:20] LABS: Potassium 3.5 mmoL/L (3.5-5.1)
[2021-11-10 07:21] LABS: Acetone, Serum (Rapid) Small (None Detect)
[2021-11-10 07:23] LABS: Anion Gap 17.5 mEq/L (5-15); Blood Urea Nitrogen 32 mg/dl (7-17); Calcium 8.9 mg/dl (8.4-10.2); Carbon Dioxide 17 mmol/L (22.0-30.0); Creatinine Clearance Estimated 70 mL/min (50-200); Estimated Glomerular Filt Rate 65 ml/min (>60); GFR (African American) 79 ML/MIN (>60); Glucose 140 mg/dl (74-100)
[2021-11-10 07:39] LABS: Sodium 150 mmol/L (136-145)
[2021-11-10 07:45] LABS: Lymphocytes % 4 % (10-50); Monocytes % 2 % (2-9); Neutrophils % 94 % (42-76); Platelet Estimate Normal; RBC Morphology Normal; Total Cells Counted 100
[2021-11-10 07:52] LABS: Hemoglobin 11.6 g/dL (12.2-16.2)
--- NOTE | 2021-11-10 07:58 | PC.NURSE ---
made aware of critical sodium
--- NOTE | 2021-11-10 09:27 | HMH.ACPN2 ---
<Barbie Herbert - Last Filed: 11/10/21 09:27> Internal Medicine - PN: Subj *Date: 11/10/21 *Time: 09:27 Interval history: Patient states she is feeling a little bit better today. She still has a slight amount of nausea but was able to eat a few bites of food. Her white blood cell count and glucose have improved. Her sodium is still elevated but her kidney function has improved. Exam Vital signs and Labs for Last 24 Hours: Temp Pulse Resp BP Pulse Ox 97.7 F 110 H 20 116/61 100 11/09/21 20:00 11/10/21 06:00 11/10/21 06:00 11/10/21 06:00 11/10/21 06:00 Laboratory Results - last 24 hr 11/09/21 09:14: VBG pH 7.00 L, VBG pCO2 25.7 L, VBG pO2 69.3 H, VBG HCO3 6.3 L, VBG Total CO2 7.0 L, VBG O2 Saturation 87.8 H, VBG Base Excess -25.0 L 11/09/21 09:24: SARS-CoV-2 (PCR) Not detected, Influenza A Untype (PCR) Not detected, Influenza Type B (PCR) Not detected 11/09/21 10:45: WBC 24.0 H*, RBC 4.74, Hgb 13.1, Hct 41.8, MCV 88.1, MCH 27.6, MCHC 31.3 L, RDW 13.4, Plt Count 469 H, MPV 7.6, Neut % (Auto) 93.7 H, Lymph % (Auto) 4.1 L, [place] % (Auto) 1.5 L, Eos % (Auto) 0.4, Baso % (Auto) 0.4, Neut # (Auto) 22.5 H, Lymph # (Auto) 1.0, Perkins # (Auto) 0.4, Eos # (Auto) 0.1, Baso # (Auto) 0.1, Total Counted 100, Neutrophils % (Manual) 96 H, Lymphocytes % (Manual) 4 L, Platelet Estimate Moderate increase, Hypochromasia 1+ 11/09/21 10:45: Sodium 143, Potassium 4.7, Chloride 102, Carbon Dioxide < 5 L*, Anion Gap 40.7 H, BUN 46 H, Creatinine 1.50 H, Estimated Creat Clear 43, Estimated GFR 36 L, Est GFR ( Amer) 44 L, Glucose 446 H*, Calcium 9.6, Total Bilirubin 0.8, AST 24, ALT 41, Alkaline Phosphatase 417 H, Total Protein 7.9, Albumin 4.7, Globulin 3.2, Albumin/Globulin Ratio 1.5, Acetone Level Large 11/09/21 10:45: Phosphorus 8.1 H, Magnesium 2.2 11/09/21 10:45: Hemoglobin A1c 7.9 H 11/09/21 11:31: Urine Color Yellow, Urine Appearance Clear, Urine pH 5.5, Ur Specific [place] >= 1.030, Urine Protein Trace, Urine Glucose (UA) 3+, Urine Ketones 3+, Urine Blood Trace-i, Urine Nitrate Negative, Urine Bilirubin Negative, Urine Urobilinogen 0.2, Ur Leukocyte Esterase Negative, Urine WBC Occasional, Ur Squamous Epith Cells 3-5, Urine Bacteria 1+ 11/09/21 12:25: Lactate 1.9 11/09/21 13:13: POC Glucose 387 H* 11/09/21 14:18: POC Glucose 388 H* 11/09/21 16:40: POC Glucose 259 H 11/09/21 16:41: Sodium 148 H, Potassium 3.8, Chloride 114 H, Carbon Dioxide < 5 L*, Anion Gap 32.8 H, BUN 43 H, Creatinine 1.40 H, Estimated Creat Clear 46, Estimated GFR 39 L, Est GFR ( Amer) 47 L, Glucose 260 H D, Calcium 8.4 11/09/21 17:56: POC Glucose 228 H 11/09/21 18:38: Sodium 148 H, Potassium 3.5, Chloride 118 H, Carbon Dioxide 8 L* D, Anion Gap 25.5 H, BUN 42 H, Creatinine 1.20 H, Estimated Creat Clear 52, Estimated GFR 47 L, Est GFR ( Amer) 57 L D, Glucose 165 H D, Calcium 8.4 11/09/21 19:56: POC Glucose 133 H 11/09/21 21:13: POC Glucose 135 H 11/09/21 22:10: POC Glucose 128 H 11/09/21 22:45: Sodium 149 H, Potassium 3.7, Chloride 119 H, Carbon Dioxide 12 L, Anion Gap 21.7 H, BUN 40 H, Creatinine 1.10 H, Estimated Creat Clear 57, Estimated GFR 52 L, Est GFR ([facility] Amer) 63, Glucose 126 H D, Calcium 8.8 11/09/21 22:45: Acetone Level Moderate 11/09/21 22:59: POC Glucose 124 H 11/10/21 02:44: Sodium 148 H, Potassium 3.5, Chloride 119 H, Carbon Dioxide 14 L, Anion Gap 18.5 H, BUN 35 H, Creatinine 0.90, Estimated Creat Clear 69, Estimated GFR 65, Est GFR ( Amer) 79 D, Glucose 144 H, Calcium 9.2 11/10/21 05:15: Sodium 150 H, Potassium 3.5, Chloride 119 H, Carbon Dioxide 17 L, Anion Gap 17.5 H, BUN 32 H, Creatinine 0.90, Estimated Creat Clear 70, Estimated GFR 65, Est GFR ([facility] Amer) 79, Glucose 140 H, Calcium 8.9 11/10/21 05:15: WBC 19.9 H, RBC 4.02 L, Hgb 11.6 L D, Hct 34.7 L, MCV 86.3, MCH 28.9, MCHC 33.5, RDW 14.5, Plt Count 478 H, MPV 8.0, Neut % (Auto) 93.7 H, Lymph % (Auto) 3.1 L, [place] % (Auto) 3.0, Eos % (Auto) 0.1, Baso % (Auto) 0.2, Neut # (Auto) 18.6 H, Lymph # (
[2021-11-10 09:51] LABS: Anion Gap 14.8 mEq/L (5-15); Blood Urea Nitrogen 27 mg/dl (7-17); Calcium 9.3 mg/dl (8.4-10.2); Carbon Dioxide 20 mmol/L (22.0-30.0); Chloride 116 mmol/L (98-107); Creatinine Clearance Estimated 90 mL/min (50-200); Estimated Glomerular Filt Rate 87 ml/min (>60); GFR (African American) 106 ML/MIN (>60); Glucose 156 mg/dl (74-100); Potassium 3.8 mmoL/L (3.5-5.1); Sodium 147 mmol/L (136-145)
[2021-11-10 11:42] LABS: Acetone, Serum (Rapid) Small (None Detect)
[2021-11-10 12:24] LABS: POC Glucose,Bedside 185 (70-110)
[2021-11-10 13:53] LABS: Anion Gap 19.8 mEq/L (5-15); Blood Urea Nitrogen 22 mg/dl (7-17); Calcium 8.9 mg/dl (8.4-10.2); Carbon Dioxide 16 mmol/L (22.0-30.0); Chloride 111 mmol/L (98-107); Creatinine Clearance Estimated 90 mL/min (50-200); Estimated Glomerular Filt Rate 87 ml/min (>60); GFR (African American) 106 ML/MIN (>60); Glucose 261 mg/dl (74-100); Potassium 3.8 mmoL/L (3.5-5.1); Sodium 143 mmol/L (136-145)
[2021-11-10 17:43] LABS: Anion Gap 19.7 mEq/L (5-15); Blood Urea Nitrogen 21 mg/dl (7-17); Calcium 8.9 mg/dl (8.4-10.2); Carbon Dioxide 16 mmol/L (22.0-30.0); Chloride 110 mmol/L (98-107); Creatinine Clearance Estimated 90 mL/min (50-200); Estimated Glomerular Filt Rate 87 ml/min (>60); GFR (African American) 106 ML/MIN (>60); Glucose 248 mg/dl (74-100); Potassium 3.7 mmoL/L (3.5-5.1); Sodium 142 mmol/L (136-145)
[2021-11-10 19:31] LABS: Acetone, Serum (Rapid) Small (None Detect)
[2021-11-10 19:33] LABS: Chloride 110 mmol/L (98-107); Sodium 139 mmol/L (136-145)
[2021-11-10 19:34] LABS: Potassium 3.9 mmoL/L (3.5-5.1)
[2021-11-10 19:36] LABS: Blood Urea Nitrogen 20 mg/dl (7-17); Creatinine Clearance Estimated 90 mL/min (50-200); Estimated Glomerular Filt Rate 87 ml/min (>60); GFR (African American) 106 ML/MIN (>60)
[2021-11-10 19:37] LABS: Anion Gap 16.9 mEq/L (5-15); Calcium 8.4 mg/dl (8.4-10.2); Carbon Dioxide 16 mmol/L (22.0-30.0); Glucose 282 mg/dl (74-100)
[2021-11-10 20:50] LABS: POC Glucose,Bedside 131 (70-110)
[2021-11-10 20:50] LABS: POC Glucose,Bedside 138 (70-110)
[2021-11-10 20:50] LABS: POC Glucose,Bedside 145 (70-110)
[2021-11-10 20:50] LABS: POC Glucose,Bedside 131 (70-110)
[2021-11-10 20:50] LABS: POC Glucose,Bedside 134 (70-110)
[2021-11-10 20:50] LABS: POC Glucose,Bedside 145 (70-110)
[2021-11-10 20:50] LABS: POC Glucose,Bedside 159 (70-110)
[2021-11-10 20:50] LABS: POC Glucose,Bedside 226 (70-110)
[2021-11-10 20:50] LABS: POC Glucose,Bedside 122 (70-110)
[2021-11-10 20:50] LABS: POC Glucose,Bedside 129 (70-110)
[2021-11-10 20:50] LABS: POC Glucose,Bedside 241 (70-110)
[2021-11-10 20:50] LABS: POC Glucose,Bedside 143 (70-110)
[2021-11-10 20:50] LABS: POC Glucose,Bedside 128 (70-110)
[2021-11-10 20:50] LABS: POC Glucose,Bedside 159 (70-110)
[2021-11-10 23:37] LABS: Chloride 112 mmol/L (98-107); Sodium 141 mmol/L (136-145)
[2021-11-10 23:38] LABS: Potassium 3.2 mmoL/L (3.5-5.1)
[2021-11-10 23:39] LABS: Acetone, Serum (Rapid) Small (None Detect)
[2021-11-10 23:40] LABS: Blood Urea Nitrogen 20 mg/dl (7-17); Creatinine Clearance Estimated 90 mL/min (50-200); Estimated Glomerular Filt Rate 87 ml/min (>60); GFR (African American) 106 ML/MIN (>60)
[2021-11-10 23:41] LABS: Anion Gap 12.2 mEq/L (5-15); Calcium 8.7 mg/dl (8.4-10.2); Carbon Dioxide 20 mmol/L (22.0-30.0); Glucose 193 mg/dl (74-100)
[2021-11-11] VITALS (11 sets, daily range): BP systolic 112–132; BP diastolic 54–65; PULSE 80–110; RESP 12–20; TEMP 36.5–37.1; O2SAT 94–100; BMI 26.9
[2021-11-11 00:35] LABS: POC Glucose,Bedside 279 (70-110)
[2021-11-11 00:35] LABS: POC Glucose,Bedside 200 (70-110)
[2021-11-11 00:35] LABS: POC Glucose,Bedside 147 (70-110)
[2021-11-11 01:08] LABS: POC Glucose,Bedside 211 (70-110)
[2021-11-11 01:08] LABS: POC Glucose,Bedside 324 (70-110)
[2021-11-11 01:08] LABS: POC Glucose,Bedside 212 (70-110)
[2021-11-11 01:08] LABS: POC Glucose,Bedside 261 (70-110)
--- NOTE | 2021-11-11 01:09 | PC.NURSE ---
She is A&Ox4. She received PRN medication for nausea. She denies pain. She ambulates independently. She reports her last BM was on 11/10/21. She continues on a insulin gtt. Sinus tach on telemetry.
[2021-11-11 04:02] LABS: Acetone, Serum (Rapid) Small (None Detect)
[2021-11-11 04:07] LABS: Anion Gap 15.1 mEq/L (5-15); Blood Urea Nitrogen 16 mg/dl (7-17); Calcium 8.9 mg/dl (8.4-10.2); Carbon Dioxide 19 mmol/L (22.0-30.0); Chloride 110 mmol/L (98-107); Creatinine Clearance Estimated 105 mL/min (50-200); Estimated Glomerular Filt Rate 104 ml/min (>60); GFR (African American) 126 ML/MIN (>60); Potassium 3.1 mmoL/L (3.5-5.1); Sodium 141 mmol/L (136-145)
[2021-11-11 04:32] LABS: Glucose 112 mg/dl (74-100)
[2021-11-11 04:40] LABS: POC Glucose,Bedside 98 (70-110)
[2021-11-11 07:18] LABS: Basophils % 0.2 % (0.1-2.0); Eosinophils # 0.1 K/mm3 (0.0-0.4); Eosinophils % 0.6 % (0.1-12.0); Hematocrit 31.3 % (37.0-47.0); Hemoglobin 10.5 g/dL (12.2-16.2); Lymphocytes # 1.1 K/mm3 (0.7-4.5); Lymphocytes % 7.5 % (10-50); Mean Corpuscular HGB Conc 33.5 g/dL (31.8-35.4); Mean Corpuscular Hemoglobin 28.9 pg (27.0-31.2); Mean Corpuscular Volume 86.4 fl (81-99); Mean Platelet Volume 8.8 fl (7.4-10.4); Monocytes # 0.5 K/mm3 (0.1-1.0); Monocytes % 3.8 % (1.7-9.3); Neutrophils # 12.6 K/mm3 (1.8-7.8); Platelet Count 269 K/mm3 (142-424); Red Blood Count 3.62 M/mm3 (4.20-5.40); Red Cell Distribution Width 14.7 % (11.5-17.5); White Blood Count 14.3 K/mm3 (4.8-10.8)
[2021-11-11 07:20] LABS: MANUAL DIFFERENTIAL MANUAL DIFFERENTIAL (MANUAL DIFF)
[2021-11-11 07:39] LABS: Chloride 110 mmol/L (98-107); Sodium 139 mmol/L (136-145)
[2021-11-11 07:40] LABS: Potassium 3.6 mmoL/L (3.5-5.1)
[2021-11-11 07:43] LABS: Anion Gap 14.6 mEq/L (5-15); Blood Urea Nitrogen 16 mg/dl (7-17); Calcium 8.4 mg/dl (8.4-10.2); Carbon Dioxide 18 mmol/L (22.0-30.0); Creatinine Clearance Estimated 110 mL/min (50-200); Estimated Glomerular Filt Rate 104 ml/min (>60); GFR (African American) 126 ML/MIN (>60); Glucose 154 mg/dl (74-100)
[2021-11-11 08:13] LABS: Lymphocytes % 10 % (10-50); Monocytes % 3 % (2-9); Neutrophils % 87 % (42-76); Platelet Estimate Normal; RBC Morphology Normal; Total Cells Counted 100
[2021-11-11 09:04] LABS: Acetone, Serum (Rapid) None Detected (None Detect)
--- NOTE | 2021-11-11 09:05 | HMH.ACPN2 ---
Internal Medicine - PN: Subj *Date: 11/11/21 *Time: 09:05 Interval history: She rested well last night. States she is feeling better. No further vomiting. Nausea has improved. She was able to eat small amount this morning. Exam Vital signs and Labs for Last 24 Hours: Temp Pulse Resp BP Pulse Ox 98.4 F 96 H 18 118/61 100 11/11/21 04:00 11/11/21 06:00 11/11/21 04:00 11/11/21 06:00 11/11/21 06:00 Laboratory Results - last 24 hr 11/10/21 00:06: POC Glucose 122 H 11/10/21 01:08: POC Glucose 129 H 11/10/21 02:02: POC Glucose 131 H 11/10/21 03:09: POC Glucose 145 H 11/10/21 04:01: POC Glucose 134 H 11/10/21 05:04: POC Glucose 138 H 11/10/21 06:25: POC Glucose 131 H 11/10/21 07:05: POC Glucose 143 H 11/10/21 08:11: POC Glucose 159 H 11/10/21 09:15: POC Glucose 145 H 11/10/21 09:35: Sodium 147 H, Potassium 3.8, Chloride 116 H, Carbon Dioxide 20 L, Anion Gap 14.8, BUN 27 H, Creatinine 0.70 D, Estimated Creat Clear 90, Estimated GFR 87, Est GFR ( Amer) 106 D, Glucose 156 H, Calcium 9.3 11/10/21 10:19: POC Glucose 128 H 11/10/21 11:15: Acetone Level Small 11/10/21 11:23: POC Glucose 159 H 11/10/21 12:15: POC Glucose 185 H 11/10/21 13:19: POC Glucose 261 H 11/10/21 13:26: Sodium 143, Potassium 3.8, Chloride 111 H, Carbon Dioxide 16 L, Anion Gap 19.8 H, BUN 22 H, Creatinine 0.70, Estimated Creat Clear 90, Estimated GFR 87, Est GFR ( Amer) 106, Glucose 261 H D, Calcium 8.9 11/10/21 14:38: POC Glucose 212 H 11/10/21 15:38: POC Glucose 211 H 11/10/21 16:38: POC Glucose 226 H 11/10/21 17:20: POC Glucose 241 H 11/10/21 17:23: Sodium 142, Potassium 3.7, Chloride 110 H, Carbon Dioxide 16 L, Anion Gap 19.7 H, BUN 21 H, Creatinine 0.70, Estimated Creat Clear 90, Estimated GFR 87, Est GFR ( Amer) 106, Glucose 248 H, Calcium 8.9 11/10/21 19:00: Sodium 139, Potassium 3.9, Chloride 110 H, Carbon Dioxide 16 L, Anion Gap 16.9 H, BUN 20 H, Creatinine 0.70, Estimated Creat Clear 90, Estimated GFR 87, Est GFR ( Amer) 106, Glucose 282 H, Calcium 8.4 11/10/21 19:00: Acetone Level [facility] 11/10/21 19:45: POC Glucose 324 H* 11/10/21 21:50: POC Glucose 279 H 11/10/21 23:20: Acetone Level [facility] 11/10/21 23:20: Sodium 141, Potassium 3.2 L, Chloride 112 H, Carbon Dioxide 20 L, Anion Gap 12.2, BUN 20 H, Creatinine 0.70, Estimated Creat Clear 90, Estimated GFR 87, Est GFR ( Amer) 106, Glucose 193 H D, Calcium 8.7 11/10/21 23:20: POC Glucose 200 H 11/11/21 00:26: POC Glucose 147 H 11/11/21 03:50: Sodium 141, Potassium 3.1 L, Chloride 110 H, Carbon Dioxide 19 L, Anion Gap 15.1 H, BUN 16, Creatinine 0.60, Estimated Creat Clear 105, Estimated GFR 104, Est GFR ( Amer) 126, Glucose 112 H D, Calcium 8.9, Acetone Level Small 11/11/21 04:33: POC Glucose 98 11/11/21 06:31: WBC 14.3 H D, RBC 3.62 L, Hgb 10.5 L, Hct 31.3 L, MCV 86.4, MCH 28.9, MCHC 33.5, RDW 14.7, Plt Count 269 D, MPV 8.8, Neut % (Auto) 88.0 H, Lymph % (Auto) 7.5 L, [place] % (Auto) 3.8, Eos % (Auto) 0.6, Baso % (Auto) 0.2, Neut # (Auto) 12.6 H, Lymph # (Auto) 1.1, [place] # (Auto) 0.5, Eos # (Auto) 0.1, Baso # (Auto) 0.0, Total Counted 100, Neutrophils % (Manual) 87 H, Lymphocytes % (Manual) 10, Monocytes % (Manual) 3, Platelet Estimate Normal, RBC Morphology Normal 11/11/21 06:31: Sodium 139, Potassium 3.6, Chloride 110 H, Carbon Dioxide 18 L, Anion Gap 14.6, BUN 16, Creatinine 0.60, Estimated Creat Clear 110, Estimated GFR 104, Est GFR ( Amer) 126, Glucose 154 H D, Calcium 8.4 11/11/21 08:30: Acetone Level None detected I & O for Last 24 hours: Intake & Output 11/08/21 11/09/21 11/10/21 11/11/21 11:59 11:59 11:59 11:59 Intake Total 721 / 721 2728 / 2728 Output Total 1700 / 1700 Balance -979 / -979 2728 / 2728 Weight 140 lb 136 lb 12.8 oz 142 lb 14.4 oz Narrative: She is more alert this morning. Appears in no distress. Lungs are clear. Abdomen is soft and nondistended with tenderness. Assessment and Plan (1) Diabetic ketoacidosis Status: Ac
[2021-11-11 09:11] LABS: Anion Gap 15.9 mEq/L (5-15); Blood Urea Nitrogen 17 mg/dl (7-17); Calcium 8.8 mg/dl (8.4-10.2); Carbon Dioxide 19 mmol/L (22.0-30.0); Chloride 107 mmol/L (98-107); Creatinine Clearance Estimated 110 mL/min (50-200); Estimated Glomerular Filt Rate 104 ml/min (>60); GFR (African American) 126 ML/MIN (>60); Glucose 264 mg/dl (74-100); Potassium 3.9 mmoL/L (3.5-5.1); Sodium 138 mmol/L (136-145)
--- NOTE | 2021-11-11 09:33 | PC.NURSE ---
insulin gtt turned OFF @ this time
--- NOTE | 2021-11-11 16:40 | PC.NURSE ---
Pt moved from [place] to [facility]
[2021-11-12] VITALS: BP 129/64; PULSE 90; PULSE 96; RESP 18; TEMP 37; O2SAT 100
[2021-11-12 04:00] VITALS: BP 125/64; PULSE 100; PULSE 83; RESP 20; TEMP 36.8; O2SAT 100
[2021-11-12 05:00] VITALS: BMI 27.0
[2021-11-12 06:14] LABS: POC Glucose,Bedside 149 (70-110)
[2021-11-12 07:26] LABS: Basophils % 0.5 % (0.1-2.0); Eosinophils % 0.2 % (0.1-12.0); Hematocrit 31.5 % (37.0-47.0); Hemoglobin 10.6 g/dL (12.2-16.2); Lymphocytes # 1.5 K/mm3 (0.7-4.5); Lymphocytes % 18.3 % (10-50); Mean Corpuscular HGB Conc 33.7 g/dL (31.8-35.4); Mean Corpuscular Volume 86.2 fl (81-99); Monocytes # 0.4 K/mm3 (0.1-1.0); Monocytes % 5.5 % (1.7-9.3); Neutrophils % 75.5 % (37.0-80.0); Platelet Count 306 K/mm3 (142-424); Red Blood Count 3.66 M/mm3 (4.20-5.40); Red Cell Distribution Width 14.5 % (11.5-17.5)
[2021-11-12 07:29] LABS: Chloride 105 mmol/L (98-107); Potassium 3.1 mmoL/L (3.5-5.1); Sodium 139 mmol/L (136-145)
[2021-11-12 07:32] LABS: Anion Gap 14.1 mEq/L (5-15); Blood Urea Nitrogen 14 mg/dl (7-17); Carbon Dioxide 23 mmol/L (22.0-30.0); Creatinine Clearance Estimated 110 mL/min (50-200); Estimated Glomerular Filt Rate 104 ml/min (>60); GFR (African American) 126 ML/MIN (>60); Glucose 127 mg/dl (74-100)
[2021-11-12 07:33] LABS: Calcium 8.4 mg/dl (8.4-10.2)
[2021-11-12 08:00] VITALS: BP 123/61; PULSE 85; PULSE 88; RESP 15; TEMP 36.8; O2SAT 100
--- NOTE | 2021-11-12 09:30 | HMH.ACPN2 ---
Internal Medicine - PN: Subj *Date: 11/12/21 *Time: 09:30 Interval history: She continues to do well. She is tolerating her diet with no further nausea or vomiting. Bowels are moving. She is tolerating activity about the room. Exam Vital signs and Labs for Last 24 Hours: Temp Pulse Resp BP Pulse Ox 98.3 F 83 20 125/64 100 11/12/21 04:00 11/12/21 04:00 11/12/21 04:00 11/12/21 04:00 11/12/21 04:00 Laboratory Results - last 24 hr 11/12/21 06:04: POC Glucose 149 H 11/12/21 06:19: WBC 8.0 D, RBC 3.66 L, Hgb 10.6 L, Hct 31.5 L, MCV 86.2, MCH 29.0, MCHC 33.7, RDW 14.5, Plt Count 306, MPV 8.0, Neut % (Auto) 75.5, Lymph % (Auto) 18.3, [place] % (Auto) 5.5, Eos % (Auto) 0.2, Baso % (Auto) 0.5, Neut # (Auto) 6.0, Lymph # (Auto) 1.5, [place] # (Auto) 0.4, Eos # (Auto) 0.0, Baso # (Auto) 0.0 11/12/21 06:19: Sodium 139, Potassium 3.1 L D, Chloride 105, Carbon Dioxide 23, Anion Gap 14.1, BUN 14, Creatinine 0.60, Estimated Creat Clear 110, Estimated GFR 104, Est GFR ( Amer) 126, Glucose 127 H D, Calcium 8.4 I & O for Last 24 hours: Intake & Output 11/09/21 11/10/21 11/11/21 11/12/21 11:59 11:59 11:59 11:59 Intake Total 721 / 721 2728 / 3203 1555 / 1555 Output Total 1700 / 1700 700 / 700 Balance -979 / -979 2728 / 3203 855 / 855 Weight 140 lb 136 lb 12.8 oz 142 lb 14.4 oz 143 lb Microbiology Reports for the Last 24 Hours: Microbiology 11/09/21 12:30 Blood Blood Culture - Preliminary NO GROWTH AFTER 48 HOURS 11/09/21 12:30 Blood Blood Culture - Preliminary NO GROWTH AFTER 48 HOURS Narrative: She is alert and oriented. Lungs are clear. Heart is regular. Abdomen soft and nondistended with no tenderness. Assessment and Plan (1) Diabetic ketoacidosis Status: Acute Qualifiers: Diabetes mellitus type: type 1 Diabetes mellitus complication detail: without coma Qualified Code(s): E10.10 - Type 1 diabetes mellitus with ketoacidosis without coma Category: Medical Code(s): E11.10 - Type 2 diabetes mellitus with ketoacidosis without coma (2) LOIS (acute kidney injury) Status: Resolved Category: Medical Code(s): N17.9 - Acute kidney failure, unspecified (3) Nausea and vomiting Status: Resolved Category: Medical Code(s): R11.2 - Nausea with vomiting, unspecified (4) IDDM (insulin dependent diabetes mellitus) Status: Chronic Category: Medical Code(s): E11.9 - Type 2 diabetes mellitus without complications; Z79.4 - custodial (current) use of insulin (5) GERD (gastroesophageal reflux disease) Status: Chronic Category: Medical Code(s): K21.9 - Gastro-esophageal reflux disease without esophagitis (6) Overweight (BMI 25.0-29.9) Status: Chronic Category: Medical Code(s): E66.3 - Overweight (7) Leukocytosis Status: Acute Category: Medical Code(s): D72.829 - Elevated white blood cell count, unspecified (8) Hematemesis Status: Acute Category: Medical Code(s): K92.0 - Hematemesis - Assessment and plan all Dx Assessment and Plan for all problems:: She is much improved and stable for discharge. White count is back to normal. No source of infection identified. She is to follow-up with her PCP within the following week.
[2021-11-13 00:43] LABS: POC Glucose,Bedside 145 (70-110)
[2021-11-13 00:43] LABS: POC Glucose,Bedside 159 (70-110)
[2021-11-13 00:43] LABS: POC Glucose,Bedside 271 (70-110)
[2021-11-13 00:43] LABS: POC Glucose,Bedside 371 (70-110)
[2021-11-13 00:43] LABS: POC Glucose,Bedside 302 (70-110)
--- NOTE | 2021-11-13 13:30 | HMH.DCSUM ---
General - General Admission date:: 11/09/21 <Harlan Archer - 11/21/21 08:42> 11/09/21 <Barbie Herbert - 11/13/21 13:36> Discharge date: 11/12/21 <PiedadBarbie - 11/13/21 13:36> HPI HPI: Patient has insulin-dependent diabetes mellitus, recurrent DKA. She began feeling ill on Saturday, 3 days ago. Started with nausea which progressed to vomiting yesterday. She says she vomited all day yesterday. No blood or coffee-ground emesis yesterday, but this morning her emesis is brown. She started having a little diarrhea this morning without blood or melena. No abdominal pain or fever. She used her insulin 4 times yesterday as per her usual schedule, but has not used insulin today. Denies urinary symptoms. States that today the light hurts her eyes, but she does not have a headache. (Above as per ER physician) The patient was evaluated in the emergency room and found to be in DKA. Her white blood cell count was elevated. Her pH was 7. Her glucose was 409 and her renal functions were elevated. Her gastric occult blood was positive and she had a large amount of acetone. She was admitted and started on IV fluids and insulin drip. <Barbie Herbert - 11/13/21 13:36> Hospital Course Hospital Course: The patient was admitted and started on an insulin drip along with IV fluids, Zofran, and Protonix. A central line was placed in the ER due to the fact they were unable to keep IV access. She did have positive hematemesis on arrival and was admitted with DKA protocol. She did began feeling better and had no further vomiting. Her glucose and white blood cell count improved. She was able to start eating. Her renal function improved as well. By 11/10/2021, she was still showing a small amount of acetone and her CO2 remained low. Her sodium increased and her potassium had normalized. Her IV fluids were adjusted and her diet was increased. She was continued on IV insulin until her acetone cleared. At that time her insulin drip was discontinued she was started on maintenance insulin. Her nausea improved and she was able to eat. Her electrolytes and renal function stabilized. By 11/12/2021, she was tolerating her diet with no nausea or vomiting and her bowels were moving. Her blood cultures returned showing no growth. Her white blood cell count normalized and no source of infection was identified. She was stable to be discharged home and will follow up with her PCP in a week. <Barbie Herbert - 11/13/21 13:36> Objective Vital signs: Temp Pulse Resp BP Pulse Ox 98.3 F 88 15 123/61 100 11/12/21 08:00 11/12/21 08:00 11/12/21 08:00 11/12/21 08:00 11/12/21 08:00 <Harlan Archer - 11/21/21 08:42> Temp Pulse Resp BP Pulse Ox 98.3 F 88 15 123/61 100 11/12/21 08:00 11/12/21 08:00 11/12/21 08:00 11/12/21 08:00 11/12/21 08:00 <Barbie Herbert - 11/13/21 13:36> Narrative: - Constitutional no acute distress - *Routine HEENT Exam Head: Present: normocephalic Eye: Present: EOMI, PERRL ENT: Present: mucous membranes dry - *Routine Neck Exam Present: supple. Absent: lymphadenopathy - *Routine Respiratory Exam Present: CTA bilaterally - *Routine Cardiovascular Exam Present: RRR - *Routine Abdominal Exam Present: soft, normoactive bowel sounds, tenderness (mild diffuse tenderness) - *Routine Rectal Exam Rectal:: deferred - *Routine Genitalia Exam Genitalia:: deferred - *Routine Extremities Exam Absent: cyanosis, clubbing, edema - *Routine Skin Exam Present: warm. Absent: rash - *Routine Neurological Exam Present: alert, oriented X3 <Barbie Herbert - 11/13/21 13:36> Results Labs on day of discharge: Labs from last 24 hours 11/11/21 11/11/21 11/11/21 21:24 16:41 11:35 POC Glucose 371 H* 145 H 302 H* 11/11/21 11/11/21 08:12 06:05 POC Glucose 271 H 159 H Preliminary micro results at discha
--- NOTE | 2021-11-13 15:13 | CARE MANAGER ---
Spoke with patient following hospital stay, patient states that she is feeling better and is doing well with no complaints.
== END 2021-11-12 10:47 | disposition home or self-care (01) | DRG 638 ==
LOC: ER 11:19 → 2ND 13:57
PROVIDERS: Admitting Provider Family Medicine; Emergency Provider Emergency Medicine; PCP Family Medicine; Visit Provider Family Medicine
DX: E10.10 Type 1 diabetes mellitus with ketoacidosis without coma (principal); N17.9 Acute kidney failure, unspecified; K92.0 Hematemesis; K21.9 Gastro-esophageal reflux disease without esophagitis; Z87.442 Personal history of urinary calculi; E03.9 Hypothyroidism, unspecified; Z79.4 Long term (current) use of insulin; Z20.822 Contact with and (suspected) exposure to COVID-19
CPT/HCPCS: 36415; 71045; 80048; 80053; 81001; 82009; 82272; 82803; 82962; 83036; 83605; 83735; 84100; 85007; 85025; 87040; 93005; 96365; 96367; 96375; 96376; 99291; C1751; C9803; G0328; J2405; U0003; U0005

== ENCOUNTER 2022-04-10 12:47 | Emergency (ER) | payer OTHER, SELFPAY ==
--- NOTE | 2022-04-10 13:18 | EXP.UTC ---
Discharge Plan Disposition Patient Disposition: Home, Self-Care Condition: Good Prescriptions Prescriptions: New phenazopyridine 200 mg Tablet 200 mg PO TID Qty: 6 0RF ciprofloxacin HCl [Cipro] 500 mg tablet 500 mg PO BID 7 Days Qty: 14 0RF ondansetron 4 mg Tablet,Disintegrating 4 mg PO Q8H PRN (Reason: Nausea) Qty: 20 0RF No Action insulin degludec 100 UNIT/ML insulin pen 30 units SQ HS insulin lispro 100 UNIT/ML solution 0 units SQ TID dapagliflozin 10 MG tablet 10 mg PO DAILY Referrals Follow up/Referrals: Provider,Referral, MD [Primary Care Provider] - See instructions Activity Restrictions/Add. Instructions Additional Instructions/Restrictions: Drink plenty of fluids. Take tylenol or ibuprofen for pain or fever. Take the medications as directed. Follow up with your regular doctor. GO TO THE ER FOR ANY WORSENING SYMPTOMS The pyridium will make your urine turn orange, this is an expected side effect. It will stain your clothes if it comes into contact with them. We will culture the urine. That will tell what bacteria is causing your infection and which antibiotics will treat it best. Sometimes the first antibiotic we prescribe turns out to not work against different bacteria. So, make sure you follow up within 3 days if you are not getting better. Clinical Impressions Clinical Impression: UTI (urinary tract infection) Instructions Patient Instructions: Urine Culture, DI for Urinary Tract Infection (UTI), Phenazopyridine Discharge ED Provider: Axel Ayon [facility] General Stated complaint: possible UTI Time Seen by Provider: 04/10/22 13:18 History of Present Illness Provider Complaint: She states that she has had dysuria and low back pain for the past 2 days. Related Data Home Medications Medication Instructions Recorded Confirmed insulin degludec 100 unit/mL (3 30 units SQ HS Diabetes 05/11/20 11/09/21 mL) subcutaneous pen insulin lispro 100 unit/mL 0 units SQ TID Diabetes 05/11/20 11/09/21 subcutaneous solution dapagliflozin 10 mg tablet 10 mg PO DAILY Diabetes 02/24/21 11/09/21 Previous Rx's Medication Instructions Recorded ciprofloxacin HCl 500 mg tablet 500 mg PO BID 7 days #14 tabs 04/10/22 (Cipro) ondansetron 4 mg disintegrating 4 mg PO Q8H PRN Nausea #20 tabs 04/10/22 tablet phenazopyridine 200 mg tablet 200 mg PO TID #6 tabs 04/10/22 Allergies Allergy/AdvReac Type Severity Reaction Status Date / Time No Known Allergies Allergy Verified 03/10/21 08:24 PFSH [facility] Social History Smoking Status: Never smoker second hand exposure: Yes alcohol intake: never counseling provided: provider counseling substance use type: denies use current occupational status: disabled Travel in the last 8 weeks: None household members: spouse housing: house current occupational exposures/hazards: No caffeine: Yes ROS Obtained: Yes All systems reviewed & no additional complaints except as documented Constitutional Constitutional: Reports system reviewed and no additional complaints, except as documented, Denies chills and Denies fever(s) Eyes Eyes: Denies eye discharge ENT Ears, Nose, Mouth, and Throat: Denies dysphagia, Denies sore throat and Denies throat swelling Cardiovascular Cardiovascular: Denies chest pain and Denies dyspnea Respiratory Respiratory: Denies chest congestion, Denies cough and Denies dyspnea Gastrointestinal Gastrointestingal: Denies abdominal pain, constipation, diarrhea, dysphagia, nausea or vomiting Musculoskeletal Musculoskeletal: Denies arthralgias Integumentary/Breasts Skin/Breast: Denies rash Neurologic Neurologic: Denies paresthesias Allergic/Immunologic Allergic/Immunologic: Denies throat swelling Physical Exam General General appearance: alert and in no apparent distress Head Head exam: atraumatic, normoce
[2022-04-10 13:24] VITALS: BP 140/78; PULSE 98; RESP 16; TEMP 36.7; O2SAT 95; BMI 26.8
[2022-04-10 13:53] VITALS: BP 140/78; PULSE 98; RESP 16; TEMP 36.7
[2022-04-10 13:55] LABS: Apearance,Urine Cloudy (Clear); Bilirubin,Urine Negative (Negative); Blood, Urine 2+ (Negative); Color,Urine Yellow (Yellow); Glucose,Urine (UA) 4+ (Negative); Ketones,Urine Negative (Negative); PH,Urine 5.5 (5.0-8.5); Protein,Urine 1+ (Negative); UTC Leukocyte Esterase,Urine 1+ (Negative); UTC Nitrate,Urine Negative (Negative); Urobilinogen,Urine 0.2 EU/dl (0.2)
== END 2022-04-10 13:54 | disposition home or self-care (01) ==
PROVIDERS: Emergency Provider Nurse Practitioner Family
DX: N39.0 Urinary tract infection, site not specified (principal); R11.0 Nausea; Z79.4 Long term (current) use of insulin; Z79.899 Other long term (current) drug therapy
CPT/HCPCS: 81003; 87086; 87088; 87186; 99213; G0463

== ENCOUNTER 2022-08-20 12:44 | Inpatient (IN) | payer OTHER, SELFPAY ==
[2022-08-20] VITALS (13 sets, daily range): BP systolic 100–128; BP diastolic 21–61; PULSE 100–116; RESP 18–20; TEMP 36.6–37.1; O2SAT 97–100; BMI 26.4; BMI 26.6
--- NOTE | 2022-08-20 12:36 | ECG_ITS ---
APPROVED REPORT Exam: Resting ECG HR:109 bpm ECG Measurements Heart Rate 109 AXES MS 142 P 81 QRSd 90 QRS 39 QT 369 T 83 QTc [address] DEVIATION AND MODERATE T-WAVE ABNORMALITY, CONSIDER ANTERIOR ISCHEMIA [-0.1+ mV T-WAVE IN V3/V4] ABNORMAL ECG UNCONFIRMED REPORT Electronically signed by : Maciel Stiles MD 08/20/2022 21:39:25
[2022-08-20 12:56] LABS: POC Glucose,Bedside 490 (70-110)
--- NOTE | 2022-08-20 13:01 | XR_ITS ---
FINAL REPORT CLINICAL HISTORY: SOB COMPARISON: 11/09/2021 FINDINGS: 2 views of the chest were obtained . The heart is normal in size. The mediastinum is within normal limits. The lungs are clear. There is no pneumothorax. Osseous structures are unremarkable. IMPRESSION: No acute cardiopulmonary process. Reviewed, Interpreted and Dictated by Ivelisse Meade MD Transcribed by Anastasia Guo Authenticated and [facility]
--- NOTE | 2022-08-20 13:08 | PC.NURSE ---
NOTIFIED ER MD OF PT PRESENTING C/O. RECEIVED VERBAL ORDERS FROM ER MD
--- NOTE | 2022-08-20 13:22 | HMH.EDSOB ---
Discharge Plan Disposition Patient Disposition: Admitted As Inpatient Condition: Good Clinical Impressions Clinical Impression: DKA (diabetic ketoacidosis), IDDM (insulin dependent diabetes mellitus) Discharge ED Provider: Santos Rader Resp/SOB HPI General Chief Complaint: Shortness of Breath/Dyspnea Stated Complaint: High Blood Sugar, hard to breathe Time Seen by Provider: 08/20/22 13:22 Mode of Arrival: Ambulatory Source of Information: Patient and Medical Record Limitations: No Limitations Description of Symptoms (Recalled from ER Triage Doc. by RN): pt states she has had vomiting and nausea since yesterday, woke up this AM with shortness of breath, denies fever or cough, also reports chills and shaking, states it hurts when she takes a deep breath, reports runny nose as well History of Present Illness pt with n/v and hx of iddm and dka Complaint: shortness of breath Onset (ago): day(s) Severity: moderate Associated symptoms: denies other symptoms Related Data Home oxygen amount: none Home Medications Medication Instructions Recorded Confirmed insulin degludec 100 unit/mL (3 30 units SQ HS Diabetes 05/11/20 08/20/22 mL) subcutaneous pen insulin lispro 100 unit/mL 0 units SQ TID Diabetes 05/11/20 08/20/22 subcutaneous solution dapagliflozin 10 mg tablet 10 mg PO DAILY Diabetes 02/24/21 08/20/22 ciprofloxacin HCl 500 mg tablet 500 mg PO BID Infection 08/20/22 08/20/22 (Cipro) pantoprazole 40 mg tablet,delayed 40 mg PO DAILY Acid reflux 08/20/22 08/20/22 release phenazopyridine 200 mg tablet 200 mg PO TID Infection 08/20/22 08/20/22 Previous Rx's Medication Instructions Recorded ondansetron 4 mg disintegrating 4 mg PO Q8H PRN Nausea #20 tabs 04/10/22 tablet Allergies Allergy/AdvReac Type Severity Reaction Status Date / Time No Known Allergies Allergy Verified 03/10/21 08:24 [facility] Disclaimer: The information contained in this section may have been updated after the patient was seen, as this information can be updated by other users. Social History Smoking Status: Current every day smoker second hand exposure: Yes alcohol intake: never counseling provided: provider counseling substance use type: denies use current occupational status: disabled Travel in the last 8 weeks: None household members: spouse housing: house current occupational exposures/hazards: No caffeine: Yes ROS Obtained: Yes All systems reviewed & no additional complaints except as documented Physical Exam General General appearance: alert Head Head exam: normocephalic Eye Eye exam: Present PERRL and EOMI ENT ENT exam: Present mucous membranes moist Neck Neck exam: Absent trachea midline Respiratory Respiratory exam: Present normal lung sounds bilaterally Cardiovascular Cardiovascular exam: Present regular rate Abdominal Exam Abdominal exam: Present soft Extremities Exam Extremities exam: Present full ROM Neurological Exam Neurological exam: Present alert, oriented X3 and CN II-XII intact Psychiatric Psychiatric exam: Present normal affect Skin Skin exam: Absent rash Medical Decision Making Medical Records Medical records reviewed: Yes I reviewed the patient's medical records. Marcos Inquiry Pt receiving controlled substance: No Vital Signs: 08/20/22 12:44 08/20/22 14:05 08/20/22 14:26 Temperature 97.8 F Temperature Source Oral Pulse Rate 110 H Pulse Rate [Right Radial] 109 H Respiratory Rate 20 Blood Pressure 100/21 L 119/52 L Blood Pressure [Right Arm] 115/43 L Blood Pressure Mean 42 74 Blood Pressure Mean [Right Arm] 67 Blood Pressure Source Blood Pressure Source [Right Arm] Automatic Cuff Blood Pressure Position Blood Pressure Position [Right Arm] Sitting 02 Sat by Pulse Oximetry 99 100 100 Oxygen Delivery Method Room Air 08/20/22 14:30 08/20/22 15:00 08/20/22 1
[2022-08-20 13:25] LABS: Coronavirus 19, PCR Not Detected (NotDetected); Influenza A, PCR Not Detected (NotDetected); Influenza B, PCR Not Detected (NotDetected)
[2022-08-20 13:59] LABS: Alanine Aminotransferase 29 U/L (12-78); Albumin Level 4.5 g/dl (3.5-5.0); Albumin/Globulin Ratio 1.4 (1.1-1.8); Alkaline Phosphatase 363 U/L (38-126); Aspartate Amino Transferase 26 U/L (14-36); Bilirubin,Total 0.7 mg/dl (0.2-1.3); Blood Urea Nitrogen 34 mg/dl (7-17); Calcium 9.4 mg/dl (8.4-10.2); Chloride 102 mmol/L (98-107); Creatinine Clearance Estimated 42 mL/min (50-200); Estimated Glomerular Filt Rate 36 ml/min (>60); GFR (African American) 44 ML/MIN (>60); Globulin 3.2 g/dL (1.3-3.2); Lactic Acid 1.3 mmol/L (0.7-2.1); Potassium 5.1 mmoL/L (3.5-5.1); Sodium 134 mmol/L (136-145); Total Protein,Serum 7.7 g/dl (6.3-8.2)
[2022-08-20 14:02] LABS: Acetone, Serum (Rapid) Large (None Detect)
[2022-08-20 14:03] LABS: Anion Gap 32.1 mEq/L (5-15)
[2022-08-20 14:04] LABS: Carbon Dioxide 5 mmol/L (22.0-30.0); Glucose 599 mg/dl (74-100)
[2022-08-20 14:07] LABS: VBG Base Excess -26.1 mmol/L (-2.4-2.3); VBG HCO3 4.4 mmol/L (23-30); VBG Oxygen Saturation 99.1 % (50-70); VBG PO2 196.8 mmol/L (28-40); VBG Total CO2 4.9 mmol/L (23-27)
--- NOTE | 2022-08-20 14:08 | PC.NURSE ---
CRITICAL LABS REPORTED TO ER VERBAL ORDER RECIEVED FOR INSULIN DRIP TO DOSE PER PHARMACY. SPOKE WITH MONISHA IN PHARMACY
[2022-08-20 14:10] LABS: Basophils # 0.1 K/mm3 (0-0.2); Basophils % 0.5 % (0.1-2.0); Eosinophils % 0.2 % (0.1-12.0); Hematocrit 39.3 % (37.0-47.0); Hemoglobin 12.2 g/dL (12.2-16.2); Lymphocytes # 1.1 K/mm3 (0.7-4.5); Lymphocytes % 6.4 % (10-50); Mean Corpuscular HGB Conc 31.1 g/dL (31.8-35.4); Mean Corpuscular Hemoglobin 28.1 pg (27.0-31.2); Mean Corpuscular Volume 90.3 fl (81-99); Mean Platelet Volume 8.5 fl (7.4-10.4); Monocytes # 0.3 K/mm3 (0.1-1.0); Monocytes % 1.7 % (1.7-9.3); Neutrophils # 16.3 K/mm3 (1.8-7.8); Neutrophils % 91.1 % (37.0-80.0); Platelet Count 604 K/mm3 (142-424); Red Blood Count 4.35 M/mm3 (4.20-5.40); Red Cell Distribution Width 13.9 % (11.5-17.5); White Blood Count 17.9 K/mm3 (4.8-10.8)
[2022-08-20 14:11] LABS: MANUAL DIFFERENTIAL MANUAL DIFFERENTIAL (MANUAL DIFF)
[2022-08-20 14:11] LABS: VBG PCO2 16.2 mmol/L (35-51); VBG PH 7.05 mmol/L (7.31-7.41)
--- NOTE | 2022-08-20 14:12 | PC.NURSE ---
case management called for admission
[2022-08-20 14:30] LABS: Lymphocytes % 11 % (10-50); Neutrophils % 89 % (42-76); Platelet Estimate Marked Increase; RBC Morphology Normal; Total Cells Counted 100
--- NOTE | 2022-08-20 15:01 | PC.NURSE ---
CALLED REPORT TO MAYELIN PIÑA.
[2022-08-20 15:52] LABS: POC Glucose,Bedside 548 (70-110)
--- NOTE | 2022-08-20 15:52 | PC.NURSE ---
BS AT 548.
--- NOTE | 2022-08-20 15:59 | PC.NURSE ---
patient arrived by stretcher from ED
--- NOTE | 2022-08-20 16:45 | EXP.HP ---
History of Present Illness *Admission Date: 08/20/22 *Reason for visit:: DKA, nausea and vomiting *History of present illness: 57-year-old female with insulin-dependent diabetes who presented with 1 to 2 days of nausea, vomiting, fatigue. States she has not missed any doses of insulin. Presented to the ER because of worsening abdominal pain and nausea. On presentation found to have significantly abnormal labs consistent with high anion gap metabolic acidosis, hyperglycemia, leukocytosis and LOIS. Initiated on insulin drip and IV fluids. Medicine consulted for admission. No overtly visible infection. Blood was obtained because of SIRS criteria. Patient reports good compliance with her regimen. Has been unable to keep down fluid or food, has noticed increased urine output but her urine has become more uncomfortable, burning yesterday. Breathing faster per her report. Denies chest pain, confusion, headache. States she feels cold today. [facility] Disclaimer: The information contained in this section may have been updated after the patient was seen, as this information can be updated by other users. Social History Smoking Status: Current every day smoker second hand exposure: Yes alcohol intake: never counseling provided: provider counseling substance use type: denies use current occupational status: disabled Travel in the last 8 weeks: None household members: spouse housing: house current occupational exposures/hazards: No caffeine: Yes Review of Systems Review of Systems Review of systems (narrative): 14 point review of systems performed, pertinent positives and negatives as per HPI Meds Home Medications and Allergies Home Medications Medication Instructions Recorded Confirmed Type insulin degludec 100 unit/mL (3 30 units SQ HS Diabetes 05/11/20 08/20/22 History mL) subcutaneous pen insulin lispro 100 unit/mL 0 units SQ TID Diabetes 05/11/20 08/20/22 History subcutaneous solution dapagliflozin 10 mg tablet 10 mg PO DAILY Diabetes 02/24/21 08/20/22 History ondansetron 4 mg disintegrating 4 mg PO Q8H PRN Nausea #20 tabs 04/10/22 08/20/22 Rx tablet ciprofloxacin HCl 500 mg tablet 500 mg PO BID Infection 08/20/22 08/20/22 History (Cipro) pantoprazole 40 mg tablet,delayed 40 mg PO DAILY Acid reflux 08/20/22 08/20/22 History release phenazopyridine 200 mg tablet 200 mg PO TID Infection 08/20/22 08/20/22 History New Prescriptions to Start Prescriptions: Allergies Allergy/AdvReac Type Severity Reaction Status Date / Time No Known Allergies Allergy Verified 03/10/21 08:24 Exam Data for Last 24 hours Vital signs and Labs for Last 24 Hours: Temp Pulse Resp BP Pulse Ox 97.9 F 113 H 18 111/46 L 100 08/20/22 15:03 08/20/22 15:30 08/20/22 15:03 08/20/22 15:30 08/20/22 15:30 Laboratory Results - last 24 hr 08/20/22 12:49: POC Glucose 490 H* 08/20/22 13:08: VBG pH 7.05 L, VBG pCO2 16.2 L, VBG pO2 196.8 H, VBG HCO3 4.4 L, VBG Total CO2 4.9 L, VBG O2 Saturation 99.1 H, VBG Base Excess -26.1 L 08/20/22 13:20: SARS-CoV-2 (PCR) Not detected, Influenza A Untype (PCR) Not detected, Influenza Type B (PCR) Not detected 08/20/22 13:30: WBC 17.9 H, RBC 4.35, Hgb 12.2, Hct 39.3, MCV 90.3, MCH 28.1, MCHC 31.1 L, RDW 13.9, Plt Count 604 H, MPV 8.5, Neut % (Auto) 91.1 H, Lymph % (Auto) 6.4 L, [place] % (Auto) 1.7, Eos % (Auto) 0.2, Baso % (Auto) 0.5, Neut # (Auto) 16.3 H, Lymph # (Auto) 1.1, [place] # (Auto) 0.3, Eos # (Auto) 0.0, Baso # (Auto) 0.1, Total Counted 100, Neutrophils % (Manual) 89 H, Lymphocytes % (Manual) 11, Platelet Estimate Marked increase, RBC Morphology Normal 08/20/22 13:30: Sodium 134 L, Potassium 5.1, Chloride 102, Carbon Dioxide 5 L*, Anion Gap 32.1 H, BUN 34 H, Creatinine 1.50 H, Estimated Creat Clear 42, Estimated GFR 36 L, Est GFR ( Amer) 44 L, Glucose 599 H*, Calcium 9.4, Total Bilirubin 0.7, AST 26, ALT
[2022-08-20 17:09] LABS: Hemoglobin A1C 9.7 % (4.0-6.0)
[2022-08-20 17:18] LABS: POC Glucose,Bedside 462 (70-110)
[2022-08-20 18:16] LABS: POC Glucose,Bedside 391 (70-110)
--- NOTE | 2022-08-20 18:47 | PC.NURSE ---
1545- [facility]SBG 548, insulin drip infusing at 6units/hr 1700- [facility]SBG 462, titrated insulin drip to 9units/hr 1800- FSBG 391, titrated insulin drip to 13units/hr 1900- FSBG 364, titrated insulin drip to 19units/hr
[2022-08-20 18:53] LABS: POC Glucose,Bedside 364 (70-110)
[2022-08-20 20:08] LABS: Anion Gap 29.3 mEq/L (5-15); Blood Urea Nitrogen 39 mg/dl (7-17); Calcium 9.1 mg/dl (8.4-10.2); Chloride 109 mmol/L (98-107); Creatinine Clearance Estimated 49 mL/min (50-200); Estimated Glomerular Filt Rate 43 ml/min (>60); GFR (African American) 51 ML/MIN (>60); Glucose 297 mg/dl (74-100); Potassium 4.3 mmoL/L (3.5-5.1); Sodium 143 mmol/L (136-145)
[2022-08-20 20:14] LABS: POC Glucose,Bedside 257 (70-110)
[2022-08-20 20:29] LABS: Carbon Dioxide 9 mmol/L (22.0-30.0)
[2022-08-20 21:13] LABS: POC Glucose,Bedside 218 (70-110)
[2022-08-20 22:04] LABS: POC Glucose,Bedside 207 (70-110)
--- NOTE | 2022-08-20 22:13 | PC.NURSE ---
She is A&Ox4. She denies pain. She reported nausea and PRN medication was given. No vomiting thus far this shift. She states her last BM was yesterday. She has ambulated to the bathroom with steady gait. She only needs assistance with the tubing. She continues on the insulin gtt.
[2022-08-20 23:14] LABS: POC Glucose,Bedside 177 (70-110)
[2022-08-20 23:23] LABS: Chloride 113 mmol/L (98-107); Potassium 3.6 mmoL/L (3.5-5.1); Sodium 141 mmol/L (136-145)
[2022-08-20 23:26] LABS: Anion Gap 19.6 mEq/L (5-15); Blood Urea Nitrogen 35 mg/dl (7-17); Calcium 8.7 mg/dl (8.4-10.2); Carbon Dioxide 12 mmol/L (22.0-30.0); Creatinine Clearance Estimated 58 mL/min (50-200); Estimated Glomerular Filt Rate 52 ml/min (>60); GFR (African American) 62 ML/MIN (>60); Glucose 178 mg/dl (74-100)
[2022-08-21] VITALS (19 sets, daily range): BP systolic 105–136; BP diastolic 46–66; PULSE 77–110; RESP 14–22; TEMP 36.9–37.4; O2SAT 88–100; BMI 26.6
[2022-08-21 00:05] LABS: POC Glucose,Bedside 138 (70-110)
[2022-08-21 02:15] LABS: POC Glucose,Bedside 154 (70-110)
[2022-08-21 02:15] LABS: POC Glucose,Bedside 135 (70-110)
[2022-08-21 03:28] LABS: POC Glucose,Bedside 332 (70-110)
[2022-08-21 03:28] LABS: POC Glucose,Bedside 170 (70-110)
[2022-08-21 03:45] LABS: Chloride 112 mmol/L (98-107); Potassium 4.1 mmoL/L (3.5-5.1); Sodium 142 mmol/L (136-145)
[2022-08-21 03:48] LABS: Anion Gap 21.1 mEq/L (5-15); Blood Urea Nitrogen 31 mg/dl (7-17); Calcium 8.8 mg/dl (8.4-10.2); Carbon Dioxide 13 mmol/L (22.0-30.0); Creatinine Clearance Estimated 64 mL/min (50-200); Estimated Glomerular Filt Rate 58 ml/min (>60); GFR (African American) 70 ML/MIN (>60); Glucose 182 mg/dl (74-100)
[2022-08-21 04:14] LABS: POC Glucose,Bedside 177 (70-110)
[2022-08-21 04:14] LABS: Acetone, Serum (Rapid) Large (None Detect)
[2022-08-21 05:24] LABS: POC Glucose,Bedside 191 (70-110)
[2022-08-21 06:15] LABS: POC Glucose,Bedside 198 (70-110)
[2022-08-21 07:02] LABS: POC Glucose,Bedside 195 (70-110)
--- NOTE | 2022-08-21 07:07 | PC.NURSE ---
Pt resting in bed. No complaints stated. Has had a bath with bed change this AM. Pt states she feels better. She is currently on Insulingtt @ 4 units/hr. Varsha Vinson consulted this AM due to labs. New orders received to try to keep FSBS around 200. No changes to fluids at this time.
[2022-08-21 07:28] LABS: Anion Gap 18.5 mEq/L (5-15); Basophils % 0.1 % (0.1-2.0); Blood Urea Nitrogen 29 mg/dl (7-17); Calcium 8.6 mg/dl (8.4-10.2); Carbon Dioxide 14 mmol/L (22.0-30.0); Chloride 111 mmol/L (98-107); Creatinine Clearance Estimated 80 mL/min (50-200); Eosinophils # 0.1 K/mm3 (0.0-0.4); Eosinophils % 0.7 % (0.1-12.0); Estimated Glomerular Filt Rate 74 ml/min (>60); GFR (African American) 90 ML/MIN (>60); Glucose 204 mg/dl (74-100); Hematocrit 31.9 % (37.0-47.0); Lymphocytes # 0.7 K/mm3 (0.7-4.5); Lymphocytes % 4.4 % (10-50); Mean Corpuscular Hemoglobin 28.1 pg (27.0-31.2); Mean Corpuscular Volume 85.2 fl (81-99); Monocytes # 0.4 K/mm3 (0.1-1.0); Monocytes % 2.3 % (1.7-9.3); Neutrophils # 15.6 K/mm3 (1.8-7.8); Neutrophils % 92.6 % (37.0-80.0); Platelet Count 524 K/mm3 (142-424); Potassium 3.5 mmoL/L (3.5-5.1); Red Blood Count 3.75 M/mm3 (4.20-5.40); Red Cell Distribution Width 14.4 % (11.5-17.5); Sodium 140 mmol/L (136-145); White Blood Count 16.9 K/mm3 (4.8-10.8)
[2022-08-21 07:29] LABS: MANUAL DIFFERENTIAL MANUAL DIFFERENTIAL (MANUAL DIFF)
[2022-08-21 07:47] LABS: Hemoglobin 10.7 g/dL (12.2-16.2)
--- NOTE | 2022-08-21 07:49 | HMH.PHAINT1 ---
Pharmacy Intervention Comments: Home medication list verified via patient interview and fill history from outside pharmacy. -Svetlana Burris, PharmD Candidate 2022
[2022-08-21 08:22] LABS: Lymphocytes % 5 % (10-50); Monocytes % 3 % (2-9); Neutrophils % 92 % (42-76); Platelet Estimate Slight Increase; RBC Morphology Normal; Total Cells Counted 100
[2022-08-21 08:41] LABS: POC Glucose,Bedside 292 (70-110)
--- NOTE | 2022-08-21 08:55 | PC.NURSE ---
Addendum entered by Ashwini Chapa RN 08/21/22 11:51: drip decreased to 4 units at this time r/t pt having slight diaphoresis and flushing. pt sugar was 161. Original Note: at start of shift pt insulin drip was at 4 units drip was increased to 6 units per dka protocol at 0825
[2022-08-21 09:40] LABS: POC Glucose,Bedside 259 (70-110)
[2022-08-21 10:50] LABS: POC Glucose,Bedside 200 (70-110)
[2022-08-21 11:37] LABS: Chloride 111 mmol/L (98-107); Potassium 3.9 mmoL/L (3.5-5.1); Sodium 140 mmol/L (136-145)
[2022-08-21 11:40] LABS: Anion Gap 14.9 mEq/L (5-15); Blood Urea Nitrogen 27 mg/dl (7-17); Carbon Dioxide 18 mmol/L (22.0-30.0); Creatinine Clearance Estimated 80 mL/min (50-200); Estimated Glomerular Filt Rate 74 ml/min (>60); GFR (African American) 90 ML/MIN (>60)
[2022-08-21 11:41] LABS: Calcium 8.7 mg/dl (8.4-10.2); Glucose 203 mg/dl (74-100)
[2022-08-21 12:08] LABS: POC Glucose,Bedside 161 (70-110)
[2022-08-21 12:39] LABS: POC Glucose,Bedside 176 (70-110)
[2022-08-21 13:37] LABS: POC Glucose,Bedside 205 (70-110)
[2022-08-21 14:51] LABS: POC Glucose,Bedside 172 (70-110)
[2022-08-21 15:37] LABS: Chloride 110 mmol/L (98-107); Potassium 3.7 mmoL/L (3.5-5.1); Sodium 141 mmol/L (136-145)
[2022-08-21 15:40] LABS: Anion Gap 14.7 mEq/L (5-15); Blood Urea Nitrogen 25 mg/dl (7-17); Calcium 8.7 mg/dl (8.4-10.2); Carbon Dioxide 20 mmol/L (22.0-30.0); Creatinine Clearance Estimated 80 mL/min (50-200); Estimated Glomerular Filt Rate 74 ml/min (>60); GFR (African American) 90 ML/MIN (>60); Glucose 178 mg/dl (74-100)
[2022-08-21 15:53] LABS: POC Glucose,Bedside 153 (70-110)
[2022-08-21 15:54] LABS: Acetone, Serum (Rapid) Moderate (None Detect)
--- NOTE | 2022-08-21 16:00 | PC.NURSE ---
Pt has remained in bed this shift, she will call for assistance to the restroom but otherwise has rested in bed. lungs are clear throughout, bowel sounds are active in all quads. nad noted. pt is alert and oriented x 4.
[2022-08-21 17:15] LABS: POC Glucose,Bedside 144 (70-110)
--- NOTE | 2022-08-21 18:21 | PC.NURSE ---
[address] plata face to face that the pt has had 2 consecutive anion gaps wnl. pt still has moderate amount of acetone. per md dc insulin drip, dc dextrose ivf. give 30 units lantus daily, start hiss sliding scale. fsbs achs.
--- NOTE | 2022-08-21 18:29 | PC.NURSE ---
insulin drip stopped at 1800
[2022-08-21 20:38] LABS: POC Glucose,Bedside 316 (70-110)
--- NOTE | 2022-08-21 21:16 | EXP.PN ---
Subjective *Date: 08/21/22 *Time: 21:16 Interval history: Date of service August 21, 2022 The patient reports that she is feeling better and voices no acute events since admission. Nursing staff report that she remains afebrile with stable vital signs and requiring 5 L of oxygen via nasal cannula to maintain appropriate oxygen saturations. She continues to tolerate her insulin drip with no adverse events. Nursing staff report that her morning anion gap has closed. Her morning labs identify and improve leukocytoses and stable hemoglobin. Her hemoglobin A1c is 9.7%. The patient is inquiring about something to eat. Exam Data for Last 24 hours Vital signs and Labs for Last 24 Hours: Temp Pulse Resp BP Pulse Ox 98.7 F 85 20 123/66 94 L 08/21/22 20:00 08/21/22 20:00 08/21/22 20:00 08/21/22 20:00 08/21/22 20:00 Laboratory Results - last 24 hr 08/20/22 21:57: POC Glucose 207 H 08/20/22 23:03: Sodium 141, Potassium 3.6, Chloride 113 H, Carbon Dioxide 12 L, Anion Gap 19.6 H, BUN 35 H, Creatinine 1.10 H, Estimated Creat Clear 58, Estimated GFR 52 L, Est GFR ( Amer) 62 D, Glucose 178 H D, Calcium 8.7 08/20/22 23:06: POC Glucose 177 H 08/20/22 23:53: POC Glucose 138 H 08/21/22 01:16: POC Glucose 135 H 08/21/22 02:09: POC Glucose 154 H 08/21/22 03:03: POC Glucose 332 H* 08/21/22 03:20: POC Glucose 170 H 08/21/22 03:30: Acetone Level Large 08/21/22 03:30: Sodium 142, Potassium 4.1, Chloride 112 H, Carbon Dioxide 13 L, Anion Gap 21.1 H, BUN 31 H, Creatinine 1.00, Estimated Creat Clear 64, Estimated GFR 58 L, Est GFR ( Amer) 70, Glucose 182 H, Calcium 8.8 08/21/22 04:07: POC Glucose 177 H 08/21/22 05:11: POC Glucose 191 H 08/21/22 06:08: POC Glucose 198 H 08/21/22 06:51: POC Glucose 195 H 08/21/22 06:52: Sodium 140, Potassium 3.5, Chloride 111 H, Carbon Dioxide 14 L, Anion Gap 18.5 H, BUN 29 H, Creatinine 0.80, Estimated Creat Clear 80, Estimated GFR 74, Est GFR ( Amer) 90 D, Glucose 204 H, Calcium 8.6 08/21/22 06:52: WBC 16.9 H, RBC 3.75 L, Hgb 10.7 L D, Hct 31.9 L, MCV 85.2, MCH 28.1, MCHC 33.0, RDW 14.4, Plt Count 524 H, MPV 8.0, Neut % (Auto) 92.6 H, Lymph % (Auto) 4.4 L, [place] % (Auto) 2.3, Eos % (Auto) 0.7, Baso % (Auto) 0.1, Neut # (Auto) 15.6 H, Lymph # (Auto) 0.7, [place] # (Auto) 0.4, Eos # (Auto) 0.1, Baso # (Auto) 0.0, Total Counted 100, Neutrophils % (Manual) 92 H, Lymphocytes % (Manual) 5 L, Monocytes % (Manual) 3, Platelet Estimate Slight increase, RBC Morphology Normal 08/21/22 08:27: POC Glucose 292 H 08/21/22 09:21: POC Glucose 259 H 08/21/22 10:43: POC Glucose 200 H 08/21/22 11:00: Sodium 140, Potassium 3.9, Chloride 111 H, Carbon Dioxide 18 L, Anion Gap 14.9, BUN 27 H, Creatinine 0.80, Estimated Creat Clear 80, Estimated GFR 74, Est GFR ( Amer) 90, Glucose 203 H, Calcium 8.7 08/21/22 11:49: POC Glucose 161 H 08/21/22 12:33: POC Glucose 176 H 08/21/22 13:30: POC Glucose 205 H 08/21/22 14:44: POC Glucose 172 H 08/21/22 15:10: Acetone Level Moderate 08/21/22 15:10: Sodium 141, Potassium 3.7, Chloride 110 H, Carbon Dioxide 20 L, Anion Gap 14.7, BUN 25 H, Creatinine 0.80, Estimated Creat Clear 80, Estimated GFR 74, Est GFR ( Amer) 90, Glucose 178 H, Calcium 8.7 08/21/22 15:47: POC Glucose 153 H 08/21/22 16:36: POC Glucose 144 H 08/21/22 20:13: POC Glucose 316 H* I & O for Last 24 hours: Intake & Output 08/18/22 08/19/22 08/20/22 08/21/22 23:59 23:59 23:59 23:59 Intake Total 240 / 240 3307 / 3307 Output Total 0 / 0 550 / 550 Balance 240 / 240 2757 / 2757 Weight 63.9 kg 63.9 kg Constitutional Constitutional: no acute distress and cooperative *Routine HEENT Exam Head: Present normocephalic Eye: Present EOMI and PERRL ENT: Present mucous membranes moist *Routine Neck Exam Neck: Present supple; Absent lymphadenopathy *Routine Respiratory Exam Respiratory: Present CTA bilaterally, normal respiratory effort and symmetric chest movement *Routine Cardiovascular Exam Cardiovascula
[2022-08-22] VITALS (10 sets, daily range): BP systolic 128–156; BP diastolic 59–88; PULSE 70–90; RESP 16–18; TEMP 36.7–37; O2SAT 92–96; BMI 28.5
--- NOTE | 2022-08-22 03:45 | PC.NURSE ---
Pt has rested well t/o night. Denies any discomfort. Pt states she feels better. FSBS was 316 this evening. 12 units of humalog administered. VSS. Call light within reach.
[2022-08-22 05:44] LABS: POC Glucose,Bedside 221 (70-110)
--- NOTE | 2022-08-22 10:10 | PC.NURSE ---
[address] Ross face to face in regards to pt ivf. pt has edema in komal hands. pt is drinking well, nad noted at this time. per MD ok to dc ivf on pt at this time.
[2022-08-22 12:10] LABS: POC Glucose,Bedside 300 (70-110)
--- NOTE | 2022-08-22 13:33 | EXP.PN ---
Subjective *Date: 08/22/22 *Time: 13:33 Interval history: Date of service August 22, 2022 The patient reports no acute events overnight. She is tolerating her diet and nursing staff report adequate sugar control with her basal and sliding scale insulin therapy. I am accompanied by several members of the multidisciplinary rounds team. We have reviewed and discussed her laboratory results. Nursing staff report that she remains afebrile with stable vital signs and saturating appropriately on room air. Her blood cultures continue to identify no growth to date. She is tolerating her IV antibiotic therapy Exam Data for Last 24 hours Vital signs and Labs for Last 24 Hours: Temp Pulse Resp BP Pulse Ox 98.1 F 80 17 145/74 H 93 L 08/22/22 11:26 08/22/22 12:00 08/22/22 11:26 08/22/22 11:26 08/22/22 11:26 Laboratory Results - last 24 hr 08/21/22 13:30: POC Glucose 205 H 08/21/22 14:44: POC Glucose 172 H 08/21/22 15:10: Acetone Level Moderate 08/21/22 15:10: Sodium 141, Potassium 3.7, Chloride 110 H, Carbon Dioxide 20 L, Anion Gap 14.7, BUN 25 H, Creatinine 0.80, Estimated Creat Clear 80, Estimated GFR 74, Est GFR ( Amer) 90, Glucose 178 H, Calcium 8.7 08/21/22 15:47: POC Glucose 153 H 08/21/22 16:36: POC Glucose 144 H 08/21/22 20:13: POC Glucose 316 H* 08/22/22 05:24: POC Glucose 221 H 08/22/22 12:02: POC Glucose 300 H I & O for Last 24 hours: Intake & Output 08/19/22 08/20/22 08/21/22 08/22/22 23:59 23:59 23:59 23:59 Intake Total 240 / 240 3307 / 3307 480 / 480 Output Total 0 / 0 550 / 1050 1800 / 1800 Balance 240 / 240 2757 / 2257 -1320 / -1320 Weight 63.9 kg 63.9 kg 68.6 kg Constitutional Constitutional: no acute distress and cooperative *Routine HEENT Exam Head: Present normocephalic Eye: Present EOMI and PERRL ENT: Present mucous membranes moist *Routine Neck Exam Neck: Present supple; Absent lymphadenopathy *Routine Respiratory Exam Respiratory: Present CTA bilaterally, normal respiratory effort and symmetric chest movement *Routine Cardiovascular Exam Cardiovascular: Present RRR *Routine Abdominal Exam Abdominal: Present soft and normoactive bowel sounds; Absent tenderness *Routine Extremities Exam Extremities: Absent cyanosis, clubbing or edema *Routine Skin Exam Skin: Present warm; Absent rash *Routine Neurological Exam Neurological: Present alert, oriented X3, moving all extremities, normal tone, vision grossly intact, hearing grossly intact and normal speech Routine Psychiatric Exam Psychiatric: Present normal affect, normal thought process, cooperative, good insight and good judgment Assessment and Plan *Assessment and plan (1) DKA (diabetic ketoacidoses): Status: Resolved Category: Medical Code(s): E13.10 - Other specified diabetes mellitus with ketoacidosis without coma (2) High anion gap metabolic acidosis: Status: Acute Category: Medical Code(s): E87.29 - Other acidosis (3) SIRS (systemic inflammatory response syndrome): Status: Acute Category: Medical Code(s): R65.10 - Systemic inflammatory response syndrome (SIRS) of non-infectious origin without acute organ dysfunction (4) LOIS (acute kidney injury): Status: Resolved Category: Medical Code(s): N17.9 - Acute kidney failure, unspecified (5) GERD (gastroesophageal reflux disease): Status: Chronic Category: Medical Code(s): K21.9 - Gastro-esophageal reflux disease without esophagitis (6) Leukocytosis: Status: Acute Category: Medical Code(s): D72.829 - Elevated white blood cell count, unspecified Plan 57-year-old female on insulin for diabetes who presents in DKA. Admitted for diabetes protocol. Started on insulin drip and IV fluids. Problems addressed as follows: DKA High anion gap metabolic acidosis Resolved Elevated gap 32 on admission, pH 7.0. Glucose greater than 600. Initiated on DKA protocol i
--- NOTE | 2022-08-22 16:12 | PC.NURSE ---
pt spent the better part of the morning in the bed resting. she was set up for a shower and reported no issues during shower. pt has been up to the chair for approx 2hours no issues noted. lungs remain clear, bowel sounds active. slight non pitting edema noted to komal hands. no edema noted to legs. pt is alert and oriented with no complaints of or issues noted at this time.
[2022-08-22 17:08] LABS: POC Glucose,Bedside 404 (70-110)
[2022-08-22 20:15] LABS: POC Glucose,Bedside 416 (70-110)
[2022-08-23] VITALS: BP 132/64; PULSE 76; PULSE 78; RESP 16; TEMP 36.8; O2SAT 92
[2022-08-23 04:00] VITALS: BP 152/81; PULSE 70; PULSE 78; RESP 16; TEMP 36.7; O2SAT 95; BMI 28.3
--- NOTE | 2022-08-23 05:26 | PC.NURSE ---
no changes from previous assessment, vss, pt rested well, no acute distress, no other issues or concerns at this time.
[2022-08-23 05:51] LABS: Basophils # 0.1 K/mm3 (0-0.2); Basophils % 0.8 % (0.1-2.0); Eosinophils # 0.1 K/mm3 (0.0-0.4); Eosinophils % 1.5 % (0.1-12.0); Hematocrit 35.5 % (37.0-47.0); Hemoglobin 11.9 g/dL (12.2-16.2); Lymphocytes # 1.8 K/mm3 (0.7-4.5); Lymphocytes % 22.8 % (10-50); Mean Corpuscular HGB Conc 33.6 g/dL (31.8-35.4); Mean Corpuscular Hemoglobin 28.2 pg (27.0-31.2); Mean Corpuscular Volume 83.7 fl (81-99); Mean Platelet Volume 7.6 fl (7.4-10.4); Monocytes # 0.4 K/mm3 (0.1-1.0); Neutrophils # 5.5 K/mm3 (1.8-7.8); Platelet Count 393 K/mm3 (142-424); Red Blood Count 4.24 M/mm3 (4.20-5.40); Red Cell Distribution Width 14.3 % (11.5-17.5); White Blood Count 7.9 K/mm3 (4.8-10.8)
[2022-08-23 05:58] LABS: Anion Gap 6.6 mEq/L (5-15); Blood Urea Nitrogen 11 mg/dl (7-17); Calcium 8.8 mg/dl (8.4-10.2); Carbon Dioxide 30 mmol/L (22.0-30.0); Chloride 106 mmol/L (98-107); Creatinine Clearance Estimated 171 mL/min (50-200); Estimated Glomerular Filt Rate 166 ml/min (>60); GFR (African American) 201 ML/MIN (>60); Glucose 53 mg/dl (74-100); Sodium 140 mmol/L (136-145)
[2022-08-23 06:02] LABS: Potassium 2.6 mmoL/L (3.5-5.1)
--- NOTE | 2022-08-23 06:18 | PC.NURSE ---
0550 fsbs this am was 48 and recheck was 50, results called to colleen white, orders entered to give 1 amp d50. during iv push was noted pt complained of burning at iv site and pain, new iv started to left proximal thumb area #20g after 3 attempts, lab called with critical potassium level 2.6 which was also called to colleen white, note orders entered to give po potassium by provider. left hand iv was removed without difficulty with catheter intact, pt tolerated well.
[2022-08-23 07:36] LABS: POC Glucose,Bedside 146 (70-110)
[2022-08-23 08:00] VITALS: BP 142/79; PULSE 80; RESP 16; TEMP 36.4; O2SAT 97
--- NOTE | 2022-08-23 11:01 | EXP.DC.SUM ---
General Admission date:: 08/20/22 Discharge date: 08/23/22 HPI HPI HPI: 57-year-old female with insulin-dependent diabetes who presented with 1 to 2 days of nausea, vomiting, fatigue. States she has not missed any doses of insulin. Presented to the ER because of worsening abdominal pain and nausea. On presentation found to have significantly abnormal labs consistent with high anion gap metabolic acidosis, hyperglycemia, leukocytosis and LOIS. Initiated on insulin drip and IV fluids. Medicine consulted for admission. No overtly visible infection. Blood was obtained because of SIRS criteria. Patient reports good compliance with her regimen. Has been unable to keep down fluid or food, has noticed increased urine output but her urine has become more uncomfortable, burning yesterday. Breathing faster per her report. Denies chest pain, confusion, headache. States she feels cold today. Hospital Course Hospital Course Hospital Course: The patient is admitted to the telemetry unit with IV fluid resuscitation and IV insulin. Blood cultures are acquired and she is started on IV antibiotic therapy. Her electrolytes, magnesium, blood sugar and creatinine are routinely assessed. Her other labs and inflammatory markers are trended. Her potassium and magnesium are replaced. Her anion gap identified improvement with 2 separate evaluation over 6 hours identified normalization. She was transition from IV insulin to basal and sliding scale insulin with good tolerance of diet. The patient identified improvement and tolerated her IV antibiotic therapy. She inquired about discharge home to follow-up with her religious education director Dr. Germain which is scheduled for August 27, 2022. She completed a course of IV Rocephin as an inpatient. Her blood cultures remain no growth to date. On discharge her CBC identified an improved leukocytoses with a white blood cell count 7.9 on discharge. Her hemoglobin remained stable and on discharge it was 11.9. Her electrolytes on discharge identified a potassium 4.0 and creatinine 0.4. The patient is instructed to follow-up with her PCP and religious education director as scheduled. She is encouraged on routine blood sugar monitoring and compliance with her medication. I spent 35 minutes in [id number] time with the patient and nursing staff concerning the discharge process. We discussed the admitting diagnoses and hospital course. We discussed identified improvement and the patient's desire to be discharged. We reviewed inpatient studies and imaging. The patient voiced understanding on the importance of follow-up with her primary care provider and religious education director. The patient plans to be compliant with the medication regimen prescribed and follow-up appointments. She understands that she can return to the emergency department with any sudden changes or concerns. Exam Data for Last 24 hours Vital signs and Labs for Last 24 Hours: Temp Pulse Resp BP Pulse Ox 97.6 F 80 16 142/79 H 97 08/23/22 08:00 08/23/22 08:00 08/23/22 08:00 08/23/22 08:00 08/23/22 08:00 Laboratory Results - last 24 hr 08/22/22 12:02: POC Glucose 300 H 08/22/22 16:57: POC Glucose 404 H* 08/22/22 19:47: POC Glucose 416 H* 08/23/22 05:30: WBC 7.9 D, RBC 4.24, Hgb 11.9 L, Hct 35.5 L, MCV 83.7, MCH 28.2, MCHC 33.6, RDW 14.3, Plt Count 393, MPV 7.6, Neut % (Auto) 70.0, Lymph % (Auto) 22.8, [place] % (Auto) 5.0, Eos % (Auto) 1.5, Baso % (Auto) 0.8, Neut # (Auto) 5.5, Lymph # (Auto) 1.8, [place] # (Auto) 0.4, Eos # (Auto) 0.1, Baso # (Auto) 0.1 08/23/22 05:30: Sodium 140, Potassium 2.6 L* D, Chloride 106, Carbon Dioxide 30, Anion Gap 6.6, BUN 11 D, Creatinine 0.40 L D, Estimated Creat Clear 171, Estimated GFR 166, Est GFR ( Amer) 201 D, Glucose 53 L, Calcium 8.8 08/23/22 07:28: POC Glucose 146 H 08/23/22 09:45: Potassium 4.0 D I & O for Last 24 hours: Intake & Output 08/20/22 08/21/22 08/22/22 08/23/22 23:59 23:59 23:59 23:59 Intake Total 240
--- NOTE | 2022-08-24 11:28 | CARE MANAGER ---
Called and spoke with patient to discuss post discharge status. Patient stated that she is feeling better and had no questions or concerns at time of call.
== END 2022-08-23 11:31 | disposition short-term general hospital (02) | DRG 638 ==
LOC: ER 13:18 → 2ND 15:02
PROVIDERS: Nurse Practitioner Family; Admitting Provider Internal Medicine Adolescent Medicine; Emergency Provider Emergency Medicine; Visit Provider Family Medicine
DX: E11.10 Type 2 diabetes mellitus with ketoacidosis without coma (principal); N17.9 Acute kidney failure, unspecified; R65.10 Systemic inflammatory response syndrome (SIRS) of non-infectious origin without acute organ dysfunction; K21.9 Gastro-esophageal reflux disease without esophagitis; Z79.4 Long term (current) use of insulin
CPT/HCPCS: 36415; 71046; 80048; 80053; 82009; 82803; 82962; 83036; 83605; 84132; 85007; 85025; 87040; 93005; 99285; C9803; J0696; J2405; U0003; U0005

== ENCOUNTER 2023-10-23 14:46 | Inpatient (IN) | payer OTHER, SELFPAY ==
[2023-10-23] VITALS (19 sets, daily range): BP systolic 80–106; BP diastolic 35–52; PULSE 91–106; RESP 11–20; TEMP 36.5–36.7; O2SAT 94–100; BMI 28.3
--- NOTE | 2023-10-23 14:52 | ED_ITS ---
<Statement entered by Pretty Escobedo DO - 10/23/23 20:07> I was consulted by the JAMES, and we discussed the complexity of the problems being addressed. I approved the treatment and management plan for this patient's care in the emergency department, thus performing a substantive portion of the medical decision making. Pretty Escobedo DO Discharge Plan Disposition Patient Disposition: Admitted Condition: Fair Clinical Impressions Clinical Impression: Flank pain, Acute nontraumatic kidney injury DKA (diabetic ketoacidosis) Qualifiers: Diabetes mellitus type: type 2 Diabetes mellitus complication detail: without coma Qualified Code(s): E11.10 - Type 2 diabetes mellitus with ketoacidosis without coma Discharge ED Provider: Pretty Escobedo General Adult HPI <LIAM Castañeda - Last Filed: 10/23/23 17:17> General Chief complaint: Hyper/Hypoglycemia Stated complaint: high blood sugar Time Seen by Provider: 10/23/23 14:52 History of Present Illness HPI narrative: Presents for evaluation of high blood sugar. Patient reports that she noticed that her blood sugar was running in the 200s yesterday but is now greater than 300. Patient has some associated nausea vomiting but no abdominal pain no urinary tract symptoms but is complaining of bilateral flank pain. Denies chest pain fever chills hemoptysis hematochezia melena. Related Data Home Medications Medication Instructions Recorded Confirmed insulin degludec 100 unit/mL (3 30 units SQ HS Diabetes 05/11/20 10/23/23 mL) subcutaneous pen insulin lispro 100 unit/mL 17 units SQ TIDWMEAL Diabetes 05/11/20 10/23/23 subcutaneous solution dapagliflozin propanediol 10 mg 10 mg PO DAILY Diabetes 02/24/21 10/23/23 tablet aspirin 81 mg tablet,delayed 81 mg PO DAILY 10/23/23 10/23/23 release lisinopril 2.5 mg tablet 2.5 mg PO DAILY 10/23/23 10/23/23 pantoprazole 40 mg tablet,delayed 40 mg PO DAILY 10/23/23 10/23/23 release Allergies Allergy/AdvReac Type Severity Reaction Status Date / Time No Known Allergies Allergy Verified 03/10/21 08:24 PFS <LIAM Castañeda - Last Filed: 10/23/23 17:17> [facility] Disclaimer: The information contained in this section may have been updated after the patient was seen, as this information can be updated by other users. Medical History History of gastroesophageal reflux (GERD) Breast lesion Surgical History H/O tubal ligation History of section History of colonoscopy Family History (Updated 10/23/23 @ 18:00 by Sonya Jauregui RN) Other No significant family history Social History (Updated 10/23/23 @ 18:00 by Sonya Jauregui RN) Smoking Status: Never smoker second hand exposure: Yes alcohol intake: never counseling provided: provider counseling substance use type: denies use current occupational status: disabled Travel in the last 8 weeks: None household members: spouse housing: house current occupational exposures/hazards: No caffeine: Yes <LIAM Castañeda - Last Filed: 10/23/23 17:17> ROS Obtained: Yes Systems reviewed as appropriate & no additional complaints except as documented Physical Exam <LIAM Castañeda - Last Filed: 10/23/23 17:17> General General appearance: alert and in no apparent distress Head Head exam: atraumatic and normal inspection Eye Eye exam: Present normal appearance, PERRL and EOMI ENT ENT exam: Present normal exam, normal oropharynx, mucous membranes dry and other (Strong odor of acetone on the breath) Neck Neck exam: Present normal inspection and full ROM; Absent lymphadenopathy Chest Chest inspection: Present normal inspection and symmetric chest wall rise Respiratory Respiratory exam: Present normal lung sounds bilaterally; Absent respiratory distress or accessory muscle use Cardiovascular Cardiovascular exam: Present normal rhythm, tachycardia, normal heart sounds, +S1 and +S2 Abdominal Exam Abdominal exam: Present soft and normal bowel sounds; Absent distention, tenderness, guarding, rebound or rigidity Extremities Exam Extremities exam: Present normal inspection and full ROM Back Exam Back exam: Present normal inspection, full ROM, CVA tenderness (R) and CVA tenderness (L) Neurological Exam Neurological exam: Present alert and oriented X3 Psychiatric Psychiatric exam: Present normal affect and normal mood Skin Skin exam: Present warm, dry and normal color Medical Decision Making <LIAM Castañeda - Last Filed: 10/23/23 17:17> Medical Records Medical records reviewed: Yes I reviewed the patient's medical records. Marcos Inquiry Pt receiving controlled substance: No Vital Signs: 10/23/23 14:51 10/23/23 14:56 10/23/23 15:13 Temperature 97.7 F Temperature Source Temporal Artery Scan Pulse Rate 94 H 95 H Pulse Rate [Right Brachial] 100 H Respiratory Rate 18 Blood Pressure 88/49 L 92/43 L Blood Pressure [Right Arm] 88/49 L Blood Pressure Mean [Right Arm] 62 Blood Pressure Source Blood Pressure Source [Right Arm] Automatic Cuff Blood Pressure Position [Right Arm] Sitting 02 Sat by Pulse Oximetry 96 99 100 Oxygen Delivery Method Room Air 10/23/23 15:15 10/23/23 15:30 10/23/23 16:09 Temperature Temperature Source Pulse Rate 96 H 91 H 96 H Pulse Rate [Right Brachial] Respiratory Rate Blood Pressure 97/35 L 91/40 L 80/38 L Blood Pressure [Right Arm] Blood Pressure Mean [Right Arm] Blood Pressure Source Blood Pressure Source [Right Arm] Blood Pressure Position [Right Arm] 02 Sat by Pulse Oximetry 99 98 94 L Oxygen Delivery Method Room Air 10/23/23 16:26 10/23/23 17:13 10/23/23 17:28 Temperature Temperature Source Pulse Rate 92 H 100 H 101 H Pulse Rate [Right Brachial] Respiratory Rate Blood Pressure 92/44 L 98/46 L 96/44 L Blood Pressure [Right Arm] Blood Pressure Mean [Right Arm] Blood Pressure Source Blood Pressure Source [Right Arm] Blood Pressure Position [Right Arm] 02 Sat by Pulse Oximetry 99 100 98 Oxygen Delivery Method 10/23/23 17:48 Temperature 98.0 F Temperature Source Oral Pulse Rate 98 H Pulse Rate [Right Brachial] Respiratory Rate 16 Blood Pressure 96/44 L Blood Pressure [Right Arm] Blood Pressure Mean [Right Arm] Blood Pressure Source Automatic Cuff Blood Pressure Source [Right Arm] Blood Pressure Position [Right Arm] 02 Sat by Pulse Oximetry Oxygen Delivery Method Room Air Lab Data Lab results reviewed: Yes I reviewed the patient's lab results. Lab Results 10/23/23 14:55: WBC 16.3 H, RBC 4.42, Hgb 13.0, Hct 43.2, MCV 97.8, MCH 29.5, M CHC 30.2 L, RDW 13.3, Plt Count 441 H, MPV 9.4, Neut % (Auto) 91.4 H, Lymph % (Auto) 6.6 L, Brewster % (Auto) 1.3 L, Eos % (Auto) 0.2, Baso % (Auto) 0.5, Neut # (Auto) 14.9 H, Lymph # (Auto) 1.1, Brewster # (Auto) 0.2, Eos # (Auto) 0.0, Baso # (Auto) 0.1, Total Counted 100, Neutrophils % (Manual) 84 H, Lymphocytes % (Manual) 15, Monocytes % (Manual) 1 L, Platelet Estimate Normal, RBC Morphology Normal, Sodium 137, Potassium 5.1, Chloride 103, Carbon Dioxide 7 L*, Anion Gap 32.1 H, BUN 43 H, Creatinine 1.40 H, Estimated Creat Clear 48, Estimated GFR 39 L, Est GFR ( Amer) 47 L, Glucose 402 H*, Hemoglobin A1c 7.5 H, Calcium 10.0, Phosphorus 8.7 H, Magnesium 2.1, Total Bilirubin 1.8 H, AST 59 H, ALT 97 H , Alkaline Phosphatase 662 H, Total Protein 7.7, Albumin 4.6, Globulin 3.1, Albumin/Globulin Ratio 1.5, Acetone Level Large 10/23/23 14:58: VBG pH 7.05 L, VBG pCO2 32.0 L, VBG pO2 78.7 H, VBG HCO3 8.6 L, VBG Total CO2 9.6 L, VBG O2 Saturation 92.3 H, VBG Base Excess -21.9 L, VBG Lactic Acid 3.1 H 10/23/23 15:17: Urine Color Yellow, Urine Appearance Clear, Urine pH 5.5, Ur Specific [place] >= 1.030, Urine Protein 1+, Urine Glucose (UA) 3+, Urine Ketones 2+, Urine Blood Trace-i, Urine Nitrate Negative, Urine Bilirubin 1+ A, Urine Urobilinogen 0.2, Ur Leukocyte Esterase Trace, Urine RBC Occasional, Urine WBC 3-5, Ur Squamous Epith Cells Occasional, Urine Bacteria Trace, Hyaline Casts Occasional, SARS-CoV-2 (PCR) Not detected, Influenza A Untype (PCR) Not detected, Influenza Type B (PCR) Not detected 10/23/23 14:55 10/23/23 18:20 Orders (Tests/Meds): ED MEDICATIONS Generic Name Dose Route Start Last Admin Trade Name Christiano PRN Reason Stop Dose Admin Acetaminophen 650 mg 10/23/23 19:26 Acetaminophen 325mg Tab PO 11/22/23 19:25 Q6HP PRN Fever or Mild Pain (1-3) Dextrose 50 ml 10/23/23 17:48 Dextrose 50% 50ml Syringe (Crash Cart) IVP 11/22/23 17:47 NEEDED PRN Per DKA Protocol Enoxaparin Sodium 40 mg 10/23/23 19:26 Enoxaparin 40mg/0.4ml Syringe SQ 10/23/23 19:27 ONCE ONE Sodium Chloride 1,000 mls @ 150 mls/hr 10/23/23 17:45 10/23/23 16:48 Sod Chlor 0.9% 1000ml Bag IV 11/22/23 17:44 150 mls/hr .Q6H40M CARLOS Administration Insulin Human Regular 100 unit 101 mls @ 5.05 mls/hr 10/23/23 15:45 10/23/23 18:58 / Sodium Chloride IV 11/22/23 15:44 6 unit/hr .Q20H CARLOS 6.06 mls/hr Titration Protocol 5 UNIT/HR Insulin Glargine 10 unit 10/23/23 21:00 Insulin Glargine 100 Units/Ml 3ml Flexpen SQ 11/22/23 20:59 HS CARLOS Discontinued Medications Generic Name Dose Route Start Last Admin Trade Name Christiano PRN Reason Stop Dose Admin Sodium Chloride 1,000 mls @ 999 mls/hr 10/23/23 14:57 10/23/23 15:09 Sod Chlor 0.9% 1000ml Bag IV 10/23/23 15:57 999 mls/hr .Q1H1M ONE Administration Sodium Bicarbonate 150 meq/ 1,150 mls @ 250 mls/hr 10/23/23 15:40 10/23/23 16:47 Dextrose IV 11/22/23 15:39 250 mls/hr .Q4H36M CARLOS Administration Protocol Iopamidol 75 ml 10/23/23 16:58 10/23/23 16:59 Iopamidol-370 (76%);100ml Bottle IV 10/23/23 16:59 75 ml ONCE ONE Administration Ondansetron HCl 4 mg 10/23/23 14:57 10/23/23 15:10 Ondansetron 4mg Odt SL 10/23/23 14:58 4 mg ONCE ONE Administration Sodium Chloride 10 ml 10/23/23 16:58 10/23/23 16:59 Sodium Chloride 0.9% 10ml Syr (Rad Only) IV 10/23/23 16:59 10 ml ONCE ONE Administration ORDERS Category Date Time Status CT abdomen pelvis w con Stat Cat Scan 10/23/23 15:52 Completed Nutrition Consult [CONS] Routine Cons 10/23/23 17:49 Active XR chest portable Stat Exams 10/23/23 15:38 Completed Acetone, Serum (Rapid) Stat Lab 10/23/23 14:55 Completed Basic Metabolic Panel Q4H Lab 10/23/23 18:20 Completed Basic Metabolic Panel Q4H Lab 10/23/23 22:00 Ordered Basic Metabolic Panel Q4H Lab 10/24/23 02:00 Ordered Basic Metabolic Panel Q4H Lab 10/24/23 06:00 Ordered Basic Metabolic Panel Q4H Lab 10/24/23 10:00 Ordered Basic Metabolic Panel Q4H Lab 10/24/23 14:00 Ordered CBC w/Auto Diff [Complete Blood Count Auto Diff] Stat Lab 10/23/23 14:55 Completed CMP [Comprehensive Metabolic Panel] Stat Lab 10/23/23 14:55 Completed Complete Blood Count Auto Diff AMLAB Lab 10/24/23 06:00 Ordered Comprehensive Metabolic Panel AMLAB Lab 10/24/23 06:00 Ordered Hemoglobin A1C Stat Lab 10/23/23 14:55 Completed Magnesium AMLAB Lab 10/24/23 06:00 Ordered Magnesium Q4H Lab 10/23/23 18:20 Completed Magnesium Q4H Lab 10/23/23 22:00 Ordered Magnesium Q4H Lab 10/24/23 02:00 Ordered Magnesium Q4H Lab 10/24/23 06:00 Ordered Magnesium Q4H Lab 10/24/23 10:00 Ordered Magnesium Q4H Lab 10/24/23 14:00 Ordered Magnesium Stat Lab 10/23/23 14:55 Completed Phosphorous Q4H Lab 10/23/23 18:20 Completed Phosphorous Q4H Lab 10/23/23 22:00 Ordered Phosphorous Q4H Lab 10/24/23 02:00 Ordered Phosphorous Q4H Lab 10/24/23 06:00 Ordered Phosphorous Q4H Lab 10/24/23 10:00 Ordered Phosphorous Q4H Lab 10/24/23 14:00 Ordered Phosphorous Stat Lab 10/23/23 14:55 Completed Rapid PCR Covid and Flu A/B Stat Lab 10/23/23 15:17 Completed UA [Urinalysis and Microscopic] Stat Lab 10/23/23 15:17 Completed Blood Culture Stat Micro 10/23/23 16:09 Received Urine Culture Stat Micro 10/23/23 16:15 Received VBG [Venous Blood Gas] Stat RT 10/23/23 14:58 Completed Medical Decision Narrative: In summary patient is a 58-year-old female who presents to the emergency department for evaluation of hyperglycemia nausea and vomiting. Patient is hypotensive tachycardic upon arrival, afebrile satting at 99% on room air. Physical exam is remarkable for dry oral mucosa with strong odor of acetone, and positive CVA tenderness to percussion and sinus tachycardia on the bedside monitor. The remainder of her physical exams unremarkable and nonfocal.. Differential diagnosis includes HHS versus DKA versus UTI versus kidney stone versus pyelonephritis etc. Initial workup will be conducted with hematologic labs and urinalysis. Initial interventions include normal saline bolus and Zofran. Initial workup reviewed by me shows the patient in DKA along with acute nontraumatic kidney injury. Given the bilateral flank pain we have ordered CT of the abdomen pelvis with contrast that is pending radiologist read. I discussed patient management with hospital medicine who has agreed to admission. <Pretty Escobedo, DO - Last Filed: 10/23/23 20:08> Vital Signs: 10/23/23 14:51 10/23/23 14:56 10/23/23 15:13 Temperature 97.7 F Temperature Source Temporal Artery Scan Pulse Rate 94 H 95 H Pulse Rate [Right Brachial] 100 H Respiratory Rate 18 Blood Pressure 88/49 L 92/43 L Blood Pressure [Right Arm] 88/49 L Blood Pressure Mean [Right Arm] 62 Blood Pressure Source Blood Pressure Source [Right Arm] Automatic Cuff Blood Pressure Position [Right Arm] Sitting 02 Sat by Pulse Oximetry 96 99 100 Oxygen Delivery Method Room Air 10/23/23 15:15 10/23/23 15:30 10/23/23 16:09 Temperature Temperature Source Pulse Rate 96 H 91 H 96 H Pulse Rate [Right Brachial] Respiratory Rate Blood Pressure 97/35 L 91/40 L 80/38 L Blood Pressure [Right Arm] Blood Pressure Mean [Right Arm] Blood Pressure Source Blood Pressure Source [Right Arm] Blood Pressure Position [Right Arm] 02 Sat by Pulse Oximetry 99 98 94 L Oxygen Delivery Method Room Air 10/23/23 16:26 10/23/23 17:13 10/23/23 17:28 Temperature Temperature Source Pulse Rate 92 H 100 H 101 H Pulse Rate [Right Brachial] Respiratory Rate Blood Pressure 92/44 L 98/46 L 96/44 L Blood Pressure [Right Arm] Blood Pressure Mean [Right Arm] Blood Pressure Source Blood Pressure Source [Right Arm] Blood Pressure Position [Right Arm] 02 Sat by Pulse Oximetry 99 100 98 Oxygen Delivery Method 10/23/23 17:48 Temperature 98.0 F Temperature Source Oral Pulse Rate 98 H Pulse Rate [Right Brachial] Respiratory Rate 16 Blood Pressure 96/44 L Blood Pressure [Right Arm] Blood Pressure Mean [Right Arm] Blood Pressure Source Automatic Cuff Blood Pressure Source [Right Arm] Blood Pressure Position [Right Arm] 02 Sat by Pulse Oximetry Oxygen Delivery Method Room Air Lab Data Lab Results 10/23/23 14:55: WBC 16.3 H, RBC 4.42, Hgb 13.0, Hct 43.2, MCV 97.8, MCH 29.5, M CHC 30.2 L, RDW 13.3, Plt Count 441 H, MPV 9.4, Neut % (Auto) 91.4 H, Lymph % (Auto) 6.6 L, Brewster % (Auto) 1.3 L, Eos % (Auto) 0.2, Baso % (Auto) 0.5, Neut # (Auto) 14.9 H, Lymph # (Auto) 1.1, Brewster # (Auto) 0.2, Eos # (Auto) 0.0, Baso # (Auto) 0.1, Total Counted 100, Neutrophils % (Manual) 84 H, Lymphocytes % (Manual) 15, Monocytes % (Manual) 1 L, Platelet Estimate Normal, RBC Morphology Normal, Sodium 137, Potassium 5.1, Chloride 103, Carbon Dioxide 7 L*, Anion Gap 32.1 H, BUN 43 H, Creatinine 1.40 H, Estimated Creat Clear 48, Estimated GFR 39 L, Est GFR ( Amer) 47 L, Glucose 402 H*, Hemoglobin A1c 7.5 H, Calcium 10.0, Phosphorus 8.7 H, Magnesium 2.1, Total Bilirubin 1.8 H, AST 59 H, ALT 97 H , Alkaline Phosphatase 662 H, Total Protein 7.7, Albumin 4.6, Globulin 3.1, Albumin/Globulin Ratio 1.5, Acetone Level Large 10/23/23 14:58: VBG pH 7.05 L, VBG pCO2 32.0 L, VBG pO2 78.7 H, VBG HCO3 8.6 L, VBG Total CO2 9.6 L, VBG O2 Saturation 92.3 H, VBG Base Excess -21.9 L, VBG Lactic Acid 3.1 H 10/23/23 15:17: Urine Color Yellow, Urine Appearance Clear, Urine pH 5.5, Ur Specific [place] >= 1.030, Urine Protein 1+, Urine Glucose (UA) 3+, Urine Ketones 2+, Urine Blood Trace-i, Urine Nitrate Negative, Urine Bilirubin 1+ A, Urine Urobilinogen 0.2, Ur Leukocyte Esterase Trace, Urine RBC Occasional, Urine WBC 3-5, Ur Squamous Epith Cells Occasional, Urine Bacteria Trace, Hyaline Casts Occasional, SARS-CoV-2 (PCR) Not detected, Influenza A Untype (PCR) Not detected, Influenza Type B (PCR) Not detected Orders (Tests/Meds): ED MEDICATIONS Generic Name Dose Route Start Last Admin Trade Name Freq PRN Reason Stop Dose Admin Acetaminophen 650 mg 10/23/23 19:26 Acetaminophen 325mg Tab PO 11/22/23 19:25 Q6HP PRN Fever or Mild Pain (1-3) Dextrose 50 ml 10/23/23 17:48 Dextrose 50% 50ml Syringe (Crash Cart) IVP 11/22/23 17:47 NEEDED PRN Per DKA Protocol Enoxaparin Sodium 40 mg 10/23/23 19:26 Enoxaparin 40mg/0.4ml Syringe SQ 10/23/23 19:27 ONCE ONE Sodium Chloride 1,000 mls @ 150 mls/hr 10/23/23 17:45 10/23/23 16:48 Sod Chlor 0.9% 1000ml Bag IV 11/22/23 17:44 150 mls/hr .Q6H40M CARLOS Administration Insulin Human Regular 100 unit 101 mls @ 5.05 mls/hr 10/23/23 15:45 03/20/24 18:58 / Sodium Chloride IV 11/22/23 15:44 6 unit/hr .Q20H CARLOS 6.06 mls/hr Titration Protocol 5 UNIT/HR Insulin Glargine 10 unit 10/23/23 21:00 Insulin Glargine 100 Units/Ml 3ml Flexpen SQ 11/22/23 20:59 HS CARLOS Discontinued Medications Generic Name Dose Route Start Last Admin Trade Name Freq PRN Reason Stop Dose Admin Sodium Chloride 1,000 mls @ 999 mls/hr 10/23/23 14:57 10/23/23 15:09 Sod Chlor 0.9% 1000ml Bag IV 10/23/23 15:57 999 mls/hr .Q1H1M ONE Administration Sodium Bicarbonate 150 meq/ 1,150 mls @ 250 mls/hr 10/23/23 15:40 10/23/23 16:47 Dextrose IV 11/22/23 15:39 250 mls/hr .Q4H36M CARLOS Administration Protocol Iopamidol 75 ml 10/23/23 16:58 10/23/23 16:59 Iopamidol-370 (76%);100ml Bottle IV 10/23/23 16:59 75 ml ONCE ONE Administration Ondansetron HCl 4 mg 10/23/23 14:57 10/23/23 15:10 Ondansetron 4mg Odt SL 10/23/23 14:58 4 mg ONCE ONE Administration Sodium Chloride 10 ml 10/23/23 16:58 10/23/23 16:59 Sodium Chloride 0.9% 10ml Syr (Rad Only) IV 10/23/23 16:59 10 ml ONCE ONE Administration ORDERS Category Date Time Status CT abdomen pelvis w con Stat Cat Scan 10/23/23 15:52 Completed Nutrition Consult [CONS] Routine Cons 10/23/23 17:49 Active XR chest portable Stat Exams 10/23/23 15:38 Completed Acetone, Serum (Rapid) Stat Lab 10/23/23 14:55 Completed Basic Metabolic Panel Q4H Lab 10/23/23 18:20 Completed Basic Metabolic Panel Q4H Lab 10/23/23 22:00 Ordered Basic Metabolic Panel Q4H Lab 10/24/23 02:00 Ordered Basic Metabolic Panel Q4H Lab 10/24/23 06:00 Ordered Basic Metabolic Panel Q4H Lab 10/24/23 10:00 Ordered Basic Metabolic Panel Q4H Lab 10/24/23 14:00 Ordered CBC w/Auto Diff [Complete Blood Count Auto Diff] Stat Lab 10/23/23 14:55 Completed CMP [Comprehensive Metabolic Panel] Stat Lab 10/23/23 14:55 Completed Complete Blood Count Auto Diff AMLAB Lab 10/24/23 06:00 Ordered Comprehensive Metabolic Panel AMLAB Lab 10/24/23 06:00 Ordered Hemoglobin A1C Stat Lab 10/23/23 14:55 Completed Magnesium AMLAB Lab 10/24/23 06:00 Ordered Magnesium Q4H Lab 10/23/23 18:20 Completed Magnesium Q4H Lab 10/23/23 22:00 Ordered Magnesium Q4H Lab 10/24/23 02:00 Ordered Magnesium Q4H Lab 10/24/23 06:00 Ordered Magnesium Q4H Lab 10/24/23 10:00 Ordered Magnesium Q4H Lab 10/24/23 14:00 Ordered Magnesium Stat Lab 10/23/23 14:55 Completed Phosphorous Q4H Lab 10/23/23 18:20 Completed Phosphorous Q4H Lab 10/23/23 22:00 Ordered Phosphorous Q4H Lab 10/24/23 02:00 Ordered Phosphorous Q4H Lab 10/24/23 06:00 Ordered Phosphorous Q4H Lab 10/24/23 10:00 Ordered Phosphorous Q4H Lab 10/24/23 14:00 Ordered Phosphorous Stat Lab 10/23/23 14:55 Completed Rapid PCR Covid and Flu A/B Stat Lab 10/23/23 15:17 Completed UA [Urinalysis and Microscopic] Stat Lab 10/23/23 15:17 Completed Blood Culture Stat Micro 10/23/23 16:09 Received Urine Culture Stat Micro 10/23/23 16:15 Received VBG [Venous Blood Gas] Stat RT 10/23/23 14:58 Completed ECG Data Tracing #1: I reviewed this ECG and interpreted as documented below: Normal sinus rhythm with a ventricular rate of [address] changes concerning for ischemia at this time. Patient does have minimal ST depressions in V4, which does not meet STEMI criteria. She has history of ST depressions on EKG, however this is slightly different from prior EKG. ECG initial impression date: 10/23/23 ECG initial impression time: 15:56 Critical Care <LIAM Castañeda - Last Filed: 10/23/23 17:17> Critical Care Time Critical Care Time: Yes Attestation: On 10/23/23, the high probability of a clinically significant, sudden or life threatening deterioration of the following system(s): Cardiovascular, metabolic required my full and direct attention, intervention and personal management. The time I documented below is in addition to time spent performing reported procedures but includes the following listed in this critical care notation. Total Time Total Critical Care Time: 50
[2023-10-23] MEDS: 0.9 % SODIUM CHLORIDE 1000ML 1,000 ML 999 ML IV (15:09)
[2023-10-23] MEDS: ONDANSETRON 4MG ODT 4 MG SL (15:10)
[2023-10-23 15:22] LABS: Coronavirus 19, PCR Not Detected (NotDetected); Influenza A, PCR Not Detected (NotDetected); Influenza B, PCR Not Detected (NotDetected); Microscopic, Urine URINE MICROSCOPIC (MICROSCOPIC)
[2023-10-23 15:27] LABS: VBG Base Excess -21.9 mmol/L (-2.4-2.3); VBG HCO3 8.6 mmol/L (23-30); VBG Oxygen Saturation 92.3 % (50-70); VBG PO2 78.7 mmol/L (28-40); VBG Total CO2 9.6 mmol/L (23-27)
[2023-10-23 15:28] LABS: Lactate Venous 3.1 mmol/L (0.4-2.0); VBG PH 7.05 mmol/L (7.31-7.41)
[2023-10-23 15:29] LABS: Chloride 103 mmol/L (98-107); Potassium 5.1 mmoL/L (3.5-5.1); Sodium 137 mmol/L (136-145)
--- NOTE | 2023-10-23 15:29 | PC.NURSE ---
vbg results given to Don
[2023-10-23 15:31] LABS: Basophils # 0.1 K/mm3 (0-0.2); Basophils % 0.5 % (0.1-2.0); Eosinophils % 0.2 % (0.1-12.0); Hematocrit 43.2 % (37.0-47.0); Lymphocytes # 1.1 K/mm3 (0.7-4.5); Lymphocytes % 6.6 % (10-50); Mean Corpuscular HGB Conc 30.2 g/dL (31.8-35.4); Mean Corpuscular Hemoglobin 29.5 pg (27.0-31.2); Mean Corpuscular Volume 97.8 fl (81-99); Mean Platelet Volume 9.4 fl (7.4-10.4); Monocytes # 0.2 K/mm3 (0.1-1.0); Monocytes % 1.3 % (1.7-9.3); Neutrophils # 14.9 K/mm3 (1.8-7.8); Neutrophils % 91.4 % (37.0-80.0); Platelet Count 441 K/mm3 (142-424); Red Blood Count 4.42 M/mm3 (4.20-5.40); Red Cell Distribution Width 13.3 % (11.5-17.5); White Blood Count 16.3 K/mm3 (4.8-10.8)
[2023-10-23 15:32] LABS: Appearance,Urine CLEAR (Clear); Blood, Urine TRACE-I (Negative); Color,Urine YELLOW (Yellow); Glucose,Urine (UA) 3+ (Negative); Ketones,Urine 2+ (Negative); Leukocyte Esterase,Urine TRACE (Negative); Nitrate,Urine Negative (Negative); PH,Urine 5.5 (5.0-8.5); Protein,Urine 1+ (Negative); Specific Gravity, Urine >= 1.030 (1.005-1.030); Urobilinogen,Urine 0.2 EU/dl (0.2)
[2023-10-23 15:32] LABS: Alanine Aminotransferase 97 U/L (12-78); Albumin Level 4.6 g/dl (3.5-5.0); Albumin/Globulin Ratio 1.5 (1.1-1.8); Alkaline Phosphatase 662 U/L (38-126); Anion Gap 32.1 mEq/L (5-15); Aspartate Amino Transferase 59 U/L (14-36); Bilirubin,Total 1.8 mg/dl (0.2-1.3); Blood Urea Nitrogen 43 mg/dl (7-17); Creatinine Clearance Estimated 48 mL/min (50-200); Estimated Glomerular Filt Rate 39 ml/min (>60); GFR (African American) 47 ML/MIN (>60); Globulin 3.1 g/dL (1.3-3.2); Total Protein,Serum 7.7 g/dl (6.3-8.2)
[2023-10-23 15:33] LABS: Acetone, Serum (Rapid) Large (None Detect); Magnesium 2.1 mg/dl (1.6-2.3)
[2023-10-23 15:34] LABS: Carbon Dioxide 7 mmol/L (22.0-30.0); Glucose 402 mg/dl (74-100)
[2023-10-23 15:36] LABS: MANUAL DIFFERENTIAL MANUAL DIFFERENTIAL (MANUAL DIFF)
[2023-10-23 15:36] LABS: Bilirubin,Urine 1+ (Negative)
--- NOTE | 2023-10-23 15:38 | XR_ITS ---
FINAL REPORT CLINICAL HISTORY: DKA COMPARISON: 11/09/2021 FINDINGS: SINGLE-VIEW CHEST The heart size is normal. The mediastinum is normal. The lungs are clear. There is no pneumothorax. IMPRESSION: No acute cardiopulmonary process. Reviewed, Interpreted and Dictated by Arnel Manuel III, MD Transcribed by Janice Ly Authenticated and [facility]
[2023-10-23 15:42] LABS: Bacteria,Urine Trace /lpf; Hyaline Casts,Urine Occasional #/lpf (0); RBC,Urine Occasional #/hpf (0-3); Squamous Epithelial Cell,Urine Occasional #/hpf (0-5)
[2023-10-23 15:49] LABS: Phosphorous 8.7 mg/dl (2.5-4.5)
--- NOTE | 2023-10-23 15:52 | CT_ITS ---
PROCEDURE INFORMATION: Exam: CT Abdomen And Pelvis With Contrast Exam date and time: 10/23/2023 4:56 PM Age: 58 years old Clinical indication: Abdominal pain; Additional info: Dka, bilateral flank pain TECHNIQUE: Imaging protocol: Computed tomography of the abdomen and pelvis with contrast. Radiation optimization: All CT scans at this facility use at least one of these dose optimization techniques: automated exposure control; mA and/or kV adjustment per patient size (includes targeted exams where dose is matched to clinical indication); or iterative reconstruction. Contrast material: ISOVUE; Contrast volume: 75 ml; Contrast route: IV; COMPARISON: CT ABDOMEN PELVIS WO CON 02/26/2021 2:36 PM FINDINGS: Diaphragm: Small hiatal hernia. Liver: Normal. No mass. Gallbladder and bile ducts: Normal. No calcified stones. No ductal dilation. Pancreas: Normal. No ductal dilation. Spleen: Calcified granuloma in the spleen. No splenomegaly. Adrenal glands: Normal. No mass. Kidneys and ureters: Bilateral 3 mm calyceal calculi. No ureteral calculi or hydronephrosis. Stomach and bowel: Unremarkable. No obstruction. No mucosal thickening. Appendix: No evidence of appendicitis. Intraperitoneal space: Unremarkable. No free air. No significant fluid collection. Vasculature: Mild atherosclerotic disease. No abdominal aortic aneurysm. 9 mm rim calcified distal splenic artery aneurysm in the splenic hilar region. Lymph nodes: Unremarkable. No enlarged lymph nodes. Urinary bladder: The bladder is decompressed but there does appear to be diffuse bladder wall thickening. Reproductive: Unremarkable as visualized. Bones/joints: Unremarkable. No acute fracture. Soft tissues: Small fat containing umbilical hernia. Minimal skin thickening and underlying subcutaneous fat stranding in the anterior inferior abdominal wall bilaterally is likely from prior medication injections. IMPRESSION: 1. The bladder is decompressed but there does appear to be diffuse bladder wall thickening. Correlate for cystitis. 2. Bilateral intrarenal calculi. No ureteral calculi or hydronephrosis. 3. 9 mm rim calcified distal splenic artery aneurysm is unchanged.
--- NOTE | 2023-10-23 15:54 | ECG_ITS ---
APPROVED REPORT Exam: Resting ECG HR:93 bpm ECG Measurements Heart Rate 93 AXES FL 136 P 68 QRSd 93 QRS 9 QT 396 T 34 QTc 446 Conclusion SINUS RHYTHM MODERATE ST DEPRESSION [0.05+ mV ST DEPRESSION] No STEMI No significant change from prior EKG Electronically signed by : MILA ARCHIBALD, 10/23/2023 21:00:20
--- NOTE | 2023-10-23 16:00 | PC.NURSE ---
pt is resting in bed no needs at this time,call light in reach
[2023-10-23 16:02] LABS: Hemoglobin A1C 7.5 % (4.0-6.0)
[2023-10-23 16:15] LABS: Lymphocytes % 15 % (10-50); Monocytes % 1 % (2-9); Neutrophils % 84 % (42-76); Platelet Estimate Normal; RBC Morphology Normal; Total Cells Counted 100
[2023-10-23] MEDS: INSULIN REGULAR, HUMAN 100 UNIT in 0.9 % SODIUM CHLORIDE 100 ML 5.04999999999999982 UNIT IV (16:47)
[2023-10-23] MEDS: SODIUM BICARBONATE 150 MEQ in DEXTROSE 5 % IN WATER 1,000 ML 250 MEQ IV (16:47)
[2023-10-23] MEDS: 0.9 % SODIUM CHLORIDE 1000ML 1,000 ML 150 ML IV (16:48)
[2023-10-23] MEDS: IOPAMIDOL-370 (76%);100ML BOTTLE 75 ML IV (16:59)
[2023-10-23] MEDS: SODIUM CHLORIDE 0.9% 10ML SYR (RAD ONLY) 10 ML IV (16:59)
--- NOTE | 2023-10-23 17:26 | PC.NURSE ---
Rounded on patient , no needs voiced at this time.
--- NOTE | 2023-10-23 17:30 | PC.NURSE ---
BS 449 at this time.
--- NOTE | 2023-10-23 17:50 | PC.NURSE ---
arrived by stretcher from ED
--- NOTE | 2023-10-23 18:22 | PC.NURSE ---
All documentation and care provided by Binta Cordero SN completed under the direct supervision of myself. Ashwini Chapa RN
[2023-10-23 18:24] LABS: POC Glucose,Bedside 498 (70-110)
[2023-10-23 19:00] LABS: Chloride 102 mmol/L (98-107); Sodium 135 mmol/L (136-145)
[2023-10-23 19:03] LABS: Blood Urea Nitrogen 49 mg/dl (7-17); Creatinine Clearance Estimated 40 mL/min (50-200); Estimated Glomerular Filt Rate 31 ml/min (>60); GFR (African American) 38 ML/MIN (>60); Phosphorous 9.6 mg/dl (2.5-4.5)
[2023-10-23 19:04] LABS: Calcium 9.4 mg/dl (8.4-10.2); Magnesium 2.2 mg/dl (1.6-2.3)
[2023-10-23 19:05] LABS: POC Glucose,Bedside 473 (70-110)
[2023-10-23 19:10] LABS: Carbon Dioxide 6 mmol/L (22.0-30.0); Glucose 529 mg/dl (74-100)
[2023-10-23 19:28] LABS: Reflex Lactic Add Lactic Reflex
[2023-10-23] MEDS: ENOXAPARIN 40MG/0.4ML SYRINGE 40 MG SQ (20:12)
[2023-10-23] MEDS: INSULIN GLARGINE 100 UNITS/ML 3ML FLEXPEN 10 UNIT SQ (20:12)
[2023-10-23] MEDS: ACETAMINOPHEN 325MG TAB 650 MG PO (20:17)
--- NOTE | 2023-10-23 20:21 | EXP.HP ---
History of Present Illness *Admission Date: 10/23/23 *Reason for visit:: DKA, nausea and vomiting *History of present illness: This is a 57-year-old female with insulin-dependent diabetes who presented who presents to the emergency department for evaluation of hyperglycemia nausea and vomiting. patient recent changed insulin pouch. presumed been off insulin. On presentation found to have significantly abnormal labs consistent with high anion gap metabolic acidosis, hyperglycemia, leukocytosis and LOIS. Initiated on insulin drip and IV fluids. Medicine consulted for admission. No overtly visible infection. Blood was obtained because of SIRS criteria. Patient reports good compliance with her regimen. Admaitted for treatment [facility] Disclaimer: The information contained in this section may have been updated after the patient was seen, as this information can be updated by other users. Medical History (Updated 10/24/23 @ 06:15 by David Contreras APRN) History of gastroesophageal reflux (GERD) Breast lesion Surgical History H/O tubal ligation History of section History of colonoscopy Family History (Updated 10/23/23 @ 18:00 by Sonya Jauregui RN) No significant family history Social History (Updated 10/23/23 @ 18:00 by Sonya Jauregui RN) Smoking Status: Never smoker second hand exposure: Yes alcohol intake: never counseling provided: provider counseling substance use type: denies use current occupational status: disabled Travel in the last 8 weeks: None household members: spouse housing: house current occupational exposures/hazards: No caffeine: Yes Review of Systems Review of Systems Review of systems:: pertinent systems reviewed and negative unless documented below Meds Home Medications and Allergies Home Medications Medication Instructions Recorded Confirmed Type insulin lispro 100 unit/mL 0 units SQ DIRECTED Diabetes 05/11/20 10/24/23 History subcutaneous solution dapagliflozin propanediol 10 mg 10 mg PO DAILY Diabetes 02/24/21 10/23/23 History tablet aspirin 81 mg tablet,delayed 81 mg PO DAILY 10/23/23 10/23/23 History release lisinopril 2.5 mg tablet 2.5 mg PO DAILY 10/23/23 10/23/23 History pantoprazole 40 mg tablet,delayed 40 mg PO DAILY 10/23/23 10/23/23 History release New Prescriptions to Start Prescriptions: Allergies Allergy/AdvReac Type Severity Reaction Status Date / Time No Known Allergies Allergy Verified 03/10/21 08:24 Exam Data for Last 24 hours Vital signs and Labs for Last 24 Hours: Temp Pulse Resp BP Pulse Ox O2 Del Method 98.0 F 104 H 20 94/52 L 99 Room Air 10/23/23 18:10 10/23/23 19:00 10/23/23 19:00 10/23/23 19:00 10/23/23 19:00 10/23/23 19:00 Laboratory Results - last 24 hr 10/23/23 14:55: WBC 16.3 H, RBC 4.42, Hgb 13.0, Hct 43.2, MCV 97.8, MCH 29.5, MCHC 30.2 L, RDW 13.3, Plt Count 441 H, MPV 9.4, Neut % (Auto) 91.4 H, Lymph % (Auto) 6.6 L, [place] % (Auto) 1.3 L, Eos % (Auto) 0.2, Baso % (Auto) 0.5, Neut # (Auto) 14.9 H, Lymph # (Auto) 1.1, [place] # (Auto) 0.2, Eos # (Auto) 0.0, Baso # (Auto) 0.1, Total Counted 100, Neutrophils % (Manual) 84 H, Lymphocytes % (Manual) 15, Monocytes % (Manual) 1 L, Platelet Estimate Normal, RBC Morphology Normal, Sodium 137, Potassium 5.1, Chloride 103, Carbon Dioxide 7 L*, Anion Gap 32.1 H, BUN 43 H, Creatinine 1.40 H, Estimated Creat Clear 48, Estimated GFR 39 L, Est GFR ( Amer) 47 L, Glucose 402 H*, Hemoglobin A1c 7.5 H, Calcium 10.0, Phosphorus 8.7 H, Magnesium 2.1, Total Bilirubin 1.8 H, AST 59 H, ALT 97 H, Alkaline Phosphatase 662 H, Total Protein 7.7, Albumin 4.6, Globulin 3.1, Albumin/Globulin Ratio 1.5, Acetone Level Large 10/23/23 14:58: VBG pH 7.05 L, VBG pCO2 32.0 L, VBG pO2 78.7 H, VBG HCO3 8.6 L, VBG Total CO2 9.6 L, VBG O2 Saturation 92.3 H, VBG Base Excess -21.9 L, VBG Lactic Acid 3.1 H 10/23/23 15:17: Urine Color Yellow, Urine Appearance Clear, Urine pH 5.5, Ur Specific [place] >= 1.030, Urine Protein 1+, Urine Glucose (UA) 3+, Urine Ketones 2+, Urine Blood Trace-i, Urine Nitrate Negative, Urine Bilirubin 1+ A, Urine Urobilinogen 0.2, Ur Leukocyte Esterase Trace, Urine RBC Occasional, Urine WBC 3-5, Ur Squamous Epith Cells Occasional, Urine Bacteria Trace, Hyaline Casts Occasional, SARS-CoV-2 (PCR) Not detected, Influenza A Untype (PCR) Not detected, Influenza Type B (PCR) Not detected 10/23/23 18:04: POC Glucose 498 H* 10/23/23 18:20: Sodium 135 L, Potassium 5.0, Chloride 102, Carbon Dioxide 6 L* D, Anion Gap 32.0 H, BUN 49 H, Creatinine 1.70 H D, Estimated Creat Clear 40, Estimated GFR 31 L, Est GFR ( Amer) 38 L, Glucose 529 H* D, Calcium 9.4, Phosphorus 9.6 H, Magnesium 2.2 10/23/23 18:57: POC Glucose 473 H* I & O for Last 24 hours: Intake & Output 10/20/23 10/21/23 10/22/23 10/23/23 23:59 23:59 23:59 23:59 Intake Total 1316.682 / 1316.682 Balance 1316.682 / 1316.682 Weight 68.152 kg Constitutional Constitutional: mild distress, average body habitus, chronically ill appearing and cooperative *Routine HEENT Exam Head: Present normocephalic Eye: Present EOMI and PERRL ENT: Present mucous membranes dry *Routine Neck Exam Neck: Present supple; Absent lymphadenopathy *Routine Respiratory Exam Respiratory: Present CTA bilaterally *Routine Cardiovascular Exam Cardiovascular: Present tachycardia *Routine Abdominal Exam Abdominal: Present soft, normoactive bowel sounds and tenderness (Diffuse nonfocal) *Routine Rectal Exam Rectal:: deferred *Routine Genitalia Exam Genitalia:: deferred *Routine Extremities Exam Extremities: Absent cyanosis, clubbing or edema *Routine Skin Exam Skin: Present warm; Absent rash *Routine Neurological Exam Neurological: Present alert, oriented X3 and CN II-XII intact; Absent altered mental status H&P: Result Imaging and Cardiology CT scan - abdomen: Status: image reviewed by me, Preliminary report and final report Chest x-ray: Status: image reviewed by me, Preliminary report and final report EKG: Status: image reviewed by me, Preliminary report and final report Assessment and Plan *Assessment and plan (1) DKA (diabetic ketoacidoses): Status: Resolved Qualifiers: Diabetes mellitus complication detail: without coma Diabetes mellitus type: type 1 Qualified Code(s): E10.10 - Type 1 diabetes mellitus with ketoacidosis without coma Category: Medical Code(s): E13.10 - Other specified diabetes mellitus with ketoacidosis without coma (2) High anion gap metabolic acidosis: Status: Resolved Category: Medical Code(s): E87.29 - Other acidosis (3) SIRS (systemic inflammatory response syndrome): Status: Resolved Category: Medical Code(s): R65.10 - Systemic inflammatory response syndrome (SIRS) of non-infectious origin without acute organ dysfunction (4) Leukocytosis: Status: Deleted Qualifiers: Leukocytosis type: unspecified Qualified Code(s): D72.829 - Elevated white blood cell count, unspecified Category: Medical Code(s): D72.829 - Elevated white blood cell count, unspecified (5) LOIS (acute kidney injury): Status: Resolved Category: Medical Code(s): N17.9 - Acute kidney failure, unspecified (6) GERD (gastroesophageal reflux disease): Status: Chronic Qualifiers: Esophagitis presence: esophagitis presence not specified Qualified Code(s): K21.9 - Gastro-esophageal reflux disease without esophagitis Category: Medical Code(s): K21.9 - Gastro-esophageal reflux disease without esophagitis (7) Flank pain: Status: Acute Category: Medical Code(s): R10.9 - Unspecified abdominal pain Plan 57-year-old female on insulin for diabetes who presents in DKA. Admitted for diabetes protocol. Started on insulin drip and IV fluids. Discussed case with ER physician, request admission for treatment for DKA and continuation of DKA protocol. Medicine agreed to admit for further management. Problems addressed as follows: DKA High anion gap metabolic acidosis Patient replaced her OmniPod pump prior to onset of her DKA, Expressed concern for pump malfunction elevated gap on admission, pH 7.05. Glucose greater than 400's. Initiated on DKA protocol including insulin drip and IV fluids, routine electrolyte, magnesium and creatinine monitoring A1c 7.4 Trend labs and inflammatory markers SIRS Leukocytosis Blood cultures pending Trending labs and inflammatory markers IV ceftriaxone empirically LOIS improving baseline creatinine 1.0 Trending electrolytes and creatinine Oral fluid resuscitation Flank pain: CT abd showed non obtructive bilateral kidneys stones. concerning for cystitis continue monitoring. started on ceft IV. pending cultures fluid resuscitation. including boluses. pain management. VTE prophylaxis: Lovenox CODE STATUS: Full code Rounded on patient after nurse practitioner. Personally examined and interviewed patient. Agree with exam findings and care plan as documented.
[2023-10-23] MEDS: 0.9 % SODIUM CHLORIDE 500 ML IV (21:23)
[2023-10-23] MEDS: CEFTRIAXONE 1 GM 1 GM in 0.9 % SODIUM CHLORIDE 50 ML IV (21:24)
[2023-10-23 22:32] LABS: Chloride 106 mmol/L (98-107); Potassium 3.9 mmoL/L (3.5-5.1); Sodium 138 mmol/L (136-145)
[2023-10-23 22:35] LABS: Anion Gap 23.9 mEq/L (5-15); Blood Urea Nitrogen 53 mg/dl (7-17); Calcium 8.8 mg/dl (8.4-10.2); Carbon Dioxide 12 mmol/L (22.0-30.0); Creatinine Clearance Estimated 48 mL/min (50-200); Estimated Glomerular Filt Rate 39 ml/min (>60); GFR (African American) 47 ML/MIN (>60); Glucose 350 mg/dl (74-100); Magnesium 2.1 mg/dl (1.6-2.3); Phosphorous 4.9 mg/dl (2.5-4.5)
[2023-10-24] VITALS (27 sets, daily range): BP systolic 91–134; BP diastolic 45–67; PULSE 84–110; RESP 11–23; TEMP 36.9–37.2; O2SAT 92–98; BMI 28.3
[2023-10-24] MEDS: 0.9 % SODIUM CHLORIDE 1000ML 1,000 ML 150 ML IV ×2 (01:37→05:36)
[2023-10-24 02:23] LABS: Chloride 110 mmol/L (98-107); Potassium 3.7 mmoL/L (3.5-5.1); Sodium 140 mmol/L (136-145)
[2023-10-24 02:26] LABS: Anion Gap 15.7 mEq/L (5-15); Blood Urea Nitrogen 49 mg/dl (7-17); Carbon Dioxide 18 mmol/L (22.0-30.0); Creatinine Clearance Estimated 52 mL/min (50-200); Estimated Glomerular Filt Rate 42 ml/min (>60); GFR (African American) 51 ML/MIN (>60); Phosphorous 3.1 mg/dl (2.5-4.5)
[2023-10-24 02:27] LABS: Calcium 8.8 mg/dl (8.4-10.2); Glucose 213 mg/dl (74-100); Magnesium 2.1 mg/dl (1.6-2.3)
[2023-10-24] MEDS: 0.9% NaCl w/20mEq KCL 1,000 ML 150 ML IV ×3 (06:48→17:53)
[2023-10-24 07:00] LABS: Eosinophils # 0.1 K/mm3 (0.0-0.4); Lymphocytes % 5.3 % (10-50); Mean Platelet Volume 8.4 fl (7.4-10.4); Red Cell Distribution Width 13.8 % (11.5-17.5)
[2023-10-24 07:08] LABS: Basophils % 0.3 % (0.1-2.0); Eosinophils % 0.5 % (0.1-12.0); Hematocrit 36.2 % (37.0-47.0); Lymphocytes # 0.8 K/mm3 (0.7-4.5); Mean Corpuscular Hemoglobin 29.8 pg (27.0-31.2); Monocytes # 0.4 K/mm3 (0.1-1.0); Monocytes % 2.2 % (1.7-9.3); Neutrophils # 14.6 K/mm3 (1.8-7.8); Neutrophils % 91.8 % (37.0-80.0); Platelet Count 378 K/mm3 (142-424); Red Blood Count 3.89 M/mm3 (4.20-5.40); White Blood Count 15.9 K/mm3 (4.8-10.8)
[2023-10-24 07:17] LABS: Hemoglobin 11.6 g/dL (12.2-16.2)
[2023-10-24 07:20] LABS: MANUAL DIFFERENTIAL MANUAL DIFFERENTIAL (MANUAL DIFF)
[2023-10-24 07:40] LABS: POC Glucose,Bedside 418 (70-110)
[2023-10-24 07:40] LABS: POC Glucose,Bedside 247 (70-110)
[2023-10-24 07:40] LABS: POC Glucose,Bedside 216 (70-110)
[2023-10-24 07:40] LABS: POC Glucose,Bedside 156 (70-110)
[2023-10-24 07:40] LABS: POC Glucose,Bedside 174 (70-110)
[2023-10-24 07:40] LABS: Alanine Aminotransferase 102 U/L (12-78); Albumin/Globulin Ratio 1.4 (1.1-1.8); Alkaline Phosphatase 515 U/L (38-126); Anion Gap 17.3 mEq/L (5-15); Aspartate Amino Transferase 82 U/L (14-36); Bilirubin,Total 0.8 mg/dl (0.2-1.3); Blood Urea Nitrogen 44 mg/dl (7-17); Calcium 8.8 mg/dl (8.4-10.2); Carbon Dioxide 18 mmol/L (22.0-30.0); Chloride 112 mmol/L (98-107); Creatinine Clearance Estimated 61 mL/min (50-200); Estimated Glomerular Filt Rate 51 ml/min (>60); GFR (African American) 62 ML/MIN (>60); Globulin 2.9 g/dL (1.3-3.2); Glucose 158 mg/dl (74-100); Magnesium 2.1 mg/dl (1.6-2.3); Potassium 4.3 mmoL/L (3.5-5.1); Sodium 143 mmol/L (136-145); Total Protein,Serum 6.9 g/dl (6.3-8.2)
[2023-10-24 07:40] LABS: POC Glucose,Bedside 334 (70-110)
[2023-10-24 07:40] LABS: POC Glucose,Bedside 331 (70-110)
[2023-10-24 07:40] LABS: POC Glucose,Bedside 141 (70-110)
[2023-10-24 07:40] LABS: POC Glucose,Bedside 154 (70-110)
[2023-10-24 07:40] LABS: POC Glucose,Bedside 425 (70-110)
[2023-10-24 07:40] LABS: POC Glucose,Bedside 256 (70-110)
[2023-10-24 07:40] LABS: POC Glucose,Bedside 184 (70-110)
[2023-10-24 07:41] LABS: Anion Gap 17.3 mEq/L (5-15); Calcium 8.9 mg/dl (8.4-10.2); Carbon Dioxide 18 mmol/L (22.0-30.0); Chloride 112 mmol/L (98-107); Glucose 158 mg/dl (74-100); Magnesium 2.2 mg/dl (1.6-2.3); Phosphorous 4.1 mg/dl (2.5-4.5); Potassium 4.3 mmoL/L (3.5-5.1); Sodium 143 mmol/L (136-145)
[2023-10-24 07:46] LABS: Blood Urea Nitrogen 43 mg/dl (7-17); Creatinine Clearance Estimated 56 mL/min (50-200); Estimated Glomerular Filt Rate 46 ml/min (>60); GFR (African American) 56 ML/MIN (>60)
--- NOTE | 2023-10-24 08:05 | HMH.PHAINT1 ---
Pharmacy Intervention Comments: Home medication verified via outside pharmacy and patient
--- NOTE | 2023-10-24 08:19 | PC.NURSE ---
All care and documentation completed by SN Dianne was completed under my direct supervision. Ashwini Chapa RN
[2023-10-24 08:20] LABS: POC Glucose,Bedside 167 (70-110)
[2023-10-24 08:25] LABS: Lymphocytes % 5 % (10-50); Monocytes % 1 % (2-9); Neutrophils % 93 % (42-76); Total Cells Counted 100
[2023-10-24 08:27] LABS: Platelet Estimate Normal; RBC Morphology Normal
[2023-10-24 09:12] LABS: POC Glucose,Bedside 158 (70-110)
[2023-10-24 10:03] LABS: POC Glucose,Bedside 163 (70-110)
--- NOTE | 2023-10-24 10:08 | DIET.NUTRFU ---
Consulted for diabetic education, patient explain she just applied a new pod and may have been malfunctioning. She has been watching her sugar intake better lately. Her A1c is down at 7.4 from 9.4 last year. She is now seeing Ruben in [facility] for DM management. Provided her with carb counting/carbohydrate instruction and fast food handout, also reviewed the referral process to see RD as outpatient for further follow-up. She reports her BS have been better controlled over the last six months below 130's. Provided contact information for further follow-up as needed.
[2023-10-24 11:13] LABS: POC Glucose,Bedside 183 (70-110)
[2023-10-24 12:32] LABS: POC Glucose,Bedside 181 (70-110)
[2023-10-24 13:32] LABS: POC Glucose,Bedside 219 (70-110)
[2023-10-24 14:23] LABS: POC Glucose,Bedside 290 (70-110)
[2023-10-24 14:46] LABS: Chloride 111 mmol/L (98-107)
[2023-10-24 14:47] LABS: Potassium 4.7 mmoL/L (3.5-5.1); Sodium 140 mmol/L (136-145)
[2023-10-24 14:49] LABS: Blood Urea Nitrogen 31 mg/dl (7-17)
[2023-10-24 14:50] LABS: Anion Gap 18.7 mEq/L (5-15); Calcium 8.4 mg/dl (8.4-10.2); Carbon Dioxide 15 mmol/L (22.0-30.0); Creatinine Clearance Estimated 75 mL/min (50-200); Estimated Glomerular Filt Rate 65 ml/min (>60); GFR (African American) 78 ML/MIN (>60); Glucose 306 mg/dl (74-100); Phosphorous 3.7 mg/dl (2.5-4.5)
[2023-10-24 14:51] LABS: Magnesium 2.1 mg/dl (1.6-2.3)
[2023-10-24 15:21] LABS: POC Glucose,Bedside 307 (70-110)
[2023-10-24] MEDS: INSULIN REGULAR, HUMAN 100 UNIT in 0.9 % SODIUM CHLORIDE 100 ML 3.0299999999999998 UNIT IV (15:50)
[2023-10-24 16:35] LABS: POC Glucose,Bedside 305 (70-110)
[2023-10-24 17:24] LABS: POC Glucose,Bedside 267 (70-110)
[2023-10-24 18:01] LABS: POC Glucose,Bedside 235 (70-110)
--- NOTE | 2023-10-24 18:20 | P.PN_ITS ---
Subjective *Date: 10/24/23 *Time: 18:20 Interval history: Feeling better this morning. Afebrile. No nausea or vomiting. Tolerating p.o. liquids. Stable on room air Medical Exam Vital signs and Labs for Last 24 Hours: Vital Signs Temp Pulse Pulse Pulse Resp BP BP 10/24/23 18:00 110 H 22 131/60 10/24/23 17:00 101 H 18 134/61 10/24/23 17:00 10/24/23 16:20 99 H 10/24/23 16:00 98.7 F 10/24/23 16:00 100 H 10/24/23 16:00 99 H 20 130/67 10/24/23 15:00 98 H 18 121/60 10/24/23 15:00 10/24/23 14:00 94 H 18 125/64 10/24/23 13:13 10/24/23 13:00 104 H 20 115/57 L 10/24/23 12:30 104 H 10/24/23 12:00 100 H 10/24/23 12:00 98.4 F 10/24/23 12:00 95 H 20 120/62 10/24/23 11:46 95 H 20 123/59 L 10/24/23 11:42 10/24/23 10:00 90 20 126/63 10/24/23 09:00 90 20 116/61 10/24/23 09:00 10/24/23 08:00 95 H 10/24/23 08:00 92 H 18 120/61 10/24/23 08:00 99.0 F 10/24/23 07:20 93 H 10/24/23 07:00 99 H 18 124/61 10/24/23 06:00 89 16 114/58 L 10/24/23 05:00 97 H 17 98/62 L 10/24/23 04:00 98.6 F 10/24/23 04:00 10/24/23 04:00 89 11 L 93/48 L 10/24/23 04:00 87 10/24/23 03:00 84 11 L 100/57 L 10/24/23 02:00 92 H 13 94/45 L 10/24/23 01:00 89 11 L 91/46 L 10/24/23 00:00 97 H 10/24/23 00:00 10/24/23 00:00 98 H 13 92/45 L 10/23/23 23:00 98 H 11 L 92/43 L 10/23/23 22:00 106 H 17 88/39 L 10/23/23 21:00 100 H 14 90/39 L 10/23/23 20:05 103 H 10/23/23 20:00 101 H 10/23/23 20:00 101 H 14 93/43 L 10/23/23 19:00 104 H 20 94/52 L 10/23/23 18:58 Pulse Ox O2 Del Method 10/24/23 18:00 97 Room Air 10/24/23 17:00 96 Room Air 10/24/23 17:00 Room Air 10/24/23 16:20 96 Room Air 10/24/23 16:00 10/24/23 16:00 10/24/23 16:00 95 Room Air 10/24/23 15:00 96 Room Air 10/24/23 15:00 Room Air 10/24/23 14:00 94 L Room Air 10/24/23 13:13 Room Air 10/24/23 13:00 98 Room Air 10/24/23 12:30 97 Room Air 10/24/23 12:00 10/24/23 12:00 10/24/23 12:00 96 Room Air 10/24/23 11:46 97 Room Air 10/24/23 11:42 Room Air 10/24/23 10:00 95 Room Air 10/24/23 09:00 95 Room Air 10/24/23 09:00 Room Air 10/24/23 08:00 10/24/23 08:00 95 Room Air 10/24/23 08:00 10/24/23 07:20 97 Room Air 10/24/23 07:00 97 Room Air 10/24/23 06:00 97 Room Air 10/24/23 05:00 97 Room Air 10/24/23 04:00 10/24/23 04:00 92 L Room Air 10/24/23 04:00 93 L Room Air 10/24/23 04:00 10/24/23 03:00 94 L Room Air 10/24/23 02:00 95 Room Air 10/24/23 01:00 92 L Room Air 10/24/23 00:00 10/24/23 00:00 94 L Room Air 10/24/23 00:00 98 Room Air 10/23/23 23:00 98 Room Air 10/23/23 22:00 97 Mechanical Ventilation 10/23/23 21:00 97 Room Air 10/23/23 20:05 10/23/23 20:00 98 Room Air 10/23/23 20:00 98 Room Air 10/23/23 19:00 99 Room Air 10/23/23 18:58 Room Air Intake and Output 10/24/23 10/24/23 10/24/23 07:59 15:59 23:59 Intake Total 1636.732 / 4337.863 2329.688 / 4337.863 371.443 / 4337.863 Output Total 850 / 3050 2200 / 3050 Balance 786.732 / 1287.863 129.688 / 1287.863 371.443 / 1287.863 Intake: Intake, Oral Amount 0 / 1070 1070 / 1070 Intake, Total IV Amount 1636.732 / 3267.863 1259.688 / 3267.863 371.443 / 3267.863 0.9 % Sodium Chloride 1000ML 1, 1433 / 1433 000 ml @ 150 mls/hr IV .Q6H40M [facility]LOS Rx#:[id number] 0.9% NaCl w/20mEq KCL 1,000 ml 1248 / 1610 362 / 1610 @ 150 mls/hr IV .Q6H40M [facility]LOS Rx# :[id number] Ceftriaxone 1 gm 1 gm In 0.9 % 100 / 100 Sodium Chloride 50 ml @ 100 mls /hr IV Q24H [facility]LOS Rx#:[id number] Insulin Regular, Human 100 unit 50 / 50 In 0.9 % Sodium Chloride 100 ml @ 3 UNIT/HR 3.03 mls/hr IV . Q24H CARLOS Rx#:[id number] Output: Output, Urine Amount 850 / 3050 2200 / 3050 Other: Number of Unmeasured Voids 1 Weight 68.2 kg 68.2 kg Patient Weight 10/24/23 23:59 Weight 68.2 kg Laboratory Results - last 24 hr 10/23/23 18:04: POC Glucose 498 H* 10/23/23 18:20: Sodium 135 L, Potassium 5.0, Chloride 102, Carbon Dioxide 6 L* D , Anion Gap 32.0 H, BUN 49 H, Creatinine 1.70 H D, Estimated Creat Clear 40, Estimated GFR 31 L, Est GFR ( Amer) 38 L, Glucose 529 H* D, Calcium 9.4, Phosphorus 9.6 H, Magnesium 2.2 10/23/23 18:57: POC Glucose 473 H* 10/23/23 19:57: POC Glucose 418 H* 10/23/23 19:58: Lactate 2.0 10/23/23 21:22: POC Glucose 425 H* 10/23/23 22:05: Sodium 138, Potassium 3.9 D, Chloride 106, Carbon Dioxide 12 L, Anion Gap 23.9 H, BUN 53 H, Creatinine 1.40 H, Estimated Creat Clear 48, Estimated GFR 39 L, Est GFR ( Amer) 47 L D, Glucose 350 H D, Calcium 8.8, Phosphorus 4.9 H D, Magnesium 2.1 10/23/23 22:06: POC Glucose 331 H* 10/23/23 23:00: POC Glucose 334 H* 10/24/23 00:01: POC Glucose 256 H 10/24/23 01:00: POC Glucose 247 H 10/24/23 02:03: POC Glucose 216 H 10/24/23 02:05: Sodium 140, Potassium 3.7, Chloride 110 H, Carbon Dioxide 18 L, Anion Gap 15.7 H, BUN 49 H, Creatinine 1.30 H, Estimated Creat Clear 52, Estimated GFR 42 L, Est GFR ( Amer) 51 L, Glucose 213 H D, Calcium 8.8, Phosphorus 3.1 D, Magnesium 2.1 10/24/23 02:59: POC Glucose 184 H 10/24/23 04:05: POC Glucose 154 H 10/24/23 05:04: POC Glucose 141 H 10/24/23 06:05: POC Glucose 174 H 10/24/23 06:41: WBC 15.9 H, RBC 3.89 L, Hgb 11.6 L D, Hct 36.2 L, MCV 93.0, MCH 29.8, MCHC 32.0, RDW 13.8, Plt Count 378, MPV 8.4, Neut % (Auto) 91.8 H, Lymph % (Auto) 5.3 L, [place] % (Auto) 2.2, Eos % (Auto) 0.5, Baso % (Auto) 0.3, Neut # (Auto) 14.6 H, Lymph # (Auto) 0.8, [place] # (Auto) 0.4, Eos # (Auto) 0.1, Baso # (Auto) 0.0, Total Counted 100, Neutrophils % (Manual) 93 H, Band Neutrophils % 1.0, Lymphocytes % (Manual) 5 L, Monocytes % (Manual) 1 L, Platelet Estimate Normal, RBC Morphology Normal, Sodium 143 10/24/23 06:41: Sodium 143, Potassium 4.3 10/24/23 06:41: Potassium 4.3, Chloride 112 H 10/24/23 06:41: Chloride 112 H, Carbon Dioxide 18 L 10/24/23 06:41: Carbon Dioxide 18 L, Anion Gap 17.3 H 10/24/23 06:41: Anion Gap 17.3 H, BUN 44 H 10/24/23 06:41: BUN 43 H, Creatinine 1.10 H 10/24/23 06:41: Creatinine 1.20 H, Estimated Creat Clear 61 10/24/23 06:41: Estimated Creat Clear 56, Estimated GFR 51 L 10/24/23 06:41: Estimated GFR 46 L, Est GFR ( Amer) 62 D 10/24/23 06:41: Est GFR ( Amer) 56 L, Glucose 158 H D 10/24/23 06:41: Glucose 158 H, Calcium 8.8 10/24/23 06:41: Calcium 8.9, Phosphorus 4.0 D 10/24/23 06:41: Phosphorus 4.1, Magnesium 2.1 10/24/23 06:41: Magnesium 2.2, Total Bilirubin 0.8, AST 82 H D, ALT 102 H, Alkaline Phosphatase 515 H, Total Protein 6.9, Albumin 4.0 D, Globulin 2.9, Albumin/Globulin Ratio 1.4 10/24/23 06:44: POC Glucose 156 H 10/24/23 08:12: POC Glucose 167 H 10/24/23 09:05: POC Glucose 158 H 10/24/23 09:56: POC Glucose 163 H 10/24/23 11:05: POC Glucose 183 H 10/24/23 12:25: POC Glucose 181 H 10/24/23 13:25: POC Glucose 219 H 10/24/23 14:16: POC Glucose 290 H 10/24/23 14:20: Sodium 140, Potassium 4.7, Chloride 111 H, Carbon Dioxide 15 L, Anion Gap 18.7 H, BUN 31 H D, Creatinine 0.90 D, Estimated Creat Clear 75, Estimated GFR 65, Est GFR ( Amer) 78 D, Glucose 306 H D, Calcium 8.4, Phosphorus 3.7, Magnesium 2.1 10/24/23 15:13: POC Glucose 307 H* 10/24/23 16:21: POC Glucose 305 H* 10/24/23 17:17: POC Glucose 267 H 10/24/23 17:54: POC Glucose 235 H I & O for Labs for Last 24 Hours: Intake & Output 10/21/23 10/22/23 10/23/23 10/24/23 23:59 23:59 23:59 23:59 Intake Total 1316.682 / 7461.849 4690.863 / 4337.863 Output Total 500 / 500 3050 / 3050 Balance 816.682 / 666.576 8629.863 / 1287.863 Weight 68.152 kg 68.2 kg Constitutional: Present no acute distress, average body habitus and cooperative Head: Present atraumatic and normocephalic ENT: Present normal exam Respiratory: Present normal respiratory effort; Absent rhonchi, wheezes or crackles Cardiac: Present Regular Rhythm and Tachycardia GI: Present soft and normal bowel sounds; Absent distention or tenderness Extremities: Present normal inspection and full ROM Skin: Present intact; Absent erythema Neuro: Present Grossly Intact, alert, awake, oriented x 3 and moves all extremities Assessment and Plan *Assessment and plan (1) DKA (diabetic ketoacidoses): Status: Resolved Qualifiers: Diabetes mellitus complication detail: without coma Diabetes mellitus type: type 1 Qualified Code(s): E10.10 - Type 1 diabetes mellitus with ketoacidosis without coma Category: Medical Code(s): E13.10 - Other specified diabetes mellitus with ketoacidosis without coma (2) High anion gap metabolic acidosis: Status: Resolved Category: Medical Code(s): E87.29 - Other acidosis (3) SIRS (systemic inflammatory response syndrome): Status: Resolved Category: Medical Code(s): R65.10 - Systemic inflammatory response syndrome (SIRS) of non-infectious origin without acute organ dysfunction (4) Leukocytosis: Status: Deleted Qualifiers: Leukocytosis type: unspecified Qualified Code(s): D72.829 - Elevated white blood cell count, unspecified Category: Medical Code(s): D72.829 - Elevated white blood cell count, unspecified (5) LOIS (acute kidney injury): Status: Resolved Category: Medical Code(s): N17.9 - Acute kidney failure, unspecified (6) GERD (gastroesophageal reflux disease): Status: Chronic Qualifiers: Esophagitis presence: esophagitis presence not specified Qualified Code(s): K21.9 - Gastro-esophageal reflux disease without esophagitis Category: Medical Code(s): K21.9 - Gastro-esophageal reflux disease without esophagitis (7) Flank pain: Status: Acute Category: Medical Code(s): R10.9 - Unspecified abdominal pain Plan 57-year-old female on insulin for diabetes who presents in DKA. Admitted for diabetes protocol. Started on insulin drip and IV fluids. Tolerating drip well. Gap still open however. Continuing drip protocol at this time. Clinically improving. Continues to require inpatient management. Problems addressed as follows: DKA High anion gap metabolic acidosis Anion gap remains elevated at 17 on morning labs Continue drip per protocol. Replacing potassium per protocol. Potassium 4.3 on morning labs. Glucose below 200, initiated on D5 A1c elevated at 7.4 but better controlled. Concerned she had a pump malfunction as she had switched her OmniPod prior to onset of her DKA Initiated on long-acting insulin, received 10 units Lantus last night, will increase to 20 units this evening. BMP every 4 hours. CBC, CMP, magnesium ordered for the morning SIRS Leukocytosis Blood cultures pending White cell count still elevated this morning at 15. Continue IV ceftriaxone empirically Differential includes infection, reactive with DKA, viral illness. LOIS improving baseline creatinine 1.0, 1.2 this morning on labs, BUN 43. Flank pain: CT abd showed non obtructive bilateral kidneys stones. concerning for cystitis continue monitoring. started on ceft IV. pending cultures VTE prophylaxis: Lovenox CODE STATUS: Full code Diabetic diet
[2023-10-24 19:00] LABS: POC Glucose,Bedside 266 (70-110)
--- NOTE | 2023-10-24 20:48 | PC.NURSE ---
DKA PROTOCOL IS NOT BEING FOLLOWED INSTRUCTED; NEW LABS ORDERED FOR NOW, NPO OF NOW PER PROTOCOL
[2023-10-24] MEDS: CEFTRIAXONE 1 GM 1 GM in 0.9 % SODIUM CHLORIDE 50 ML IV (20:57)
[2023-10-24 21:26] LABS: Chloride 114 mmol/L (98-107); Sodium 139 mmol/L (136-145)
[2023-10-24 21:27] LABS: Potassium 4.1 mmoL/L (3.5-5.1)
[2023-10-24 21:28] LABS: Magnesium 2.2 mg/dl (1.6-2.3)
[2023-10-24 21:29] LABS: Blood Urea Nitrogen 25 mg/dl (7-17); Creatinine Clearance Estimated 85 mL/min (50-200); Estimated Glomerular Filt Rate 74 ml/min (>60); GFR (African American) 90 ML/MIN (>60)
[2023-10-24 21:30] LABS: Anion Gap 14.1 mEq/L (5-15); Calcium 8.4 mg/dl (8.4-10.2); Carbon Dioxide 15 mmol/L (22.0-30.0); Glucose 249 mg/dl (74-100)
[2023-10-24 21:34] LABS: Phosphorous 1.9 mg/dl (2.5-4.5)
[2023-10-24 21:42] LABS: POC Glucose,Bedside 265 (70-110)
[2023-10-24 21:42] LABS: POC Glucose,Bedside 246 (70-110)
--- NOTE | 2023-10-24 22:32 | PC.NURSE ---
MONISHA, [employer] LEAD [employer], PAGED BY THIS RN FOR NEW ORDER OF K PHOS 15 MMOL; MONISAH STATED HE WILL BE IN SOON TO MIX DRUG FOR PT
[2023-10-24] MEDS: ACETAMINOPHEN 325MG TAB 650 MG PO (23:35)
[2023-10-24] MEDS: POTASSIUM PHOSPHATE 15 MMOL in 0.9 % SODIUM CHLORIDE 250 ML 63.75 MMOL IV (23:35)
[2023-10-25] VITALS (18 sets, daily range): BP systolic 108–160; BP diastolic 57–86; PULSE 68–110; RESP 11–25; TEMP 36.5–38.1; O2SAT 92–97; BMI 30.7
[2023-10-25] MEDS: D5W/0.9% NaCl w/20mEq KCL 1,000 ML 75 ML IV (00:42)
[2023-10-25 01:14] LABS: Chloride 117 mmol/L (98-107); Potassium 3.9 mmoL/L (3.5-5.1); Sodium 142 mmol/L (136-145)
[2023-10-25 01:17] LABS: Anion Gap 8.9 mEq/L (5-15); Blood Urea Nitrogen 20 mg/dl (7-17); Carbon Dioxide 20 mmol/L (22.0-30.0); Creatinine Clearance Estimated 97 mL/min (50-200); Estimated Glomerular Filt Rate 87 ml/min (>60); GFR (African American) 105 ML/MIN (>60); Phosphorous 2.1 mg/dl (2.5-4.5)
[2023-10-25 01:18] LABS: Calcium 8.5 mg/dl (8.4-10.2); Glucose 119 mg/dl (74-100); Magnesium 2.1 mg/dl (1.6-2.3)
--- NOTE | 2023-10-25 01:42 | PC.NURSE ---
EQ, FRICTION PAINT MACHINE TENDER NOTIFIED OF FSBS LESS THAN 200 AND ANION GAP CLOSED ON MOST RECENT LABS; CALLED FOR SUBQ INSULIN ORDERS
[2023-10-25] MEDS: INSULIN GLARGINE 100 UNITS/ML 3ML FLEXPEN 10 UNIT SQ ×2 (01:49→08:36)
[2023-10-25 02:32] LABS: POC Glucose,Bedside 143 (70-110)
[2023-10-25 02:32] LABS: POC Glucose,Bedside 116 (70-110)
[2023-10-25 02:32] LABS: POC Glucose,Bedside 98 (70-110)
[2023-10-25 02:32] LABS: POC Glucose,Bedside 174 (70-110)
[2023-10-25 02:32] LABS: POC Glucose,Bedside 160 (70-110)
[2023-10-25 03:30] LABS: POC Glucose,Bedside 101 (70-110)
[2023-10-25 06:17] LABS: POC Glucose,Bedside 136 (70-110)
[2023-10-25 08:43] LABS: Basophils % 0.1 % (0.1-2.0); Eosinophils # 0.2 K/mm3 (0.0-0.4); Eosinophils % 1.5 % (0.1-12.0); Hematocrit 36.2 % (37.0-47.0); Hemoglobin 11.5 g/dL (12.2-16.2); Lymphocytes # 0.4 K/mm3 (0.7-4.5); Lymphocytes % 2.9 % (10-50); Mean Corpuscular HGB Conc 31.7 g/dL (31.8-35.4); Mean Corpuscular Hemoglobin 29.1 pg (27.0-31.2); Mean Corpuscular Volume 91.9 fl (81-99); Mean Platelet Volume 8.7 fl (7.4-10.4); Monocytes # 0.2 K/mm3 (0.1-1.0); Monocytes % 1.7 % (1.7-9.3); Neutrophils # 13.8 K/mm3 (1.8-7.8); Neutrophils % 93.9 % (37.0-80.0); Platelet Count 347 K/mm3 (142-424); Red Blood Count 3.94 M/mm3 (4.20-5.40); Red Cell Distribution Width 14.3 % (11.5-17.5); White Blood Count 14.7 K/mm3 (4.8-10.8)
[2023-10-25 08:46] LABS: MANUAL DIFFERENTIAL MANUAL DIFFERENTIAL (MANUAL DIFF)
[2023-10-25 09:00] LABS: Chloride 116 mmol/L (98-107)
[2023-10-25 09:01] LABS: Potassium 5.4 mmoL/L (3.5-5.1); Sodium 139 mmol/L (136-145)
[2023-10-25 09:03] LABS: Alanine Aminotransferase 101 U/L (12-78); Aspartate Amino Transferase 62 U/L (14-36); Blood Urea Nitrogen 21 mg/dl (7-17); Creatinine Clearance Estimated 104 mL/min (50-200); Estimated Glomerular Filt Rate 87 ml/min (>60); GFR (African American) 105 ML/MIN (>60)
[2023-10-25 09:04] LABS: Albumin Level 3.4 g/dl (3.5-5.0); Albumin/Globulin Ratio 1.2 (1.1-1.8); Alkaline Phosphatase 492 U/L (38-126); Anion Gap 13.4 mEq/L (5-15); Bilirubin,Total 0.7 mg/dl (0.2-1.3); Calcium 8.4 mg/dl (8.4-10.2); Carbon Dioxide 15 mmol/L (22.0-30.0); Globulin 2.9 g/dL (1.3-3.2); Glucose 276 mg/dl (74-100); Magnesium 2.2 mg/dl (1.6-2.3); Total Protein,Serum 6.3 g/dl (6.3-8.2)
--- NOTE | 2023-10-25 09:06 | PC.NURSE ---
PER MD TSE'S REQUEST, PT REPLACED OMNI POD ON RIGHT UPPER EXTREMITY, AM LANTUS DOSE ALREADY GIVEN, WILL CHECK ANOTHER FSBS AT 1100 AND MAKE SURE MATCHING UP WITH WHAT DEXCOM READING SAYS, PT RESTING IN BED CALL LIGHT WITHIN REACH
--- NOTE | 2023-10-25 09:29 | PC.NURSE ---
PT'S DEXCOM STATED BLOOD SUGAR 384, PT GAVE SELF INSTRUCTED 4.65UNITS PER OMNIPOD, CHECKED FSBS WITH GLUCOMETER AND GLUCOMETER READ 333 AT THIS TIME
[2023-10-25 09:34] LABS: POC Glucose,Bedside 333 (70-110)
[2023-10-25 10:14] LABS: Lymphocytes % 1 % (10-50); Monocytes % 2 % (2-9); Neutrophils % 97 % (42-76); Total Cells Counted 100
[2023-10-25 10:15] LABS: Platelet Estimate Normal; RBC Morphology Normal
--- NOTE | 2023-10-25 11:28 | PC.NURSE ---
PT'S DEXCOM READING WAS 372, GLUCOMETER READING WAS 301, NOT GIVING INSULIN AT THIS TIME JUST GAVE DOSE AT 0930; NOTIFIED MD TSE OF PT'S READINGS AND HOW MUCH HAS BEEN GIVEN, ETC. MD TO POSSIBLY CHANGE SETTINGS ON OMNIPOD TO INCREASE INSULIN DOSES
[2023-10-25 11:29] LABS: POC Glucose,Bedside 301 (70-110)
[2023-10-25 13:44] LABS: Phosphorous 3.6 mg/dl (2.5-4.5)
[2023-10-25 14:33] LABS: POC Glucose,Bedside 376 (70-110)
--- NOTE | 2023-10-25 14:54 | P.PN_ITS ---
Subjective *Date: 10/25/23 *Time: 14:54 Interval history: Patient showing improvement. Anion gap closed this morning on labs. Tolerating p.o. intake. OmniPod at bedside, transition to pod for usage today. Discussed monitoring and making adjustments pending patient's response. Afebrile. No nausea or vomiting. On room air Medical Exam Vital signs and Labs for Last 24 Hours: Vital Signs Temp Pulse Pulse Resp BP Pulse Ox O2 Del Method 10/25/23 13:00 Room Air 10/25/23 12:00 90 10/25/23 12:00 98.4 F 10/25/23 12:00 87 16 150/76 H 94 L Room Air 10/25/23 11:00 Room Air 10/25/23 11:00 85 16 160/86 H 94 L Room Air 10/25/23 09:00 Room Air 10/25/23 09:00 92 H 20 147/80 H 92 L Room Air 10/25/23 08:00 96 Room Air 10/25/23 08:00 98.3 F 10/25/23 08:00 110 H 10/25/23 07:00 91 H 20 156/86 H 94 L Room Air 10/25/23 06:49 Room Air 10/25/23 06:00 78 14 144/69 H 96 Room Air 10/25/23 05:00 72 12 124/76 95 Room Air 10/25/23 05:00 Room Air 10/25/23 04:00 97.7 F 10/25/23 04:00 68 12 123/65 95 Room Air 10/25/23 04:00 Room Air 10/25/23 03:00 75 12 124/67 95 10/25/23 03:00 Room Air 10/25/23 02:00 74 12 119/57 L 95 Room Air 10/25/23 01:00 82 15 108/66 L 95 Room Air 10/25/23 01:00 Room Air 10/25/23 00:00 100.6 F H 10/25/23 00:00 82 12 125/65 93 L Room Air 10/25/23 00:00 Room Air 10/24/23 23:00 91 H 18 115/63 95 Room Air 10/24/23 23:00 Room Air 10/24/23 22:00 100 H 23 120/61 98 Room Air 10/24/23 21:00 Room Air 10/24/23 21:00 103 H 21 119/49 L 96 Room Air 10/24/23 20:00 99 H 22 112/56 L 95 Room Air 10/24/23 20:00 Room Air 10/24/23 20:00 98.7 F 10/24/23 19:00 102 H 22 110/52 L 95 Room Air 10/24/23 18:41 Room Air 10/24/23 18:00 110 H 22 131/60 97 Room Air 10/24/23 17:00 101 H 18 134/61 96 Room Air 10/24/23 17:00 Room Air 10/24/23 16:20 99 H 96 Room Air 10/24/23 16:00 98.7 F 10/24/23 16:00 100 H 10/24/23 16:00 99 H 20 130/67 95 Room Air 10/24/23 15:00 98 H 18 121/60 96 Room Air 10/24/23 15:00 Room Air Intake and Output 10/24/23 10/25/23 10/25/23 23:59 07:59 15:59 Intake Total 1043.372 / 5009.792 1427.103 / 2147.103 720 / 2147.103 Output Total 0 / 3750 700 / 1300 600 / 1300 Balance 1043.372 / 1259.792 727.103 / 847.103 120 / 847.103 Intake: Intake, Oral Amount 480 / 1550 720 / 720 Intake, Other Amount 304 / 304 Intake, Total IV Amount 563.372 / 3459.792 1123.103 / 1123.103 0.9% NaCl w/20mEq KCL 1,000 ml 509 / 1757 1042 / 1042 @ 150 mls/hr IV .[id number] [facility] Rx# :[id number] Insulin Regular, Human 100 unit In 0.9 % Sodium Chloride 100 ml @ 3 UNIT/HR 3.03 mls/hr IV . Q24H [facility] Rx#:[id number] Output: Output, Urine Amount 0 / 3750 700 / 1300 600 / 1300 Other: Number of Voids 0 Number of Unmeasured Voids 1 1 1 Weight 73.663 kg Patient Weight 10/25/23 23:59 Weight 73.663 kg Laboratory Results - last 24 hr 10/24/23 14:20: Carbon Dioxide 15 L, Anion Gap 18.7 H, BUN 31 H D, Creatinine 0.90 D, Estimated Creat Clear 75, Estimated GFR 65, Est GFR ( Amer) 78 D, Glucose 306 H D, Calcium 8.4, Phosphorus 3.7, Magnesium 2.1 10/24/23 15:13: POC Glucose 307 H* 10/24/23 16:21: POC Glucose 305 H* 10/24/23 17:17: POC Glucose 267 H 10/24/23 17:54: POC Glucose 235 H 10/24/23 18:53: POC Glucose 266 H 10/24/23 20:31: POC Glucose 265 H 10/24/23 20:55: Sodium 139, Potassium 4.1, Chloride 114 H, Carbon Dioxide 15 L, Anion Gap 14.1, BUN 25 H, Creatinine 0.80, Estimated Creat Clear 85, Estimated GFR 74, Est GFR ( Amer) 90, Glucose 249 H, Calcium 8.4, Phosphorus 1.9 L D, Magnesium 2.2 10/24/23 21:33: POC Glucose 246 H 10/24/23 22:41: POC Glucose 174 H 10/24/23 23:37: POC Glucose 160 H 10/25/23 00:34: POC Glucose 143 H 10/25/23 01:03: Sodium 142, Potassium 3.9, Chloride 117 H, Carbon Dioxide 20 L, Anion Gap 8.9, BUN 20 H, Creatinine 0.70, Estimated Creat Clear 97, Estimated GFR 87, Est GFR ( Amer) 105, Glucose 119 H D, Calcium 8.5, Phosphorus 2.1 L, Magnesium 2.1 10/25/23 01:46: POC Glucose 98 10/25/23 02:24: POC Glucose 116 H 10/25/23 03:18: POC Glucose 101 10/25/23 06:10: POC Glucose 136 H 10/25/23 08:33: WBC 14.7 H, RBC 3.94 L, Hgb 11.5 L, Hct 36.2 L, MCV 91.9, MCH 29.1, MCHC 31.7 L, RDW 14.3, Plt Count 347, MPV 8.7, Neut % (Auto) 93.9 H, Lymph % (Auto) 2.9 L, [place] % (Auto) 1.7, Eos % (Auto) 1.5, Baso % (Auto) 0.1, Neut # (Auto) 13.8 H, Lymph # (Auto) 0.4 L, [place] # (Auto) 0.2, Eos # (Auto) 0.2, Baso # (Auto) 0.0, Total Counted 100, Neutrophils % (Manual) 97 H, Lymphocytes % (Manual) 1 L, Monocytes % (Manual) 2, Platelet Estimate Normal, RBC Morphology Normal, Sodium 139, Potassium 5.4 H D, Chloride 116 H, Carbon Dioxide 15 L, Anion Gap 13.4, BUN 21 H, Creatinine 0.70, Estimated Creat Clear 104, Estimated GFR 87, Est GFR ( Amer) 105, Glucose 276 H D, Calcium 8.4, Magnesium 2.2, Total Bilirubin 0.7, AST 62 H, ALT 101 H, Alkaline Phosphatase 492 H, Total Protein 6.3, Albumin 3.4 L D, Globulin 2.9, Albumin/Globulin Ratio 1.2 10/25/23 08:35: Phosphorus 3.6 D 10/25/23 09:27: POC Glucose 333 H* 10/25/23 11:22: POC Glucose 301 H* 10/25/23 14:26: POC Glucose 376 H* I & O for Labs for Last 24 Hours: Intake & Output 10/22/23 10/23/23 10/24/23 10/25/23 23:59 23:59 23:59 23:59 Intake Total 1316.682 / 8511.901 9827.792 / 5009.792 2147.103 / 2147.103 Output Total 500 / 500 3050 / 3750 1300 / 1300 Balance 816.682 / 618.992 5587.792 / 1259.792 847.103 / 847.103 Weight 68.152 kg 68.2 kg 73.663 kg Constitutional: Present no acute distress, average body habitus and cooperative Head: Present atraumatic and normocephalic ENT: Present normal exam Respiratory: Present normal respiratory effort; Absent rhonchi, wheezes or crackles Cardiac: Present Regular Rhythm and Tachycardia GI: Present soft and normal bowel sounds; Absent distention or tenderness Extremities: Present normal inspection and full ROM Skin: Present intact; Absent erythema Neuro: Present Grossly Intact, alert, awake, oriented x 3 and moves all extremities Assessment and Plan *Assessment and plan (1) DKA (diabetic ketoacidoses): Status: Resolved Qualifiers: Diabetes mellitus complication detail: without coma Diabetes mellitus type: type 1 Qualified Code(s): E10.10 - Type 1 diabetes mellitus with ketoacidosis without coma Category: Medical Code(s): E13.10 - Other specified diabetes mellitus with ketoacidosis without coma (2) UTI (urinary tract infection): Status: Acute Category: Medical Code(s): N39.0 - Urinary tract infection, site not specified (3) High anion gap metabolic acidosis: Status: Resolved Category: Medical Code(s): E87.29 - Other acidosis (4) SIRS (systemic inflammatory response syndrome): Status: Resolved Category: Medical Code(s): R65.10 - Systemic inflammatory response syndrome (SIRS) of non-infectious origin without acute organ dysfunction (5) Leukocytosis: Status: Deleted Qualifiers: Leukocytosis type: unspecified Qualified Code(s): D72.829 - Elevated white blood cell count, unspecified Category: Medical Code(s): D72.829 - Elevated white blood cell count, unspecified (6) LOIS (acute kidney injury): Status: Resolved Category: Medical Code(s): N17.9 - Acute kidney failure, unspecified (7) GERD (gastroesophageal reflux disease): Status: Chronic Qualifiers: Esophagitis presence: esophagitis presence not specified Qualified Code(s): K21.9 - Gastro-esophageal reflux disease without esophagitis Category: Medical Code(s): K21.9 - Gastro-esophageal reflux disease without esophagitis (8) Flank pain: Status: Acute Category: Medical Code(s): R10.9 - Unspecified abdominal pain Plan 57-year-old female on insulin for diabetes who presents in DKA. Admitted for diabetes protocol. Started on insulin drip and IV fluids. Gap closed this morning. Off insulin drip to home pump regimen. Continues to require inpatient management. Anticipate discharge in the next day or 2. Problems addressed as follows: DKA High anion gap metabolic acidosis Anion gap closed on labs this morning. Discontinue drip. Transition to OmniPod to evaluate for stability going home on home insulin regimen A1c elevated at 7.4 but better controlled. Adjustments made to OmniPod today. Decreased carb ratio to 1:12g and decrease correction factor to 1:45 for glucose greater than 70 Repeat BMP this afternoon to monitor for stability of gap, glucose higher on home pump regimen at this time. Glucoses in the 300s. Sepsis UTI Leukocytosis Blood cultures pending, urine culture pending Urine abnormal with trace leuk esterase, trace bacteria. Clinically suspect UTI. White cell count still elevated at 14.7. Will transition antibiotics from ceftriaxone to levofloxacin 750 mg IV daily. Plan to complete 7-day course of antibiotics. LOIS improving baseline creatinine 1.0, Creatinine improved 2.7, BUN 21. Repeat CBC, CMP, magnesium in the morning with repeat CMP this afternoon.. Flank pain: CT abd showed non obtructive bilateral kidneys stones. concerning for cystitis continue monitoring. Will refer to urology as outpatient for evaluation of kidney stones and further treatment VTE prophylaxis: Lovenox CODE STATUS: Full code Diabetic diet
[2023-10-25 15:53] LABS: POC Glucose,Bedside 353 (70-110)
[2023-10-25] MEDS: LEVOFLOXACIN/D5W 750 MG/150 ML 750 MG/150 ML PIGGYBACK 100 MG IV (16:26)
[2023-10-25 20:02] LABS: Chloride 115 mmol/L (98-107); Potassium 4.1 mmoL/L (3.5-5.1); Sodium 137 mmol/L (136-145)
[2023-10-25 20:05] LABS: Anion Gap 8.1 mEq/L (5-15); Blood Urea Nitrogen 22 mg/dl (7-17); Calcium 9.2 mg/dl (8.4-10.2); Carbon Dioxide 18 mmol/L (22.0-30.0); Creatinine Clearance Estimated 104 mL/min (50-200); Estimated Glomerular Filt Rate 87 ml/min (>60); GFR (African American) 105 ML/MIN (>60); Glucose 363 mg/dl (74-100)
[2023-10-25 20:56] LABS: Glucose,Random 306 mg/dL (74-100)
[2023-10-26] VITALS: BP 143/73; PULSE 79; RESP 14; TEMP 36.8; O2SAT 93
[2023-10-26 03:33] LABS: POC Glucose,Bedside 280 (70-110)
[2023-10-26 04:00] VITALS: BP 142/83; PULSE 60; PULSE 67; RESP 15; TEMP 36.8; O2SAT 93; BMI 30.7
[2023-10-26 08:00] VITALS: PULSE 80; TEMP 36.5; O2SAT 93
[2023-10-26] MEDS: PANTOPRAZOLE 40MG TABLET 40 MG PO (08:11)
[2023-10-26] MEDS: ASPIRIN EC 81MG TABLET 81 MG PO (08:11)
[2023-10-26] MEDS: LISINOPRIL 2.5MG TABLET 2.5 MG PO (08:11)
[2023-10-26 09:37] LABS: Basophils # 0.1 K/mm3 (0-0.2); Basophils % 0.4 % (0.1-2.0); Eosinophils # 0.1 K/mm3 (0.0-0.4); Eosinophils % 1.1 % (0.1-12.0); Hematocrit 36.2 % (37.0-47.0); Hemoglobin 11.9 g/dL (12.2-16.2); Lymphocytes % 8.2 % (10-50); Mean Corpuscular HGB Conc 32.7 g/dL (31.8-35.4); Mean Corpuscular Hemoglobin 29.8 pg (27.0-31.2); Mean Corpuscular Volume 91.1 fl (81-99); Mean Platelet Volume 8.1 fl (7.4-10.4); Monocytes # 0.6 K/mm3 (0.1-1.0); Monocytes % 4.6 % (1.7-9.3); Neutrophils # 10.4 K/mm3 (1.8-7.8); Neutrophils % 85.8 % (37.0-80.0); Platelet Count 340 K/mm3 (142-424); Red Blood Count 3.98 M/mm3 (4.20-5.40); White Blood Count 12.1 K/mm3 (4.8-10.8)
[2023-10-26 09:43] LABS: Chloride 108 mmol/L (98-107)
[2023-10-26 09:44] LABS: Potassium 3.2 mmoL/L (3.5-5.1); Sodium 138 mmol/L (136-145)
[2023-10-26 09:46] LABS: Alanine Aminotransferase 99 U/L (12-78); Albumin Level 3.3 g/dl (3.5-5.0); Albumin/Globulin Ratio 1.2 (1.1-1.8); Alkaline Phosphatase 465 U/L (38-126); Anion Gap 4.2 mEq/L (5-15); Aspartate Amino Transferase 61 U/L (14-36); Bilirubin,Total 0.7 mg/dl (0.2-1.3); Blood Urea Nitrogen 13 mg/dl (7-17); Carbon Dioxide 29 mmol/L (22.0-30.0); Creatinine Clearance Estimated 122 mL/min (50-200); Estimated Glomerular Filt Rate 103 ml/min (>60); GFR (African American) 125 ML/MIN (>60); Globulin 2.7 g/dL (1.3-3.2)
[2023-10-26 09:47] LABS: Calcium 9.1 mg/dl (8.4-10.2); Glucose 192 mg/dl (74-100)
[2023-10-26 09:54] LABS: MANUAL DIFFERENTIAL MANUAL DIFFERENTIAL (MANUAL DIFF)
[2023-10-26 10:00] VITALS: PULSE 70; RESP 19; O2SAT 91
--- NOTE | 2023-10-26 11:20 | P.DS_ITS ---
General Admission date:: 10/23/23 Discharge date: 10/26/23 HPI HPI HPI: This is a 57-year-old female with insulin-dependent diabetes who presented who presents to the emergency department for evaluation of hyperglycemia nausea and vomiting. patient recent changed insulin pouch. presumed been off insulin. On presentation found to have significantly abnormal labs consistent with high anion gap metabolic acidosis, hyperglycemia, leukocytosis and LOIS. Initiated on insulin drip and IV fluids. Medicine consulted for admission. No overtly visible infection. Blood was obtained because of SIRS criteria. Patient reports good compliance with her regimen. Admaitted for treatment Hospital Course Hospital Course Hospital Course: Patient was seen and evaluated at the bedside on the day of discharge. Patient wishes to be discharged. All patient questions were answered and patient was given time to ask questions. Patient was discharged in stable condition. Patient understands that she can return to ER in case of any sudden changes in health. Total time spent on DC - 38 mins 57-year-old female on insulin for diabetes who presents in DKA. Admitted for diabetes protocol. Started on insulin drip and IV fluids. Gap closed this morning. Off insulin drip to home pump regimen. Continues to require inpatient management. Anticipate discharge in the next day or 2. Problems addressed as follows: DKA - resolved High anion gap metabolic acidosis - resolved patient has dexcome glucose monitoring and insulin pump - patient knows how to use it Sepsis - improved, DC on oral Abx, blood cultures negative to date UTI - Urine culture negative to date Leukocytosis DC on PO levofloxacin x 5 days LOIS - improved Exam Data for Last 24 hours Vital signs and Labs for Last 24 Hours: Temp Pulse Resp BP Pulse Ox O2 Del Method 97.7 F 70 19 142/83 H 91 L Room Air 10/26/23 08:00 10/26/23 10:00 10/26/23 10:00 10/26/23 04:00 10/26/23 10:00 10/26/23 10:00 Laboratory Results - last 24 hr 10/25/23 08:35: Phosphorus 3.6 D 10/25/23 11:22: POC Glucose 301 H* 10/25/23 14:26: POC Glucose 376 H* 10/25/23 15:46: POC Glucose 353 H* 10/25/23 18:45: Sodium 137, Potassium 4.1 D, Chloride 115 H, Carbon Dioxide 18 L, Anion Gap 8.1, BUN 22 H, Creatinine 0.70, Estimated Creat Clear 104, Estimated GFR 87, Est GFR ( Amer) 105, Glucose 363 H D, Calcium 9.2 10/25/23 20:16: POC Glucose 280 H 10/25/23 20:30: Random Glucose 306 H 10/26/23 09:26: WBC 12.1 H, RBC 3.98 L, Hgb 11.9 L, Hct 36.2 L, MCV 91.1, MCH 29.8, MCHC 32.7, RDW 14.0, Plt Count 340, MPV 8.1, Neut % (Auto) 85.8 H, Lymph % (Auto) 8.2 L, [place] % (Auto) 4.6, Eos % (Auto) 1.1, Baso % (Auto) 0.4, Neut # (Auto) 10.4 H, Lymph # (Auto) 1.0, [place] # (Auto) 0.6, Eos # (Auto) 0.1, Baso # (Auto) 0.1, Sodium 138, Potassium 3.2 L D, Chloride 108 H, Carbon Dioxide 29, Anion Gap 4.2 L, BUN 13 D, Creatinine 0.60, Estimated Creat Clear 122, Estimated GFR 103, Est GFR ( Amer) 125, Glucose 192 H D, Calcium 9.1, Total Bilirubin 0.7, AST 61 H, ALT 99 H, Alkaline Phosphatase 465 H, Total Protein 6.0 L, Albumin 3.3 L, Globulin 2.7, Albumin/Globulin Ratio 1.2 I & O for Last 24 hours: Intake & Output 10/23/23 10/24/23 10/25/23 10/26/23 23:59 23:59 23:59 23:59 Intake Total 1316.682 / 5263.068 4082.792 / 5009.792 2867.103 / 2867.103 360 / 360 Output Total 500 / 500 3050 / 3750 1900 / 1900 0 / 0 Balance 816.682 / 097.590 1391.792 / 1259.792 967.103 / 967.103 360 / 360 Weight 68.152 kg 68.2 kg 73.663 kg 73.663 kg Constitutional Constitutional: no acute distress *Routine HEENT Exam Head: Present normocephalic Eye: Present EOMI and PERRL ENT: Present mucous membranes moist *Routine Neck Exam Neck: Present supple; Absent lymphadenopathy *Routine Respiratory Exam Respiratory: Present CTA bilaterally *Routine Cardiovascular Exam Cardiovascular: Present RRR *Routine Abdominal Exam Abdominal: Present soft and normoactive bowel sounds; Absent tenderness *Routine Extremities Exam Extremities: Absent cyanosis, clubbing or edema *Routine Skin Exam Skin: Present warm; Absent rash *Routine Neurological Exam Neurological: Present alert and oriented X3 Results Data Completed and Pending Labs on day of discharge: Labs from last 24 hours 10/26/23 10/25/23 10/25/23 09:26 20:30 20:16 WBC 12.1 H RBC 3.98 L Hgb 11.9 L Hct 36.2 L MCV 91.1 MCH 29.8 MCHC 32.7 RDW 14.0 Plt Count 340 MPV 8.1 Neut % (Auto) 85.8 H Lymph % (Auto) 8.2 L [place] % (Auto) 4.6 Eos % (Auto) 1.1 Baso % (Auto) 0.4 Neut # (Auto) 10.4 H Lymph # (Auto) 1.0 [place] # (Auto) 0.6 Eos # (Auto) 0.1 Baso # (Auto) 0.1 Sodium 138 Potassium 3.2 L D Chloride 108 H Carbon Dioxide 29 Anion Gap 4.2 L BUN 13 D Creatinine 0.60 Estimated Creat Clear 122 Estimated GFR 103 Est GFR ( Amer) 125 Glucose 192 H D POC Glucose 280 H Random Glucose 306 H Calcium 9.1 Phosphorus Total Bilirubin 0.7 AST 61 H ALT 99 H Alkaline Phosphatase 465 H Total Protein 6.0 L Albumin 3.3 L Globulin 2.7 Albumin/Globulin Ratio 1.2 10/25/23 10/25/23 10/25/23 18:45 15:46 14:26 WBC RBC Hgb Hct MCV MCH MCHC RDW Plt Count MPV Neut % (Auto) Lymph % (Auto) [place] % (Auto) Eos % (Auto) Baso % (Auto) Neut # (Auto) Lymph # (Auto) [place] # (Auto) Eos # (Auto) Baso # (Auto) Sodium 137 Potassium 4.1 D Chloride 115 H Carbon Dioxide 18 L Anion Gap 8.1 BUN 22 H Creatinine 0.70 Estimated Creat Clear 104 Estimated GFR 87 Est GFR ( Amer) 105 Glucose 363 H D POC Glucose 353 H* 376 H* Random Glucose Calcium 9.2 Phosphorus Total Bilirubin AST ALT Alkaline Phosphatase Total Protein Albumin Globulin Albumin/Globulin Ratio 10/25/23 10/25/23 11:22 08:35 WBC RBC Hgb Hct MCV MCH MCHC RDW Plt Count MPV Neut % (Auto) Lymph % (Auto) [place] % (Auto) Eos % (Auto) Baso % (Auto) Neut # (Auto) Lymph # (Auto) [place] # (Auto) Eos # (Auto) Baso # (Auto) Sodium Potassium Chloride Carbon Dioxide Anion Gap BUN Creatinine Estimated Creat Clear Estimated GFR Est GFR ( Amer) Glucose POC Glucose 301 H* Random Glucose Calcium Phosphorus 3.6 D Total Bilirubin AST ALT Alkaline Phosphatase Total Protein Albumin Globulin Albumin/Globulin Ratio DS: Diagnosis Discharge Diagnosis (1) DKA (diabetic ketoacidoses): Status: Resolved Code(s): E13.10 - Other specified diabetes mellitus with ketoacidosis without coma Qualifiers: Diabetes mellitus complication detail: without coma Diabetes mellitus type: type 1 Qualified Code(s): E10.10 - Type 1 diabetes mellitus with ketoacidosis without coma (2) UTI (urinary tract infection): Status: Acute Code(s): N39.0 - Urinary tract infection, site not specified (3) High anion gap metabolic acidosis: Status: Resolved Code(s): E87.29 - Other acidosis (4) SIRS (systemic inflammatory response syndrome): Status: Resolved Code(s): R65.10 - Systemic inflammatory response syndrome (SIRS) of non-infectious origin without acute organ dysfunction (5) Leukocytosis: Status: Deleted Code(s): D72.829 - Elevated white blood cell count, unspecified Qualifiers: Leukocytosis type: unspecified Qualified Code(s): D72.829 - Elevated white blood cell count, unspecified (6) LOIS (acute kidney injury): Status: Resolved Code(s): N17.9 - Acute kidney failure, unspecified (7) GERD (gastroesophageal reflux disease): Status: Chronic Code(s): K21.9 - Gastro-esophageal reflux disease without esophagitis Qualifiers: Esophagitis presence: esophagitis presence not specified Qualified Code(s): K21.9 - Gastro-esophageal reflux disease without esophagitis (8) Flank pain: Status: Acute Code(s): R10.9 - Unspecified abdominal pain Meds Home Medications and Allergies Home Medications Medication Instructions Recorded Confirmed Type insulin lispro 100 unit/mL 0 units SQ DIRECTED Diabetes 05/11/20 10/24/23 History subcutaneous solution dapagliflozin propanediol 10 mg 10 mg PO DAILY Diabetes 02/24/21 10/23/23 History tablet aspirin 81 mg tablet,delayed 81 mg PO DAILY 10/23/23 10/23/23 History release lisinopril 2.5 mg tablet 2.5 mg PO DAILY 10/23/23 10/23/23 History pantoprazole 40 mg tablet,delayed 40 mg PO DAILY 10/23/23 10/23/23 History release levofloxacin 750 mg tablet 750 mg PO Q24H 5 days #5 tabs 10/26/23 Rx New Prescriptions to Start Prescriptions: Shirley Paul Allergies Allergy/AdvReac Type Severity Reaction Status Date / Time No Known Allergies Allergy Verified 03/10/21 08:24 Discharge Plan Disposition Patient Disposition: Home, Self-Care Condition: Fair Discharge Order Discharge Orders: Discharge Order (Routine); Ordered 10/26/23 Ordered By: Shirley Colon Follow up Plan Follow up with: Ruben Marquez APRN [Referring] - 11/01/23 2:00 pm Laurent Walker MD [Staff Physician] - 10/28/23 8:45 am Prescriptions/Medication Reconciliation: New levofloxacin 750 mg tablet 750 mg PO Q24H 5 Days Qty: 5 0RF Continued insulin lispro 100 UNIT/ML solution 0 units SQ DIRECTED Rx Instructions: USES SLIDING SCALE WITH OMNIPOD dapagliflozin propanediol 10 MG tablet 10 mg PO DAILY lisinopril 2.5 mg tablet 2.5 mg PO DAILY aspirin 81 mg tablet,delayed release (DR/EC) 81 mg PO DAILY pantoprazole 40 mg tablet,delayed release (DR/EC) 40 mg PO DAILY Problem Reconciliation Problems Reviewed?: Yes Patient Discharge Instructions ACTIVITY: Ambulate as tolerated DIET: continue same diet Patient Instructions: DI for Urinary Tract Infection (UTI), Diabetic Ketoacidosis, DI for Diabetic Ketoacidosis Providers Primary Care Provider: Provider,Referral Admit Provider: Axel Evangelista Attending Provider: Axel Evangelista
[2023-10-26 12:00] VITALS: BP 143/74; PULSE 75; RESP 18; O2SAT 92
[2023-10-26] MEDS: POTASSIUM CHLORIDE 20MEQ TAB 20 MEQ PO (12:05)
--- NOTE | 2023-10-26 12:27 | PC.NURSE ---
removed pt's piv's and got pt ready for discharge, pt waiting for daughter to come pick her up, pt eating lunch in bed
[2023-10-26] MEDS: levoFLOXacin 750 MG TABLET PO (12:34)
[2023-10-26 12:36] LABS: Lymphocytes % 15 % (10-50); Monocytes % 1 % (2-9); Neutrophils % 84 % (42-76); Platelet Estimate Normal; RBC Morphology Normal; Total Cells Counted 100
--- NOTE | 2023-10-28 15:53 | SW/DCPLANNER ---
Follow up hospital discharge phone call unsuccessful due to not a working phone number in the chart.
== END 2023-10-26 13:53 | disposition home or self-care (01) | DRG 637 ==
LOC: ER 17:17 → 2ND 17:45
PROVIDERS: Nurse Practitioner Family; Physician Assistant; Admitting Provider Internal Medicine Adolescent Medicine; Emergency Provider Emergency Medicine; Visit Provider Internal Medicine Adolescent Medicine
DX: E10.10 Type 1 diabetes mellitus with ketoacidosis without coma (principal); A41.9 Sepsis, unspecified organism; N17.9 Acute kidney failure, unspecified; N39.0 Urinary tract infection, site not specified; K21.9 Gastro-esophageal reflux disease without esophagitis
CPT/HCPCS: 36415; 71045; 74177; 80048; 80053; 81001; 82009; 82803; 82947; 82962; 83036; 83605; 83735; 84100; 85007; 85025; 87040; 87086; 87636; 93005; 99291; J0696; J1956; Q9967

== ENCOUNTER 2024-09-22 08:56 | Observation (INO) | payer OTHER, SELFPAY ==
[2024-09-22] VITALS (21 sets, daily range): BP systolic 129–169; BP diastolic 62–89; PULSE 87–109; RESP 11–24; TEMP 36.6–36.9; O2SAT 92–100; BMI 28.3; BMI 28.2
--- NOTE | 2024-09-22 09:11 | ECG_ITS ---
APPROVED REPORT Exam: Resting ECG HR:87 bpm ECG Measurements Heart Rate 87 AXES MI 125 P 58 QRSd 90 QRS 13 QT 373 T 79 QTc 418 Conclusion SINUS RHYTHM WITH MARKED SINUS ARRHYTHMIA No STEMI Electronically signed by : MILA ARCHIBALD, 09/22/2024 14:42:38
--- NOTE | 2024-09-22 09:18 | XR_ITS ---
FINAL REPORT CLINICAL HISTORY: SOA, vomiting, hyperglycemia COMPARISON: 10/23/2023 FINDINGS: A single PA view of the chest was obtained. The cardiac and mediastinal silhouettes are within normal limits. The lungs are clear. There is no effusion or pneumothorax. IMPRESSION: No radiographic evidence of acute cardiac or pulmonary disease on this single view of the chest. Reviewed, Interpreted and Dictated by Ivelisse Meade MD Transcribed by Janice Ly Authenticated and [facility]
--- NOTE | 2024-09-22 09:19 | ED_ITS ---
Discharge Plan Disposition Patient Disposition: Admitted Clinical Impressions Clinical Impression: DKA (diabetic ketoacidosis), Nausea & vomiting, SIRS (systemic inflammatory response syndrome), Esophagitis, LOIS (acute kidney injury) Discharge ED Provider: Pretty Escobedo General Adult HPI General Chief complaint: Nausea/Vomiting/Diarrhea Stated complaint: sugar levels off, vomiting Time Seen by Provider: 09/22/24 08:59 Mode of Arrival: Wheelchair Source of Information: Patient and Relative Limitations: No Limitations Description of Symptoms (Recalled from ER Triage Doc. by RN): pt came in bc she has been sick since the weekend when she ran out of insulin, pt has been vomiting and weak since saturday History of Present Illness HPI narrative: This patient is a 59-year-old female with a history of insulin-dependent diabetes, GERD, hypertension presented to the emergency department for evaluation with concern for glucose issues, nausea, vomiting, weakness. Patient states that she think she may have DKA. She notes that she ran out of insulin on Saturday, and despite being reinitiated on it she has felt very bad and has not been able to eat or drink anything in several days. She notes that she has vomiting without pain. No fevers, cough, congestion, urinary symptoms. She does have some shortness of breath. Related Data Home Medications ?Medication ?Instructions ?Recorded ?Confirmed insulin lispro 100 unit/mL 0 units SQ DIRECTED 05/11/20 09/22/24 subcutaneous solution dapagliflozin propanediol 10 mg 10 mg PO DAILY 02/24/21 09/22/24 tablet aspirin 81 mg tablet,delayed 81 mg PO DAILY 10/23/23 09/22/24 release lisinopril 2.5 mg tablet 2.5 mg PO DAILY 10/23/23 09/22/24 pantoprazole 40 mg tablet,delayed 40 mg PO DAILY 10/23/23 09/22/24 release atorvastatin 20 mg tablet 20 mg PO DAILY 09/22/24 09/22/24 ergocalciferol (vitamin D2) 1,250 1,250 mcg PO WEEKLY 09/22/24 09/22/24 mcg (50,000 unit) capsule Allergies Allergy/AdvReac Type Severity Reaction Status Date / Time No Known Allergies Allergy Verified 03/10/21 08:24 [facility] Disclaimer: The information contained in this section may have been updated after the patient was seen, as this information can be updated by other users. Medical History History of gastroesophageal reflux (GERD) Breast lesion Surgical History H/O tubal ligation History of section History of colonoscopy Family History Other No significant family history Social History Smoking Status: Never smoker second hand exposure: Yes alcohol intake: never counseling provided: provider counseling substance use type: denies use current occupational status: disabled Travel in the last 8 weeks: None household members: spouse housing: house current occupational exposures/hazards: No caffeine: Yes Have you lived/traveled outside [place] in past 30 days?: No Contact w/someone who lives/traveled outside US past 30 days?: No Exposure to someone with infectious disease in past 14 days?: No Do you have a fever (greater than 100.4 F or 38 C)?: No Have you tested positive for COVID-19: No Exposed to someone with COVID-19 in past 14 days?: No Do you have a sore throat?: No Do you have a cough?: No Do you have any weakness?: No Do you have any diarrhea?: No Are you experiencing any unusual bleeding?: No Do you have any muscle aches/pain?: No Do you have any abdominal pain?: No Are you experiencing loss of taste or smell?: No Other Medical History Have you received the Flu Vaccine for this season: No Have you received the Pneumonia Vaccine: No ROS Obtained: Yes All systems reviewed & no additional complaints except as documented Physical Exam General General appearance: alert and in no apparent distress Comment: Actively vomiting on assessment Head Head exam: atraumatic and normocephalic Eye Eye exam: Present normal appearance, PERRL and EOMI ENT ENT exam: Present normal exam, normal oropharynx, mucous membranes moist and normal external ear exam Neck Neck exam: Present normal inspection, full ROM and trachea midline; Absent tenderness Chest Chest inspection: Present normal inspection and symmetric chest wall rise; Absent tenderness Respiratory Respiratory exam: Present normal lung sounds bilaterally; Absent respiratory distress, wheezes, stridor or accessory muscle use Cardiovascular Cardiovascular exam: Present normal rhythm and tachycardia Abdominal Exam Abdominal exam: Present soft; Absent distention, tenderness or guarding Extremities Exam Extremities exam: Present normal inspection, full ROM and normal capillary refill; Absent tenderness or edema Back Exam Back exam: Present normal inspection and full ROM; Absent tenderness Neurological Exam Neurological exam: Present alert, oriented X3, CN II-XII intact and normal gait; Absent motor sensory deficit Psychiatric Psychiatric exam: Present normal affect and normal mood Skin Skin exam: Present warm and dry Medical Decision Making Medical Records Medical records reviewed: Yes I reviewed the patient's medical records. Screening: Per USPSTF and CDC recommendations, given the prevalence of disease in our region, it is our hospital?s policy to screen for HIV and viral Hepatitis for all patients aged 18 and over and those with ongoing risk factors. [place] Inquiry Pt receiving controlled substance: No Vital Signs: 09/22/24 08:58 09/22/24 10:25 09/22/24 10:30 Temperature 97.8 F Temperature Source Oral Pulse Rate 95 H 98 H Pulse Rate [Left Radial] 103 H Respiratory Rate 24 17 19 Blood Pressure 158/73 H 161/70 H Blood Pressure [Right Arm] 145/72 H Blood Pressure Mean [Right Arm] 96 02 Sat by Pulse Oximetry 100 99 99 Oxygen Delivery Method Room Air Room Air Room Air 09/22/24 11:00 09/22/24 11:30 09/22/24 12:00 Temperature Temperature Source Pulse Rate 88 93 H Pulse Rate [Left Radial] Respiratory Rate 16 16 Blood Pressure 169/87 H 165/83 H 159/75 H Blood Pressure [Right Arm] Blood Pressure Mean [Right Arm] 02 Sat by Pulse Oximetry 99 100 98 Oxygen Delivery Method Room Air Room Air Room Air 09/22/24 12:30 09/22/24 13:00 Temperature Temperature Source Pulse Rate 106 H 109 H Pulse Rate [Left Radial] Respiratory Rate 23 15 Blood Pressure 163/84 H 150/73 H Blood Pressure [Right Arm] Blood Pressure Mean [Right Arm] 02 Sat by Pulse Oximetry 99 97 Oxygen Delivery Method Room Air Room Air Lab Data Lab results reviewed: Yes I reviewed the patient's lab results. Lab Results 09/22/24 09:20: SARS-CoV-2 (PCR) Not detected, Influenza A Untype (PCR) Not detected, Influenza Type B (PCR) Not detected 09/22/24 09:35: WBC 22.1 H*, RBC 4.65, Hgb 13.9, Hct 39.8, MCV 85.6, MCH 29.9, MCHC 34.9, RDW 13.7, Plt Count 545 H, MPV 9.3, Neut % (Auto) 95.5 H, Lymph % (Auto) 1.7 L, [place] % (Auto) 1.9, Eos % (Auto) 0.0 L, Baso % (Auto) 0.1, Neut # (Auto) 21.1 H, Lymph # (Auto) 0.4 L, [place] # (Auto) 0.4, Eos # (Auto) 0.0, Baso # (Auto) 0.0, Total Counted 100, Neutrophils % (Manual) 94 H, Lymphocytes % (Manual) 5 L, Monocytes % (Manual) 1 L, Platelet Estimate Moderate increase, RBC Morphology Normal, D-Dimer 0.29, Sodium 145, Potassium 4.2, Chloride 104, Carbon Dioxide 22, Anion Gap 23.2 H, BUN 71 H, Creatinine 1.20 H, Estimated Creat Clear 56, Estimated GFR 46 L, Est GFR ( Amer) 56 L, Glucose 276 H, Hemoglobin A1c 7.7 H, Calcium 10.7 H, Phosphorus 2.2 L, Magnesium 2.6 H, Total Bilirubin 1.1, AST 46 H, ALT 72, Alkaline Phosphatase 495 H, Troponin I 0.02, Total Protein 8.4 H D, Albumin 5.0, Globulin 3.4 H, Albumin/Globulin Ratio 1.5, Acetone Level Small 09/22/24 09:55: VBG pH 7.47 H, VBG pCO2 27.3 L, VBG pO2 44.0 H, VBG HCO3 19.5 L, VBG Total CO2 20.3 L, VBG O2 Saturation 77.3 H, VBG Base Excess -4.2 L, VBG Lactic Acid 2.8 H, Lactate 2.4 H 09/22/24 10:45: Urine Color Yellow, Urine Appearance Cloudy, Urine pH 6.0, Ur Specific [place] 1.025, Urine Protein 1+ A, Urine Glucose (UA) Trace, Urine Ketones 2+, Urine Blood Trace-i, Urine Nitrate Negative, Urine Bilirubin 1+ A, Urine Urobilinogen 0.2, Ur Leukocyte Esterase 2+ A, Urine RBC Occasional, Urine WBC 20-50, Ur Squamous Epith Cells 20-50, Amorphous Sediment 1+, Urine Bacteria 2+ 09/22/24 12:20: Sodium 145, Potassium 4.1, Chloride 104, Carbon Dioxide 21 L, A nion Gap 24.1 H, BUN 70 H, Creatinine 1.30 H, Estimated Creat Clear 51, E stimated GFR 42 L, Est GFR ( Amer) 51 L, Glucose 274 H, Calcium 10.7 H, Troponin I 0.02 09/22/24 09:35 09/22/24 12:20 Orders (Tests/Meds): ED MEDICATIONS Generic Name Dose Route Start Last Admin Trade Name Freq PRN Reason Stop Dose Admin Dextrose 50 ml 09/22/24 10:41 Dextrose 50% 50ml Syringe (Crash Cart) IVP 10/22/24 10:40 NEEDED PRN per DKA protocol for FSBS </= 50 Sodium Chloride 1,000 mls @ 150 mls/hr 09/22/24 12:45 Sod Chlor 0.9% 1000ml Bag IV 10/22/24 12:44 .Q6H40M CARLOS Insulin Human Regular 100 unit 101 mls @ 10.1 mls/hr 09/22/24 10:45 09/22/24 12:29 / Sodium Chloride IV 10/22/24 10:44 6 unit/hr .Q10H CARLOS 6.06 mls/hr Administration Protocol 10 UNIT/HR Dextrose/Sodium Chloride 1,000 mls @ 125 mls/hr 09/22/24 10:45 Dextrose 5%-0.9% Nacl Iv Soln IV 10/22/24 10:44 .Q8H CARLOS Sodium Chloride 10 ml 09/22/24 09:18 Sodium Chloride 0.9% 10ml Vial IV 10/22/24 09:17 NEEDED PRN dilute protonix Discontinued Medications Generic Name Dose Route Start Last Admin Trade Name Freq PRN Reason Stop Dose Admin Sodium Chloride 1,000 mls @ 999 mls/hr 09/22/24 09:14 09/22/24 09:56 Sod Chlor 0.9% 1000ml Bag IV 09/22/24 10:14 999 mls/hr .Q1H1M ONE Administration Sodium Chloride 1,000 mls @ 999 mls/hr 09/22/24 10:34 09/22/24 12:24 Sod Chlor 0.9% 1000ml Bag IV 09/22/24 11:34 999 mls/hr .Q1H1M ONE Administration Cefepime HCl 2 gm/ Sodium 100 mls @ 200 mls/hr 09/22/24 10:42 09/22/24 12:24 Chloride IV 09/22/24 11:11 200 mls/hr ONCE ONE Administration Vancomycin/PEG/NA[place]/Lysine/Water 1.25 gm in 250 mls @ 125 mls/hr 09/22/24 11:00 09/22/24 12:34 Vancomycin 1.25gm/250ml (Peg) Premix IV 09/22/24 12:59 125 mls/hr ONCE ONE Administration Iopamidol 75 ml 09/22/24 12:18 09/22/24 12:20 Iopamidol-370 (76%);100ml Bottle IV 09/22/24 12:19 75 ml ONCE ONE Administration Metoclopramide HCl 10 mg 09/22/24 10:42 09/22/24 12:12 Metoclopramide Hcl 10mg/2ml Vial IVP 09/22/24 10:43 10 mg ONCE ONE Administration Miscellaneous 1 each 09/22/24 10:45 09/22/24 11:02 Vancomycin Consult Request NOTAPPLIC 10/22/24 10:44 1 each CONSULT PHARMACY CARLOS Administration Ondansetron HCl 4 mg 09/22/24 09:14 09/22/24 09:56 Ondansetron 4mg/2ml Vial IV 09/22/24 09:15 4 mg ONCE ONE Administration Pantoprazole Sodium 40 mg 09/22/24 09:18 09/22/24 09:56 Pantoprazole 40mg Vial IV 09/22/24 09:19 40 mg ONCE ONE Administration Sodium Chloride 10 ml 09/22/24 12:18 09/22/24 12:20 Sodium Chloride 0.9% 10ml Syr (Rad Only) IV 09/22/24 12:19 10 ml ONCE ONE Administration ORDERS Category Date Time Status CT abdomen pelvis w con Stat Cat Scan 09/22/24 10:42 Completed Consult to Physician [CONS] Routine Cons 09/22/24 13:26 Ordered Nutrition Consult [CONS] Routine Cons 09/22/24 14:04 Active CXR --portable [XR chest portable] Stat Exams 09/22/24 09:18 Completed Chest XR -- portable [XR chest portable] Stat Exams 09/22/24 12:00 Completed Acetone, Serum (Rapid) Stat Lab 09/22/24 09:35 Completed BMP [Basic Metabolic Panel] Stat Lab 09/22/24 12:20 Completed Basic Metabolic Panel Q4H Lab 09/22/24 14:15 Ordered Basic Metabolic Panel Q4H Lab 09/22/24 18:15 Ordered Basic Metabolic Panel Q4H Lab 09/22/24 22:15 Ordered Basic Metabolic Panel Q4H Lab 09/23/24 02:15 Ordered Basic Metabolic Panel Q4H Lab 09/23/24 06:15 Ordered Basic Metabolic Panel Q4H Lab 09/23/24 10:15 Ordered Complete Blood Count Auto Diff Stat Lab 09/22/24 09:35 Completed Comprehensive Metabolic Panel Stat Lab 09/22/24 09:35 Completed D-Dimer Stat Lab 09/22/24 09:35 Completed Hemoglobin A1C Stat Lab 09/22/24 09:35 Completed Lactic Acid Stat Lab 09/22/24 09:55 Completed Magnesium Q4H Lab 09/22/24 14:15 Ordered Magnesium Q4H Lab 09/22/24 18:15 Ordered Magnesium Q4H Lab 09/22/24 22:15 Ordered Magnesium Q4H Lab 09/23/24 02:15 Ordered Magnesium Q4H Lab 09/23/24 06:15 Ordered Magnesium Q4H Lab 09/23/24 10:15 Ordered Magnesium Stat Lab 09/22/24 09:35 Completed Phosphorous Q4H Lab 09/22/24 14:15 Ordered Phosphorous Q4H Lab 09/22/24 18:15 Ordered Phosphorous Q4H Lab 09/22/24 22:15 Ordered Phosphorous Q4H Lab 09/23/24 02:15 Ordered Phosphorous Q4H Lab 09/23/24 06:15 Ordered Phosphorous Q4H Lab 09/23/24 10:15 Ordered Phosphorous Stat Lab 09/22/24 09:35 Completed Rapid PCR Covid and Flu A/B Stat Lab 09/22/24 09:20 Completed Trop I [Troponin I] Stat Lab 09/22/24 09:35 Completed Troponin I Q3H Lab 09/22/24 12:20 Completed Troponin I Q3H Lab 09/22/24 15:30 Ordered Urinalysis and Microscopic Stat Lab 09/22/24 10:45 Completed Blood Culture Stat Micro 09/22/24 09:35 Received Urine Culture Stat Micro 09/22/24 10:45 Received Venous Blood Gas Stat RT 09/22/24 09:55 Completed ECG Data Tracing #1: I reviewed this ECG and interpreted as documented below: Normal sinus rhythm with ventricular of 87 bpm. No acute STEMI. Normal intervals with a QTc of 419 ms. ECG initial impression date: 09/22/24 ECG initial impression time: 09:12 Medical Decision Narrative: In summary, this patient is a 59-year-old female presenting to the Emergency Department for evaluation of nausea, vomiting, glucose and insulin issues at home. Differential diagnoses considered include but are not limited to DKA, HHS, dehydration, LOIS, viral syndrome, gastroenteritis, colitis, viral syndrome. Ruling out the most morbid conditions drove assessment. It should be noted patient's history includes insulin-dependent diabetes, hypertension which are not at goal therapy. This complicates all aspects of care by increasing patient's risk for morbidity. I reviewed patient's past medical records and noted previous admissions for LOIS/hyperglycemia in the past. On exam, the patient is actively vomiting. She has benign abdominal exam with no localizable tenderness. Cardiopulmonary exam is reassuring. She is mildly tachycardic but otherwise vitals are reassuring on cardiac telemetry. Fingerstick blood glucose is 235. Workup included broad lab evaluation to evaluate for infectious, metabolic, cardiac issues including blood cultures, troponins. She feels short of better and is mildly tachycardic, cannot use PERC criteria to exclude PE. D-dimer was ordered. Chest x-ray and EKG also obtained. Patient is given a bolus of IV fluids as well as IV Zofran and pantoprazole for symptomatic improvement. I independently interpreted x-ray prior to the radiologist read and noted no large focal consolidation concerning for pneumonia. Please see their read for final interpretation. Labs were obtained that demonstrated leukocytosis with neutrophilic predominance. Could be related to sepsis in the setting of tachycardia, tachypnea, general illness. Could be leukemoid reaction/hemoconcentration with her profuse vomiting and poor oral intake over the weekend.. Blood gas demonstrates a respiratory alkalosis with metabolic acidosis. Lactic acid mildly elevated at 2.8. Patient has an LOIS with her creatinine doubled her prior. Her anion gap is significantly elevated at 23.2. Acetone is detectable in the bloodstream. Considered starvation ketosis as a cause in the setting of poor oral intake, but she is an insulin-dependent diabetic who had no access to her insulin Saturday/Saturday and also has had very poor oral intake. Given this, decision was made to order insulin drip. I also ordered dextrose containing fluids, as her glucose is not significantly high. Will monitor closely for development of hypoglycemia. In total prior to initiation of insulin drip, she was given 2 L of IV fluids. I also started on broad-spectrum antibiotics pending cultures in the setting of her leukocytosis and SIRS positive vital signs. She was given IV vancomycin and cefepime. She was effectively given a sepsis bolus based on her ideal body weight. Urine is grossly contaminated with squamous cells. She continued to have nausea and vomiting after Zofran and pantoprazole, so I ordered IV Reglan. Interventions included: 2 L IV fluids, IV vancomycin and cefepime, IV Zofran, IV pantoprazole, IV Reglan, insulin GTT Patient was stuck multiple times for IV access by nurses, and I attempted multiple ultrasound-guided IVs. I was able to place ultrasound-guided IV in the left upper extremity after multiple attempts, however this infiltrated later. After risk versus benefit was explained and informed consent was obtained from the patient, she is agreeable to have central line placed, as she has had to have them in the past given poor peripheral access. Consent was signed, and patient was prepped in sterile fashion. Central line was placed under ultrasound guidance in the right IJ. She tolerated this well with no complication, placement confirmed on chest x-ray. I independently interpreted the x-ray and noted appropriate placement as well as no pneumothorax. Given patient's continued vomiting as well as her high white count, I ordered CT abdomen pelvis with IV contrast to evaluate for acute intra-abdominal pathology. I independently interpreted CT scan prior to radiology read and noted no obvious obstructive process in the abdomen, no cholecystitis. Please see radiology read for final interpretation. They noted esophagitis, which I am already treating with PPI. Ultimately at this time, patient has remained hemodynamically stable with stable glucose on insulin gtt. I feel that she is stable for admission to ICU for DKA, dehydration, LOIS. I had an interactive discussion with the hospitalist who admitted the patient in stable condition. Procedures Risk/Benefits of Procedure(s) Were Explained: Yes Central Line Placement Right IJ: Time Out Performed: Yes Patient Placed on Monitor/Pulse Ox: Yes MD Prep: mask, gown and gloves Central Line Prep: Chlorhexidine scrub and sterile drapes applied Local Anesthetic: lidocaine 1% Amount of anesthesia used (mL): 1 Ultrasound Used for Placement: Yes Central Line Lumen Inserted: triple Post Procedure: sutured in place, good blood return, all ports aspirated, flushed, capped and sterile dressing applied Post Procedure X-Ray: tip of catheter in good position and no pneumothorax seen Patient Tolerated Procedure: well and no complications Complications: none Miscellaneous Procedure Procedure Performed: Ultrasound Guided IV Line Placement PROCEDURE NOTE: IV Placement under Ultrasound Guidance Performed by: Pretty Escobedo Indication: IV access required. Multiple attempts at peripheral IV placement were made by the nursing staff without success Procedure: The area was prepped in the usual fashion. The L cephalic vein was cannulated with a 20 gauge angiocath with use of dynamic ultrasound to identify the vein. The patient tolerated the procedure well. Complications: none Critical Care Critical Care Time Critical Care Time: Yes Attestation: On 09/22/24, the high probability of a clinically significant, sudden or life threatening deterioration of the following system(s) required my full and direct attention, intervention and personal management. The time I documented below is in addition to time spent performing reported procedures but includes the following listed in this critical care notation. Total Time Total Critical Care Time: 50
[2024-09-22 09:25] LABS: Coronavirus 19, PCR Not Detected (NotDetected); Influenza A, PCR Not Detected (NotDetected); Influenza B, PCR Not Detected (NotDetected)
--- NOTE | 2024-09-22 09:34 | PC.NURSE ---
xr at bedside
[2024-09-22] MEDS: 0.9 % SODIUM CHLORIDE 1000ML 1,000 ML 999 ML IV ×2 (09:56→12:24)
[2024-09-22] MEDS: ONDANSETRON 4MG/2ML VIAL 4 MG IV ×2 (09:56→16:59)
[2024-09-22] MEDS: PANTOPRAZOLE 40MG VIAL 40 MG IV (09:56)
[2024-09-22 10:05] LABS: VBG Base Excess -4.2 mmol/L (-2.4-2.3); VBG HCO3 19.5 mmol/L (23-30); VBG Oxygen Saturation 77.3 % (50-70); VBG PCO2 27.3 mmol/L (35-51); VBG PH 7.47 mmol/L (7.31-7.41); VBG Total CO2 20.3 mmol/L (23-27)
[2024-09-22 10:08] LABS: Lactate Venous 2.8 mmol/L (0.4-2.0)
[2024-09-22 10:13] LABS: Basophils % 0.1 % (0.1-2.0); Hematocrit 39.8 % (37.0-47.0); Hemoglobin 13.9 g/dL (12.2-16.2); Lymphocytes # 0.4 K/mm3 (0.7-4.5); Lymphocytes % 1.7 % (10-50); Mean Corpuscular HGB Conc 34.9 g/dL (31.8-35.4); Mean Corpuscular Hemoglobin 29.9 pg (27.0-31.2); Mean Corpuscular Volume 85.6 fl (81-99); Mean Platelet Volume 9.3 fl (7.4-10.4); Monocytes # 0.4 K/mm3 (0.1-1.0); Monocytes % 1.9 % (1.7-9.3); Neutrophils # 21.1 K/mm3 (1.8-7.8); Neutrophils % 95.5 % (37.0-80.0); Platelet Count 545 K/mm3 (142-424); Red Blood Count 4.65 M/mm3 (4.20-5.40); Red Cell Distribution Width 13.7 % (11.5-17.5); White Blood Count 22.1 K/mm3 (4.8-10.8)
[2024-09-22 10:19] LABS: MANUAL DIFFERENTIAL MANUAL DIFFERENTIAL (MANUAL DIFF)
--- NOTE | 2024-09-22 10:19 | PC.NURSE ---
Patient was given a blanket.
[2024-09-22 10:24] LABS: Chloride 104 mmol/L (98-107); Potassium 4.2 mmoL/L (3.5-5.1); Sodium 145 mmol/L (136-145)
[2024-09-22 10:26] LABS: Blood Urea Nitrogen 71 mg/dl (7-17); Creatinine Clearance Estimated 56 mL/min (50-200); Estimated Glomerular Filt Rate 46 ml/min (>60); GFR (African American) 56 ML/MIN (>60)
[2024-09-22 10:27] LABS: Alanine Aminotransferase 72 U/L (12-78); Albumin/Globulin Ratio 1.5 (1.1-1.8); Alkaline Phosphatase 495 U/L (38-126); Anion Gap 23.2 mEq/L (5-15); Aspartate Amino Transferase 46 U/L (14-36); Bilirubin,Total 1.1 mg/dl (0.2-1.3); Calcium 10.7 mg/dl (8.4-10.2); Carbon Dioxide 22 mmol/L (22.0-30.0); Globulin 3.4 g/dL (1.3-3.2); Glucose 276 mg/dl (74-100); Magnesium 2.6 mg/dl (1.6-2.3); Phosphorous 2.2 mg/dl (2.5-4.5); Total Protein,Serum 8.4 g/dl (6.3-8.2)
[2024-09-22 10:29] LABS: Lactic Acid 2.4 mmol/L (0.7-2.1)
--- NOTE | 2024-09-22 10:30 | PC.NURSE ---
ROUNDED ON THE PT. THE PT VOICES THAT SHE DOES NOT NEED ANYTHING AT THIS TIME. CALL LIGHT IS WITHIN REACH OF THE PT. FAMILY MEMBER IS PRESENT AT THE BEDSIDE.
[2024-09-22 10:39] LABS: Troponin I 0.02 ng/ml (0.00-0.034)
--- NOTE | 2024-09-22 10:42 | CT_ITS ---
FINAL REPORT TECHNIQUE: Thin section axial images were obtained through the abdomen after intravenous contrast. Reconstruction images were obtained from the axial data. Exam was performed using dose reduction techniques. CLINICAL HISTORY: intractable nausea, sepsis COMPARISON: 10/23/2023 FINDINGS: The lung bases are clear. There is wall thickening of the distal esophagus which is new concerning for esophagitis. The liver is homogeneous. The gallbladder is mildly distended. The spleen, adrenal glands, and pancreas are unremarkable. There are bilateral nonobstructing renal stones. Abdominal GI tract is without acute abnormality. There is no abdominal lymphadenopathy or ascites. The urinary bladder is mildly distended. The uterus is unremarkable for age. The pelvic portions of the GI tract, including the appendix, are without acute abnormality. There is no pelvic lymphadenopathy or ascites. No acute osseous abnormalities identified. IMPRESSION: Wall thickening of the distal esophagus concerning for esophagitis. Urinary bladder mildly distended. Reviewed, Interpreted and Dictated by Ivelisse Meade MD Transcribed by Janice Ly Authenticated and [facility]
--- NOTE | 2024-09-22 10:52 | HMH.PHAINT1 ---
Pharmacy Intervention Comments: MEDICATION RECONCILIATION COMPLETED ON PATIENT USING EXTERNAL FILL HISTORY FROM PHARMACY. PATIENT USES OMNIPOD FOR INSULIN ADMINISTRATION. -FRANCISCO BLACK, [place]
[2024-09-22 10:57] LABS: Microscopic, Urine URINE MICROSCOPIC (MICROSCOPIC)
[2024-09-22 11:00] LABS: Appearance,Urine CLOUDY (Clear); Blood, Urine TRACE-I (Negative); Color,Urine YELLOW (Yellow); Glucose,Urine (UA) TRACE (Negative); Ketones,Urine 2+ (Negative); Leukocyte Esterase,Urine 2+ (Negative); Nitrate,Urine Negative (Negative); Protein,Urine 1+ (Negative); Specific Gravity, Urine 1.025 (1.005-1.030); Urobilinogen,Urine 0.2 EU/dl (0.2)
[2024-09-22 11:02] LABS: D-Dimer 0.29 ug/mL (0.0-0.5)
[2024-09-22] MEDS: VANCOMYCIN CONSULT REQUEST 1 EACH NOTAPPLIC (11:02)
[2024-09-22 11:10] LABS: Acetone, Serum (Rapid) Small (None Detect)
[2024-09-22 11:20] LABS: Amorphous Sediment,Urine 1+ /lpf; Bacteria,Urine 2+ /lpf; Bilirubin,Urine 1+ (Negative); RBC,Urine Occasional #/hpf (0-3); WBC,Urine 20-50 #/hpf (0-3)
[2024-09-22 11:21] LABS: Squamous Epithelial Cell,Urine 20-50 #/hpf (0-5)
--- NOTE | 2024-09-22 11:36 | PC.NURSE ---
CALL LIGHT IS WITHIN REACH OF THE PT. THE PT VOICES THAT SHE DOES NOT NEED ANYTHING AT THIS TIME. CALL LIGHT IS WITHIN REACH OF THE PT.
[2024-09-22 12:00] LABS: Lymphocytes % 5 % (10-50); Monocytes % 1 % (2-9); Neutrophils % 94 % (42-76); Total Cells Counted 100
--- NOTE | 2024-09-22 12:00 | XR_ITS ---
FINAL REPORT CLINICAL HISTORY: posst placement COMPARISON: Earlier the same day. FINDINGS: A portable view of the chest was obtained. There has been interval placement of a right IJ central line with the tip in the right atrium. Cardiac and mediastinal silhouettes are within normal limits. The lungs are clear. There is no pleural effusion or pneumothorax. IMPRESSION: New right IJ central line with the tip in the right atrium. No pneumothorax. Otherwise, no acute process. Authenticated and [facility]
[2024-09-22 12:01] LABS: Platelet Estimate Moderate Increase; RBC Morphology Normal
[2024-09-22] MEDS: METOCLOPRAMIDE HCL 10MG/2ML VIAL 10 MG IVP (12:12)
--- NOTE | 2024-09-22 12:12 | PC.NURSE ---
PT TO CT
[2024-09-22 12:13] LABS: Hemoglobin A1C 7.7 % (4.0-6.0)
[2024-09-22] MEDS: SODIUM CHLORIDE 0.9% 10ML SYR (RAD ONLY) 10 ML IV (12:20)
[2024-09-22] MEDS: IOPAMIDOL-370 (76%);100ML BOTTLE 75 ML IV (12:20)
[2024-09-22] MEDS: CEFEPIME HCL 2 GM in 0.9 % SODIUM CHLORIDE 100 ML IV ×2 (12:24→18:48)
--- NOTE | 2024-09-22 12:24 | PC.NURSE ---
Patient given a water.
[2024-09-22] MEDS: INSULIN REGULAR, HUMAN 100 UNIT in 0.9 % SODIUM CHLORIDE 100 ML 6.06 UNIT IV (12:29)
--- NOTE | 2024-09-22 12:31 | PC.NURSE ---
Just checked sugar. patient is laying in bed.
[2024-09-22] MEDS: VANCOMYCIN/WATER FOR INJ (PEG) 1.25 GM/250 ML PIGGYBACK IV (12:34)
--- NOTE | 2024-09-22 12:44 | PC.NURSE ---
ROUNDED ON THE PT. THE PT VOICES THAT SHE DOES NOT NEED ANYTHING AT THIS TIME. PT WAS GIVEN A WARM BLANKET. CALL LIGHT IS WITHIN REACH OF THE PT. FAMILY MEMBER IS PRESENT AT THE BEDSIDE.
[2024-09-22 13:04] LABS: Troponin I 0.02 ng/ml (0.00-0.034)
[2024-09-22 13:20] LABS: Chloride 104 mmol/L (98-107); Potassium 4.1 mmoL/L (3.5-5.1); Sodium 145 mmol/L (136-145)
[2024-09-22 13:23] LABS: Anion Gap 24.1 mEq/L (5-15); Blood Urea Nitrogen 70 mg/dl (7-17); Calcium 10.7 mg/dl (8.4-10.2); Carbon Dioxide 21 mmol/L (22.0-30.0); Creatinine Clearance Estimated 51 mL/min (50-200); Estimated Glomerular Filt Rate 42 ml/min (>60); GFR (African American) 51 ML/MIN (>60); Glucose 274 mg/dl (74-100)
--- NOTE | 2024-09-22 13:25 | PC.NURSE ---
FSBS IS 231 AT THIS TIME.
--- NOTE | 2024-09-22 14:04 | PC.NURSE ---
DR ARCHIBALD SPEAKING WITH DR TSE
--- NOTE | 2024-09-22 14:04 | PC.NURSE ---
POLYMER ENGINEER NOTIFIED OF ADMISSION
--- NOTE | 2024-09-22 14:05 | EXP.HP ---
History of Present Illness *Admission Date: 09/22/24 *Reason for visit:: nausea and vomiting *History of present illness: However hisMs. Hurd is a 59-year-old female with insulin-dependent diabetes. Traditionally poorly controlled. Better controlled since switching insulin pump. She has not presented to the hospital in well over a year for DKA. States that she ran out of insulin over the weekend and was unable to refill her pump until yesterday. Developed nausea and vomiting. Attempted to treat at home but unable to get her blood sugar better controlled and having significant nausea and vomiting. States she has had some chills but no soheila fever. Denies any blood in her vomit or stool. On presentation, found to be in DKA. Medicine consulted for admission and further management. Says she has been vomiting since Saturday. History includes GERD, insulin-dependent diabetes, hypertension, you is in the past. Urine concerning for UTI on presentation. Received cefepime in the ER. Alert and oriented x 4 PFSH [facility] Disclaimer: The information contained in this section may have been updated after the patient was seen, as this information can be updated by other users. Medical History History of gastroesophageal reflux (GERD) Breast lesion Surgical History H/O tubal ligation History of section History of colonoscopy Family History Other No significant family history Social History Smoking Status: Never smoker second hand exposure: Yes alcohol intake: never counseling provided: provider counseling substance use type: denies use current occupational status: disabled Travel in the last 8 weeks: None household members: spouse housing: house current occupational exposures/hazards: No caffeine: Yes Have you lived/traveled outside [place] in past 30 days?: No Contact w/someone who lives/traveled outside [place] past 30 days?: No Exposure to someone with infectious disease in past 14 days?: No Do you have a fever (greater than 100.4 F or 38 C)?: No Have you tested positive for COVID-19: No Exposed to someone with COVID-19 in past 14 days?: No Do you have a sore throat?: No Do you have a cough?: No Do you have any weakness?: No Do you have any diarrhea?: No Are you experiencing any unusual bleeding?: No Do you have any muscle aches/pain?: No Do you have any abdominal pain?: No Are you experiencing loss of taste or smell?: No Other Medical History Have you received the Flu Vaccine for this season: No Have you received the Pneumonia Vaccine: No Review of Systems Review of Systems Review of systems (narrative): 14 point review of systems performed, pertinent positives and negatives as per [facility] Meds Home Medications and Allergies Home Medications ?Medication ?Instructions ?Recorded ?Confirmed ?Type insulin lispro 100 unit/mL 0 units SQ DIRECTED 05/11/20 09/22/24 History subcutaneous solution dapagliflozin propanediol 10 mg 10 mg PO DAILY 02/24/21 09/22/24 History tablet aspirin 81 mg tablet,delayed 81 mg PO DAILY 10/23/23 09/22/24 History release lisinopril 2.5 mg tablet 2.5 mg PO DAILY 10/23/23 09/22/24 History pantoprazole 40 mg tablet,delayed 40 mg PO DAILY 10/23/23 09/22/24 History release atorvastatin 20 mg tablet 20 mg PO DAILY 09/22/24 09/22/24 History ergocalciferol (vitamin D2) 1,250 1,250 mcg PO WEEKLY 09/22/24 09/22/24 History mcg (50,000 unit) capsule New Prescriptions to Start Prescriptions: Allergies Allergy/AdvReac Type Severity Reaction Status Date / Time No Known Allergies Allergy Verified 03/10/21 08:24 Exam Data for Last 24 hours Vital signs and Labs for Last 24 Hours: Temp Pulse Resp BP Pulse Ox O2 Del Method 97.8 F 109 H 15 150/73 H 97 Room Air 09/22/24 08:58 09/22/24 13:00 09/22/24 13:00 09/22/24 13:00 09/22/24 13:00 09/22/24 13:00 Laboratory Results - last 24 hr 09/22/24 09:20: SARS-CoV-2 (PCR) Not detected, Influenza A Untype (PCR) Not detected, Influenza Type B (PCR) Not detected 09/22/24 09:35: WBC 22.1 H*, RBC 4.65, Hgb 13.9, Hct 39.8, MCV 85.6, MCH 29.9, MCHC 34.9, RDW 13.7, Plt Count 545 H, MPV 9.3, Neut % (Auto) 95.5 H, Lymph % (Auto) 1.7 L, [place] % (Auto) 1.9, Eos % (Auto) 0.0 L, Baso % (Auto) 0.1, Neut # (Auto) 21.1 H, Lymph # (Auto) 0.4 L, [place] # (Auto) 0.4, Eos # (Auto) 0.0, Baso # (Auto) 0.0, Total Counted 100, Neutrophils % (Manual) 94 H, Lymphocytes % (Manual) 5 L, Monocytes % (Manual) 1 L, Platelet Estimate Moderate increase, RBC Morphology Normal, D-Dimer 0.29, Sodium 145, Potassium 4.2, Chloride 104, Carbon Dioxide 22, Anion Gap 23.2 H, BUN 71 H, Creatinine 1.20 H, Estimated Creat Clear 56, Estimated GFR 46 L, Est GFR ( Amer) 56 L, Glucose 276 H, Hemoglobin A1c 7.7 H, Calcium 10.7 H, Phosphorus 2.2 L, Magnesium 2.6 H, Total Bilirubin 1.1, AST 46 H, ALT 72, Alkaline Phosphatase 495 H, Troponin I 0.02, Total Protein 8.4 H D, Albumin 5.0, Globulin 3.4 H, Albumin/Globulin Ratio 1.5, Acetone Level Small 09/22/24 09:55: VBG pH 7.47 H, VBG pCO2 27.3 L, VBG pO2 44.0 H, VBG HCO3 19.5 L, VBG Total CO2 20.3 L, VBG O2 Saturation 77.3 H, VBG Base Excess -4.2 L, VBG Lactic Acid 2.8 H, Lactate 2.4 H 09/22/24 10:45: Urine Color Yellow, Urine Appearance Cloudy, Urine pH 6.0, Ur Specific [place] 1.025, Urine Protein 1+ A, Urine Glucose (UA) Trace, Urine Ketones 2+, Urine Blood Trace-i, Urine Nitrate Negative, Urine Bilirubin 1+ A, Urine Urobilinogen 0.2, Ur Leukocyte Esterase 2+ A, Urine RBC Occasional, Urine WBC 20-50, Ur Squamous Epith Cells 20-50, Amorphous Sediment 1+, Urine Bacteria 2+ 09/22/24 12:20: Sodium 145, Potassium 4.1, Chloride 104, Carbon Dioxide 21 L, Anion Gap 24.1 H, BUN 70 H, Creatinine 1.30 H, Estimated Creat Clear 51, Estimated GFR 42 L, Est GFR ( Amer) 51 L, Glucose 274 H, Calcium 10.7 H, Troponin I 0.02 I & O for Last 24 hours: Intake & Output 09/19/24 09/20/24 09/21/24 09/22/24 23:59 23:59 23:59 23:59 Weight 68.039 kg Constitutional Constitutional: mild distress, average body habitus, chronically ill appearing and cooperative *Routine HEENT Exam Head: Present normocephalic Eye: Present EOMI and PERRL ENT: Present mucous membranes dry *Routine Neck Exam Neck: Present supple; Absent lymphadenopathy *Routine Respiratory Exam Respiratory: Present CTA bilaterally; Absent respiratory distress, rhonchi, wheezes or crackles *Routine Cardiovascular Exam Cardiovascular: Present tachycardia *Routine Abdominal Exam Abdominal: Present soft, normoactive bowel sounds and tenderness (Diffuse nonfocal) *Routine Rectal Exam Rectal:: deferred *Routine Genitalia Exam Genitalia:: deferred *Routine Extremities Exam Extremities: Absent cyanosis, clubbing or edema *Routine Skin Exam Skin: Present warm; Absent rash *Routine Neurological Exam Neurological: Present alert, oriented X3 and CN II-XII intact; Absent altered mental status Assessment and Plan *Assessment and plan (1) DKA (diabetic ketoacidoses): Status: Resolved Qualifiers: Diabetes mellitus complication detail: without coma Diabetes mellitus type: type 1 Qualified Code(s): E10.10 - Type 1 diabetes mellitus with ketoacidosis without coma Category: Medical Code(s): E11.10 - Type 2 diabetes mellitus with ketoacidosis without coma (2) UTI (urinary tract infection): Status: Acute Category: Medical Code(s): N39.0 - Urinary tract infection, site not specified (3) High anion gap metabolic acidosis: Status: Resolved Category: Medical Code(s): E87.29 - Other acidosis (4) SIRS (systemic inflammatory response syndrome): Status: Resolved Category: Medical Code(s): R65.10 - Systemic inflammatory response syndrome (SIRS) of non-infectious origin without acute organ dysfunction (5) Leukocytosis: Status: Deleted Qualifiers: Leukocytosis type: unspecified Qualified Code(s): D72.829 - Elevated white blood cell count, unspecified Category: Medical Code(s): D72.829 - Elevated white blood cell count, unspecified (6) LOIS (acute kidney injury): Status: Resolved Category: Medical Code(s): N17.9 - Acute kidney failure, unspecified (7) GERD (gastroesophageal reflux disease): Status: Chronic Qualifiers: Esophagitis presence: esophagitis presence not specified Qualified Code(s): K21.9 - Gastro-esophageal reflux disease without esophagitis Category: Medical Code(s): K21.9 - Gastro-esophageal reflux disease without esophagitis (8) Flank pain: Status: Acute Category: Medical Code(s): R10.9 - Unspecified abdominal pain Plan 59-year-old female on insulin pump for diabetes. Presents with nausea and vomiting. Found to be in DKA. Discussed case with ER physician, request admission for treatment of DKA. I agreed to admit for further management. Initiated on DKA protocol. Urine concerning for UTI. Admitted to ICU for further management. Problems addressed as follows: DKA High anion gap metabolic acidosis - Patient has been managed on insulin pump. Ran out of insulin on Saturday. Developed nausea and vomiting. Anion gap elevated at 24. -A1c better controlled at 7.7 -Glucose on presentation of 276 -Initiate insulin drip. Monitor for closure of gap. Will continue drip and plan to transition back to home pump once anion gap closed. -BMP ordered every 4 hours. Fluids per protocol -Phosphate low at 1.7, monitor for refeeding. Will replace with 15 mmol Sepsis UTI Leukocytosis - Urine grossly abnormal with 2+ leuk esterase, 2+ bacteria, 2+ ketones -Negative for nitrates. Received cefepime in the ER. Continue 2 g every 8 hours. - Urine culture pending -White count elevated at 22. Repeat CBC, CMP, magnesium, phos ordered for the morning -Blood cultures pending LOIS improving baseline creatinine 1.0, creatinine 1.3 on presentation, BUN 70. VTE prophylaxis: Lovenox CODE STATUS: Full code Diabetic diet
[2024-09-22 14:09] LABS: Reflex Lactic Add Lactic Reflex
--- NOTE | 2024-09-22 14:22 | PC.NURSE ---
called report to meli sheth
[2024-09-22 14:46] LABS: Chloride 110 mmol/L (98-107); Potassium 3.8 mmoL/L (3.5-5.1); Sodium 145 mmol/L (136-145)
[2024-09-22 14:49] LABS: Anion Gap 10.8 mEq/L (5-15); Blood Urea Nitrogen 53 mg/dl (7-17); Calcium 9.5 mg/dl (8.4-10.2); Carbon Dioxide 28 mmol/L (22.0-30.0); Creatinine Clearance Estimated 74 mL/min (50-200); Estimated Glomerular Filt Rate 65 ml/min (>60); GFR (African American) 78 ML/MIN (>60); Glucose 216 mg/dl (74-100)
[2024-09-22 14:50] LABS: Magnesium 2.3 mg/dl (1.6-2.3)
[2024-09-22 14:56] LABS: POC Glucose,Bedside 195 (70-110)
[2024-09-22 14:57] LABS: Lactic Acid Follow Up (RFLX 1) < 0.5 mmol/L (0.7-2.1)
--- NOTE | 2024-09-22 15:05 | DIET.NUTRFU ---
RD saw patient, consulted for diabetic education. Patient has been educated in the past. She denied education. She reports the pharmacy would not fill insulin pump it was too soon. She plans to talk to doctor about keeping needles on hand. A1c 7.7, 7.5 in 10/23/23 and 9.7 on 08/20/22, is now fairly controlled. Continued to encouraged balanced diet of carbs and protein with increased fiber to maintain steady BS reading s avoiding any spikes.
[2024-09-22 15:19] LABS: Phosphorous 1.7 mg/dl (2.5-4.5)
[2024-09-22] MEDS: 0.9 % SODIUM CHLORIDE 1000ML 1,000 ML 150 ML IV (15:38)
[2024-09-22 16:14] LABS: POC Glucose,Bedside 156 (70-110)
[2024-09-22] MEDS: POTASSIUM PHOS IN 0.9 % NACL 15 MMOL/250 ML PIGGYBACK 62.5 MMOL IV ×2 (16:50→19:31)
[2024-09-22 17:07] LABS: Troponin I 0.02 ng/ml (0.00-0.034)
[2024-09-22] MEDS: Dextrose 5 % and 0.9 % NaCl 1,000 ML 125 ML IV (17:17)
[2024-09-22 17:31] LABS: POC Glucose,Bedside 160 (70-110)
--- NOTE | 2024-09-22 17:49 | PC.NURSE ---
1730 pt started pm d5ns per Dr Evangelista telephone order via [facility]
[2024-09-22 18:22] LABS: POC Glucose,Bedside 217 (70-110)
--- NOTE | 2024-09-22 18:23 | PC.NURSE ---
After review of labs, orders received to stop insulin gtt and pt may be placed on her personal insulin pump w/ home regimen. Pt may also be de-escalated to step-down status. Primary nurse notified of this. POC reviewed w/ pt, verbalized understanding.
[2024-09-22 19:04] LABS: POC Glucose,Bedside 245 (70-110)
[2024-09-22] MEDS: PROMETHAZINE HCL 25MG/ML 1ML VIAL 12.5 MG IV (20:57)
[2024-09-22] MEDS: ACETAMINOPHEN 325MG TAB 650 MG PO (20:57)
[2024-09-22 21:00] LABS: Chloride 111 mmol/L (98-107); Sodium 142 mmol/L (136-145)
[2024-09-22 21:03] LABS: Blood Urea Nitrogen 43 mg/dl (7-17); Carbon Dioxide 22 mmol/L (22.0-30.0); Creatinine Clearance Estimated 83 mL/min (50-200); Estimated Glomerular Filt Rate 74 ml/min (>60); GFR (African American) 89 ML/MIN (>60)
[2024-09-22 21:04] LABS: Calcium 9.4 mg/dl (8.4-10.2); Glucose 225 mg/dl (74-100); Magnesium 2.3 mg/dl (1.6-2.3); Phosphorous 2.7 mg/dl (2.5-4.5)
[2024-09-22 22:48] LABS: Chloride 112 mmol/L (98-107); Sodium 144 mmol/L (136-145)
[2024-09-22 22:51] LABS: Blood Urea Nitrogen 35 mg/dl (7-17); Carbon Dioxide 28 mmol/L (22.0-30.0); Creatinine Clearance Estimated 83 mL/min (50-200); Estimated Glomerular Filt Rate 74 ml/min (>60); GFR (African American) 89 ML/MIN (>60)
[2024-09-22 22:52] LABS: Calcium 8.8 mg/dl (8.4-10.2); Glucose 167 mg/dl (74-100); Magnesium 2.1 mg/dl (1.6-2.3); Phosphorous 3.3 mg/dl (2.5-4.5)
[2024-09-23] VITALS (14 sets, daily range): BP systolic 120–151; BP diastolic 58–77; PULSE 81–96; RESP 11–20; TEMP 36.8; O2SAT 91–95; BMI 28.6
[2024-09-23 00:12] LABS: POC Glucose,Bedside 142 (70-110)
[2024-09-23] MEDS: CEFEPIME HCL 2 GM in 0.9 % SODIUM CHLORIDE 100 ML IV ×2 (01:50→08:41)
[2024-09-23 02:34] LABS: Anion Gap 6.8 mEq/L (5-15); Blood Urea Nitrogen 30 mg/dl (7-17); Carbon Dioxide 27 mmol/L (22.0-30.0); Chloride 113 mmol/L (98-107); Creatinine Clearance Estimated 83 mL/min (50-200); Estimated Glomerular Filt Rate 74 ml/min (>60); GFR (African American) 89 ML/MIN (>60); Glucose 118 mg/dl (74-100); Magnesium 2.1 mg/dl (1.6-2.3); Phosphorous 2.9 mg/dl (2.5-4.5); Potassium 3.8 mmoL/L (3.5-5.1); Sodium 143 mmol/L (136-145)
[2024-09-23 05:50] LABS: POC Glucose,Bedside 108 (70-110)
[2024-09-23 06:38] LABS: Chloride 111 mmol/L (98-107); Potassium 3.5 mmoL/L (3.5-5.1); Sodium 144 mmol/L (136-145)
[2024-09-23 06:41] LABS: Anion Gap 9.5 mEq/L (5-15); Blood Urea Nitrogen 25 mg/dl (7-17); Calcium 8.9 mg/dl (8.4-10.2); Carbon Dioxide 27 mmol/L (22.0-30.0); Creatinine Clearance Estimated 84 mL/min (50-200); Estimated Glomerular Filt Rate 74 ml/min (>60); GFR (African American) 89 ML/MIN (>60); Glucose 105 mg/dl (74-100); Phosphorous 2.7 mg/dl (2.5-4.5)
[2024-09-23 06:42] LABS: Magnesium 2.1 mg/dl (1.6-2.3)
--- NOTE | 2024-09-23 08:33 | P.DS_ITS ---
General Admission date:: 09/22/24 Discharge date: 09/23/24 HPI HPI HPI: However hisMs. Hurd is a 59-year-old female with insulin-dependent diabetes. Traditionally poorly controlled. Better controlled since switching insulin pump. She has not presented to the hospital in well over a year for DKA. States that she ran out of insulin over the weekend and was unable to refill her pump until yesterday. Developed nausea and vomiting. Attempted to treat at home but unable to get her blood sugar better controlled and having significant nausea and vomiting. States she has had some chills but no soheila fever. Denies any blood in her vomit or stool. On presentation, found to be in DKA. Medicine consulted for admission and further management. Says she has been vomiting since Saturday. History includes GERD, insulin- dependent diabetes, hypertension, you is in the past. Urine concerning for UTI on presentation. Received cefepime in the ER. Alert and oriented x 4 Hospital Course Hospital Course Hospital Course: 59-year-old female on insulin pump for diabetes. Presents with nausea and vomiting. Found to be in DKA. Discussed case with ER physician, request admission for treatment of DKA. I agreed to admit for further management. Initiated on DKA protocol. Urine concerning for UTI. Admitted to ICU for further management. Anion gap closed on first day of admission. Transitioned to home insulin pump. Gap remained closed overnight. Tolerating home regimen. Stable to discharge home. Also found to have UTI. Transition oral antibiotics. Problems addressed as follows: DKA High anion gap metabolic acidosis - Patient has been managed on insulin pump. Ran out of insulin on Saturday. Developed nausea and vomiting. Anion gap elevated at 24. A1c better controlled at 7.7. Admitted to ICU on insulin drip for DKA protocol. Insulin on presentation was 276. Gap closed on first day of admission. Patient had her pump with her, pump was placed and patient was managed with her home pump overnight into the morning. Gap remained closed with morning glucose of 155. Abdominal pain improving. Electrolytes replaced. Tolerating p.o. intake with no further nausea or vomiting. Stable discharge home to continue home regimen with OmniPod and Dexcom. Sepsis UTI Leukocytosis - Urine grossly abnormal with 2+ leuk esterase, 2+ bacteria, 2+ ketones. Suspect UTI as the etiology of her DKA along with running out of insulin as abo ve. Initiated on cefepime. Urine culture growing gram-negative rods, 80-90,000 CFU's. White count initially elevated at 22,000. Showed improvement by morning. Blood cultures negative at time of discharge. Transition to oral antibiotics with Levaquin to complete 5 days of antibiotic therapy. Will follow culture after discharge. LOIS; improving baseline creatinine 1.0, creatinine 1.3 and BUN 70 on presentation. Improved to BUN 25 and creatinine 0.8 by morning of discharge. Extensive discussion about infection, DKA, resumption of insulin regimen. Total time spent on discharge 32 minutes in counseling, documentation, chart review, and direct care with patient. Exam Data for Last 24 hours Vital signs and Labs for Last 24 Hours: Temp Pulse Resp BP Pulse Ox O2 Del Method 98.4 F 86 18 151/75 H 93 L Room Air 09/22/24 20:00 09/23/24 07:00 09/23/24 07:00 09/23/24 07:00 09/23/24 07:00 09/23/24 07:00 Laboratory Results - last 24 hr 09/22/24 09:20: SARS-CoV-2 (PCR) Not detected, Influenza A Untype (PCR) Not detected, Influenza Type B (PCR) Not detected 09/22/24 09:35: WBC 22.1 H*, RBC 4.65, Hgb 13.9, Hct 39.8, MCV 85.6, MCH 29.9, MCHC 34.9, RDW 13.7, Plt Count 545 H, MPV 9.3, Neut % (Auto) 95.5 H, Lymph % (Auto) 1.7 L, Mccracken % (Auto) 1.9, Eos % (Auto) 0.0 L, Baso % (Auto) 0.1, Neut # (Auto) 21.1 H, Lymph # (Auto) 0.4 L, Mccracken # (Auto) 0.4, Eos # (Auto) 0.0, Baso # (Auto) 0.0, Total Counted 100, Neutrophils % (Manual) 94 H, Lymphocytes % (Manual) 5 L, Monocytes % (Manual) 1 L, Platelet Estimate Moderate increase, RBC Morphology Normal, D-Dimer 0.29, Sodium 145, Potassium 4.2, Chloride 104, Carbon Dioxide 22, Anion Gap 23.2 H, BUN 71 H, Creatinine 1.20 H, Estimated Creat Clear 56, Estimated GFR 46 L, Est GFR ( Amer) 56 L, Glucose 276 H, Hemoglobin A1c 7.7 H, Calcium 10.7 H, Phosphorus 2.2 L, Magnesium 2.6 H, Total Bilirubin 1.1, AST 46 H, ALT 72, Alkaline Phosphatase 495 H, Troponin I 0.02, Total Protein 8.4 H D, Albumin 5.0, Globulin 3.4 H, Albumin/Globulin Ratio 1.5, Acetone Level Small 09/22/24 09:55: VBG pH 7.47 H, VBG pCO2 27.3 L, VBG pO2 44.0 H, VBG HCO3 19.5 L, VBG Total CO2 20.3 L, VBG O2 Saturation 77.3 H, VBG Base Excess -4.2 L, VBG Lactic Acid 2.8 H, Lactate 2.4 H 09/22/24 10:45: Urine Color Yellow, Urine Appearance Cloudy, Urine pH 6.0, Ur Specific Richardson 1.025, Urine Protein 1+ A, Urine Glucose (UA) Trace, Urine Ketones 2+, Urine Blood Trace-i, Urine Nitrate Negative, Urine Bilirubin 1+ A, Urine Urobilinogen 0.2, Ur Leukocyte Esterase 2+ A, Urine RBC Occasional, Urine WBC 20-50, Ur Squamous Epith Cells 20-50, Amorphous Sediment 1+, Urine Bacteria 2+ 09/22/24 12:20: Sodium 145, Potassium 4.1, Chloride 104, Carbon Dioxide 21 L, Anion Gap 24.1 H, BUN 70 H, Creatinine 1.30 H, Estimated Creat Clear 51, Estimated GFR 42 L, Est GFR ( Amer) 51 L, Glucose 274 H, Calcium 10.7 H, Troponin I 0.02 09/22/24 14:23: Sodium 145, Potassium 3.8, Chloride 110 H, Carbon Dioxide 28, Anion Gap 10.8, BUN 53 H, Creatinine 0.90 D, Estimated Creat Clear 74, Estimated GFR 65, Est GFR ( Amer) 78 D, Glucose 216 H D, Lactate < 0.5 L , Calcium 9.5, Phosphorus 1.7 L, Magnesium 2.3 D 09/22/24 14:48: POC Glucose 195 H 09/22/24 16:05: POC Glucose 156 H 09/22/24 16:23: Troponin I 0.02 09/22/24 17:12: POC Glucose 160 H 09/22/24 18:09: POC Glucose 217 H 09/22/24 18:43: Sodium 142, Potassium 5.0 D, Chloride 111 H, Carbon Dioxide 22, Anion Gap 14.0, BUN 43 H, Creatinine 0.80, Estimated Creat Clear 83, Estimated GFR 74, Est GFR ( Amer) 89, Glucose 225 H, Calcium 9.4, Phosphorus 2.7 D , Magnesium 2.3 09/22/24 18:53: POC Glucose 245 H 09/22/24 22:25: Sodium 144, Potassium 4.0, Chloride 112 H, Carbon Dioxide 28, Anion Gap 8.0, BUN 35 H, Creatinine 0.80, Estimated Creat Clear 83, Estimated GFR 74, Est GFR ( Amer) 89, Glucose 167 H D, Calcium 8.8, Phosphorus 3.3, Magnesium 2.1 09/23/24 00:02: POC Glucose 142 H 09/23/24 02:09: Sodium 143, Potassium 3.8, Chloride 113 H, Carbon Dioxide 27, Anion Gap 6.8, BUN 30 H, Creatinine 0.80, Estimated Creat Clear 83, Estimated GFR 74, Est GFR ( Amer) 89, Glucose 118 H D, Calcium 9.0, Phosphorus 2.9, Magnesium 2.1 09/23/24 05:27: Sodium 144, Potassium 3.5, Chloride 111 H, Carbon Dioxide 27, Anion Gap 9.5, BUN 25 H, Creatinine 0.80, Estimated Creat Clear 84, Estimated GFR 74, Est GFR ( Amer) 89, Glucose 105 H, Calcium 8.9, Phosphorus 2.7, Magnesium 2.1 09/23/24 05:44: POC Glucose 108 I & O for Last 24 hours: Intake & Output 09/20/24 09/21/24 09/22/24 09/23/24 23:59 23:59 23:59 23:59 Intake Total 606.701 / 606.701 Output Total 950 / 950 Balance -343.299 / -343.299 Weight 67.84 kg 68.74 kg Constitutional Constitutional: no acute distress, average body habitus and cooperative *Routine HEENT Exam Head: Present normocephalic Eye: Present EOMI and PERRL ENT: Present mucous membranes moist *Routine Neck Exam Neck: Present supple; Absent lymphadenopathy *Routine Respiratory Exam Respiratory: Present CTA bilaterally *Routine Cardiovascular Exam Cardiovascular: Present RRR *Routine Abdominal Exam Abdominal: Present soft and normoactive bowel sounds; Absent tenderness *Routine Rectal Exam Patient deferred: visual exam *Routine Exam Patient deferred: external exam *Routine Extremities Exam Extremities: Absent cyanosis, clubbing or edema *Routine Skin Exam Skin: Present warm; Absent rash *Routine Neurological Exam Neurological: Present alert and oriented X3 Results Data Completed and Pending Labs on day of discharge: Labs from last 24 hours 09/23/24 09/23/24 09/23/24 05:44 05:27 02:09 WBC RBC Hgb Hct MCV MCH MCHC RDW Plt Count MPV Neut % (Auto) Lymph % (Auto) Mccracken % (Auto) Eos % (Auto) Baso % (Auto) Neut # (Auto) Lymph # (Auto) Mccracken # (Auto) Eos # (Auto) Baso # (Auto) Total Counted Neutrophils % (Manual) Lymphocytes % (Manual) Monocytes % (Manual) Platelet Estimate RBC Morphology D-Dimer VBG pH VBG pCO2 VBG pO2 VBG HCO3 VBG Total CO2 VBG O2 Saturation VBG Base Excess VBG Lactic Acid Sodium 144 143 Potassium 3.5 3.8 Chloride 111 H 113 H Carbon Dioxide 27 27 Anion Gap 9.5 6.8 BUN 25 H 30 H Creatinine 0.80 0.80 Estimated Creat Clear 84 83 Estimated GFR 74 74 Est GFR ( Amer) 89 89 Glucose 105 H 118 H D POC Glucose 108 Hemoglobin A1c Lactate Calcium 8.9 9.0 Phosphorus 2.7 2.9 Magnesium 2.1 2.1 Total Bilirubin AST ALT Alkaline Phosphatase Troponin I Total Protein Albumin Globulin Albumin/Globulin Ratio Urine Color Urine Appearance Urine pH Ur Specific Richardson Urine Protein Urine Glucose (UA) Urine Ketones Urine Blood Urine Nitrate Urine Bilirubin Urine Urobilinogen Ur Leukocyte Esterase Urine RBC Urine WBC Ur Squamous Epith Cells Amorphous Sediment Urine Bacteria Acetone Level SARS-CoV-2 (PCR) Influenza A Untype (PCR) Influenza Type B (PCR) 09/23/24 09/22/24 09/22/24 00:02 22:25 18:53 WBC RBC Hgb Hct MCV MCH MCHC RDW Plt Count MPV Neut % (Auto) Lymph % (Auto) Mccracken % (Auto) Eos % (Auto) Baso % (Auto) Neut # (Auto) Lymph # (Auto) Mccracken # (Auto) Eos # (Auto) Baso # (Auto) Total Counted Neutrophils % (Manual) Lymphocytes % (Manual) Monocytes % (Manual) Platelet Estimate RBC Morphology D-Dimer VBG pH VBG pCO2 VBG pO2 VBG HCO3 VBG Total CO2 VBG O2 Saturation VBG Base Excess VBG Lactic Acid Sodium 144 Potassium 4.0 Chloride 112 H Carbon Dioxide 28 Anion Gap 8.0 BUN 35 H Creatinine 0.80 Estimated Creat Clear 83 Estimated GFR 74 Est GFR ( Amer) 89 Glucose 167 H D POC Glucose 142 H 245 H Hemoglobin A1c Lactate Calcium 8.8 Phosphorus 3.3 Magnesium 2.1 Total Bilirubin AST ALT Alkaline Phosphatase Troponin I Total Protein Albumin Globulin Albumin/Globulin Ratio Urine Color Urine Appearance Urine pH Ur Specific Richardson Urine Protein Urine Glucose (UA) Urine Ketones Urine Blood Urine Nitrate Urine Bilirubin Urine Urobilinogen Ur Leukocyte Esterase Urine RBC Urine WBC Ur Squamous Epith Cells Amorphous Sediment Urine Bacteria Acetone Level SARS-CoV-2 (PCR) Influenza A Untype (PCR) Influenza Type B (PCR) 09/22/24 09/22/24 09/22/24 18:43 18:09 17:12 WBC RBC Hgb Hct MCV MCH MCHC RDW Plt Count MPV Neut % (Auto) Lymph % (Auto) Mccracken % (Auto) Eos % (Auto) Baso % (Auto) Neut # (Auto) Lymph # (Auto) Mccracken # (Auto) Eos # (Auto) Baso # (Auto) Total Counted Neutrophils % (Manual) Lymphocytes % (Manual) Monocytes % (Manual) Platelet Estimate RBC Morphology D-Dimer VBG pH VBG pCO2 VBG pO2 VBG HCO3 VBG Total CO2 VBG O2 Saturation VBG Base Excess VBG Lactic Acid Sodium 142 Potassium 5.0 D Chloride 111 H Carbon Dioxide 22 Anion Gap 14.0 BUN 43 H Creatinine 0.80 Estimated Creat Clear 83 Estimated GFR 74 Est GFR ( Amer) 89 Glucose 225 H POC Glucose 217 H 160 H Hemoglobin A1c Lactate Calcium 9.4 Phosphorus 2.7 D Magnesium 2.3 Total Bilirubin AST ALT Alkaline Phosphatase Troponin I Total Protein Albumin Globulin Albumin/Globulin Ratio Urine Color Urine Appearance Urine pH Ur Specific Richardson Urine Protein Urine Glucose (UA) Urine Ketones Urine Blood Urine Nitrate Urine Bilirubin Urine Urobilinogen Ur Leukocyte Esterase Urine RBC Urine WBC Ur Squamous Epith Cells Amorphous Sediment Urine Bacteria Acetone Level SARS-CoV-2 (PCR) Influenza A Untype (PCR) Influenza Type B (PCR) 09/22/24 09/22/24 09/22/24 16:23 16:05 14:48 WBC RBC Hgb Hct MCV MCH MCHC RDW Plt Count MPV Neut % (Auto) Lymph % (Auto) Mccracken % (Auto) Eos % (Auto) Baso % (Auto) Neut # (Auto) Lymph # (Auto) Mccracken # (Auto) Eos # (Auto) Baso # (Auto) Total Counted Neutrophils % (Manual) Lymphocytes % (Manual) Monocytes % (Manual) Platelet Estimate RBC Morphology D-Dimer VBG pH VBG pCO2 VBG pO2 VBG HCO3 VBG Total CO2 VBG O2 Saturation VBG Base Excess VBG Lactic Acid Sodium Potassium Chloride Carbon Dioxide Anion Gap BUN Creatinine Estimated Creat Clear Estimated GFR Est GFR ( Amer) Glucose POC Glucose 156 H 195 H Hemoglobin A1c Lactate Calcium Phosphorus Magnesium Total Bilirubin AST ALT Alkaline Phosphatase Troponin I 0.02 Total Protein Albumin Globulin Albumin/Globulin Ratio Urine Color Urine Appearance Urine pH Ur Specific Richardson Urine Protein Urine Glucose (UA) Urine Ketones Urine Blood Urine Nitrate Urine Bilirubin Urine Urobilinogen Ur Leukocyte Esterase Urine RBC Urine WBC Ur Squamous Epith Cells Amorphous Sediment Urine Bacteria Acetone Level SARS-CoV-2 (PCR) Influenza A Untype (PCR) Influenza Type B (PCR) 09/22/24 09/22/24 09/22/24 14:23 12:20 10:45 WBC RBC Hgb Hct MCV MCH MCHC RDW Plt Count MPV Neut % (Auto) Lymph % (Auto) Mccracken % (Auto) Eos % (Auto) Baso % (Auto) Neut # (Auto) Lymph # (Auto) Mccracken # (Auto) Eos # (Auto) Baso # (Auto) Total Counted Neutrophils % (Manual) Lymphocytes % (Manual) Monocytes % (Manual) Platelet Estimate RBC Morphology D-Dimer VBG pH VBG pCO2 VBG pO2 VBG HCO3 VBG Total CO2 VBG O2 Saturation VBG Base Excess VBG Lactic Acid Sodium 145 145 Potassium 3.8 4.1 Chloride 110 H 104 Carbon Dioxide 28 21 L Anion Gap 10.8 24.1 H BUN 53 H 70 H Creatinine 0.90 D 1.30 H Estimated Creat Clear 74 51 Estimated GFR 65 42 L Est GFR ( Amer) 78 D 51 L Glucose 216 H D 274 H POC Glucose Hemoglobin A1c Lactate < 0.5 L Calcium 9.5 10.7 H Phosphorus 1.7 L Magnesium 2.3 D Total Bilirubin AST ALT Alkaline Phosphatase Troponin I 0.02 Total Protein Albumin Globulin Albumin/Globulin Ratio Urine Color Yellow Urine Appearance Cloudy Urine pH 6.0 Ur Specific Richardson 1.025 Urine Protein 1+ A Urine Glucose (UA) Trace Urine Ketones 2+ Urine Blood Trace-i Urine Nitrate Negative Urine Bilirubin 1+ A Urine Urobilinogen 0.2 Ur Leukocyte Esterase 2+ A Urine RBC Occasional Urine WBC 20-50 Ur Squamous Epith Cells 20-50 Amorphous Sediment 1+ Urine Bacteria 2+ Acetone Level SARS-CoV-2 (PCR) Influenza A Untype (PCR) Influenza Type B (PCR) 09/22/24 09/22/24 09/22/24 09:55 09:35 09:20 WBC 22.1 H* RBC 4.65 Hgb 13.9 Hct 39.8 MCV 85.6 MCH 29.9 MCHC 34.9 RDW 13.7 Plt Count 545 H MPV 9.3 Neut % (Auto) 95.5 H Lymph % (Auto) 1.7 L Mccracken % (Auto) 1.9 Eos % (Auto) 0.0 L Baso % (Auto) 0.1 Neut # (Auto) 21.1 H Lymph # (Auto) 0.4 L Mccracken # (Auto) 0.4 Eos # (Auto) 0.0 Baso # (Auto) 0.0 Total Counted 100 Neutrophils % (Manual) 94 H Lymphocytes % (Manual) 5 L Monocytes % (Manual) 1 L Platelet Estimate Moderate increase RBC Morphology Normal D-Dimer 0.29 VBG pH 7.47 H VBG pCO2 27.3 L VBG pO2 44.0 H VBG HCO3 19.5 L VBG Total CO2 20.3 L VBG O2 Saturation 77.3 H VBG Base Excess -4.2 L VBG Lactic Acid 2.8 H Sodium 145 Potassium 4.2 Chloride 104 Carbon Dioxide 22 Anion Gap 23.2 H BUN 71 H Creatinine 1.20 H Estimated Creat Clear 56 Estimated GFR 46 L Est GFR ( Amer) 56 L Glucose 276 H POC Glucose Hemoglobin A1c 7.7 H Lactate 2.4 H Calcium 10.7 H Phosphorus 2.2 L Magnesium 2.6 H Total Bilirubin 1.1 AST 46 H ALT 72 Alkaline Phosphatase 495 H Troponin I 0.02 Total Protein 8.4 H D Albumin 5.0 Globulin 3.4 H Albumin/Globulin Ratio 1.5 Urine Color Urine Appearance Urine pH Ur Specific Richardson Urine Protein Urine Glucose (UA) Urine Ketones Urine Blood Urine Nitrate Urine Bilirubin Urine Urobilinogen Ur Leukocyte Esterase Urine RBC Urine WBC Ur Squamous Epith Cells Amorphous Sediment Urine Bacteria Acetone Level Small SARS-CoV-2 (PCR) Not detected Influenza A Untype (PCR) Not detected Influenza Type B (PCR) Not detected DS: Diagnosis Discharge Diagnosis (1) DKA (diabetic ketoacidoses): Status: Resolved Code(s): E11.10 - Type 2 diabetes mellitus with ketoacidosis without coma Qualifiers: Diabetes mellitus complication detail: without coma Diabetes mellitus type: type 1 Qualified Code(s): E10.10 - Type 1 diabetes mellitus with ketoacidosis without coma (2) UTI (urinary tract infection): Status: Acute Code(s): N39.0 - Urinary tract infection, site not specified (3) High anion gap metabolic acidosis: Status: Resolved Code(s): E87.29 - Other acidosis (4) SIRS (systemic inflammatory response syndrome): Status: Resolved Code(s): R65.10 - Systemic inflammatory response syndrome (SIRS) of non-infectious origin without acute organ dysfunction (5) Leukocytosis: Status: Deleted Code(s): D72.829 - Elevated white blood cell count, unspecified Qualifiers: Leukocytosis type: unspecified Qualified Code(s): D72.829 - Elevated white blood cell count, unspecified (6) LOIS (acute kidney injury): Status: Resolved Code(s): N17.9 - Acute kidney failure, unspecified (7) GERD (gastroesophageal reflux disease): Status: Chronic Code(s): K21.9 - Gastro-esophageal reflux disease without esophagitis Qualifiers: Esophagitis presence: esophagitis presence not specified Qualified Code(s): K21.9 - Gastro-esophageal reflux disease without esophagitis (8) Flank pain: Status: Acute Code(s): R10.9 - Unspecified abdominal pain Meds Home Medications and Allergies Home Medications ?Medication ?Instructions ?Recorded ?Confirmed ?Type insulin lispro 100 unit/mL 0 units SQ DIRECTED 05/11/20 09/22/24 History subcutaneous solution dapagliflozin propanediol 10 mg 10 mg PO DAILY 02/24/21 09/22/24 History tablet aspirin 81 mg tablet,delayed 81 mg PO DAILY 10/23/23 09/22/24 History release lisinopril 2.5 mg tablet 2.5 mg PO DAILY 10/23/23 09/22/24 History pantoprazole 40 mg tablet,delayed 40 mg PO DAILY 10/23/23 09/22/24 History release atorvastatin 20 mg tablet 20 mg PO DAILY 09/22/24 09/22/24 History ergocalciferol (vitamin D2) 1,250 1,250 mcg PO WEEKLY 09/22/24 09/22/24 History mcg (50,000 unit) capsule levofloxacin 750 mg tablet 750 mg PO DAILY 4 days #4 tabs 09/23/24 Rx New Prescriptions to Start Prescriptions: levofloxacin Axel Evangelista Allergies Allergy/AdvReac Type Severity Reaction Status Date / Time No Known Allergies Allergy Verified 03/10/21 08:24 Discharge Plan Disposition Patient Disposition: Home, Self-Care Condition: Fair Follow up Plan Follow up with: Kelsey Cabezas [Other] - 10/06/24 1:00 pm Prescriptions/Medication Reconciliation: New levofloxacin 750 mg tablet 750 mg PO DAILY 4 Days Qty: 4 0RF Continued insulin lispro 100 UNIT/ML solution 0 units SQ DIRECTED Rx Instructions: USES SLIDING SCALE WITH OMNIPOD dapagliflozin propanediol 10 MG tablet 10 mg PO DAILY atorvastatin 20 mg tablet 20 mg PO DAILY Patient Comments: TAKE 1 TABLET BY MOUTH ONCE DAILY FOR 90 DAYS ergocalciferol (vitamin D2) 1,250 mcg (50,000 unit) capsule 1,250 mcg PO WEEKLY Patient Comments: TAKE 1 CAPSULE BY MOUTH ONCE A WEEK lisinopril 2.5 mg tablet 2.5 mg PO DAILY aspirin 81 mg tablet,delayed release (DR/EC) 81 mg PO DAILY pantoprazole 40 mg tablet,delayed release (DR/EC) 40 mg PO DAILY Problem Reconciliation Problems Reviewed?: Yes Patient Discharge Instructions ACTIVITY: Continue current activity DIET: continue same diet and diabetic diet Print Language: Ukrainian Providers Primary Care Provider: Provider,Referral Admit Provider: Axel Evangelista Attending Provider: Axel Evangelista
[2024-09-23] MEDS: DAPAGLIFLOZIN PROPANEDIOL 10 MG TABLET PO (08:42)
[2024-09-23] MEDS: PANTOPRAZOLE 40MG TABLET 40 MG PO (08:42)
[2024-09-23] MEDS: LISINOPRIL 2.5MG TABLET 2.5 MG PO (08:42)
[2024-09-23] MEDS: ASPIRIN EC 81MG TABLET 81 MG PO (08:42)
[2024-09-23] MEDS: ENOXAPARIN 40MG/0.4ML SYRINGE 40 MG SUBCUT (08:42)
[2024-09-23 08:45] LABS: POC Glucose,Bedside 160 (70-110)
== END 2024-09-23 12:05 | disposition home or self-care (01) ==
LOC: ER 13:16 → ICU 14:22
PROVIDERS: Admitting Provider Internal Medicine Adolescent Medicine; Emergency Provider Emergency Medicine; Visit Provider Internal Medicine Adolescent Medicine
DX: E11.10 Type 2 diabetes mellitus with ketoacidosis without coma (principal); N17.9 Acute kidney failure, unspecified; K21.9 Gastro-esophageal reflux disease without esophagitis; I10 Essential (primary) hypertension; E86.0 Dehydration; N39.0 Urinary tract infection, site not specified; Z96.41 Presence of insulin pump (external) (internal); T38.3X6A Underdosing of insulin and oral hypoglycemic [antidiabetic] drugs, initial encounter; Z91.128 Patient's intentional underdosing of medication regimen for other reason
CPT/HCPCS: 36556; 36415; 71045; 74177; 80048; 80053; 81001; 82009; 82803; 82962; 83036; 83605; 83735; 84100; 84484; 85007; 85025; 85378; 87040; 87086; 87088; 87186; 87636; 93005; 99291; C1751; G0378; J1650; J2405; J2550; J2765; J3372; J7030; J7042; Q9967

== ENCOUNTER 2024-12-16 12:18 | Outpatient (CLI) | payer OTHER, SELFPAY ==
[2024-12-21 13:35] LABS: Lyme B. burgdorferi PCR Blood Negative (Negative)
== END 2024-12-16 23:59 | disposition home or self-care (01) ==
LOC: LAB.DROPOF 12-18 12:19
PROVIDERS: PCP Nurse Practitioner; Visit Provider Nurse Practitioner
DX: R21 Rash and other nonspecific skin eruption (principal)
CPT/HCPCS: 87476